=== PATIENT | male | born 1970 | race Caucasian/White ===

== ENCOUNTER 2019-10-10 17:16 | Inpatient (IN) | payer OTHER ==
--- NOTE | 2019-10-10 17:41 | XR ---
EXAMINATION TYPE: XR pelvis AP view DATE OF EXAM: 10/10/2019 CLINICAL HISTORY: Pain after fall injury. TECHNIQUE: A single AP view of the pelvis is obtained. COMPARISON: None. FINDINGS: There is no acute fracture/dislocation evident in the pelvis. Mild axial joint space loss left greater than right hips with mild acetabular spurring. Sacroiliac joints are preserved. Pubic sy mphysis is intact. The overlying soft tissue appears unremarkable. IMPRESSION: There is no acute fracture or dislocation in the pelvis.
[2019-10-10] MEDS ORDERED: DIPH,PERTUS(ACELL)TETVAC-LF 0.5 ML VIAL IM ONE (17:43)
--- NOTE | 2019-10-10 17:43 | XR ---
EXAMINATION TYPE: XR chest 1V portable DATE OF EXAM: 10/10/2019 COMPARISON: Chest x-ray June 03, 2015 HISTORY: Pain from fall injury. TECHNIQUE: Single frontal view of the chest is obtained. FINDINGS: There is new Lateral left basilar opacity. Poor inspiration. Right lung is clear. The card iac silhouette size remains enlarged. Acute displaced fracture distal one third of left clavicle. Pro bable multiple left lateral acute displaced rib fractures. IMPRESSION: Poor inspiration with left lateral basilar acute infiltrate and/or atelectasis. Displace d acute distal left clavicular fracture. Probable multiple displaced left lateral acute rib fractures . CT is ordered.
[2019-10-10] MEDS ORDERED: fentaNYL (PF) 50 MCG/ML 2 ML AMP IVP STA (17:45)
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
[2019-10-10 17:53] LABS: Basophils # (A) 0.1 k/uL (0-0.2); Basophils % (A) 0 %; Eosinophils # (A) 0.3 k/uL (0-0.7); Eosinophils % (A) 2 %; HCT 46.1 % (39.0-53.0); HGB 14.6 gm/dL (13.0-17.5); Lymphocytes # (A) 2.8 k/uL (1.0-4.8); Lymphocytes % (A) 20 %; MCH 29.4 pg (25.0-35.0); MCHC 31.6 g/dL (31.0-37.0); MCV 93.2 fL (80.0-100.0); Mean Platelet Volume 7.1; Monocytes # (A) 0.4 k/uL (0-1.0); Monocytes % (A) 3 %; Neutrophils # (A) 9.9 k/uL (1.3-7.7); Neutrophils % (A) 73 %; Platelet Count 282 k/uL (150-450); RBC 4.95 m/uL (4.30-5.90); RDW 13.5 % (11.5-15.5); WBC 13.7 k/uL (3.8-10.6)
[2019-10-10 18:03] LABS: Albumin 4.8 g/dL (3.5-5.0); Calcium 9.4 mg/dL (8.4-10.2); Total Bilirubin 0.9 mg/dL (0.2-1.3); Total Protein 7.9 g/dL (6.3-8.2)
--- NOTE | 2019-10-10 18:15 | CT ---
EXAMINATION TYPE: CT brain donatoine wo con DATE OF EXAM: 10/10/2019 COMPARISON: CT brain March 23, 2018 HISTORY: Fall injury with headache and neck pain. CT DLP: 1828.5 mGycm. Automated Exposure Control for Dose Reduction was Utilized. TECHNIQUE: CT scan of the head and cervical spine are performed without contrast. FINDINGS: There is no acute intracranial hemorrhage or midline shift identified. Mild ventricular a nd sulcal prominence. Some low attenuation in the periventricular white matter. Old lacunar infarcts right basal ganglia and near junction of internal capsule and right thalamus. The calvarium is intact . The globes are intact and the visualized sinuses are clear. Vascular calcification distal internal carotid arteries bilaterally. Cervical spine is visualized in its entirety from C1 through upper thoracic levels and demonstrates s traightened alignment without evidence of acute fracture or dislocation. Prevertebral soft tissue ap pears within normal limits. The C1-C2 articulation is within normal limits on the coronal images. V ertebral body heights are maintained. Mild disc space narrowing and mild to moderate anterior spurrin g C5-C6 and C6-C7 levels. Subtle spondylolisthesis or grade 1 retrolisthesis C5 on C6 and C6 on C7. A xial images show uncovertebral facet degenerative changes bilaterally at these levels along with juana inal spurring contributing to bilateral neural foraminal narrowing. Spinal canal is preserved. Greate r than 1 cm lower pole right thyroid nodule axial image 94 warrants nonemergent ultrasound follow-up. The lung apices show no pneumothorax IMPRESSION: 1. There is no acute fracture or dislocation evident in the cervical spine. 2. No acute intracranial hemorrhage or midline shift is seen. Mild age-related cerebral atrophy and m ild to moderate chronic small vessel ischemic change with old right-sided lacunar infarcts.
[2019-10-10 18:23] LABS: INR 0.9 (<1.2); Prothrombin Time 9.7 sec (9.0-12.0)
[2019-10-10 18:27] LABS: Partial Thromboplastin Time 20.4 sec (22.0-30.0)
[2019-10-10] MEDS ORDERED: SODIUM CHLORIDE 0.9% 1,000 ML IV STA (18:28)
[2019-10-10] MEDS ORDERED: NALOXONE 0.4 MG/ML 1 ML VIAL IV PRN (18:30)
[2019-10-10] MEDS ORDERED: HYDROcodone/APAP 5-325MG 1 EACH TAB PO PRN (18:30)
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
[2019-10-10] MEDS ORDERED: MORPHINE SULFATE 4 MG/ML SYRINGE IVP PRN (18:37)
--- NOTE | 2019-10-10 19:02 | XR ---
EXAMINATION TYPE: XR forearm LT DATE OF EXAM: 10/10/2019 CLINICAL HISTORY: Injury with pain TECHNIQUE: Two views of the left forearm are obtained. COMPARISON: None. FINDINGS: There is no acute fracture or dislocation seen in the left radius or ulna. The left elbow and wrist joints appear within normal limits. Slightly suboptimal evaluation of elbow without 90 deg ree positioning or incomplete flexion. Volar surface ulnar sided vascular calcification is present. IMPRESSION: There is no acute fracture or dislocation seen in the left radius or ulna.
[2019-10-10] MEDS: SODIUM CHLORIDE 0.9% 1,000 ML IV SCH (20:26)
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
[2019-10-10 23:40] LABS: Glucose,Whole Blood 163 mg/dL (75-99)
[2019-10-11] MEDS: HYDROmorphone 1 MG/ML 1 ML SYRINGE IVP PRN ×6 (01:46→17:35)
[2019-10-11] MEDS: SODIUM CHLORIDE 0.9% 1,000 ML IV SCH ×3 (05:02→20:13)
[2019-10-11 06:02] LABS: Basophils % (A) 0 %; Eosinophils # (A) 0.2 k/uL (0-0.7); Eosinophils % (A) 1 %; HGB 12.9 gm/dL (13.0-17.5); Lymphocytes # (A) 0.8 k/uL (1.0-4.8); Lymphocytes % (A) 6 %; MCH 30.3 pg (25.0-35.0); MCHC 32.2 g/dL (31.0-37.0); MCV 94.2 fL (80.0-100.0); Mean Platelet Volume 7.9; Monocytes # (A) 0.7 k/uL (0-1.0); Monocytes % (A) 5 %; Neutrophils # (A) 12.3 k/uL (1.3-7.7); Neutrophils % (A) 88 %; Platelet Count 217 k/uL (150-450); RBC 4.25 m/uL (4.30-5.90)
[2019-10-11 06:15] LABS: ALT 67 U/L (4-49); AST 105 U/L (17-59); African American GFR (CKD) >90 (>60 ml/min/1.73 sqM); Albumin 4.1 g/dL (3.5-5.0); Alkaline Phosphatase 65 U/L (38-126); Anion Gap 8 mmol/L; Blood Urea Nitrogen 16 mg/dL (9-20); Carbon Dioxide 25 mmol/L (22-30); Chloride 100 mmol/L (98-107); Glucose 152 mg/dL (74-99); Non-African American GFR(CKD) >90 (>60 ml/min/1.73 sqM); Potassium 4.8 mmol/L (3.5-5.1); Sodium 133 mmol/L (137-145); Total Protein 6.8 g/dL (6.3-8.2)
[2019-10-11] MEDS: PANTOPRAZOLE 40 MG TABLET PO SCH (06:38)
--- NOTE | 2019-10-11 07:21 | XR ---
EXAMINATION TYPE: XR chest 1V portable DATE OF EXAM: 10/11/2019 COMPARISON: 10/10/2019 HISTORY: Pain TECHNIQUE: Single frontal view of the chest is obtained. FINDINGS: Left-sided rib fractures are seen with the left clavicular fracture is not excluded deform ity of the scapula is bilateral consolidation and pleural effusion with cardiomegaly biapical pleural thickening. No sizable pneumothorax. Hypertrophic and degenerative change of the spine. IMPRESSION: 1. Bilateral lower lobe infiltrate and small left effusion with no sizable pneumothorax. 2. Left clavicular and multiple left-sided rib fractures.
[2019-10-11] MEDS: METOPROLOL TARTRATE 50 MG TAB PO SCH ×2 (08:13→20:12)
[2019-10-11] MEDS: amLODIPine 10 MG TAB PO SCH (08:13)
[2019-10-11] MEDS ORDERED: DULoxetine HCL 30 MG CAPSULE.DR PO SCH (09:00)
[2019-10-11] MEDS ORDERED: HYDROcodone/APAP 7.5-325MG 1 EACH TAB PO SCH (09:00)
[2019-10-11] MEDS: HEPARIN SODIUM,PORCINE 5,000 UNIT/ML 1 ML VIAL SQ SCH ×2 (09:37→20:12)
--- NOTE | 2019-10-11 10:35 | P.CNOR ---
History of Present Illness - [facility] Consult date: 10/11/19 Consult reason: other (Left shoulder pain) History of present illness: Patient is a 49-year-old [id number] male who presents after falling off his tractor yesterday injuring his left side. He denied loss of consciousness. He notes left chest and shoulder pain. Review of Systems As per [facility] Past Medical History Past Medical History: Hypertension Additional Past Medical History / Comment(s): back pain, left CVA. History of Any Multi-Drug Resistant Organisms: None Reported Past Surgical History: Orthopedic Surgery Additional Past Surgical History / Comment(s): leg surgery, right ankle right knee Past Psychological History: No Psychological Hx Reported Smoking Status: Former smoker Past Alcohol Use History: Occasional, Rare Past Drug Use History: None Reported Medications and Allergies Home Medications Medication Instructions Recorded Confirmed Type HYDROcodone/APAP 7.5-325MG [[place] 1 tab PO BID 10/10/19 10/10/19 History 7.5-325] Metoprolol Tartrate [Lopressor] 50 mg PO BID 10/10/19 10/10/19 History amLODIPine [Norvasc] 10 mg PO DAILY 10/10/19 10/10/19 History DULoxetine HCL [Cymbalta] 60 mg PO DAILY 10/11/19 10/11/19 History Allergies Allergy/AdvReac Type Severity Reaction Status Date / Time No Known Allergies Allergy Verified 10/10/19 19:09 Physical Examination - Shoulder left Appearance: other (Mild superior swelling left distal clavicle/acromioclavicular joint) Tenderness with palpation: clavicular (Distal clavicle/acromioclavicular joint) Results Nontender cervical, thoracic and lumbar spine/no step-off Tender left distal clavicle/acromioclavicular joint, no tenting Abrasions left dorsal radial proximal forearm Full range of motion left elbow Nontender right upper extremity Pelvis stable to external rotation stress Painless logroll both hips Nontender both knees, ankles and feet Neurovascular exam intact bilateral upper and lower extremities - Labs Labs: Abnormal Lab Results - Last 24 Hours (Table) 10/10/19 10/10/19 10/10/19 Range/Units 17:42 17:42 17:42 WBC 13.7 H (3.8-10.6) k/uL RBC (4.30-5.90) m/uL Hgb (13.0-17.5) gm/dL Neutrophils # 9.9 H (1.3-7.7) k/uL Lymphocytes # (1.0-4.8) k/uL APTT 20.4 L (22.0-30.0) sec Sodium (137-145) mmol/L Carbon Dioxide 18 L (22-30) mmol/L Glucose 188 H (74-99) mg/dL POC Glucose (mg/dL) (75-99) mg/dL AST 126 H (17-59) U/L ALT 77 H (4-49) U/L 10/10/19 10/11/19 10/11/19 Range/Units 23:29 05:31 05:31 WBC 14.0 H (3.8-10.6) k/uL RBC 4.25 L (4.30-5.90) m/uL Hgb 12.9 L (13.0-17.5) gm/dL Neutrophils # 12.3 H (1.3-7.7) k/uL Lymphocytes # 0.8 L (1.0-4.8) k/uL APTT (22.0-30.0) sec Sodium 133 L (137-145) mmol/L Carbon Dioxide (22-30) mmol/L Glucose 152 H (74-99) mg/dL POC Glucose (mg/dL) 163 H (75-99) mg/dL AST 105 H (17-59) U/L ALT 67 H (4-49) U/L H & H 10/10/19 10/11/19 Range/Units 17:42 05:31 Hgb 14.6 12.9 L (13.0-17.5) gm/dL Hct 46.1 40.0 (39.0-53.0) % Coagulation 10/10/19 Range/Units 17:42 INR 0.9 (<1.2) Result Diagrams: 10/11/19 05:31 10/11/19 05:31 - Diagnostic results Shoulder x-ray: image reviewed (Comminuted left distal clavicle fracture) Assessment and Plan Assessment: Left closed/comminuted distal clavicle fracture Multiple left rib fractures/flail chest Left dorsal radial forearm abrasion Plan: I talked to the patient regarding his left clavicle fracture and recommend conservative measures. We will have him wear sling time buyer. I recommend a dressing for his superficial abrasions of his forearm. We will likely have him follow up as an outpatient in 2 weeks regarding his clavicle fracture. Time with Patient: Greater than 30
--- NOTE | 2019-10-11 10:43 | XR ---
EXAMINATION TYPE: XR clavicle LT DATE OF EXAM: 10/11/2019 COMPARISON: NONE HISTORY: Pain TECHNIQUE: 2 view submitted FINDINGS: There is a comminuted displaced fracture of the distal clavicle extending to the AC joint. Suspicion for fracture involving the anterior margin of the left third rib which is only partially in cluded on exam. IMPRESSION: Displaced comminuted fracture distal clavicle extending to the AC joint. See above.
[2019-10-11] MEDS ORDERED: MIDAZOLAM 1 MG/ML 5 ML VIAL IV STA (11:09)
[2019-10-11] MEDS ORDERED: MIDAZOLAM 2 MG/2 ML VIAL ONE ×2 (11:10→11:14)
[2019-10-11] MEDS ORDERED: MIDAZOLAM 2 MG/2 ML VIAL IVP ONE (11:10)
[2019-10-11] MEDS ORDERED: HYDROmorphone (PF) 1 MG/ML ONE (11:10)
[2019-10-11] MEDS ORDERED: NALOXONE 0.4 MG/ML 1 ML VIAL IV PRN (11:36)
[2019-10-11] MEDS: ROPIVACAINE 250 MG, fentaNYL (PF) 1,250 MCG in SODIUM CHLORIDE 0.9% 175 ML EPIDURAL PRN (12:48)
[2019-10-11 13:19] LABS: Hepatitis A Antibody IgM Non-Reactive (Non-Reactive); Hepatitis B Core IgM Non-Reactive (Non-Reactive); Hepatitis B Surface Antigen Non-Reactive (Non-Reactive); Hepatitis C IgG Antibody Non-Reactive (Non-Reactive)
--- NOTE | 2019-10-11 13:59 | P.CNPUL ---
History of Present Illness Consult date: 10/11/19 Requesting physician: Edmar Valdivia Reason for consult: other (Multiple rib fractures secondary to trauma) Chief complaint: Multiple injury, post tractor accident and multiple rib fractures History of present illness: This is a 49-year-old white male, known history of hypertension, COPD, obesity, chronic low back pain, patient fell off his tractor yesterday, and it was over 10 feet high. Patient landed on his left side of the chest, developed significant pain and discomfort over his left chest and over his left clavicle. Patient was brought into the ER, CT of the chest showed small tiny hydropneumothorax, multiple rib fractures anterolaterally, 2 through 7. And posterior leaf 5 through 11. Patient was also noted to have small bowel and proximal sigmoid involvement with mild hematoma but no perforation and no free air. No pelvic fractures were noted. Patient was noted to have a left clavicular fracture and abrasion of left forearm. Patient was admitted, and this consult was initiated. Reviewed the CT of the chest, reviewed the chest x- ray, the pneumothorax was very small, and could barely be seen on CT of the chest, not seen on chest x-ray. Patient is in a left arm sling, seen by orthopedics on consultation, and the recommendation was conservative measures for his clavicular fracture. And recommended immobilization of the left upper extremity. Pain seems to be fairly well controlled, anesthesia was consulted for possible epidural however the pain seems to be controlled with Dilaudid and oral narcotics. Patient is on 6 L nasal cannula, not in distress, chest x-ray showed small left effusion, and no sizable pneumothorax, bibasilar atelectasis/infiltrates noted. Possible contusion. Review of Systems ONSTITUTIONAL: Negative EYES: No icterus sclerae, no conjunctivitis. EARS, NOSE, MOUTH, THROAT, and FACE: Negative RESPIRATORY: As noted in HPI. CARDIOVASCULAR: Negative GASTROINTESTINAL: Bloating without pain. GENITOURINARY: Negative. INTEGUMENT/BREAST: Negative HEMATOLOGIC/LYMPHATIC: Negative MUSCULOSKELTAL: Multiple bruises and discomfort left forearm in the chest area. NEURLOGICAL: Negative BEHAVIORAL/PSYCH: Negative. ENDOCRINE: Negative. Past Medical History Past Medical History: Hypertension Additional Past Medical History / Comment(s): back pain, left CVA. History of Any Multi-Drug Resistant Organisms: None Reported Past Surgical History: Orthopedic Surgery Additional Past Surgical History / Comment(s): leg surgery, right ankle right knee Past Psychological History: No Psychological Hx Reported Smoking Status: Former smoker Past Alcohol Use History: Occasional, Rare Past Drug Use History: None Reported Medications and Allergies Home Medications Medication Instructions Recorded Confirmed Type HYDROcodone/APAP 7.5-325MG [[place] 1 tab PO BID 10/10/19 10/10/19 History 7.5-325] Metoprolol Tartrate [Lopressor] 50 mg PO BID 10/10/19 10/10/19 History amLODIPine [Norvasc] 10 mg PO DAILY 10/10/19 10/10/19 History DULoxetine HCL [Cymbalta] 60 mg PO DAILY 10/11/19 10/11/19 History Allergies Allergy/AdvReac Type Severity Reaction Status Date / Time No Known Allergies Allergy Verified 10/10/19 19:09 Physical Exam Vitals: Vital Signs Temp Pulse Resp BP Pulse Ox 10/11/19 12:00 97.6 F 93 26 H 140/98 93 L 10/11/19 11:00 92 25 H 135/94 95 10/11/19 10:00 93 25 H 146/95 96 10/11/19 09:00 114 H 25 H 159/98 93 L 10/11/19 08:00 97.8 F 114 H 28 H 154/89 93 L 10/11/19 07:00 108 H 22 142/99 93 L 10/11/19 06:30 103 H 22 94 L 10/11/19 06:00 107 H 25 H 149/102 94 L 10/11/19 05:30 104 H 21 93 L 10/11/19 05:00 102 H 26 H 144/96 94 L 10/11/19 04:30 108 H 26 H 94 L 10/11/19 04:00 97.8 F 103 H 26 H 131/95 95 10/11/19 03:30 105 H 25 H 94 L 10/11/19 03:00 105 H 24 142/91 94 L 10/11/19 02:30 105 H 22 94 L 10/11/19 02:00 103 H 22 140/94 94 L 10/11/19 01:30 105 H 26 H 140/94 93 L 10/11/19 01:00 103 H 27 H 138/92 95 10/11/19 00:30 103 H 25 H 94 L 10/11/19 00:03 95 10/11/19 00:00 99.5 F 103 H 21 151/100 95 10/10/19 23:52 105 H 22 96 10/10/19 23:50 107 H 28 H 96 10/10/19 23:40 99.5 F 106 H 27 H 151/100 96 10/10/19 23:30 110 H 33 H 95 10/10/19 23:28 97 10/10/19 23:09 98.6 F 109 H 20 144/106 96 10/10/19 22:24 108 H 20 142/87 94 L 10/10/19 21:39 111 H 22 137/94 95 10/10/19 20:30 102 H 22 138/96 96 10/10/19 17:34 98.2 F 110 H 22 138/62 93 L Intake and Output 10/10/19 10/11/19 10/11/19 22:59 06:59 14:59 Intake Total 840 480 Output Total 485 200 Balance 355 280 Intake: IV 360 Sodium Chloride 0.9% 1, 360 000 ml @ 120 mls/hr IV . Q8H20M [facility] Rx#:[id number] Intake, IV Titration 840 120 Amount Sodium Chloride 0.9% 1, 840 120 000 ml @ 120 mls/hr IV . Q8H20M [facility] Rx#:[id number] Output: Urine 485 200 Other: Voiding Method Indwelling Catheter Indwelling Catheter Weight 108.862 kg 117.2 kg Physical Exam: Revealed 49-year-old white male, obese, in no distress, on 6 L nasal cannula, O2 saturations 96%. Head: Atraumatic, normocephalic. HEENT:[Neck is supple.] [No neck masses.] [No thyromegaly.] [No JVD.] Chest there is evidence of chest wall tenderness, and minimal bruising over the left side of the chest, diminished breath sounds at the bases, no crackles or rhonchi or wheezes. Cardiac Exam: [Normal S1 and S2, no S3 gallop, no murmur.] Abdomen: [Obese, slightly distended, abdomen nontender, no megaly, no rebound, no guarding, normal bowel sounds.] Extremities: [No clubbing, no edema, no cyanosis.] Left upper extremity is in a sling, and there is left forearm abrasion, left clavicular deformity is noted. Tender left distal clavicular area. Neurological Exam: [No focal neurologic deficit.] Skin: Abrasion of dorsal radial proximal forearm. Results - Laboratory Findings CBC and BMP: 10/11/19 05:31 10/11/19 05:31 PT/INR, D-dimer PT 9.7 sec (9.0-12.0) 10/10/19 17:42 INR 0.9 (<1.2) 10/10/19 17:42 Abnormal lab findings: Abnormal Labs 10/10/19 10/10/19 10/10/19 17:42 17:42 17:42 WBC 13.7 H RBC Hgb Neutrophils # 9.9 H Lymphocytes # APTT 20.4 L Sodium Carbon Dioxide 18 L Glucose 188 H POC Glucose (mg/dL) AST 126 H ALT 77 H 10/10/19 10/11/19 10/11/19 23:29 05:31 05:31 WBC 14.0 H RBC 4.25 L Hgb 12.9 L Neutrophils # 12.3 H Lymphocytes # 0.8 L APTT Sodium 133 L Carbon Dioxide Glucose 152 H POC Glucose (mg/dL) 163 H AST 105 H ALT 67 H - Diagnostic Findings Additional studies: All radiographic studies were reviewed including x-ray of the clavicle, chest x- ray, CT of the abdomen and chest and pelvis, CT of the head and cervical spine, and x-rays of pelvis. Assessment and Plan Assessment: Impression: Status post tractor accident/fall, Multiple left-sided rib fractures, but no significant pneumothorax. No significant hemopneumothorax. Pulmonary contusion is strongly suspected. Proximal sigmoid hematoma but no perforation. Benign essential hypertension. Type 2 diabetes. Chronic low back pain. History of depression. Recommendation: Continue present supportive care measures. Continue GI and DVT prophylaxis. Agree with the different consultants on the case regarding present supportive care measures. Resume home meds. No need for any surgical intervention at this point. But the patient is being followed by general surgery and by orthopedics. Continue incentive spirometer. Continue pain control. We will continue to monitor in the ICU for the next 24 hours. Time with Patient: Greater than 30
--- NOTE | 2019-10-11 14:00 | P.GSHP ---
History of Present Illness H&P Date: 10/11/19 CHIEF COMPLAINT: Multiple injury after trauma from a fall from tractor HISTORY OF PRESENT ILLNESS: This is a 49-year-old male with a known history of CVA that is affected his left side, hypertension, obesity and chronic lower back pain. Patient came into the ER after he fell from his tractor. He reports since his stroke that his balance has not been good. He reports that he was picking up something in his tractor lost balance and fell out of bed. It is about a 10 foot drop. He had significant pain on his left side with shortness of breath. And trauma to his left arm. [facility] workup. He is currently in the ICU. Patient had an alcohol level of 82. He had a computed tomography scan of the chest and pelvis revealing tiny left-sided pneumothorax and multiple acute nondisplaced and displaced rib fractures on the left side. Positive for a flail chest with consecutive ribs fractured at 2 levels. In bowel injury involving the small bowel loop of the anterior and mid abdomen and more prominent proximal sigmoid colon left pelvis. He denies any daily alcohol use. In states that he did not have any alcohol yesterday. Patient denies any nausea vomiting, bowel movement changes, any fevers chills or sweats. Patient is followed closely by critical care pain, medical team and orthopedics. Pain service also following and patient is receiving epidural to help with pain control. PAST MEDICAL HISTORY: See list. PAST SURGICAL HISTORY: See list. MEDICATIONS: See list. ALLERGIES: See list. SOCIAL HISTORY: No illicit drug use. REVIEW OF SYSTEMS: CONSTITUTIONAL: Denies fever or chills. HEENT: Denies blurred vision, vision changes, or eye pain. Denies hemoptysis CARDIOVASCULAR: Denies chest pain or pressure. RESPIRATORY: No shortness of breath. GASTROINTESTINAL: See HPI for pertinent findings HEMATOLOGIC: Denies bleeding disorders. GENITOURINARY: Denies any blood in urine or increased urinary frequency. SKIN: Denies pruitis. Denies rash. PHYSICAL EXAM: VITAL SIGNS: Reviewed GENERAL: Well-developed in no acute distress. HEENT: No sclera icterus. Extraocular movements grossly intact. Moist buccal mucosa. Head is atraumatic, normocephalic. No nasal drainage. ABDOMEN: Soft. Obese. Nondistended. Nontender NEUROLOGIC: Alert and oriented. Cranial nerves II through XII grossly intact. LABORATORY DATA: WBC 14 AST 105 ALT 67 EtOH level 82 IMAGING: Computed tomography scan of the chest abdomen pelvis suboptimal study with tiny left-sided hydropneumothorax, multiple acute nondisplaced and displaced left rib fractures involving the anterior lateral left second through seventh ribs and posterior fifth through 11th ribs. Positive flail chest with 3 consecutive ribs fractured at 2 levels. Bowel injury involving small bowel loop anterior mid abdomen and more prominent proximal sigmoid colon left pelvis. No free air. Small left-sided pelvic fluid collection or hematoma noted. Computed tomography scan of the cervical spine is negative for fractures in the brain no acute intracranial hemorrhage or midline shift Chest x-ray bilateral lobe infiltrate and small left effusion with no sizable pneumothorax. Left ventricular and multiple left-sided rib fractures ASSESSMENT: 1. Fall from tractor with multiple injuries 2. Bowel injury and contusion with possible small bowel hematoma. Computed tomography scan of the chest abdomen and pelvis reviewed by Dr. Valdivia 3. Multiple left-sided rib fractures with flail chest 4. Left closed distal clavicular fracture PLAN: -For diet continue nothing by mouth except for ice chips and medications -Anesthesia service consulted for pain management -Orthopedic consulted for left clavicular fracture -DVT prophylaxis subcu heparin GI prophylaxis Protonix Physician Sports Medicine Trainer note has been reviewed by physician. Signing provider agrees with the documented findings, assessment, and plan of care. Past Medical History Past Medical History: Hypertension Additional Past Medical History / Comment(s): back pain, left CVA. History of Any Multi-Drug Resistant Organisms: None Reported Past Surgical History: Orthopedic Surgery Additional Past Surgical History / Comment(s): leg surgery, right ankle right knee Past Psychological History: No Psychological Hx Reported Smoking Status: Former smoker Past Alcohol Use History: Occasional, Rare Past Drug Use History: None Reported Medications and Allergies Home Medications Medication Instructions Recorded Confirmed Type HYDROcodone/APAP 7.5-325MG [[place] 1 tab PO BID 10/10/19 10/10/19 History 7.5-325] Metoprolol Tartrate [Lopressor] 50 mg PO BID 10/10/19 10/10/19 History amLODIPine [Norvasc] 10 mg PO DAILY 10/10/19 10/10/19 History DULoxetine HCL [Cymbalta] 60 mg PO DAILY 10/11/19 10/11/19 History Allergies Allergy/AdvReac Type Severity Reaction Status Date / Time No Known Allergies Allergy Verified 10/10/19 19:09 Surgical - Exam Vital Signs Temp Pulse Resp BP Pulse Ox 98.2 F 110 H 22 138/62 93 L 10/10/19 17:34 10/10/19 17:34 10/10/19 17:34 10/10/19 17:34 10/10/19 17:34 Results - Labs 10/11/19 05:31 10/11/19 05:31 Abnormal Lab Results - Last 24 Hours (Table) 10/10/19 10/10/19 10/10/19 Range/Units 17:42 17:42 17:42 WBC 13.7 H (3.8-10.6) k/uL RBC (4.30-5.90) m/uL Hgb (13.0-17.5) gm/dL Neutrophils # 9.9 H (1.3-7.7) k/uL Lymphocytes # (1.0-4.8) k/uL APTT 20.4 L (22.0-30.0) sec Sodium (137-145) mmol/L Carbon Dioxide 18 L (22-30) mmol/L Glucose 188 H (74-99) mg/dL POC Glucose (mg/dL) (75-99) mg/dL AST 126 H (17-59) U/L ALT 77 H (4-49) U/L 10/10/19 10/11/19 10/11/19 Range/Units 23:29 05:31 05:31 WBC 14.0 H (3.8-10.6) k/uL RBC 4.25 L (4.30-5.90) m/uL Hgb 12.9 L (13.0-17.5) gm/dL Neutrophils # 12.3 H (1.3-7.7) k/uL Lymphocytes # 0.8 L (1.0-4.8) k/uL APTT (22.0-30.0) sec Sodium 133 L (137-145) mmol/L Carbon Dioxide (22-30) mmol/L Glucose 152 H (74-99) mg/dL POC Glucose (mg/dL) 163 H (75-99) mg/dL AST 105 H (17-59) U/L ALT 67 H (4-49) U/L Diabetes panel 10/10/19 10/11/19 Range/Units 17:42 05:31 Sodium 137 133 L (137-145) mmol/L Potassium 5.0 4.8 (3.5-5.1) mmol/L Chloride 101 100 (98-107) mmol/L Carbon Dioxide 18 L 25 (22-30) mmol/L BUN 15 16 (9-20) mg/dL Creatinine 1.12 0.77 (0.66-1.25) mg/dL Glucose 188 H 152 H (74-99) mg/dL Calcium 9.4 9.0 (8.4-10.2) mg/dL AST 126 H 105 H (17-59) U/L ALT 77 H 67 H (4-49) U/L Alkaline Phosphatase 66 65 (38-126) U/L Total Protein 7.9 6.8 (6.3-8.2) g/dL Albumin 4.8 4.1 (3.5-5.0) g/dL Calcium panel 10/10/19 10/11/19 Range/Units 17:42 05:31 Calcium 9.4 9.0 (8.4-10.2) mg/dL Albumin 4.8 4.1 (3.5-5.0) g/dL Pituitary panel 10/10/19 10/11/19 Range/Units 17:42 05:31 Sodium 137 133 L (137-145) mmol/L Potassium 5.0 4.8 (3.5-5.1) mmol/L Chloride 101 100 (98-107) mmol/L Carbon Dioxide 18 L 25 (22-30) mmol/L BUN 15 16 (9-20) mg/dL Creatinine 1.12 0.77 (0.66-1.25) mg/dL Glucose 188 H 152 H (74-99) mg/dL Calcium 9.4 9.0 (8.4-10.2) mg/dL Adrenal panel 10/10/19 10/11/19 Range/Units 17:42 05:31 Sodium 137 133 L (137-145) mmol/L Potassium 5.0 4.8 (3.5-5.1) mmol/L Chloride 101 100 (98-107) mmol/L Carbon Dioxide 18 L 25 (22-30) mmol/L BUN 15 16 (9-20) mg/dL Creatinine 1.12 0.77 (0.66-1.25) mg/dL Glucose 188 H 152 H (74-99) mg/dL Calcium 9.4 9.0 (8.4-10.2) mg/dL Total Bilirubin 0.9 1.0 (0.2-1.3) mg/dL AST 126 H 105 H (17-59) U/L ALT 77 H 67 H (4-49) U/L Alkaline Phosphatase 66 65 (38-126) U/L Total Protein 7.9 6.8 (6.3-8.2) g/dL Albumin 4.8 4.1 (3.5-5.0) g/dL
--- NOTE | 2019-10-11 14:48 | P.PN ---
Subjective Progress Note Date: 10/11/19 History of present illness 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 Patient ended up seen in trauma at [facility] multiple exiting CAT scan was per for CT of the chest showed left sided hydropneumothorax with multiple displace rib fracture anterolateral drip 2-7 and posterior 5-11 with a flail chest, abdominal pelvic CT showed ball injury with small bowel and proximal sigmoid involvement with mild hematoma with no perforation or free air. Pelvic showed no fracture head and neck showed no C-spine fracture and the major abnormality and CAT scan of the brain. Left upper extremity did not show any fracture patient had his arm in sling of the time. Was seen and evaluated before leaving the emergency department patient was in quite bed discomfort and was in mild respiratory distress having significant tachypnea and tachycardia with significant hypoxia the time require higher flow 2. No chest tube place ment at the time. General surgery and ICU service were notified patient will be transferred to the ICU from the emergency department 10/10: Patient remains in the intensive care unit. We have added in consult with orthopedics regarding left clavicular fracture. Patient also has a skin tear to the left forearm. There is a consult in place with anesthesiology for pain control. Discussed issue that patient had alcohol in his system which he adamantly denies any alcohol intake. Patient to be on ice chips only per Dr. Valdivia. PT and OT will be added. Patient is on SCDs and LOU hose for DVT prophylaxis. Incentive spirometry is at bedside and patient encouraged to use every hour. Patient has been afebrile, heart rate 114, blood pressure 154/89, pulse ox 93% on high flow nasal cannula 10 L. Repeat blood work reveals WBC 14.0, hemoglobin 12.9. Sodium 133, creatinine 0.77, blood sugar 152. AST 105, ALT 67. Hepatitis panel negative. Review of systems CONSTITUTIONAL: Denies fevers. Denies chills. EYES: No icterus sclerae, no conjunctivitis. EARS, NOSE, MOUTH, THROAT, and FACE: No sore throat, lymphadenopathy, carotid bruits or deformity. RESPIRATORY: Positive significant shortness of breath cough wheezes. CARDIOVASCULAR: Positive PND orthopnea and palpitation significant chest pain. GASTROINTESTINAL: Significant abdominal distention with nausea no vomiting no bowel movement so far no diarrhea. GENITOURINARY: Negative for Hematuria or UTI, no kidney stones. INTEGUMENT/BREAST: Negative for any muscular injury with mild osteoarthritis.. HEMATOLOGIC/LYMPHATIC: Negative for bleed or purpura. MUSCULOSKELTAL: Multiple bruises and discomfort left forearm in the chest area. NEURLOGICAL: No LOC, Sz or syncope, blurred vision dizziness or abnormality.. BEHAVIORAL/PSYCH: Negative. ENDOCRINE: Negative. Physical examination General Appearance: Alert, cooperative, obese looks older than his age in no ac simona respiratory distress. Neck HEENT: Supple, no lymphadenopathy, no thyroid enlargement, no carotid bruits. Mild bruise in the facial area. Lungs: Decreased breath some bilaterally with fine rhonchi positive mild expiratory wheezes decreased breath sound more in the left and the right side. Chest Wall: Significant chest wall tenderness and discomfort in the left side with mild bruise of chest wall area. Heart: Irregular rhythm and rate is sinus to positive S3 positive mild tachycardia Back: Significant lower back pain and discomfort. Abdomen: Distention with significant tenderness in the mid abdominal area and lower abdominal region area with significant discomfort in the left lower quadra nt area. Extremities: Slight edema in the lower extremity significant discomfort in left upper extremity with the arm in sling so far. Pulses: 2+ and symmetric. Skin: Skin color, texture, tugor normal, no rashes or lesions. Neurologic: Alert oriented x3 cranial nerves II through XII intact, no motor deficit, no abnormal balance or gait. Assessment and plan 1 post tractor accident with multiple injury and trauma: Patient be admitted to the ICU continued see trauma surgery along with ICU service. Keep watching patient hemodynamic, control pain and watch symptoms. 2 Flail chest with multiple rib fracture in the left side displace in the anterior and posterior area with significant pneumothorax no thoracentesis was done at this point repeat another chest x-ray for sinning patient will require chest tube. 3 significant dyspnea and shortness of breath with respiratory failure: Continue O2 high flow, continue updraft treatment and if needed steroid inhaler. 4 severe abdominal pain with bowel injury along with proximal sigmoid injury with mild hematoma with no rupture of perforation, continue conservative management with nothing by mouth with the bowel distention patient might require NG tube if agreed by trauma surgery continue to watch symptoms. 5 alcohol intoxication. Liver function tests also reflect chronic alcohol use. Patient adamantly denies any alcohol intake for the past 3 years. 6 question of syncope: Not a clear etiology why patient fell off the tractor according to him a note he described to the emergency department and him and his describe the event and explainable patient should be on quality assurance monitor body keep watching for any seizure activity or any abnormality might be alcohol- related. 7 hypertension: Remain on losartan 50 mg a day. 8 hyperglycemia: Type 2 diabetes not on any medication currently continue Accu-C hek with sliding scales coverage. 9 chronic lower back pain: Has been on Robaxin and ibuprofen as needed. 10 chronic depression: Has been on the Loxitane 50 mg daily. 11 GI prophylaxis: Patient be on pantoprazole IV. 12 DVT prophylaxis: If agreed by video conference specialist Lovenox 40 mg subcutaneous daily. 13. Clavicular fracture. Consult with orthopedic. CODE STATUS: Full code. Discharge plan: To be determined. PT and OT. Impression and plan of care have been directed as dictated by the signing physician. Kyra Norwood nurse practitioner acting as scribe for signing physician. Objective - Vital Signs Vital signs: Vital Signs Temp 97.8 F 10/11/19 04:00 Pulse 108 H 10/11/19 07:00 Resp 22 10/11/19 07:00 BP 142/99 10/11/19 07:00 Pulse Ox 93 L 10/11/19 07:00 Intake & Output 10/10/19 10/11/19 10/11/19 18:59 06:59 18:59 Intake Total 840 120 Output Total 485 50 Balance 355 70 Weight 108.862 kg 117.2 kg Intake: Intake, IV Titration 840 120 Amount Sodium Chloride 0.9% 1, 840 120 000 ml @ 120 mls/hr IV . Q8H20M [facility] Rx#:[id number] Output: Urine 485 50 Other: Voiding Method Indwelling Catheter - Labs CBC & Chem 7: 10/11/19 05:31 10/11/19 05:31 Labs: Abnormal Lab Results - Last 24 Hours (Table) 10/10/19 10/10/19 10/10/19 Range/Units 17:42 17:42 17:42 WBC 13.7 H (3.8-10.6) k/uL RBC (4.30-5.90) m/uL Hgb (13.0-17.5) gm/dL Neutrophils # 9.9 H (1.3-7.7) k/uL Lymphocytes # (1.0-4.8) k/uL APTT 20.4 L (22.0-30.0) sec Sodium (137-145) mmol/L Carbon Dioxide 18 L (22-30) mmol/L Glucose 188 H (74-99) mg/dL POC Glucose (mg/dL) (75-99) mg/dL AST 126 H (17-59) U/L ALT 77 H (4-49) U/L 10/10/19 10/11/19 10/11/19 Range/Units 23:29 05:31 05:31 WBC 14.0 H (3.8-10.6) k/uL RBC 4.25 L (4.30-5.90) m/uL Hgb 12.9 L (13.0-17.5) gm/dL Neutrophils # 12.3 H (1.3-7.7) k/uL Lymphocytes # 0.8 L (1.0-4.8) k/uL APTT (22.0-30.0) sec Sodium 133 L (137-145) mmol/L Carbon Dioxide (22-30) mmol/L Glucose 152 H (74-99) mg/dL POC Glucose (mg/dL) 163 H (75-99) mg/dL AST 105 H (17-59) U/L ALT 67 H (4-49) U/L
[2019-10-11] MEDS ORDERED: diphenhydrAMINE 50 MG/ML 1 ML VIAL IVP PRN (16:38)
[2019-10-12] MEDS: SODIUM CHLORIDE 0.9% 1,000 ML IV SCH ×3 (04:03→20:31)
[2019-10-12 04:29] LABS: ALT 54 U/L (4-49); AST 77 U/L (17-59); African American GFR (CKD) >90 (>60 ml/min/1.73 sqM); Albumin 3.7 g/dL (3.5-5.0); Alkaline Phosphatase 54 U/L (38-126); Anion Gap 7 mmol/L; Blood Urea Nitrogen 17 mg/dL (9-20); Calcium 8.5 mg/dL (8.4-10.2); Carbon Dioxide 23 mmol/L (22-30); Chloride 102 mmol/L (98-107); Glucose 120 mg/dL (74-99); Non-African American GFR(CKD) >90 (>60 ml/min/1.73 sqM); Potassium 4.7 mmol/L (3.5-5.1); Sodium 132 mmol/L (137-145); Total Bilirubin 1.6 mg/dL (0.2-1.3); Total Protein 6.2 g/dL (6.3-8.2)
[2019-10-12 04:42] LABS: Basophils % (A) 0 %; Eosinophils # (A) 0.1 k/uL (0-0.7); Eosinophils % (A) 1 %; HCT 35.1 % (39.0-53.0); HGB 11.2 gm/dL (13.0-17.5); Lymphocytes # (A) 1.1 k/uL (1.0-4.8); Lymphocytes % (A) 8 %; MCV 93.8 fL (80.0-100.0); Mean Platelet Volume 6.9; Monocytes % (A) 7 %; Neutrophils # (A) 11.9 k/uL (1.3-7.7); Neutrophils % (A) 84 %; Platelet Count 182 k/uL (150-450); RBC 3.74 m/uL (4.30-5.90); RDW 13.5 % (11.5-15.5); WBC 14.2 k/uL (3.8-10.6)
[2019-10-12] MEDS: PANTOPRAZOLE 40 MG TABLET PO SCH (06:22)
--- NOTE | 2019-10-12 07:19 | XR ---
EXAMINATION TYPE: XR chest 1V portable DATE OF EXAM: 10/12/2019 Comparison: 10/11/2019 Clinical History: 49 year-old male shortness of breath, assess lungs Findings: The patient is rotated towards the left altering the normal cardiac and mediastinal contours. Heart r emains mildly enlarged. Small left pleural effusion and patchy opacity within the left mid and lower lung remains. No multiple left-sided rib fractures. No appreciable pneumothorax. Known distal left cl avicle fracture. Impression: 1. Similar mild cardiomegaly. 2. Continued small left effusion with adjacent atelectasis and/or consolidation. 3. Known multiple left-sided rib fractures. Known distal left clavicle fracture.
[2019-10-12] MEDS: DULoxetine HCL 60 MG CAPSULE.DR PO SCH (08:40)
[2019-10-12] MEDS: METOPROLOL TARTRATE 50 MG TAB PO SCH ×2 (08:40→20:31)
[2019-10-12] MEDS: HEPARIN SODIUM,PORCINE 5,000 UNIT/ML 1 ML VIAL SQ SCH ×2 (08:40→20:31)
[2019-10-12] MEDS: amLODIPine 10 MG TAB PO SCH (08:41)
--- NOTE | 2019-10-12 09:04 | US ---
EXAMINATION TYPE: US chest DATE OF EXAM: 10/12/2019 COMPARISON: Radiograph 10/12/2019 CLINICAL HISTORY: 49-year-old male Markings for thoracentesis by pulmonary staff. TECHNIQUE: Targeted ultrasound of the posterior lower left hemithorax FINDINGS: EXAM MEASUREMENTS: Left Pleural Effusion pocket size: 5.8 cm Left skin surface to fluid distance: 3.2 cm The pocket of fluid is crescent shaped, and is 5 cm deep but not very wide. Left side marked for possible thoracentesis outside the dept. Pulmonologists are able to review the images in the patient?s EMR. IMPRESSIONS: Small left pleural effusion with marking performed.
--- NOTE | 2019-10-12 11:44 | P.PN ---
Progress Note - Text 10/12/19 710am 49-year-old male status post multiple rib fractures patient received an epidural for pain control. Epidural solution running at 8 mL an hour with a VAS of 10. I have discussed with Dr. dai and the plan to replace the epidural in the afternoon
--- NOTE | 2019-10-12 13:32 | P.PN ---
Subjective Progress Note Date: 10/12/19 Principal diagnosis: Multiple left-sided rib fractures secondary to fall/trauma. This is a 49-year-old white male, known history of hypertension, COPD, obesity, chronic low back pain, patient fell off his tractor yesterday, and it was over 10 feet high. Patient landed on his left side of the chest, developed significant pain and discomfort over his left chest and over his left clavicle. Patient was brought into the ER, CT of the chest showed small tiny hydropneumothorax, multiple rib fractures anterolaterally, 2 through 7. And posterior leaf 5 through 11. Patient was also noted to have small bowel and proximal sigmoid involvement with mild hematoma but no perforation and no free air. No pelvic fractures were noted. Patient was noted to have a left clavicular fracture and abrasion of left forearm. Patient was admitted, and this consult was initiated. Reviewed the CT of the chest, reviewed the chest x- ray, the pneumothorax was very small, and could barely be seen on CT of the chest, not seen on chest x-ray. Patient is in a left arm sling, seen by orthopedics on consultation, and the recommendation was conservative measures for his clavicular fracture. And recommended immobilization of the left upper extremity. Pain seems to be fairly well controlled, anesthesia was consulted for possible epidural however the pain seems to be controlled with Dilaudid and oral narcotics. Patient is on 6 L nasal cannula, not in distress, chest x-ray showed small left effusion, and no sizable pneumothorax, bibasilar atelectasis/infiltrates noted. Possible contusion. Patient was reevaluated today on 10/12/19, remains in the ICU, patient is on 10 L high flow nasal cannula, and O2 saturation is 96%. He is on epidural for pain control, he denies shortness of breath, pain seems to be fairly well controlled. Patient is doing poorly with incentive spirometry, achieving no more than 1000 and mild. Left arm remains in a sling. Patient is on IV fluid at 1 20 mL per hour. And I have cut down his FiO2 up to 8 L/m. His chest x-ray showed left lower lobe atelectasis and small left pleural effusion. Ultrasound of the chest showed small left pleural effusion pocket of 5.8 cm, the pocket is crescent- shaped, and 5 cm deep. But not very wide. Hence I have no plans to recommend thoracentesis at this point unless the pleural effusion gets larger. I believe this is most likely hemothorax associated with left lower lobe atelectasis and possibly pulmonary contusion. Objective - Vital Signs Vital signs: Vital Signs Temp 98.5 F 10/12/19 08:00 Pulse 91 10/12/19 10:00 Resp 28 H 10/12/19 10:00 BP 137/88 10/12/19 11:00 Pulse Ox 96 10/12/19 10:00 Intake & Output 10/11/19 10/12/19 10/12/19 18:59 06:59 18:59 Intake Total 1470.70 7083.040 5218 Output Total 522 575 355 Balance 948.70 964.333 745 Weight 123.7 kg Intake: IV 1320 1440 600 Sodium Chloride 0.9% 1, 1320 1440 600 000 ml @ 120 mls/hr IV . Q8H20M [facility] Rx#:[id number] Intake, IV Titration 150.70 99.333 Amount Ropivacaine 250 mg 30.70 99.333 fentaNYL (PF) 1,250 mcg In Sodium Chloride 0.9% 175 ml @ Per Protocol EPIDURAL .Q0M PRN Rx#: [id number] Sodium Chloride 0.9% 1, 120 000 ml @ 120 mls/hr IV . Q8H20M [facility] Rx#:[id number] Oral 500 Output: Urine 522 575 355 Other: Voiding Method Indwelling Catheter Indwelling Catheter Indwelling Catheter - Exam Physical Exam: Revealed 49-year-old white male, obese, in no distress, on 10 L nasal cannula, O2 saturations 96%. Head: Atraumatic, normocephalic. HEENT:[Neck is supple.] [No neck masses.] [No thyromegaly.] [No JVD.] Chest there is evidence of chest wall tenderness, and minimal bruising over the left side of the chest, diminished breath sounds at the bases, no crackles or rhonchi or wheezes. Cardiac Exam: [Normal S1 and S2, no S3 gallop, no murmur.] Abdomen: [Obese, slightly distended, abdomen nontender, no megaly, no rebound, no guarding, normal bowel sounds.] Extremities: [No clubbing, no edema, no cyanosis.] Left upper extremity is in a sling, and there is left forearm abrasion, left clavicular deformity is noted. Tender left distal clavicular area. Neurological Exam: [No focal neurologic deficit.] Skin: Abrasion of dorsal radial proximal forearm. - Labs CBC & Chem 7: 10/12/19 03:52 10/12/19 03:52 Labs: Abnormal Lab Results - Last 24 Hours (Table) 10/12/19 10/12/19 Range/Units 03:52 03:52 WBC 14.2 H (3.8-10.6) k/uL RBC 3.74 L (4.30-5.90) m/uL Hgb 11.2 L (13.0-17.5) gm/dL Hct 35.1 L (39.0-53.0) % Neutrophils # 11.9 H (1.3-7.7) k/uL Sodium 132 L (137-145) mmol/L Glucose 120 H (74-99) mg/dL Total Bilirubin 1.6 H (0.2-1.3) mg/dL AST 77 H (17-59) U/L ALT 54 H (4-49) U/L Total Protein 6.2 L (6.3-8.2) g/dL Assessment and Plan Assessment: Impression: Status post tractor accident/fall, Multiple left-sided rib fractures, but no significant pneumothorax. No significant hemopneumothorax. Pulmonary contusion is strongly suspected. Proximal sigmoid hematoma but no perforation. Benign essential hypertension. Type 2 diabetes. Chronic low back pain. History of depression. Small left sided hemothorax is suspected, not large enough to drain at this point. Recommendation: Titrate FiO2, keep O2 saturation above 93%. Continue present supportive care measures. Continue GI and DVT prophylaxis. No need for any surgical intervention at this point. But the patient is being followed by general surgery and by orthopedics. Continue incentive spirometer. Transfer patient out of the ICU to a regular medical floor. Continue pain control. Patient is presently on epidural. Time with Patient: Less than 30
--- NOTE | 2019-10-12 14:17 | P.PN ---
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 Patient ended up seen in trauma at [facility] multiple exiting CAT scan was per for CT of the chest showed left sided hydropneumothorax with multiple displace rib fracture anterolateral drip 2-7 and posterior 5-11 with a flail chest, abdominal pelvic CT showed ball injury with small bowel and proximal sigmoid involvement with mild hematoma with no perforation or free air. Pelvic showed no fracture head and neck showed no C-spine fracture and the major abnormality and CAT scan of the brain. Left upper extremity did not show any fracture patient had his arm in sling of the time. Was seen and evaluated before leaving the emergency department patient was in quite bed discomfort and was in mild respiratory distress having significant tachypnea and tachycardia with significant hypoxia the time require higher flow 2. No chest tube place ment at the time. General surgery and ICU service were notified patient will be transferred to the ICU from the emergency department 10/10: Patient remains in the intensive care unit. We have added in consult with orthopedics regarding left clavicular fracture. Patient also has a skin tear to the left forearm. There is a consult in place with anesthesiology for pain control. Discussed issue that patient had alcohol in his system which he adamantly denies any alcohol intake. Patient to be on ice chips only per Dr. Valdivia. PT and OT will be added. Patient is on SCDs and LOU hose for DVT prophylaxis. Incentive spirometry is at bedside and patient encouraged to use every hour. Patient has been afebrile, heart rate 114, blood pressure 154/89, pulse ox 93% on high flow nasal cannula 10 L. Repeat blood work reveals WBC 14.0, hemoglobin 12.9. Sodium 133, creatinine 0.77, blood sugar 152. AST 105, ALT 67. Hepatitis panel negative. 10/11: Patient was seen yesterday by pain management and epidural was placed for pain control. Patient states his pain is much improved from yesterday. Repeat chest x-ray reveals mild cardiomegaly. Small left effusion with adjacent atelectasis and/or consolidation. No multiple left-sided rib fractures. Known distal left clavicle fracture. Ultrasound of the chest reveals small left pleural effusion 5.8 cm and marked. Patient has been afebrile, heart rate 111, respiratory rate 25, blood pressure 140/93 and he just received his blood pressu re medications. Pulse ox is 93% on 10 L high flow nasal cannula. Repeat blood work reveals WBC 14.2, hemoglobin 11.2. Sodium 132, creatinine 0.73 blood sugar 120. Total bilirubin 1.6, AST 77, ALT 54, alkaline phosphatase 54. Viral hepatitis panel negative. Review of systems CONSTITUTIONAL: Denies fevers. Denies chills. EYES: No icterus sclerae, no conjunctivitis. EARS, NOSE, MOUTH, THROAT, and FACE: No sore throat, lymphadenopathy, carotid bruits or deformity. RESPIRATORY: Positive significant shortness of breath cough wheezes. CARDIOVASCULAR: Positive PND orthopnea and palpitation reports chest wall pain. GASTROINTESTINAL: Significant abdominal distention with nausea no vomiting no bowel movement so far no diarrhea. GENITOURINARY: Negative for Hematuria or UTI, no kidney stones. INTEGUMENT/BREAST: Negative for any muscular injury with mild osteoarthritis.. HEMATOLOGIC/LYMPHATIC: Negative for bleed or purpura. MUSCULOSKELTAL: Multiple bruises and discomfort left forearm in the chest area. NEURLOGICAL: No LOC, Sz or syncope, blurred vision dizziness or abnormality.. BEHAVIORAL/PSYCH: Negative. ENDOCRINE: Negative. Physical examination General Appearance: Alert, cooperative, obese looks older than his age in no acute respiratory distress. Neck HEENT: Supple, no lymphadenopathy, no thyroid enlargement, no carotid bruits. Mild bruise in the facial area. Lungs: Decreased breath some bilaterally with fine rhonchi positive mild expiratory wheezes decreased breath sound more in the left and the right side. Chest Wall: Significant chest wall tenderness and discomfort in the left side with mild bruise of chest wall area. Heart: Irregular rhythm and rate is sinus to positive S3 positive mild tachycar ankit Back: Significant lower back pain and discomfort. Abdomen: Distention with significant tenderness in the mid abdominal area and lower abdominal region area with significant discomfort in the left lower quadrant area. Extremities: Slight edema in the lower extremity significant discomfort in left upper extremity with the arm in sling so far. Wound to the left forearm approximately 12 inches long Pulses: 2+ and symmetric. Skin: Skin color, texture, tugor normal, no rashes or lesions. Neurologic: Alert oriented x3 cranial nerves II through XII intact, no motor deficit, no abnormal balance or gait. Assessment and plan 1 post tractor accident with multiple injury and trauma: Patient be admitted to the ICU continued see trauma surgery along with ICU service. Keep watching patient hemodynamic, control pain and watch symptoms. 2 Flail chest with multiple rib fracture in the left side displace in the anterior and posterior area with significant pneumothorax no thoracentesis was done at this point repeat another chest x-ray. Pleural effusion being evaluated.. 3 significant dyspnea and shortness of breath with hypoxia respiratory failure: Continue O2 high flow, continue updraft treatment and if needed steroid inhaler. 4 severe abdominal pain with bowel injury along with proximal sigmoid injury with mild hematoma with no rupture of perforation, continue conservative management with nothing by mouth with the bowel distention patient might require NG tube if agreed by trauma surgery continue to watch symptoms. 5 alcohol intoxication. Liver function tests also reflect chronic alcohol use. Patient adamantly denies any alcohol intake for the past 3 years. 6 question of syncope: Not a clear etiology why patient fell off the tractor according to him a note he described to the emergency department and him and his describe the event and explainable patient should be on potline monitor keep watching for any seizure activity or any abnormality might be alcohol- related. 7 hypertension: Remain on losartan 50 mg a day and amlodipine 10 mg daily, Lopressor 50 mg twice daily. 8 hyperglycemia: Type 2 diabetes not on any medication currently continue Accu- Chek with sliding scales coverage. 9 chronic lower back pain: Has been on Robaxin and ibuprofen as needed. 10 chronic depression: Has been on the Loxitane 50 mg daily. 11 GI prophylaxis: Patient be on pantoprazole IV. 12 DVT prophylaxis. Heparin subcu 13. Clavicular fracture. Consult with orthopedic appreciated. CODE STATUS: Full code. Discharge plan: To be determined. PT and OT. Impression and plan of care have been directed as dictated by the signing physician. Kyra Norwood nurse practitioner acting as scribe for signing physician. Objective - Vital Signs Vital signs: Vital Signs Temp 98.2 F 08/12/20 04:00 Pulse 111 H 10/12/19 07:00 Resp 25 H 10/12/19 07:00 BP 140/93 10/12/19 07:00 Pulse Ox 93 L 10/12/19 07:00 Intake & Output 10/11/19 10/12/19 10/12/19 18:59 06:59 18:59 Intake Total 1470.70 1539.333 120 Output Total 522 575 55 Balance 948.70 964.333 65 Weight 123.7 kg Intake: IV 1320 1440 120 Sodium Chloride 0.9% 1, 1320 1440 120 000 ml @ 120 mls/hr IV . Q8H20M [facility] Rx#:[id number] Intake, IV Titration 150.70 99.333 Amount Ropivacaine 250 mg 30.70 99.333 fentaNYL (PF) 1,250 mcg In Sodium Chloride 0.9% 175 ml @ Per Protocol EPIDURAL .Q0M [facility] Rx#: [id number] Sodium Chloride 0.9% 1, 120 000 ml @ 120 mls/hr IV . Q8H20M [facility] Rx#:[id number] Output: Urine 522 575 55 Other: Voiding Method Indwelling Catheter Indwelling Catheter - Labs CBC & Chem 7: 10/12/19 03:52 10/12/19 03:52 Labs: Abnormal Lab Results - Last 24 Hours (Table) 10/12/19 10/12/19 Range/Units 03:52 03:52 WBC 14.2 H (3.8-10.6) k/uL RBC 3.74 L (4.30-5.90) m/uL Hgb 11.2 L (13.0-17.5) gm/dL Hct 35.1 L (39.0-53.0) % Neutrophils # 11.9 H (1.3-7.7) k/uL Sodium 132 L (137-145) mmol/L Glucose 120 H (74-99) mg/dL Total Bilirubin 1.6 H (0.2-1.3) mg/dL AST 77 H (17-59) U/L ALT 54 H (4-49) U/L Total Protein 6.2 L (6.3-8.2) g/dL
--- NOTE | 2019-10-12 14:19 | P.PN ---
Subjective Progress Note Date: 10/12/19 CHIEF COMPLAINT: Multiple injury after trauma from a fall from tractor HISTORY OF PRESENT ILLNESS: Patient remain in the ICU. Patient's pain is better controlled with the epidural. He is tolerating ice chips. Diet will be advanced to clears. He denies any abdominal pain. Denies any nausea or vomiti ng. Passing gas. No bowel movement yet. PHYSICAL EXAM: VITAL SIGNS: Reviewed. GENERAL: Well-developed in no acute distress. HEENT: No sclera icterus. Extraocular movements grossly intact. Moist buccal mucosa. Head is atraumatic, normocephalic. ABDOMEN: Soft. Nondistended. Nontender. NEUROLOGIC: Alert and oriented. Cranial nerves II through XII grossly intact. ASSESSMENT: 1. Status post Fall from tractor with multiple injuries 2. Proximal sigmoid hematoma and contusion. Computed tomography scan of the chest abdomen and pelvis reviewed by Dr. Valdivia 3. Multiple left-sided rib fractures with flail chest 4. Left closed distal clavicular fracture followed by orthopedics PLAN: -Advance diet to clear liquids. -Pain management per anesthesia -DVT prophylaxis subcu heparin GI prophylaxis Protonix Physician Manager Philosophy note has been reviewed by physician. Signing provider agrees with the documented findings, assessment, and plan of care. Objective - Vital Signs Vital signs: Vital Signs Temp 98.5 F 10/12/19 08:00 Pulse 100 10/12/19 13:00 Resp 10 L 10/12/19 13:00 BP 137/88 10/12/19 11:00 Pulse Ox 96 10/12/19 13:00 Intake & Output 10/11/19 10/12/19 10/12/19 18:59 06:59 18:59 Intake Total 1470.70 2220.628 8672 Output Total 522 575 555 Balance 948.70 117.025 8726 Weight 123.7 kg Intake: IV 1320 1440 840 Sodium Chloride 0.9% 1, 1320 1440 840 000 ml @ 120 mls/hr IV . Q8H20M [facility] Rx#:[id number] Intake, IV Titration 150.70 99.333 Amount Ropivacaine 250 mg 30.70 99.333 fentaNYL (PF) 1,250 mcg In Sodium Chloride 0.9% 175 ml @ Per Protocol EPIDURAL .Q0M PRN Rx#: [id number] Sodium Chloride 0.9% 1, 120 000 ml @ 120 mls/hr IV . Q8H20M [facility] Rx#:[id number] Oral 740 Output: Urine 522 575 555 Other: Voiding Method Indwelling Catheter Indwelling Catheter Indwelling Catheter - Labs CBC & Chem 7: 10/12/19 03:52 10/12/19 03:52 Labs: Abnormal Lab Results - Last 24 Hours (Table) 10/12/19 10/12/19 Range/Units 03:52 03:52 WBC 14.2 H (3.8-10.6) k/uL RBC 3.74 L (4.30-5.90) m/uL Hgb 11.2 L (13.0-17.5) gm/dL Hct 35.1 L (39.0-53.0) % Neutrophils # 11.9 H (1.3-7.7) k/uL Sodium 132 L (137-145) mmol/L Glucose 120 H (74-99) mg/dL Total Bilirubin 1.6 H (0.2-1.3) mg/dL AST 77 H (17-59) U/L ALT 54 H (4-49) U/L Total Protein 6.2 L (6.3-8.2) g/dL
[2019-10-12] MEDS: ROPIVACAINE 250 MG, fentaNYL (PF) 1,250 MCG in SODIUM CHLORIDE 0.9% 175 ML EPIDURAL PRN (14:21)
--- NOTE | 2019-10-12 16:15 | P.PCN ---
Date of Procedure: 10/12/19 Procedure(s) Performed: Procedure= thoracic epidural catheter placement. Preop diagnosis= severe acute chest wall pain secondary to multiple rib fracture. Postoperative diagnoses= same as preop. Description of the procedure= this is 49 years old. Multiple rib fractures, patient had thoracic epidural catheter placed yesterday but he continued to have severe chest wall pain, the pain is at the left side, which is not relieved with the epidural infusion, the epidural catheter removed and then I replaced the catheter with the new one, the thoracic spine prepped with Betadine 3 then under sterile technique, local infiltration of the skin and subcu interstitial with Lamictal percent at T5-T6 level, local lidocaine 1% 3 mL, then 18-gauge Touhy needle advanced slowly under was positive loss of resistance to saline note he no paresthesia no cerebrospinal fluid, the catheter advanced, test does negative, patient will continue the epidural infusion with combination of fentanyl and ropivacaine at 8 mL per hour
[2019-10-12] MEDS: HYDROmorphone 1 MG/ML 1 ML SYRINGE IVP PRN ×2 (20:29→23:24)
[2019-10-13] MEDS: SODIUM CHLORIDE 0.9% 1,000 ML IV SCH ×3 (03:21→22:36)
[2019-10-13] MEDS: HYDROmorphone 1 MG/ML 1 ML SYRINGE IVP PRN ×2 (03:33→08:44)
--- NOTE | 2019-10-13 08:31 | XR ---
EXAMINATION TYPE: XR chest 1V portable DATE OF EXAM: 10/13/2019 COMPARISON: 10/12/2019 HISTORY: Pneumothorax TECHNIQUE: Single frontal view of the chest is obtained. FINDINGS: Bilateral consolidation and pleural effusion. Heart enlarged. No pneumothorax. Coarsened i nterstitium. Left clavicular fracture noted. Rib deformities are suggested. Correlate for history of trauma. IMPRESSION: Bilateral consolidation and pleural effusion. Findings are stable. Correlate clinically.
[2019-10-13] MEDS: DULoxetine HCL 60 MG CAPSULE.DR PO SCH (08:44)
[2019-10-13] MEDS: PANTOPRAZOLE 40 MG TABLET PO SCH (08:44)
[2019-10-13] MEDS: METOPROLOL TARTRATE 50 MG TAB PO SCH ×2 (08:44→22:35)
[2019-10-13] MEDS: amLODIPine 10 MG TAB PO SCH (08:44)
[2019-10-13] MEDS: HEPARIN SODIUM,PORCINE 5,000 UNIT/ML 1 ML VIAL SQ SCH ×2 (08:44→22:36)
[2019-10-13] MEDS ORDERED: bisacodyL 10 MG SUPP RECTAL STA (08:48)
[2019-10-13 09:34] LABS: Basophils % (A) 0 %; Eosinophils # (A) 0.1 k/uL (0-0.7); Eosinophils % (A) 1 %; HCT 32.4 % (39.0-53.0); HGB 10.6 gm/dL (13.0-17.5); Lymphocytes # (A) 0.8 k/uL (1.0-4.8); Lymphocytes % (A) 7 %; MCH 30.5 pg (25.0-35.0); MCHC 32.7 g/dL (31.0-37.0); MCV 93.3 fL (80.0-100.0); Mean Platelet Volume 7.2; Monocytes # (A) 0.6 k/uL (0-1.0); Monocytes % (A) 5 %; Neutrophils # (A) 9.8 k/uL (1.3-7.7); Neutrophils % (A) 86 %; Platelet Count 153 k/uL (150-450); RBC 3.47 m/uL (4.30-5.90); RDW 13.3 % (11.5-15.5); WBC 11.3 k/uL (3.8-10.6)
[2019-10-13 09:39] LABS: ALT 44 U/L (4-49); AST 63 U/L (17-59); African American GFR (CKD) >90 (>60 ml/min/1.73 sqM); Albumin 3.4 g/dL (3.5-5.0); Alkaline Phosphatase 56 U/L (38-126); Anion Gap 7 mmol/L; Blood Urea Nitrogen 13 mg/dL (9-20); Calcium 8.2 mg/dL (8.4-10.2); Carbon Dioxide 24 mmol/L (22-30); Chloride 101 mmol/L (98-107); Glucose 139 mg/dL (74-99); Non-African American GFR(CKD) >90 (>60 ml/min/1.73 sqM); Potassium 4.1 mmol/L (3.5-5.1); Sodium 132 mmol/L (137-145); Total Bilirubin 1.5 mg/dL (0.2-1.3); Total Protein 5.9 g/dL (6.3-8.2)
--- NOTE | 2019-10-13 11:33 | CDI ---
Documentation Clarification Form Date: 10/13/2019 11:02:14 AM From: Adali Brizuela CCS, CCDS Admit Date: 10/10/2019 06:33:00 PM Patient Name: Aidan Davies Visit Number: [id number] Discharge Date: ATTENTION: The Clinical Documentation Specialists (CDI) and [facility] Coding Staff appreciate your assistance in clarifying documentation. Please respond to the clarification below the line at the bottom and electronically sign. The CDI & [facility] Coding staff will review the response and follow-up if needed. Please note: Queries are made part of the Legal Health Record. If you have any questions, please contact the author of this message via ITS. Dr. Mc De Leon: Per the 10/09 Medical Consult: "...was in a tractor accident according to him he fell off the tractor from over 10 feet high.fell off landed on his left side developed ( ) pain and discomfort and significant shortness of breath with slight trauma to his left arm and elbow with significant abdominal pain and discomfort." "...before leaving the emergency department patient was in quite bed discomfort and was in mild respiratory distress having significant tachypnea and tachycardia with significant hypoxia the time require higher flow 2." History/Risk Factors: COPD, Obesity, Hypertension, Chronic Low Back Pain, Former smoker. Clinical Indicators: Presented to the ED on 10/09 as above. Diagnosed with multiple left side rib fractures with flail chest, Left closed distal clavicular fracture, Possible small bowel contusion, Left side hydropneumothorax. VS 10/09: T 98.2, P 110^, R 22-33, BP 138/62, PO 93 RA - 94 nrb VS 10/10: T 99.5, P 103^, R 21-27^ (shallow, tachypnea), BP 151/100^, PO 95 high flow 10Lnc. 10/09 CXR: Poor inspiration with left lateral basilar acute infiltrate and/or atelectasis. Displaced acute distal left clavicular fracture. Probable left displaced left lateral acute rib fractures. 10/09 CT chest: Tiny left side hydropneumothorax, Multiple left rib fractures. Positive flail chest. Treatment: Admit to ICU, O2: NRB - High flow 10L nc. IV fluid 1,000 mls @ 999/hr, IV Morphine, IV Fentanyl, IV Dilaudid, Incentive Spirometry. In your professional opinion, can you please clarify if these findings signify one of the following conditions? Acute Respiratory Failure Acute on Chronic Respiratory Failure Chronic Respiratory Failure Acute Respiratory Distress Other Diagnosis, please specify Unable to determine Please Specify: o With hypercapnia? o With hypoxia? (Last Query Form Revision: October 2018) MTDD
--- NOTE | 2019-10-13 11:58 | P.PN ---
Subjective Progress Note Date: 10/13/19 Principal diagnosis: Acute hypoxic respiratory failure related to chest trauma, broken ribs 86-year-old here patient with a remote history of rectal cancer in addition to history of cardiomyopathy with reported ejection fraction of 30% in addition to chronic atrial fibrillation on Coumadin anticoagulation with Eliquis on outpatient basis. The patient presented to the ED complaining of generalized weakness and falls. Hemoglobin was found to be 3. She had positive occult b lood in the stool. She was atrial fibrillation. Her lactic acid was also elevated. No abdominal pain or tenderness. No hematemesis. No bright blood blood per rectum. She denied also having melanotic stools. She was given a total of 4 units of packed RBC a total of 4 L of IV fluids and she is in the intensive care unit for now. Overnight, the patient's urine output gradually improved. The most recent hemoglobin from this morning is at 10.4. Serum bicarb still 9 and the patient has a 9 gap acidosis of 14. Nevertheless, the lactic acid level dropped from as high as 8 down to 1.7. There CAT scan of the abdomen and pelvis was done and it showed no acute abnormalities and there is no indication or any cause for the blood loss. No evidence of any retroperitoneal bleeding. No Abdominal distention.. No other significant events overnight. She is awake and alert. No previous history of GI bleeds. Her coagulation profile was abnormal with a INR of 2.3 with a PT of 23.3. PTT was 29.9. Patient was reevaluated today on 10/10/19, remains in the ICU, patient presented with hypotension and profound anemia with hemoglobin of 3. Received so far a total of 4 units of packed RBCs. Patient is feeling better, her chest x-ray showed evidence of mild fluid overload, her Eliquis is still on hold. Patient is on room air with O2 saturations were 96%, and she was on sodium bicarb which I will discontinue. Her bicarb today is 18 and her anion gap has resolved. Renal profile is improving BUN is 55 creatinine is 1.64. WBC count is 8.7 hemoglobin today is 8.9. Again the patient received a total of 4 units of packed RBCs since admission. TSH remains high patient is on thyroid replacement therapy. T4 is 1.23 my plan today is to have patient evaluated by gastroenterology. Continue to hold Eliquis, and likely transfer the patient to a monitor bed on selective today. Patient was reevaluated today on 10/11/19, remains in the ICU as an overflow, patient is doing well, her hemoglobin is stable, no further episodes of bleeding, anticoagulation therapy remains on hold, patient is on room air, she is off the sodium bicarb since yesterday, and I plan today to give her a gentle diuresis, plan to transfer the patient today to a monitor bed on selective once a bed is available. Or consider a remote telemetry bed. Electrolytes are normal. Renal profile continues to improve, creatinine is 1.37 from 2.11 on admission. Hemoglobin is at 9.4. Patient received a total of 4 units of packed RBCs since admission. No chest x-ray was done today, but on physical examination had minimal crackles at the base. Patient was reevaluated today on 10/12/19, remains as an overflow in the ICU, patient is on room air, she is hemodynamically stable, she has no specific complaints except for some vague chest wall discomfort. Hemoglobin is stable. And she received a total of 4 units of packed RBCs since admission. No further episodes of bleeding, and no further drop in her hemoglobin. Patient is in atrial fibrillation, rate seems to be controlled at 78 bpm. Hence I plan to transfer the patient was admitted becomes available on the regular medical floor with remote monitoring Patient was seen in follow-up on the regular medical surgical floor on 10/13/2019. He was transferred out of the intensive care unit yesterday, no acute events overnight, he still in significant amount of chest wall discomfort, he has an epidural catheter in place, anesthesia services are following, his epidural is infusing at a rate of 9 ML per hour. His epidural catheter was removed yesterday and the thoracic spine epidural catheter was placed per anesthesia. His senna spirometer effort is 700 mL on today's exam, his respirations are shallow, he still requiring 10 L of oxygen per high flow nasal cannula with a pulse ox of 95%, hemodynamically he is stable, he is afebrile. Today's chest x-ray has been reviewed showing bilateral consolidation and pleural effusions, pneumothorax Objective - Vital Signs Vital signs: Vital Signs Temp 98.8 F 10/13/19 07:44 Pulse 109 H 10/13/19 07:44 Resp 32 H 10/13/19 07:44 BP 158/93 10/13/19 07:44 Pulse Ox 95 10/13/19 07:44 Intake & Output 10/12/19 10/13/19 10/13/19 18:59 06:59 18:59 Intake Total 2133.333 59.067 Output Total 955 1500 Balance 1178.333 -1440.933 Intake: IV 1320 Sodium Chloride 0.9% 1, 1320 000 ml @ 120 mls/hr IV . Q8H20M [facility] Rx#:[id number] Intake, IV Titration 73.333 59.067 Amount Ropivacaine 250 mg 73.333 59.067 fentaNYL (PF) 1,250 mcg In Sodium Chloride 0.9% 175 ml @ Per Protocol EPIDURAL .Q0M PRN Rx#: [id number] Oral 740 Output: Urine 955 1500 Uretheral ([place]) 1500 Other: Voiding Method Indwelling Catheter Indwelling Catheter - Exam GENERAL EXAM: Alert, very pleasant 49-year-old white male, sitting up in the recliner, in mild to moderate amount of distress from left chest wall discomfort from recent history of tractor accident sustaining multiple rib fractures and small pneumothorax, currently on 10 L per high flow nasal cannula with a pulse ox of 95%, comfortable in no apparent distress. HEAD: Normocephalic/atraumatic. EYES: Normal reaction of pupils, equal size. Conjunctiva pink, sclera white. NOSE: Clear with pink turbinates. THROAT: No erythema or exudates. NECK: No masses, no JVD, no thyroid enlargement, no adenopathy. CHEST: No chest wall deformity. Symmetrical expansion. LUNGS: diminished air entry with no crackles, wheeze, rhonchi or dullness. CVS: Regular rate and rhythm, normal S1 and S2, no gallops, no murmurs, no rubs ABDOMEN: Soft, nontender. No hepatosplenomegaly, normal bowel sounds, no guarding or rigidity. EXTREMITIES: No clubbing, no edema, no cyanosis, 2+ pulses and upper and lower extremities. MUSCULOSKELETAL: Muscle strength and tone normal. SPINE: No scoliosis or deformity. Thoracic epidural catheter is in place with ropivacaine and fentanyl infusing currently at 9 ML per hour SKIN: No rashes CENTRAL NERVOUS SYSTEM: Alert and oriented -3. No focal deficits, tone is normal in all 4 extremities. PSYCHIATRIC: Alert and oriented -3. Appropriate affect. Intact judgment and insight. - Labs CBC & Chem 7: 10/13/19 08:54 08 08:54 Labs: Abnormal Lab Results - Last 24 Hours (Table) 10/13/19 10/13/19 Range/Units 08:54 08:54 WBC 11.3 H (3.8-10.6) k/uL RBC 3.47 L (4.30-5.90) m/uL Hgb 10.6 L (13.0-17.5) gm/dL Hct 32.4 L (39.0-53.0) % Neutrophils # 9.8 H (1.3-7.7) k/uL Lymphocytes # 0.8 L (1.0-4.8) k/uL Sodium 132 L (137-145) mmol/L Creatinine 0.59 L (0.66-1.25) mg/dL Glucose 139 H (74-99) mg/dL Calcium 8.2 L (8.4-10.2) mg/dL Total Bilirubin 1.5 H (0.2-1.3) mg/dL AST 63 H (17-59) U/L Total Protein 5.9 L (6.3-8.2) g/dL Albumin 3.4 L (3.5-5.0) g/dL Assessment and Plan Plan: Assessment: #1. Acute hypoxic respiratory failure related to multiple left-sided rib fractures, status post tractor accident/fall #2. Acute trauma related to tractor accident, with multiple left-sided rib fra ctures, but no significant pneumothorax #3. Pulmonary contusion is strongly suspected #4. Proximal sigmoid hematoma but no perforation #5. Benign essential hypertension #6. Type 2 diabetes mellitus #7. Chronic low back pain #8. History of depression #9. Small left-sided hemothorax, not large enough to drain at this point Plan: Continue encouraging deep breathing and coughing, today chest x-ray has been reviewed, showing no evidence of pneumothorax, bilateral consolidation and ple ural effusion, there are not large enough to drain. Continue encouraging incentive spirometry use, increase activity as tolerated, maintain pain control. We'll continue to follow I performed a history & physical examination of the patient and discussed their management with my nurse practitioner, Megha Kenny. I reviewed the nurse practitioner's note and agree with the documented findings and plan of care. Lung sounds are positive for diminished breath sounds. The findings and the impression was discussed with the patient. I attest to the documentation by the nurse practitioner. Time with Patient: Less than 30
--- NOTE | 2019-10-13 13:51 | P.PN ---
Subjective Progress Note Date: 10/13/19 History of present illness 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 Patient ended up seen in trauma at [facility] multiple exiting CAT scan was per for CT of the chest showed left sided hydropneumothorax with multiple displace rib fracture anterolateral drip 2-7 and posterior 5-11 with a flail chest, abdominal pelvic CT showed ball injury with small bowel and proximal sigmoid involvement with mild hematoma with no perforation or free air. Pelvic showed no fracture head and neck showed no C-spine fracture and the major abnormality and CAT scan of the brain. Left upper extremity did not show any fracture patient had his arm in sling of the time. Was seen and evaluated before leaving the emergency department patient was in quite bed discomfort and was in mild respiratory distress having significant tachypnea and tachycardia with significant hypoxia the time require higher flow 2. No chest tube place ment at the time. General surgery and ICU service were notified patient will be transferred to the ICU from the emergency department 10/10: Patient remains in the intensive care unit. We have added in consult with orthopedics regarding left clavicular fracture. Patient also has a skin tear to the left forearm. There is a consult in place with anesthesiology for pain control. Discussed issue that patient had alcohol in his system which he adamantly denies any alcohol intake. Patient to be on ice chips only per Dr. Valdivia. PT and OT will be added. Patient is on SCDs and LOU hose for DVT prophylaxis. Incentive spirometry is at bedside and patient encouraged to use every hour. Patient has been afebrile, heart rate 114, blood pressure 154/89, pulse ox 93% on high flow nasal cannula 10 L. Repeat blood work reveals WBC 14.0, hemoglobin 12.9. Sodium 133, creatinine 0.77, blood sugar 152. AST 105, ALT 67. Hepatitis panel negative. 10/11: Patient was seen yesterday by pain management and epidural was placed for pain control. Patient states his pain is much improved from yesterday. Repeat chest x-ray reveals mild cardiomegaly. Small left effusion with adjacent atelectasis and/or consolidation. No multiple left-sided rib fractures. Known distal left clavicle fracture. Ultrasound of the chest reveals small left pleural effusion 5.8 cm and marked. Patient has been afebrile, heart rate 111, respiratory rate 25, blood pressure 140/93 and he just received his blood pressu re medications. Pulse ox is 93% on 10 L high flow nasal cannula. Repeat blood work reveals WBC 14.2, hemoglobin 11.2. Sodium 132, creatinine 0.73 blood sugar 120. Total bilirubin 1.6, AST 77, ALT 54, alkaline phosphatase 54. Viral hepatitis panel negative. 10/12: Patient is seen today on the [facility] floor. Patient is currently on clear liquid diet. He has not had a bowel movement. Dulcolax suppository ordered. He remains with epidural in place but is receiving Dilaudid for breakthrough pain. Patient will be started on the CIWA protocol. He has been afebrile, heart rate 109, blood pressure 150/93, pulse ox 95% on 9 L high flow nasal cannula. Hydralazine added. PT OT to be working with patient today and get him into a chair. Patient denies any nausea vomiting. He is reaching 750 ML's on incentive spirometry. manager web has discussed discharge planning again with the patient and plan is to return home. Review of systems CONSTITUTIONAL: Denies fevers. Denies chills. EYES: No icterus sclerae, no conjunctivitis. EARS, NOSE, MOUTH, THROAT, and FACE: No sore throat, lymphadenopathy, carotid bruits or deformity. RESPIRATORY: Positive significant shortness of breath cough wheezes. CARDIOVASCULAR: Positive PND orthopnea and palpitation reports chest wall pain. GASTROINTESTINAL: Significant abdominal distention with nausea no vomiting no bowel movement so far no diarrhea. Reports constipation. GENITOURINARY: Negative for Hematuria or UTI, no kidney stones. INTEGUMENT/BREAST: Negative for any muscular injury with mild osteoarthritis.. HEMATOLOGIC/LYMPHATIC: Negative for bleed or purpura. MUSCULOSKELTAL: Multiple bruises and discomfort left forearm in the chest area. NEURLOGICAL: No LOC, Sz or syncope, blurred vision dizziness or abnormality.. BEHAVIORAL/PSYCH: Negative. ENDOCRINE: Negative. Physical examination General Appearance: Alert, cooperative, obese looks older than his age. Patient resting in bed. in no acute respiratory distress. Neck HEENT: Supple, no lymphadenopathy, no thyroid enlargement, no carotid bruits. Mild bruise in the facial area. Lungs: Decreased breath some bilaterally with fine rhonchi positive mild expiratory wheezes decreased breath sound more in the left and the right side. Chest Wall: Significant chest wall tenderness and discomfort in the left side with mild bruise of chest wall area. Heart: Irregular rhythm and rate is sinus to positive S3 positive mild tachycardia Back: Significant lower back pain and discomfort. Abdomen: Distention with significant tenderness in the mid abdominal area and lower abdominal region area with significant discomfort in the left lower quadrant area. Extremities: Slight edema in the lower extremity significant discomfort in left upper extremity with the arm in sling so far. Wound to the left forearm approxi mately 12 inches long Pulses: 2+ and symmetric. Skin: Skin color, texture, tugor normal, no rashes or lesions. Neurologic: Alert oriented x3 cranial nerves II through XII intact, no motor deficit, no abnormal balance or gait. Assessment and plan 1 post tractor accident with multiple injury and trauma: Patient be admitted to the ICU continued see trauma surgery along with ICU service. Keep watching patient hemodynamic, control pain and watch symptoms. 2 Flail chest with multiple rib fracture in the left side displace in the anterior and posterior area with significant pneumothorax no thoracentesis was done at this point repeat another chest x-ray. Pleural effusion being evaluated.. 3 significant dyspnea and shortness of breath with hypoxia respiratory failure: Continue O2 high flow, continue updraft treatment and if needed steroid inhaler. 4 severe abdominal pain with bowel injury along with proximal sigmoid injury with mild hematoma with no rupture of perforation, continue conservative management with nothing by mouth with the bowel distention patient might require NG tube if agreed by trauma surgery continue to watch symptoms. 5 alcohol intoxication. Liver function tests also reflect chronic alcohol use. Patient adamantly denies any alcohol intake for the past 3 years. 6 question of syncope: Not a clear etiology why patient fell off the tractor according to him a note he described to the emergency department and him and his describe the event and explainable patient should be on lunchroom monitor keep watching for any seizure activity or any abnormality might be alcohol- related. 7 hypertension: Remain on losartan 50 mg a day and amlodipine 10 mg daily, Lopressor 50 mg twice daily. Hydralazine added. 8 hyperglycemia: Type 2 diabetes not on any medication currently continue Accu- Chek with sliding scales coverage. 9 chronic lower back pain: Has been on Robaxin and ibuprofen as needed. 10 chronic depression: Has been on the Loxitane 50 mg daily. 11 GI prophylaxis: Patient be on pantoprazole IV. 12 DVT prophylaxis. Heparin subcu 13. Clavicular fracture. Consult with orthopedic appreciated. Sling is in ty ce. CODE STATUS: Full code. Discharge plan: Return home. PT and OT. Impression and plan of care have been directed as dictated by the signing physician. Kyra Norwood nurse practitioner acting as scribe for signing physician. Objective - Vital Signs Vital signs: Vital Signs Temp 98.8 F 10/13/19 07:44 Pulse 109 H 10/13/19 07:44 Resp 32 H 10/13/19 07:44 BP 158/93 10/13/19 07:44 Pulse Ox 95 10/13/19 07:44 Intake & Output 10/12/19 10/13/19 10/13/19 18:59 06:59 18:59 Intake Total 2133.333 59.067 Output Total 955 1500 Balance 1178.333 -1440.933 Intake: IV 1320 Sodium Chloride 0.9% 1, 1320 000 ml @ 120 mls/hr IV . Q8H20M [facility] Rx#:[id number] Intake, IV Titration 73.333 59.067 Amount Ropivacaine 250 mg 73.333 59.067 fentaNYL (PF) 1,250 mcg In Sodium Chloride 0.9% 175 ml @ Per Protocol EPIDURAL .Q0M PRN Rx#: [id number] Oral 740 Output: Urine 955 1500 Uretheral ([place]) 1500 Other: Voiding Method Indwelling Catheter Indwelling Catheter - Labs CBC & Chem 7: 10/13/19 08:54 10/13/19 08:54
--- NOTE | 2019-10-13 15:18 | P.PN ---
Subjective Progress Note Date: 10/13/19 CHIEF COMPLAINT: Multiple injury after trauma from a fall from tractor HISTORY OF PRESENT ILLNESS: Patient transferred out of the ICU to regular medical floor. He is tolerating his clear liquid diet. His epidural was replaced yesterday. Patient still complaining of his rib pain. He denies any abdominal pain. Denies any nausea or vomiting. Passing gas. No bowel movement yet. The patient is possibly starting to go through DTs. Medicine has added the CIWA protocol. WBC 11.3 PHYSICAL EXAM: VITAL SIGNS: Reviewed. GENERAL: Well-developed in no acute distress. HEENT: No sclera icterus. Extraocular movements grossly intact. Moist buccal mucosa. Head is atraumatic, normocephalic. ABDOMEN: Soft. Nondistended. Nontender. NEUROLOGIC: Alert and oriented. Cranial nerves II through XII grossly intact. ASSESSMENT: 1. Status post Fall from tractor with multiple injuries 2. Proximal sigmoid hematoma and contusion. Computed tomography scan of the chest abdomen and pelvis reviewed by Dr. Valdivia 3. Multiple left-sided rib fractures with flail chest 4. Left closed distal clavicular fracture followed by orthopedics PLAN: -Advance diet to regular. -Pain management per anesthesia -DVT prophylaxis subcu heparin GI prophylaxis Protonix Physician Gas Adjuster note has been reviewed by physician. Signing provider agrees with the documented findings, assessment, and plan of care. Objective - Vital Signs Vital signs: Vital Signs Temp 98.8 F 10/13/19 07:44 Pulse 102 H 10/13/19 13:12 Resp 30 H 10/13/19 13:12 BP 137/99 10/13/19 13:12 Pulse Ox 95 10/13/19 13:12 Intake & Output 10/12/19 10/13/19 10/13/19 18:59 06:59 18:59 Intake Total 2133.333 59.067 1000 Output Total 955 1500 Balance 1178.333 -2981.067 9705 Intake: IV 1320 Sodium Chloride 0.9% 1, 1320 000 ml @ 120 mls/hr IV . Q8H20M [facility] Rx#:[id number] Intake, IV Titration 73.333 59.067 Amount Ropivacaine 250 mg 73.333 59.067 fentaNYL (PF) 1,250 mcg In Sodium Chloride 0.9% 175 ml @ Per Protocol EPIDURAL .Q0M PRN Rx#: [id number] Oral 740 1000 Output: Urine 955 1500 Uretheral ([place]) 1500 Other: Voiding Method Indwelling Catheter Indwelling Catheter - Labs CBC & Chem 7: 10/13/19 08:54 10/13/19 08:54 Labs: Abnormal Lab Results - Last 24 Hours (Table) 10/13/19 10/13/19 Range/Units 08:54 08:54 WBC 11.3 H (3.8-10.6) k/uL RBC 3.47 L (4.30-5.90) m/uL Hgb 10.6 L (13.0-17.5) gm/dL Hct 32.4 L (39.0-53.0) % Neutrophils # 9.8 H (1.3-7.7) k/uL Lymphocytes # 0.8 L (1.0-4.8) k/uL Sodium 132 L (137-145) mmol/L Creatinine 0.59 L (0.66-1.25) mg/dL Glucose 139 H (74-99) mg/dL Calcium 8.2 L (8.4-10.2) mg/dL Total Bilirubin 1.5 H (0.2-1.3) mg/dL AST 63 H (17-59) U/L Total Protein 5.9 L (6.3-8.2) g/dL Albumin 3.4 L (3.5-5.0) g/dL
[2019-10-13] MEDS: hydrALAZINE HCL 25 MG TAB PO SCH ×2 (16:13→22:36)
[2019-10-13] MEDS: THIAMINE 100 MG TAB PO SCH (16:13)
[2019-10-13] MEDS: LORazepam 2 MG/ML INJ IV PRN (16:14)
[2019-10-13] MEDS: ROPIVACAINE 250 MG, fentaNYL (PF) 1,250 MCG in SODIUM CHLORIDE 0.9% 175 ML EPIDURAL PRN (17:50)
[2019-10-14] MEDS: LORazepam 2 MG/ML INJ IV PRN ×7 (00:04→20:05)
[2019-10-14] MEDS: HYDROmorphone 1 MG/ML 1 ML SYRINGE IVP PRN (01:46)
[2019-10-14 04:04] LABS: ABG HCO3 25 mmol/L (21-25); ABG Oxygen Saturation 95.9 % (94-97); ABG PCO2 44 mmHg (35-45); ABG PH 7.37 (7.35-7.45); ABG PO2 85 mmHg (83-108); ABG TCO2 27 mmol/L (19-24); Allen Test Performed? Yes
--- NOTE | 2019-10-14 04:05 | XR ---
EXAMINATION TYPE: XR chest 1V portable DATE OF EXAM: 10/14/2019 COMPARISON: Yesterday HISTORY: Short of breath TECHNIQUE: FINDINGS: There is pleural thickening at the left lateral chest wall and blunting left costophrenic a ngle. Heart is enlarged. Trachea is midline. Right lung is clear. There is poor inspiration. There is no obvious heart failure. IMPRESSION: There is increased pleural fluid and infiltrate left lower lobe compared to yesterday. No gross heart failure seen.
[2019-10-14] MEDS: CLEVIDIPINE BUTYRATE 25 MG in EMPTY BAG 1 BAG IV SCH ×2 (05:07→08:30)
--- NOTE | 2019-10-14 06:25 | P.PN ---
Progress Note - Text Progress Note Date: 10/14/19 This is 49 years old male, had left side multiple rib fractures, thoracic epidural catheter placed for pain control, and currently on epidural infusion containing fentanyl/bupivacaine at 9 ml per hours, patient, very anxious, it was very , incomprehensible, is currently on high flow oxygen ,10 ml /m, Saturations maintained at 93, % , epidural site okay , we'll continue current management,
[2019-10-14 06:40] LABS: Glucose,Whole Blood 151 mg/dL (75-99)
[2019-10-14 08:18] LABS: Glucose,Whole Blood 170 mg/dL (75-99)
[2019-10-14 08:20] LABS: Basophils % (A) 0 %; Eosinophils # (A) 0.1 k/uL (0-0.7); Eosinophils % (A) 1 %; HCT 33.2 % (39.0-53.0); HGB 10.4 gm/dL (13.0-17.5); Lymphocytes # (A) 0.6 k/uL (1.0-4.8); Lymphocytes % (A) 4 %; MCH 29.4 pg (25.0-35.0); MCHC 31.2 g/dL (31.0-37.0); MCV 94.3 fL (80.0-100.0); Mean Platelet Volume 7.4; Monocytes # (A) 0.8 k/uL (0-1.0); Monocytes % (A) 6 %; Neutrophils % (A) 87 %; Platelet Count 206 k/uL (150-450); RBC 3.52 m/uL (4.30-5.90); RDW 13.4 % (11.5-15.5); WBC 13.8 k/uL (3.8-10.6)
[2019-10-14] MEDS: THIAMINE 100 MG TAB PO SCH ×2 (08:24→18:51)
[2019-10-14] MEDS: SODIUM CHLORIDE 0.9% 1,000 ML IV SCH ×2 (08:24→14:47)
[2019-10-14] MEDS: PANTOPRAZOLE 40 MG TABLET PO SCH (08:24)
[2019-10-14] MEDS: hydrALAZINE HCL 25 MG TAB PO SCH ×3 (08:25→21:36)
[2019-10-14] MEDS: amLODIPine 10 MG TAB PO SCH (08:25)
[2019-10-14] MEDS: DULoxetine HCL 60 MG CAPSULE.DR PO SCH (08:25)
[2019-10-14] MEDS ORDERED: CLEVIDIPINE BUTYRATE 25 MG/50 ML VIAL IV ONE (08:29)
[2019-10-14 08:30] LABS: African American GFR (CKD) >90 (>60 ml/min/1.73 sqM); Anion Gap 11 mmol/L; Blood Urea Nitrogen 15 mg/dL (9-20); Calcium 8.3 mg/dL (8.4-10.2); Carbon Dioxide 21 mmol/L (22-30); Chloride 104 mmol/L (98-107); Glucose 155 mg/dL (74-99); Magnesium 2.1 mg/dL (1.6-2.3); Non-African American GFR(CKD) >90 (>60 ml/min/1.73 sqM); Potassium 4.3 mmol/L (3.5-5.1); Sodium 136 mmol/L (137-145)
[2019-10-14] MEDS ORDERED: propofoL 100 ML IV ONE (09:01)
[2019-10-14] MEDS ORDERED: SUCCINYLCHOLINE CHLORIDE VIAL 200 MG/10 ML VIAL IV ONE (09:26)
[2019-10-14] MEDS ORDERED: MIDAZOLAM 1 MG/ML 5 ML VIAL ONE (09:26)
[2019-10-14] MEDS ORDERED: PROPOFOL 10 MG/ML 20 ML VIAL IV ONE (09:26)
--- NOTE | 2019-10-14 09:58 | XR ---
EXAMINATION TYPE: XR chest 1V portable DATE OF EXAM: 10/14/2019 Comparison: 10/14/2019, earlier today Clinical History: 49-year-old male ET tube placement Findings: ET tube is satisfactory. NG tube courses below the diaphragm. Heart mildly enlarged. Diffuse intersti tial density is similar. No appreciable pneumothorax. Continued small left pleural effusion with patc hy left lower lung opacity. Known multiple left-sided rib fractures. Known distal left clavicle fract ure. Impression: 1. Satisfactory ET tube and NG tube. 2. Mild cardiomegaly. Possible mild pulmonary vascular congestion. 3. Known multiple left-sided fractures and distal left clavicle fracture. 4. Continued small left effusion with left basilar atelectasis and/or consolidation.
[2019-10-14] MEDS: INSULIN ASPART (NovoLOG) 100 UNIT/ML VIAL SQ SCH ×4 (11:19→21:36)
[2019-10-14] MEDS: METOPROLOL TARTRATE 50 MG TAB PO SCH ×2 (11:19→21:36)
[2019-10-14] MEDS: HEPARIN SODIUM,PORCINE 5,000 UNIT/ML 1 ML VIAL SQ SCH ×2 (11:20→21:35)
[2019-10-14 11:23] LABS: ABG Base Excess -0.7 mmol/L; ABG HCO3 24 mmol/L (21-25); ABG Oxygen Saturation 99.7 % (94-97); ABG PCO2 41 mmHg (35-45); ABG PH 7.38 (7.35-7.45); ABG PO2 233 mmHg (83-108); ABG TCO2 26 mmol/L (19-24); Allen Test Performed? Yes
--- NOTE | 2019-10-14 11:25 | P.PN ---
Subjective Progress Note Date: 10/14/19 CHIEF COMPLAINT: Multiple injury after trauma from a fall from tractor HISTORY OF PRESENT ILLNESS: Patient required transfer back to the ICU this morning. He had elevated respiratory rate is tachycardic. His requirement 15 L of oxygen. He had evidence of alcohol withdrawals. Critical care service is following. Patient's is going to be intubated today. WBC 13.8 PHYSICAL EXAM: VITAL SIGNS: Reviewed. GENERAL: Well-developed in no acute distress. HEENT: No sclera icterus. Extraocular movements grossly intact. Moist buccal mucosa. Head is atraumatic, normocephalic. ABDOMEN: Soft. Obese. Distended. Nontender. ASSESSMENT: 1. Status post Fall from tractor with multiple injuries 2. Proximal sigmoid hematoma and contusion. Computed tomography scan of the chest abdomen and pelvis reviewed by Dr. Valdivia 3. Multiple left-sided rib fractures with flail chest 4. Left closed distal clavicular fracture followed by orthopedics 5. Chronic alcohol use and evidence of alcohol withdrawal PLAN: - Management of multiple medical issues per consulting physicians -DVT prophylaxis subcu heparin GI prophylaxis Protonix Physician Visitor Services Specialist note has been reviewed by physician. Signing provider agrees with the documented findings, assessment, and plan of care. Objective - Vital Signs Vital signs: Vital Signs Temp 96.7 F L 10/14/19 08:00 Pulse 105 H 10/14/19 10:30 Resp 14 10/14/19 10:30 BP 116/65 10/14/19 10:30 Pulse Ox 98 10/14/19 10:30 Intake & Output 10/13/19 10/14/19 10/14/19 18:59 06:59 18:59 Intake Total 1180.9 1623.4 366.367 Output Total 2230 140 Balance 1180.9 -606.6 226.367 Weight 125.6 kg 125.6 kg Intake: IV 120 360 Sodium Chloride 0.9% 1, 120 360 000 ml @ 120 mls/hr IV . Q8H20M [facility] Rx#:[id number] Intake, IV Titration 180.9 963.4 6.367 Amount Clevidipine Butyrate 25 3.4 6.367 mg In Empty Bag 1 bag @ 1 MG/HR 2 mls/hr IV .Q24H [facility] Rx#:[id number] Ropivacaine 250 mg 180.9 fentaNYL (PF) 1,250 mcg In Sodium Chloride 0.9% 175 ml @ Per Protocol EPIDURAL .Q0M PRN Rx#: [id number] Sodium Chloride 0.9% 1, 960 000 ml @ 120 mls/hr IV . Q8H20M [facility] Rx#:[id number] Oral 1000 540 Output: Urine 2230 140 Other: Voiding Method Indwelling Catheter Indwelling Catheter - Labs CBC & Chem 7: 10/14/19 07:58 10/14/19 07:58 Labs: Abnormal Lab Results - Last 24 Hours (Table) 10/14/19 10/14/19 10/14/19 Range/Units 03:58 06:38 07:58 WBC 13.8 H (3.8-10.6) k/uL RBC 3.52 L (4.30-5.90) m/uL Hgb 10.4 L (13.0-17.5) gm/dL Hct 33.2 L (39.0-53.0) % Neutrophils # 12.0 H (1.3-7.7) k/uL Lymphocytes # 0.6 L (1.0-4.8) k/uL ABG Total CO2 27 H (19-24) mmol/L Sodium (137-145) mmol/L Carbon Dioxide (22-30) mmol/L Glucose (74-99) mg/dL POC Glucose (mg/dL) 151 H (75-99) mg/dL Calcium (8.4-10.2) mg/dL 10/14/19 10/14/19 Range/Units 07:58 08:17 WBC (3.8-10.6) k/uL RBC (4.30-5.90) m/uL Hgb (13.0-17.5) gm/dL Hct (39.0-53.0) % Neutrophils # (1.3-7.7) k/uL Lymphocytes # (1.0-4.8) k/uL ABG Total CO2 (19-24) mmol/L Sodium 136 L (137-145) mmol/L Carbon Dioxide 21 L (22-30) mmol/L Glucose 155 H (74-99) mg/dL POC Glucose (mg/dL) 170 H (75-99) mg/dL Calcium 8.3 L (8.4-10.2) mg/dL
--- NOTE | 2019-10-14 11:39 | XR ---
EXAMINATION TYPE: XR chest 1V portable DATE OF EXAM: 10/14/2019 Comparison: Earlier today Clinical History: 49-year-old male Tube placement Findings: ET tube tip 2.6 cm from the marcie. NG tube courses below the diaphragm. Heart mildly enlarged. Gisel nued interstitial density and small left effusion with left basilar and retrocardiac opacity. Known m ultiple left-sided rib fractures as well as distal left clavicle fracture. Pneumothorax not clearly s een. Impression: 1. Satisfactory ET and NG tubes. 2. Continued mild cardiomegaly and possible mild pulmonary vascular congestion. 2. Continued small left effusion with adjacent atelectasis and/or consolidation and multiple known le ft-sided rib fractures. Known distal left clavicle fracture.
--- NOTE | 2019-10-14 12:51 | P.PN ---
Subjective Progress Note Date: 10/14/19 History of present illness 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 Patient ended up seen in trauma at [facility] multiple exiting CAT scan was per for CT of the chest showed left sided hydropneumothorax with multiple displace rib fracture anterolateral drip 2-7 and posterior 5-11 with a flail chest, abdominal pelvic CT showed ball injury with small bowel and proximal sigmoid involvement with mild hematoma with no perforation or free air. Pelvic showed no fracture head and neck showed no C-spine fracture and the major abnormality and CAT scan of the brain. Left upper extremity did not show any fracture patient had his arm in sling of the time. Was seen and evaluated before leaving the emergency department patient was in quite bed discomfort and was in mild respiratory distress having significant tachypnea and tachycardia with significant hypoxia the time require higher flow 2. No chest tube place ment at the time. General surgery and ICU service were notified patient will be transferred to the ICU from the emergency department 10/10: Patient remains in the intensive care unit. We have added in consult with orthopedics regarding left clavicular fracture. Patient also has a skin tear to the left forearm. There is a consult in place with anesthesiology for pain control. Discussed issue that patient had alcohol in his system which he adamantly denies any alcohol intake. Patient to be on ice chips only per Dr. Valdivia. PT and OT will be added. Patient is on SCDs and LOU hose for DVT prophylaxis. Incentive spirometry is at bedside and patient encouraged to use every hour. Patient has been afebrile, heart rate 114, blood pressure 154/89, pulse ox 93% on high flow nasal cannula 10 L. Repeat blood work reveals WBC 14.0, hemoglobin 12.9. Sodium 133, creatinine 0.77, blood sugar 152. AST 105, ALT 67. Hepatitis panel negative. 10/11: Patient was seen yesterday by pain management and epidural was placed for pain control. Patient states his pain is much improved from yesterday. Repeat chest x-ray reveals mild cardiomegaly. Small left effusion with adjacent atelectasis and/or consolidation. No multiple left-sided rib fractures. Known distal left clavicle fracture. Ultrasound of the chest reveals small left pleural effusion 5.8 cm and marked. Patient has been afebrile, heart rate 111, respiratory rate 25, blood pressure 140/93 and he just received his blood pressu re medications. Pulse ox is 93% on 10 L high flow nasal cannula. Repeat blood work reveals WBC 14.2, hemoglobin 11.2. Sodium 132, creatinine 0.73 blood sugar 120. Total bilirubin 1.6, AST 77, ALT 54, alkaline phosphatase 54. Viral hepatitis panel negative. 10/12: Patient is seen today on the [facility] floor. Patient is currently on clear liquid diet. He has not had a bowel movement. Dulcolax suppository ordered. He remains with epidural in place but is receiving Dilaudid for breakthrough pain. Patient will be started on the CIWA protocol. He has been afebrile, heart rate 109, blood pressure 150/93, pulse ox 95% on 9 L high flow nasal cannula. Hydralazine added. PT OT to be working with patient today and get him into a chair. Patient denies any nausea vomiting. He is reaching 750 ML's on incentive spirometry. fitness centre manager has discussed discharge planning again with the patient and plan is to return home. 10/13: Patient developed significant mental status changes and drop in pulse ox requiring transfer into the intensive care unit. At the time of evaluation, patient was tachycardic, 2, hypertensive and on, for extra. Dr. De Leon will be intubating momentarily. Attempted multiple times to reach patient's but there was no answer. Patient does have epidural that is in place for pain control. Repeat blood work reveals WBC 13.8, hemoglobin 10.4. Sodium 136, po tassium 4.3, chloride 104, CO2 21, BUN 15 creatinine 0.7. Chest x-ray this morning reveals satisfactory ET and NG tube. Mild cardiomegaly. Possible mild pulmonary vascular congestion. Known left-sided fractures and distal left clavicle fracture. Small left effusion with left basilar atelectasis and/or consolidation. A CTA of the head and also of the chest to been ordered by Dr. De Leon. Review of systems Unable to obtain due to mental status changes. Physical examination General Appearance: An active respiratory distress with tachypnea, accessory muscle usage.. Neck HEENT: Supple, no lymphadenopathy, no thyroid enlargement, no carotid bruits. Mild bruise in the facial area. Lungs: Decreased breath some bilaterally with fine rhonchi positive mild expiratory wheezes decreased breath sound more in the left and the right side. Chest Wall: Significant chest wall tenderness and discomfort in the left side with mild bruise of chest wall area. Heart: Irregular rhythm and rate is sinus to positive S3 positive mild tachycardia Back: Significant lower back pain and discomfort. Abdomen: Distention with significant tenderness in the mid abdominal area and lower abdominal region area with significant discomfort in the left lower quadrant area. Extremities: Slight edema in the lower extremity significant discomfort in left upper extremity with the arm in sling so far. Wound to the left forearm approximately 12 inches long Pulses: 2+ and symmetric. Skin: Skin color, texture, tugor normal, no rashes or lesions. Neurologic: Confused, unable to follow any commands. Assessment and plan 1 post tractor accident with multiple injury and trauma: Patient be admitted to the ICU continued see trauma surgery along with ICU service. Keep watching patient hemodynamic, control pain and watch symptoms. 2 Flail chest with multiple rib fracture in the left side displace in the ant erior and posterior area with significant pneumothorax no thoracentesis was done at this point repeat another chest x-ray. Pleural effusion being evaluated.. 3 significant dyspnea and shortness of breath with acute hypoxia respiratory failure: Continue O2 high flow, continue updraft treatment and if needed steroid inhaler. 4 severe abdominal pain with bowel injury along with proximal sigmoid injury with mild hematoma with no rupture of perforation, continue conservative management with nothing by mouth with the bowel distention patient might require NG tube if agreed by trauma surgery continue to watch symptoms. 5 alcohol intoxication. Liver function tests also reflect chronic alcohol use. Patient adamantly denies any alcohol intake for the past 3 years. 6 question of syncope: Not a clear etiology why patient fell off the tractor according to him a note he described to the emergency department and him and his describe the event and explainable patient should be on cylinder steamer keep watching for any seizure activity or any abnormality might be alcohol- related. 7 active delirium tremens. Patient has required intubation mechanical ventilation. Continue CIWA protocol. 8 acute hypoxic respiratory failure required intubation and mechanical ventilation. Dr. De Leon is managing. 9 hypertensive emergency. Patient is on Clevidex drip. Continue amlodipine 10 mg daily, hydralazine 25 mg 3 times daily, Lopressor 50 mg twice daily. 10 hypertension. Continue as above. 11 hyperglycemia: Type 2 diabetes. NovoLog scale every 4 hours. 12 chronic lower back pain. 13 recurrent depression. Continue Cymbalta. 14 GI prophylaxis: Patient be on pantoprazole IV. 15 DVT prophylaxis. Heparin subcu 16 Clavicular fracture. Consult with orthopedic appreciated. Sling is in place. CODE STATUS: Full code. Discharge plan: To be determined. Prognosis guarded. Impression and plan of care have been directed as dictated by the signing physician. Kyra Norwood nurse practitioner acting as scribe for signing physician. Objective - Vital Signs Vital signs: Vital Signs Temp 96.7 F L 10/14/19 08:00 Pulse 125 H 10/14/19 08:00 Resp 32 H 10/14/19 08:00 BP 163/75 10/14/19 08:00 Pulse Ox 90 L 10/14/19 08:00 Intake & Output 10/13/19 10/14/19 10/14/19 18:59 06:59 18:59 Intake Total 1180.9 1623.4 123.367 Output Total 2230 40 Balance 1180.9 -606.6 83.367 Weight 125.6 kg Intake: IV 120 120 Sodium Chloride 0.9% 1, 120 120 000 ml @ 120 mls/hr IV . Q8H20M [facility] Rx#:[id number] Intake, IV Titration 180.9 963.4 3.367 Amount Clevidipine Butyrate 25 3.4 3.367 mg In Empty Bag 1 bag @ 1 MG/HR 2 mls/hr IV .Q24H [facility] Rx#:[id number] Ropivacaine 250 mg 180.9 fentaNYL (PF) 1,250 mcg In Sodium Chloride 0.9% 175 ml @ Per Protocol EPIDURAL .Q0M PRN Rx#: [id number] Sodium Chloride 0.9% 1, 960 000 ml @ 120 mls/hr IV . Q8H20M [facility] Rx#:[id number] Oral 1000 540 Output: Urine 2230 40 Other: Voiding Method Indwelling Catheter Indwelling Catheter - Labs CBC & Chem 7: 10/14/19 07:58 10/14/19 07:58 Labs: Abnormal Lab Results - Last 24 Hours (Table) 10/13/19 10/13/19 10/14/19 Range/Units 08:54 08:54 03:58 WBC 11.3 H (3.8-10.6) k/uL RBC 3.47 L (4.30-5.90) m/uL Hgb 10.6 L (13.0-17.5) gm/dL Hct 32.4 L (39.0-53.0) % Neutrophils # 9.8 H (1.3-7.7) k/uL Lymphocytes # 0.8 L (1.0-4.8) k/uL ABG Total CO2 27 H (19-24) mmol/L Sodium 132 L (137-145) mmol/L Carbon Dioxide (22-30) mmol/L Creatinine 0.59 L (0.66-1.25) mg/dL Glucose 139 H (74-99) mg/dL POC Glucose (mg/dL) (75-99) mg/dL Calcium 8.2 L (8.4-10.2) mg/dL Total Bilirubin 1.5 H (0.2-1.3) mg/dL AST 63 H (17-59) U/L Total Protein 5.9 L (6.3-8.2) g/dL Albumin 3.4 L (3.5-5.0) g/dL 10/14/19 10/14/19 10/14/19 Range/Units 06:38 07:58 07:58 WBC 13.8 H (3.8-10.6) k/uL RBC 3.52 L (4.30-5.90) m/uL Hgb 10.4 L (13.0-17.5) gm/dL Hct 33.2 L (39.0-53.0) % Neutrophils # 12.0 H (1.3-7.7) k/uL Lymphocytes # 0.6 L (1.0-4.8) k/uL ABG Total CO2 (19-24) mmol/L Sodium 136 L (137-145) mmol/L Carbon Dioxide 21 L (22-30) mmol/L Creatinine (0.66-1.25) mg/dL Glucose 155 H (74-99) mg/dL POC Glucose (mg/dL) 151 H (75-99) mg/dL Calcium 8.3 L (8.4-10.2) mg/dL Total Bilirubin (0.2-1.3) mg/dL AST (17-59) U/L Total Protein (6.3-8.2) g/dL Albumin (3.5-5.0) g/dL 10/14/19 Range/Units 08:17 WBC (3.8-10.6) k/uL RBC (4.30-5.90) m/uL Hgb (13.0-17.5) gm/dL Hct (39.0-53.0) % Neutrophils # (1.3-7.7) k/uL Lymphocytes # (1.0-4.8) k/uL ABG Total CO2 (19-24) mmol/L Sodium (137-145) mmol/L Carbon Dioxide (22-30) mmol/L Creatinine (0.66-1.25) mg/dL Glucose (74-99) mg/dL POC Glucose (mg/dL) 170 H (75-99) mg/dL Calcium (8.4-10.2) mg/dL Total Bilirubin (0.2-1.3) mg/dL AST (17-59) U/L Total Protein (6.3-8.2) g/dL Albumin (3.5-5.0) g/dL
[2019-10-14 13:03] LABS: Glucose,Whole Blood 126 mg/dL (75-99)
--- NOTE | 2019-10-14 15:29 | P.PN ---
Subjective Progress Note Date: 10/14/19 Principal diagnosis: Multiple left-sided rib fractures secondary to fall/trauma. This is a 49-year-old white male, known history of hypertension, COPD, obesity, chronic low back pain, patient fell off his tractor yesterday, and it was over 10 feet high. Patient landed on his left side of the chest, developed significant pain and discomfort over his left chest and over his left clavicle. Patient was brought into the ER, CT of the chest showed small tiny hydropneumothorax, multiple rib fractures anterolaterally, 2 through 7. And posterior leaf 5 through 11. Patient was also noted to have small bowel and proximal sigmoid involvement with mild hematoma but no perforation and no free air. No pelvic fractures were noted. Patient was noted to have a left clavicular fracture and abrasion of left forearm. Patient was admitted, and this consult was initiated. Reviewed the CT of the chest, reviewed the chest x- ray, the pneumothorax was very small, and could barely be seen on CT of the chest, not seen on chest x-ray. Patient is in a left arm sling, seen by orthopedics on consultation, and the recommendation was conservative measures for his clavicular fracture. And recommended immobilization of the left upper extremity. Pain seems to be fairly well controlled, anesthesia was consulted for possible epidural however the pain seems to be controlled with Dilaudid and oral narcotics. Patient is on 6 L nasal cannula, not in distress, chest x-ray showed small left effusion, and no sizable pneumothorax, bibasilar atelectasis/infiltrates noted. Possible contusion. Patient was reevaluated today on 10/12/19, remains in the ICU, patient is on 10 L high flow nasal cannula, and O2 saturation is 96%. He is on epidural for pain control, he denies shortness of breath, pain seems to be fairly well controlled. Patient is doing poorly with incentive spirometry, achieving no more than 1000 and mild. Left arm remains in a sling. Patient is on IV fluid at 1 20 mL per hour. And I have cut down his FiO2 up to 8 L/m. His chest x-ray showed left lower lobe atelectasis and small left pleural effusion. Ultrasound of the chest showed small left pleural effusion pocket of 5.8 cm, the pocket is crescent- shaped, and 5 cm deep. But not very wide. Hence I have no plans to recommend thoracentesis at this point unless the pleural effusion gets larger. I believe this is most likely hemothorax associated with left lower lobe atelectasis and possibly pulmonary contusion. Patient was seen in follow-up on the regular medical surgical floor on 10/13/2019. He was transferred out of the intensive care unit yesterday, no acute events overnight, he still in significant amount of chest wall discomfort, he has an epidural catheter in place, anesthesia services are following, his epidural is infusing at a rate of 9 ML per hour. His epidural catheter was removed yesterday and the thoracic spine epidural catheter was placed per anesthesia. His senna spirometer effort is 700 mL on today's exam, his respirations are shallow, he still requiring 10 L of oxygen per high flow nasal cannula with a pulse ox of 95%, hemodynamically he is stable, he is afebrile. Today's chest x-ray has been reviewed showing bilateral consolidation and pleural effusions, pneumothorax Reevaluated today on 10/14/19, patient was transferred back to the intensive care unit last night, I was notified about this patient having extreme agitation, tachycardia, restlessness, diaphoresis, and confusion. Hence I have made plans to transfer the patient to the ICU, and this morning patient seems to be getting worse, and when I evaluated the patient his breathing was noted to be almost agonal. Recommended immediate intubation. And lines were placed for adequate IV access, and for adequate blood pressure monitoring. It is felt that the patient most likely had symptoms of alcohol withdrawal and delirium tremens. Although the patient denied drinking any alcohol in the last 5 months, but he did have a positive alcohol level on presentation to the ER initially. I did order a repeat CT angiogram of the chest, however the patient was relatively unstable earlier today for a CT angiogram, hence we held back. I will recommend CT angiogram of the chest and recommended CT of the head. ABG post intubation showed a pO2 of 233 pH of 7.38 pCO2 of 41. Patient is on assist control rate of 20, volume of 500 FiO2 on the percent and PEEP of 5 hence his FiO2 was decreased down to 50%. Patient is now on propofol at 75 mcg/kg/m, IV fluid at 1 20 mL/h, and he is also on epidural for his pain control. CBC and basic metabolic profile are noted to be normal. Objective - Vital Signs Vital signs: Vital Signs Temp 97.5 F L 10/14/19 12:00 Pulse 102 H 10/14/19 13:30 Resp 20 10/14/19 13:30 BP 116/65 10/14/19 10:30 Pulse Ox 95 10/14/19 13:30 Intake & Output 10/13/19 10/14/19 10/14/19 18:59 06:59 18:59 Intake Total 1180.9 1623.4 922.303 Output Total 2230 325 Balance 1180.9 -606.6 597.303 Weight 125.6 kg 125.6 kg Intake: IV 120 720 Sodium Chloride 0.9% 1, 120 720 000 ml @ 120 mls/hr IV . Q8H20M [facility] Rx#:[id number] Intake, IV Titration 180.9 963.4 202.303 Amount Clevidipine Butyrate 25 3.4 6.367 mg In Empty Bag 1 bag @ 1 MG/HR 2 mls/hr IV .Q24H [facility] Rx#:[id number] Ropivacaine 250 mg 180.9 fentaNYL (PF) 1,250 mcg In Sodium Chloride 0.9% 175 ml @ Per Protocol EPIDURAL .Q0M PRN Rx#: [id number] Sodium Chloride 0.9% 1, 960 000 ml @ 120 mls/hr IV . Q8H20M [facility] Rx#:[id number] propofoL 1,000 mg In 195.936 Empty Bag 1 bag @ Titrate IV .Q0M [facility] Rx#: [id number] Oral 1000 540 Output: Urine 2230 325 Other: Voiding Method Indwelling Catheter Indwelling Catheter ABP, PAP, CO, CI - Last Documented Arterial Blood Pressure 137/63 - Exam Physical Exam: Revealed 49-year-old white male, obese, on mechanical ventilation. Head: Atraumatic, normocephalic. Endotracheal tube and orogastric tube are intact. HEENT:[Neck is supple.] [No neck masses.] [No thyromegaly.] [No JVD.] Chest there is evidence of chest wall tenderness, and minimal bruising over the left side of the chest, diminished breath sounds at the bases, no crackles or rhonchi or wheezes. Cardiac Exam: [Normal S1 and S2, no S3 gallop, no murmur.] Abdomen: [Obese, slightly distended, abdomen nontender, no megaly, no rebound, no guarding, normal bowel sounds.] Extremities: [No clubbing, no edema, no cyanosis.] Left upper extremity is in a sling, and there is left forearm abrasion, left clavicular deformity is noted. Tender left distal clavicular area. Neurological Exam: Not be assessed, patient is intubated and mechanically ventilated. Skin: Abrasion of dorsal radial proximal forearm. Lymphatics: No lymphadenopathy. - Labs CBC & Chem 7: 10/14/19 07:58 10/14/19 07:58 Labs: Abnormal Lab Results - Last 24 Hours (Table) 10/14/19 10/14/19 10/14/19 Range/Units 03:58 06:38 07:58 WBC 13.8 H (3.8-10.6) k/uL RBC 3.52 L (4.30-5.90) m/uL Hgb 10.4 L (13.0-17.5) gm/dL Hct 33.2 L (39.0-53.0) % Neutrophils # 12.0 H (1.3-7.7) k/uL Lymphocytes # 0.6 L (1.0-4.8) k/uL ABG pO2 (83-108) mmHg ABG Total CO2 27 H (19-24) mmol/L ABG O2 Saturation (94-97) % Sodium (137-145) mmol/L Carbon Dioxide (22-30) mmol/L Glucose (74-99) mg/dL POC Glucose (mg/dL) 151 H (75-99) mg/dL Calcium (8.4-10.2) mg/dL 10/14/19 10/14/19 10/14/19 Range/Units 07:58 08:17 11:20 WBC (3.8-10.6) k/uL RBC (4.30-5.90) m/uL Hgb (13.0-17.5) gm/dL Hct (39.0-53.0) % Neutrophils # (1.3-7.7) k/uL Lymphocytes # (1.0-4.8) k/uL ABG pO2 233 H (83-108) mmHg ABG Total CO2 26 H (19-24) mmol/L ABG O2 Saturation 99.7 H (94-97) % Sodium 136 L (137-145) mmol/L Carbon Dioxide 21 L (22-30) mmol/L Glucose 155 H (74-99) mg/dL POC Glucose (mg/dL) 170 H (75-99) mg/dL Calcium 8.3 L (8.4-10.2) mg/dL 10/14/19 Range/Units 13:01 WBC (3.8-10.6) k/uL RBC (4.30-5.90) m/uL Hgb (13.0-17.5) gm/dL Hct (39.0-53.0) % Neutrophils # (1.3-7.7) k/uL Lymphocytes # (1.0-4.8) k/uL ABG pO2 (83-108) mmHg ABG Total CO2 (19-24) mmol/L ABG O2 Saturation (94-97) % Sodium (137-145) mmol/L Carbon Dioxide (22-30) mmol/L Glucose (74-99) mg/dL POC Glucose (mg/dL) 126 H (75-99) mg/dL Calcium (8.4-10.2) mg/dL Assessment and Plan Assessment: Impression: Acute hypoxic respiratory failure, based on the clinical presentation, this is alcohol withdrawal/delirium tremens unless proven otherwise.. And related to pulmonary contusion. Status post tractor accident/fall, with multiple left-sided rib fractures Multiple left-sided rib fractures, but no significant pneumothorax. No significant hemopneumothorax. Pulmonary contusion is strongly suspected. Proximal sigmoid hematoma but no perforation. Benign essential hypertension. Type 2 diabetes. Chronic low back pain. History of depression. Small left sided hemothorax is suspected, not large enough to drain at this poin t. Recommendation: Continue ventilatory support. Start the nutritional support. Continue propofol and keep the patient sedated to avoid further alcohol withdrawal symptoms. CT head without contrast. However I would hold back on the CT of the chest for now. Continue present supportive care measures. Continue GI and DVT prophylaxis. Continue to monitor closely in the ICU. Continue pain control. Patient is presently on epidural. We'll continue to follow. Critical care time is 40 minutes, not including the time spent on procedures on this patient. Time with Patient: Greater than 30
--- NOTE | 2019-10-14 17:48 | OP ---
OPERATIVE REPORT OPERATION: Placement of the right femoral triple-lumen catheter. PREOPERATIVE DIAGNOSIS: Acute hypoxic respiratory failure secondary to delirium tremens. POSTOP DIAGNOSIS: Acute hypoxic respiratory failure secondary to delirium tremens. ANESTHESIA USED: 2 mL of 1% lidocaine. PROCEDURE: The patient was placed in a supine position, the area of the groin right groin was prepared in a sterile fashion, drapes were applied and the area was locally anesthetized. The right femoral vein was easily cannulated, a guidewire was placed. The area around the guidewire was dilated then a triple-lumen catheter was inserted over the guidewire and the guidewire was removed. Good blood flow in the three different ports noted. The line was secured using 3.0 silk sutures. No evidence of any immediate complications. MMODL / IJN: [id number] /
[2019-10-14 17:55] LABS: Glucose,Whole Blood 101 mg/dL (75-99)
--- NOTE | 2019-10-14 19:12 | CT ---
EXAMINATION TYPE: CT angio chest DATE OF EXAM: 10/14/2019 COMPARISON: None HISTORY: Shortness of breath. CT DLP: 1088.5 mGycm Automated exposure control for dose reduction was used. CONTRAST: Performed with IV Contrast, patient injected with 50ml mL of Isovue 370. There are 3-D post processed images. There are bilateral pleural effusions and larger on the left side. Heart is enlarged. There is consol idation and atelectasis in both lower lobes that is worse on the left side. There is endotracheal tub e. Thoracic aorta is atheromatous. There is no aneurysm or dissection. There is coronary artery calci fication. There is suboptimal contrast density in the pulmonary arteries. I see no evidence of a filling defect . Exam limited slightly by patient's size. There is spurring in the thoracic spine. I see no bony chandra tructive process. There is no thoracic compression fracture. Sternum is intact. There is nasogastric tube in the stomach. Upper abdominal soft tissues are intact. IMPRESSION: Cardiomegaly with bilateral lower lobe pulmonary consolidation and atelectasis. Bilateral pleural eff usions. This could relate to chronic congestive heart failure. No evidence of pulmonary embolism. Limited exam. Pulmonary abnormalities are significantly increased compared to recent exam of 10/10/2019.
--- NOTE | 2019-10-14 19:16 | CT ---
EXAMINATION TYPE: CT angio head DATE OF EXAM: 10/14/2019 COMPARISON: None HISTORY: Altered mental status. CT DLP: 1619.8 mGycm Automated exposure control for dose reduction was used. CONTRAST: Performed with IV Contrast, patient injected with 50ml mL of Isovue 370. Images obtained from the skull base to the vertex of the brain with IV contrast. There are 3-D post p rocessed images. There is extensive vascular calcification involving the distal vertebral arteries. There is arterial flow in both distal internal carotid arteries. There is arterial flow in the anterior middle and post erior cerebral arteries bilaterally. There is arterial flow in the vertebrobasilar artery system. The re is no mass effect. I see no evidence of intracranial arterial stenosis. There is no evidence of an eurysm or neovascularity. There is normal contrast opacification of the venous sinuses. There is 7 mm hypodensity anterior right internal capsule consistent with old lacunar infarct. Posterior cerebral artery on the right side appears to fill to a large extent through the posterior communicating artery . IMPRESSION: Negative CT angiogram of the brain. Atherosclerotic vascular calcification.
--- NOTE | 2019-10-14 19:18 | CT ---
EXAMINATION TYPE: CT brain wo con DATE OF EXAM: 10/14/2019 COMPARISON: 10/10/2019 HISTORY: Altered mental status. CT DLP: 1211.6 mGycm Automated exposure control for dose reduction was used. There is cerebral cortical atrophy. There is no mass effect nor midline shift. There is no sign of in tracranial hemorrhage. There is 1 cm area of hypodensity in the right internal capsule near the thala mus unchanged. There is a second 8 mm hypodensity in the anterior right internal capsule. The calvari um is intact. The skull base is intact. IMPRESSION: Cerebral atrophy. 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 No change.
[2019-10-14 21:24] LABS: Appearance,Urine Clear (Clear); Bilirubin,Urine Negative (Negative); Blood,Urine Negative (Negative); Color,Urine Yellow; Glucose,Urine (UA) Negative (Negative); Ketones,Urine 1+ (Negative); Leukocyte Esterase,Urine Negative (Negative); Nitrite,Urine Negative (Negative); PH, Urine 6.5 (5.0-8.0); Protein,Urine Trace (Negative); Urobilinogen,Urine <2.0 mg/dL (<2.0)
[2019-10-14 21:25] LABS: Glucose,Whole Blood 115 mg/dL (75-99)
[2019-10-14 21:31] LABS: Specific Gravity,Urine >1.050 (1.001-1.035)
[2019-10-14] MEDS: CHLORHEXIDINE GLUCONATE 15 ML CUP MUCOUS MEM SCH (21:35)
[2019-10-14] MEDS: ROPIVACAINE 250 MG, fentaNYL (PF) 1,250 MCG in SODIUM CHLORIDE 0.9% 175 ML EPIDURAL PRN (21:45)
--- NOTE | 2019-10-14 23:15 | OP ---
OPERATIVE REPORT OPERATION: Placement of right radial arterial line. PREOPERATIVE DIAGNOSES: Acute hypoxic respiratory failure and delirium tremens. POSTOP DIAGNOSES: Acute hypoxic respiratory failure and delirium tremens. ANESTHESIA USED: None deployed. PROCEDURE: The right wrist was prepared in a sterile fashion and drapes were applied. The right radial artery was easily cannulated, a guidewire was placed. A Cook catheter/radial catheter was placed over the guidewire and the guidewire was removed. Good blood flow and good waveform noted. No evidence of any immediate complication. The line was secured using 3.0 silk sutures. MMODL / IJN: [id number] /
[2019-10-15] MEDS: SODIUM CHLORIDE 0.9% 1,000 ML IV SCH ×3 (00:16→15:00)
[2019-10-15 01:34] LABS: Glucose,Whole Blood 107 mg/dL (75-99)
[2019-10-15] MEDS: INSULIN ASPART (NovoLOG) 100 UNIT/ML VIAL SQ SCH ×6 (01:38→20:47)
[2019-10-15 04:38] LABS: HCT 25.4 % (39.0-53.0); MCH 29.8 pg (25.0-35.0); MCHC 31.8 g/dL (31.0-37.0); MCV 93.7 fL (80.0-100.0); Mean Platelet Volume 8.4; Platelet Count 173 k/uL (150-450); RBC 2.71 m/uL (4.30-5.90); RDW 13.6 % (11.5-15.5); WBC 5.6 k/uL (3.8-10.6)
[2019-10-15 04:42] LABS: HGB 8.1 gm/dL (13.0-17.5)
[2019-10-15 04:48] LABS: African American GFR (CKD) >90 (>60 ml/min/1.73 sqM); Anion Gap 3 mmol/L; Blood Urea Nitrogen 14 mg/dL (9-20); Calcium 7.8 mg/dL (8.4-10.2); Carbon Dioxide 25 mmol/L (22-30); Chloride 106 mmol/L (98-107); Glucose 101 mg/dL (74-99); Magnesium 2.4 mg/dL (1.6-2.3); Non-African American GFR(CKD) >90 (>60 ml/min/1.73 sqM); Phosphorus 3.8 mg/dL (2.5-4.5); Potassium 3.6 mmol/L (3.5-5.1); Sodium 134 mmol/L (137-145)
[2019-10-15 04:58] LABS: Glucose,Whole Blood 95 mg/dL (75-99)
[2019-10-15] MEDS ORDERED: Potassium Replacement Protocol 1 EACH MISC MISCELLANE PRN (05:33)
[2019-10-15] MEDS ORDERED: POTASSIUM BICARBONATE/CIT AC 20 MEQ TABLET.EFF NG-TUBE SCH (06:00)
[2019-10-15] MEDS: THIAMINE 100 MG TAB PO SCH ×2 (06:51→19:01)
[2019-10-15] MEDS: PANTOPRAZOLE 40 MG TABLET PO SCH (06:51)
[2019-10-15 07:24] LABS: ABG Base Excess 1.9 mmol/L; ABG HCO3 26 mmol/L (21-25); ABG Oxygen Saturation 95.1 % (94-97); ABG PCO2 37 mmHg (35-45); ABG PH 7.45 (7.35-7.45); ABG PO2 72 mmHg (83-108); ABG TCO2 27 mmol/L (19-24); Allen Test Performed? Yes
--- NOTE | 2019-10-15 07:32 | XR ---
EXAMINATION TYPE: XR chest 1V portable DATE OF EXAM: 10/15/2019 CLINICAL HISTORY: Difficulty breathing progress study. TECHNIQUE: Single AP portable semiupright view of the chest is obtained. COMPARISON: Chest x-ray and CTA chest from one day earlier FINDINGS: Stable endotracheal and orogastric tubes. Persistent cardiomegaly. Persistent small left g reater than right pleural effusions with left mid to lower lung infiltrate and/or atelectasis. Multil evel spurring in the spine redemonstrated. Multiple left sided rib fractures seen better on CT versus plain films. IMPRESSION: Overall stable findings, cardiomegaly with small left greater than right bilateral pleu ral effusions and left mid to lower lung acute infiltrate and/or atelectasis are all redemonstrated.
[2019-10-15] MEDS: LORazepam 2 MG/ML INJ IV PRN ×3 (07:51→20:09)
[2019-10-15] MEDS: CHLORHEXIDINE GLUCONATE 15 ML CUP MUCOUS MEM SCH ×2 (08:07→20:42)
[2019-10-15] MEDS: METOPROLOL TARTRATE 50 MG TAB PO SCH ×2 (08:07→20:43)
[2019-10-15] MEDS: amLODIPine 10 MG TAB PO SCH (08:07)
[2019-10-15] MEDS: hydrALAZINE HCL 25 MG TAB PO SCH ×3 (08:07→20:43)
[2019-10-15] MEDS: HEPARIN SODIUM,PORCINE 5,000 UNIT/ML 1 ML VIAL SQ SCH ×2 (08:07→20:42)
[2019-10-15] MEDS: DULoxetine HCL 60 MG CAPSULE.DR PO SCH (08:07)
[2019-10-15 08:15] LABS: Glucose,Whole Blood 73 mg/dL (75-99)
[2019-10-15] MEDS ORDERED: DEXTROSE 50% SYRINGE 50 ML IVP ONE (09:15)
[2019-10-15 09:18] LABS: Glucose,Whole Blood 70 mg/dL (75-99)
[2019-10-15] MEDS: CLEVIDIPINE BUTYRATE 25 MG in EMPTY BAG 1 BAG IV SCH ×9 (09:27→22:54)
--- NOTE | 2019-10-15 09:28 | PCN ---
PROCEDURE NOTE OPERATIVE REPORT: Placement of the right radial arterial line. PREOPERATIVE DIAGNOSIS: Acute respiratory failure. POSTOP DIAGNOSIS: Acute respiratory failure. ANESTHESIA: None deployed. PROCEDURE DETAILS: The right wrist was prepared in a sterile fashion and drapes were applied. The right radial artery was palpated, cannulated, and a guidewire was placed. A Cook's catheter was inserted over the guidewire, and the guidewire was removed. Good blood flow and good waveform noted, no evidence of any immediate complications. The line was secured using 3.0 silk sutures. MMODL / IJN: [id number] /
[2019-10-15] MEDS ORDERED: DEXTROSE 5% IN WATER 1,000 ML IV SCH (09:30)
[2019-10-15 09:44] LABS: Glucose,Whole Blood 151 mg/dL (75-99)
[2019-10-15] MEDS: HYDROmorphone 1 MG/ML 1 ML SYRINGE IVP PRN ×4 (10:03→23:19)
[2019-10-15] MEDS ORDERED: CISATRACURIUM 2 MG/ML 5 ML VIAL IV ONE (10:17)
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
[2019-10-15] MEDS: CISATRACURIUM 200 MG in SODIUM CHLORIDE 0.9% 180 ML IV SCH ×2 (10:59→21:49)
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
[2019-10-15] MEDS: PIPERACILLIN-TAZOBACTAM 3.375 GM in SODIUM CHLORIDE 0.9% 100 ML IVPB SCH ×3 (11:46→23:19)
[2019-10-15 11:54] LABS: Glucose,Whole Blood 74 mg/dL (75-99)
[2019-10-15] MEDS ORDERED: IOPAMIDOL CONTRAST (ORAL USE) VIAL PO PRN (12:36)
[2019-10-15 13:24] LABS: Basophils % (A) 1 %; Eosinophils # (A) 0.1 k/uL (0-0.7); Eosinophils % (A) 2 %; HCT 29.3 % (39.0-53.0); HGB 9.5 gm/dL (13.0-17.5); Lymphocytes # (A) 0.6 k/uL (1.0-4.8); Lymphocytes % (A) 8 %; MCH 30.6 pg (25.0-35.0); MCHC 32.5 g/dL (31.0-37.0); MCV 94.3 fL (80.0-100.0); Mean Platelet Volume 7.3; Monocytes # (A) 0.4 k/uL (0-1.0); Monocytes % (A) 5 %; Neutrophils # (A) 5.9 k/uL (1.3-7.7); Neutrophils % (A) 83 %; Platelet Count 212 k/uL (150-450); RDW 13.7 % (11.5-15.5); WBC 7.1 k/uL (3.8-10.6)
[2019-10-15 13:28] LABS: Hemoglobin A1C 5.6 % (4.0-6.0)
--- NOTE | 2019-10-15 13:28 | XR ---
EXAMINATION TYPE: XR chest 1V portable DATE OF EXAM: 10/15/2019 CLINICAL HISTORY: Hypoxia rule out pneumothorax. History history of multiple left-sided rib fractures after recent fall injury. TECHNIQUE: Single AP portable upright view of the chest is obtained. COMPARISON: Chest x-ray from earlier today an older studies FINDINGS: Stable endotracheal and orogastric tubes. Persistent low lung volumes along with cardiomeg subha and left lung opacity with small to borderline moderate left pleural effusion. No pneumothorax no becca bilaterally. Right lung remains clear. Multilevel spurring in the lower thoracic spine is present . IMPRESSION: Overall stable findings, low lung volumes and cardiomegaly with small to moderate size left pleural fluid collection and diffuse left lung infiltrates and/or atelectasis are all redemonstr ated.
[2019-10-15 13:39] LABS: INR 0.9 (<1.2); Prothrombin Time 9.2 sec (9.0-12.0)
--- NOTE | 2019-10-15 13:46 | P.PN ---
Subjective Progress Note Date: 10/15/19 Principal diagnosis: Multiple left-sided rib fractures secondary to fall/trauma. This is a 49-year-old white male, known history of hypertension, COPD, obesity, chronic low back pain, patient fell off his tractor yesterday, and it was over 10 feet high. Patient landed on his left side of the chest, developed significant pain and discomfort over his left chest and over his left clavicle. Patient was brought into the ER, CT of the chest showed small tiny hydropneumothorax, multiple rib fractures anterolaterally, 2 through 7. And posterior leaf 5 through 11. Patient was also noted to have small bowel and proximal sigmoid involvement with mild hematoma but no perforation and no free air. No pelvic fractures were noted. Patient was noted to have a left clavicular fracture and abrasion of left forearm. Patient was admitted, and this consult was initiated. Reviewed the CT of the chest, reviewed the chest x- ray, the pneumothorax was very small, and could barely be seen on CT of the chest, not seen on chest x-ray. Patient is in a left arm sling, seen by orthopedics on consultation, and the recommendation was conservative measures for his clavicular fracture. And recommended immobilization of the left upper extremity. Pain seems to be fairly well controlled, anesthesia was consulted for possible epidural however the pain seems to be controlled with Dilaudid and oral narcotics. Patient is on 6 L nasal cannula, not in distress, chest x-ray showed small left effusion, and no sizable pneumothorax, bibasilar atelectasis/infiltrates noted. Possible contusion. Patient was reevaluated today on 10/12/19, remains in the ICU, patient is on 10 L high flow nasal cannula, and O2 saturation is 96%. He is on epidural for pain control, he denies shortness of breath, pain seems to be fairly well controlled. Patient is doing poorly with incentive spirometry, achieving no more than 1000 and mild. Left arm remains in a sling. Patient is on IV fluid at 1 20 mL per hour. And I have cut down his FiO2 up to 8 L/m. His chest x-ray showed left lower lobe atelectasis and small left pleural effusion. Ultrasound of the chest showed small left pleural effusion pocket of 5.8 cm, the pocket is crescent- shaped, and 5 cm deep. But not very wide. Hence I have no plans to recommend thoracentesis at this point unless the pleural effusion gets larger. I believe this is most likely hemothorax associated with left lower lobe atelectasis and possibly pulmonary contusion. Patient was seen in follow-up on the regular medical surgical floor on 10/13/2019. He was transferred out of the intensive care unit yesterday, no acute events overnight, he still in significant amount of chest wall discomfort, he has an epidural catheter in place, anesthesia services are following, his epidural is infusing at a rate of 9 ML per hour. His epidural catheter was removed yesterday and the thoracic spine epidural catheter was placed per anesthesia. His senna spirometer effort is 700 mL on today's exam, his respirations are shallow, he still requiring 10 L of oxygen per high flow nasal cannula with a pulse ox of 95%, hemodynamically he is stable, he is afebrile. Today's chest x-ray has been reviewed showing bilateral consolidation and pleural effusions, pneumothorax Reevaluated today on 10/14/19, patient was transferred back to the intensive care unit last night, I was notified about this patient having extreme agitation, tachycardia, restlessness, diaphoresis, and confusion. Hence I have made plans to transfer the patient to the ICU, and this morning patient seems to be getting worse, and when I evaluated the patient his breathing was noted to be almost agonal. Recommended immediate intubation. And lines were placed for adequate IV access, and for adequate blood pressure monitoring. It is felt that the patient most likely had symptoms of alcohol withdrawal and delirium tremens. Although the patient denied drinking any alcohol in the last 5 months, but he did have a positive alcohol level on presentation to the ER initially. I did order a repeat CT angiogram of the chest, however the patient was relatively unstable earlier today for a CT angiogram, hence we held back. I will recommend CT angiogram of the chest and recommended CT of the head. ABG post intubation showed a pO2 of 233 pH of 7.38 pCO2 of 41. Patient is on assist control rate of 20, volume of 500 FiO2 on the percent and PEEP of 5 hence his FiO2 was decreased down to 50%. Patient is now on propofol at 75 mcg/kg/m, IV fluid at 1 20 mL/h, and he is also on epidural for his pain control. CBC and basic metabolic profile are noted to be normal. Reevaluated today on 10/15/19, patient remains intubated and mechanically ventilated. Patient was extremely restless and not synchronous with the ventilator this morning, hence I had to place the patient on Nimbex to be able to adequately ventilate the patient. Chest x-ray is consistent with left sided contusion and multiple rib fractures, no evidence of pneumothorax, but there is evidence of a small hemothorax on the left side. There is atelectasis, and I suspect some contusion affecting the left lung. Patient seems to be developing a left upper quadrant and left abdominal hematoma, with significant swelling and ecchymosis noted in the left upper quadrant area. Surgery was notified, recommending a CT of the abdomen and pelvis and this would be done. In the meantime his hemoglobin dropped down from 12.9 on admission to 10.4 yesterday and it is 8.1 today. I did recommend a unit of packed RBCs, a stat hemoglobin, and to notify surgery already notified and recommended CT of the abdomen and pelvis. Patient is a bit tachycardic, heart rate is 112, respiration 20, and blood pressure is 144/62. We had to increase his FiO2 up to 80%. And again I plan to evaluate his CT of the abdomen and pelvis. He is now on assist control rate of 20 FiO2 is 80% PEEP of 5 and tidal volume is 500. Patient is on epidur al, he is also on propofol at 75 and Nimbex was added today. Earlier ABG on a 80% FiO2 showed a pO2 of 72 pCO2 of 37 pH of 7.45. Chest x-ray as noted above. Objective - Vital Signs Vital signs: Vital Signs Temp 99.1 F 10/15/19 12:00 Pulse 112 H 10/15/19 13:00 Resp 20 10/15/19 13:00 BP 131/76 10/14/19 20:30 Pulse Ox 90 L 10/15/19 13:00 Intake & Output 10/14/19 10/15/19 10/15/19 18:59 06:59 18:59 Intake Total 2199.571 2875.91 1235.810 Output Total 625 795 425 Balance 438.231 0489.91 810.810 Weight 125.6 kg 125.4 kg Intake: IV 1320 1624 803 Dextrose 5% in Water 1, 50 000 ml @ 50 mls/hr IV . Q20H [facility] Rx#:[id number] Sodium Chloride 0.9% 1, 1320 1560 735 000 ml @ 125 mls/hr IV . Q8H [facility] Rx#:[id number] pressure bag 64 18 Intake, IV Titration 302.303 848.91 372.810 Amount Clevidipine Butyrate 25 6.367 7.166 mg In Empty Bag 1 bag @ 1 MG/HR 2 mls/hr IV .Q24H [facility] Rx#:[id number] Ropivacaine 250 mg 250 fentaNYL (PF) 1,250 mcg In Sodium Chloride 0.9% 175 ml @ Per Protocol EPIDURAL .Q0M [facility] Rx#: [id number] propofoL 1,000 mg In 295.936 598.91 365.644 Empty Bag 1 bag @ Titrate IV .Q0M [facility] Rx#: [id number] Tube Feeding 60 60 Other 120 Output: Urine 625 795 425 Other: Voiding Method Indwelling Catheter Indwelling Catheter Indwelling Catheter ABP, PAP, CO, CI - Last Documented Arterial Blood Pressure 144/62 - Exam Physical Exam: Revealed 49-year-old white male, obese, on mechanical ventilation. Head: Atraumatic, normocephalic. Endotracheal tube and orogastric tube are intact. HEENT:[Neck is supple.] [No neck masses.] [No thyromegaly.] [No JVD.] Chest there is evidence of chest wall tenderness, and minimal bruising over the left side of the chest, diminished breath sounds at the bases, no crackles or rhonchi or wheezes. Cardiac Exam: [Normal S1 and S2, no S3 gallop, no murmur.] Abdomen: [Obese, slightly distended, abdomen nontender, no megaly, no rebound, no guarding, normal bowel sounds.] Left upper quadrant noted to be moderate, and swollen, suspect abdominal hematoma. Extremities: [No clubbing, no edema, no cyanosis.] Left upper extremity is in a sling, and there is left forearm abrasion, left clavicular deformity is noted. Tender left distal clavicular area. Neurological Exam: Not be assessed, patient is intubated and mechanically ventilated. Skin: Abrasion of dorsal radial proximal forearm. Lymphatics: No lymphadenopathy. - Labs CBC & Chem 7: 10/15/19 04:20 10/15/19 04:20 Labs: Abnormal Lab Results - Last 24 Hours (Table) 10/14/19 10/14/19 10/14/19 Range/Units 17:54 20:27 21:23 RBC (4.30-5.90) m/uL Hgb (13.0-17.5) gm/dL Hct (39.0-53.0) % ABG pO2 (83-108) mmHg ABG HCO3 (21-25) mmol/L ABG Total CO2 (19-24) mmol/L Sodium (137-145) mmol/L Creatinine (0.66-1.25) mg/dL Glucose (74-99) mg/dL POC Glucose (mg/dL) 101 H 115 H (75-99) mg/dL Calcium (8.4-10.2) mg/dL Magnesium (1.6-2.3) mg/dL Creatine Kinase (55-170) U/L Ur Specific [place] >1.050 H (1.001-1.035) Urine Protein Trace H (Negative) Urine Ketones 1+ H (Negative) 10/15/19 10/15/19 10/15/19 Range/Units 01:33 04:20 04:20 RBC 2.71 L (4.30-5.90) m/uL Hgb 8.1 L D (13.0-17.5) gm/dL Hct 25.4 L (39.0-53.0) % ABG pO2 (83-108) mmHg ABG HCO3 (21-25) mmol/L ABG Total CO2 (19-24) mmol/L Sodium 134 L (137-145) mmol/L Creatinine 0.60 L (0.66-1.25) mg/dL Glucose 101 H (74-99) mg/dL POC Glucose (mg/dL) 107 H (75-99) mg/dL Calcium 7.8 L (8.4-10.2) mg/dL Magnesium 2.4 H (1.6-2.3) mg/dL Creatine Kinase (55-170) U/L Ur Specific [place] (1.001-1.035) Urine Protein (Negative) Urine Ketones (Negative) 10/15/19 10/15/19 10/15/19 Range/Units 04:20 07:22 08:13 RBC (4.30-5.90) m/uL Hgb (13.0-17.5) gm/dL Hct (39.0-53.0) % ABG pO2 72 L (83-108) mmHg ABG HCO3 26 H (21-25) mmol/L ABG Total CO2 27 H (19-24) mmol/L Sodium (137-145) mmol/L Creatinine (0.66-1.25) mg/dL Glucose (74-99) mg/dL POC Glucose (mg/dL) 73 L (75-99) mg/dL Calcium (8.4-10.2) mg/dL Magnesium (1.6-2.3) mg/dL Creatine Kinase 977 H (55-170) U/L Ur Specific [place] (1.001-1.035) Urine Protein (Negative) Urine Ketones (Negative) 10/15/19 10/15/19 10/15/19 Range/Units 08:58 09:42 11:42 RBC (4.30-5.90) m/uL Hgb (13.0-17.5) gm/dL Hct (39.0-53.0) % ABG pO2 (83-108) mmHg ABG HCO3 (21-25) mmol/L ABG Total CO2 (19-24) mmol/L Sodium (137-145) mmol/L Creatinine (0.66-1.25) mg/dL Glucose (74-99) mg/dL POC Glucose (mg/dL) 70 L 151 H 74 L (75-99) mg/dL Calcium (8.4-10.2) mg/dL Magnesium (1.6-2.3) mg/dL Creatine Kinase (55-170) U/L Ur Specific [place] (1.001-1.035) Urine Protein (Negative) Urine Ketones (Negative) Microbiology - Last 24 Hours (Table) 10/15/19 02:32 Sputum Culture - Preliminary Sputum Assessment and Plan Assessment: Impression: Acute hypoxic respiratory failure, based on the clinical presentation, this is alcohol withdrawal/delirium tremens unless proven otherwise.. And related to pulmonary contusion. Possible ARDS. Secondary to pulmonary contusion Status post tractor accident/fall, with multiple left-sided rib fractures Multiple left-sided rib fractures, but no significant pneumothorax. No significant hemopneumothorax. Pulmonary contusion. Mostly affecting the left lung base on the chest x-ray findings and based on the fact that the patient is developing worsening oxygenation. Proximal sigmoid hematoma but no perforation. Benign essential hypertension. Type 2 diabetes. Chronic low back pain. History of depression. Small left sided hemothorax is suspected, not large enough to drain at this point. Blood loss anemia, acute, suspect left abdominal wall or abdominal hematoma, CT of the abdomen and pelvis is pending. In the meantime considering the patient's marginal status, I will go ahead and transfuse the patient with 1 unit of packed RBCs, stat repeat hemoglobin is ordered. CT of the abdomen and pelvis is pending. Patient is a good set up to develop ARDS from pulmonary contusion. And we may be seeing some of this happening today. Recommendation: Transfuse with 1 unit of packed RBCs now. Started patient on Nimbex because he was not adequately ventilated, and was asynchronous with mechanical ventilation in spite of a relatively high dose of propofol. Continue ventilatory support. Continue nutritional support. Continue propofol and keep the patient sedated to avoid further alcohol withdrawal symptoms. I had to add Nimbex because the patient was asynchronous with the ventilator this morning. Bibasilar lower lobe consolidation and atelectasis with bilateral pleural effusions as noted on CT of the chest yesterday. Hence we will try diuretics once the patient is given a unit of packed RBCs today. Continue present supportive care measures. Continue GI and DVT prophylaxis. Continue to monitor closely in the ICU. Continue pain control. Patient is presently on epidural. Has been receiving Dilaudid intermittently for pain control. We'll continue to follow. Critical care time is 35 minutes Time with Patient: Greater than 30
[2019-10-15 13:51] LABS: Glucose,Whole Blood 130 mg/dL (75-99)
[2019-10-15] MEDS: FUROSEMIDE 10 MG/ML 4 ML VIAL IV SCH ×2 (14:53→21:07)
--- NOTE | 2019-10-15 14:53 | P.PN ---
Progress Note - Text 10/15/19 1422 49-year-old male status post multiple rib fractures has an epidural catheter for pain control. Patient was seen this afternoon he was intubated yesterday hemodynamically stable. Patient may be developing ARDS secondary to lung contusion, has also dropped his hemoglobin with a big hematoma on his left flank. He is being sent to the radiology suite for a CAT scan. I plan to DC the epidural and the nurse was informed
[2019-10-15 16:17] LABS: ABG Base Excess 0.6 mmol/L; ABG HCO3 26 mmol/L (21-25); ABG Oxygen Saturation 92.6 % (94-97); ABG PCO2 43 mmHg (35-45); ABG PH 7.39 (7.35-7.45); ABG PO2 67 mmHg (83-108); ABG TCO2 27 mmol/L (19-24); Allen Test Performed? Yes
[2019-10-15 19:02] LABS: Glucose,Whole Blood 119 mg/dL (75-99)
[2019-10-15] MEDS: ARTIFICIAL TEARS-HYPROMELLOSE DROPS 15 ML BTL BOTH EYES SCH ×2 (20:43→23:18)
[2019-10-15 20:47] LABS: Glucose,Whole Blood 112 mg/dL (75-99)
[2019-10-15 21:56] LABS: Basophils % (A) 0 %; Eosinophils # (A) 0.1 k/uL (0-0.7); Eosinophils % (A) 1 %; HCT 32.4 % (39.0-53.0); HGB 10.9 gm/dL (13.0-17.5); Lymphocytes # (A) 0.5 k/uL (1.0-4.8); Lymphocytes % (A) 5 %; MCH 31.4 pg (25.0-35.0); MCHC 33.6 g/dL (31.0-37.0); MCV 93.4 fL (80.0-100.0); Mean Platelet Volume 7.2; Monocytes # (A) 0.5 k/uL (0-1.0); Monocytes % (A) 5 %; Neutrophils # (A) 8.6 k/uL (1.3-7.7); Neutrophils % (A) 88 %; Platelet Count 211 k/uL (150-450); RBC 3.47 m/uL (4.30-5.90); RDW 13.6 % (11.5-15.5); WBC 9.7 k/uL (3.8-10.6)
[2019-10-15] MEDS: POTASSIUM BICARBONATE/CIT AC 20 MEQ TABLET.EFF NG-TUBE SCH (22:47)
[2019-10-16] MEDS: POTASSIUM BICARBONATE/CIT AC 20 MEQ TABLET.EFF NG-TUBE SCH (00:45)
[2019-10-16] MEDS: CLEVIDIPINE BUTYRATE 25 MG in EMPTY BAG 1 BAG IV SCH ×6 (00:45→23:57)
[2019-10-16 01:06] LABS: Glucose,Whole Blood 127 mg/dL (75-99)
[2019-10-16] MEDS: ACETAMINOPHEN TAB 325 MG TAB PO PRN (01:12)
[2019-10-16] MEDS: INSULIN ASPART (NovoLOG) 100 UNIT/ML VIAL SQ SCH ×6 (02:36→20:50)
[2019-10-16] MEDS: HYDROmorphone 1 MG/ML 1 ML SYRINGE IVP PRN ×3 (03:39→09:00)
[2019-10-16] MEDS: ARTIFICIAL TEARS-HYPROMELLOSE DROPS 15 ML BTL BOTH EYES SCH ×5 (03:45→20:42)
[2019-10-16 04:28] LABS: HCT 31.8 % (39.0-53.0); HGB 10.7 gm/dL (13.0-17.5); MCH 31.9 pg (25.0-35.0); MCHC 33.8 g/dL (31.0-37.0); MCV 94.1 fL (80.0-100.0); Mean Platelet Volume 6.8; Platelet Count 238 k/uL (150-450); RBC 3.37 m/uL (4.30-5.90); RDW 13.5 % (11.5-15.5); WBC 8.5 k/uL (3.8-10.6)
[2019-10-16 04:48] LABS: African American GFR (CKD) >90 (>60 ml/min/1.73 sqM); Anion Gap 7 mmol/L; Blood Urea Nitrogen 11 mg/dL (9-20); Calcium 7.5 mg/dL (8.4-10.2); Carbon Dioxide 27 mmol/L (22-30); Chloride 101 mmol/L (98-107); Glucose 117 mg/dL (74-99); Non-African American GFR(CKD) >90 (>60 ml/min/1.73 sqM); Potassium 3.6 mmol/L (3.5-5.1); Sodium 135 mmol/L (137-145)
[2019-10-16 05:50] LABS: Glucose,Whole Blood 134 mg/dL (75-99)
[2019-10-16] MEDS ORDERED: POTASSIUM BICARBONATE/CIT AC 20 MEQ TABLET.EFF NG-TUBE SCH (06:00)
[2019-10-16] MEDS: THIAMINE 100 MG TAB PO SCH ×2 (06:35→19:03)
[2019-10-16] MEDS: PANTOPRAZOLE 40 MG TABLET PO SCH (06:36)
[2019-10-16 07:38] LABS: Glucose,Whole Blood 120 mg/dL (75-99)
--- NOTE | 2019-10-16 07:38 | XR ---
EXAMINATION TYPE: XR chest 1V portable DATE OF EXAM: 10/16/2019 Comparison: 10/15/2019 Clinical History: 49 year-old male tube placement Findings: ET and NG tubes satisfactory. Heart remains mildly enlarged. Perihilar and interstitial density simil ar to slightly improved. Small left pleural effusion may be slightly decreased in the interval. Retro cardiac and left basilar opacity persists. Impression: 1. Cardiomegaly and interstitial densities. Interstitial opacities may be slightly improved, correlat e for slight improvement in pulmonary vascular congestion. 2. Continued but slightly improved small left pleural effusion but with persistent prominent left bas ilar/retrocardiac atelectasis and/or consolidation.
[2019-10-16 07:40] LABS: ABG Base Excess 4.7 mmol/L; ABG HCO3 29 mmol/L (21-25); ABG Oxygen Saturation 98.9 % (94-97); ABG PCO2 41 mmHg (35-45); ABG PH 7.45 (7.35-7.45); ABG PO2 148 mmHg (83-108); ABG TCO2 30 mmol/L (19-24)
[2019-10-16 07:41] LABS: Allen Test Performed? no
[2019-10-16] MEDS: DULoxetine HCL 60 MG CAPSULE.DR PO SCH (08:29)
[2019-10-16] MEDS: CHLORHEXIDINE GLUCONATE 15 ML CUP MUCOUS MEM SCH ×2 (08:35→20:44)
[2019-10-16] MEDS: amLODIPine 10 MG TAB PO SCH (08:35)
[2019-10-16] MEDS: PIPERACILLIN-TAZOBACTAM 3.375 GM in SODIUM CHLORIDE 0.9% 100 ML IVPB SCH ×2 (08:35→16:13)
[2019-10-16] MEDS: HEPARIN SODIUM,PORCINE 5,000 UNIT/ML 1 ML VIAL SQ SCH ×2 (08:36→20:43)
[2019-10-16] MEDS: METOPROLOL TARTRATE 50 MG TAB PO SCH ×2 (08:36→20:44)
[2019-10-16] MEDS: FUROSEMIDE 10 MG/ML 4 ML VIAL IV SCH ×2 (08:36→21:19)
[2019-10-16] MEDS: hydrALAZINE HCL 25 MG TAB PO SCH ×3 (08:36→21:25)
--- NOTE | 2019-10-16 08:37 | CT ---
EXAMINATION TYPE: CT abdomen pelvis wo/w con DATE OF EXAM: 10/16/2019 COMPARISON: 10/10/2019 HISTORY: 49-year-old male with pain, rule out Retroperitoneal bleeding TECHNIQUE: Contiguous axial scanning of the abdomen and pelvis before and after administration of 100 ml Isovue 300 IV contrast. Delayed images through the kidneys and coronal/sagittal reconstructions performed. CT DLP: 4209.7 mGycm Automated exposure control for dose reduction was used. FINDINGS: Heart mildly enlarged. Extensive three-vessel coronary artery calcifications. [id number] left effusion small right effusions. Prominent adjacent right lower lobe atelectasis. Extensive consolidat ion and volume loss/atelectasis of the left lower lobe. Partially visualized known left-sided rib fra cture deformities. Artifacts from the patient's arms down by his sides. Liver enlarged at 20.1 cm without focal lesion seen. Gallbladder borderline distended but without any surrounding inflammation or maninder hydropic change. Heather hepatic and portacaval lymph nodes are similar measuring up to 1.2 cm, borderline enlarged. Adrenal glands, kidneys, spleen with hilar splenule, and pancreas appear within normal limits. Generalized anasarca change marked along the bilateral flanks. Trace abdominal ascites fluid. Mild-to -moderate pelvic free fluid. Mesenteric haziness and edema. NG tube is in place. No dilated small bowel or free air. Redemonstrated left lower quadrant mesenteric hematoma near the level of the proximal sigmoid colon. The focal components measuring 2.7 cm and 5.0 x 2.3 cm are relatively unchanged. The larger surroundi ng strandy component shows decrease in the interval. No new or increasing retroperitoneal or other hematoma is identified. Colindres catheter is in place. Moderate circumferential bladder wall thickening. Nondependent intralumin al bladder air likely related to instrumentation. Varices along the anterior left upper thigh. Small foci of air at the right inguinal region likely sm all foci within the venous structures. A right femoral CVC is present. Tip at the level of the upper external iliac vein. Bones: Previously described left-sided rib fracture deformities redemonstrated. Bridging degenerative spurring at the SI joints. Moderate to advanced degenerative disc disease L5-S1. Bilateral L5 pars d efects with trace grade 1 anterolisthesis of L5-S1. [facility] within the lower thoracic spine. IMPRESSION: 1. FOCAL LEFT LOWER QUADRANT MESENTERIC HEMATOMAS ADJACENT TO THE PROXIMAL SIGMOID ARE RELATIVELY SIM ILAR IN SIZE MEASURING 5.0 X 2.3 CM AND 2.7 CM. THE SURROUNDING STRANDY HEMORRHAGE HAS DECREASED IN T HE INTERVAL. NO NEW OR PROGRESSIVE HEMATOMA. 2. DEVELOPMENT OF GENERALIZED ANASARCA. CORRELATE FOR FLUID OVERLOAD STATE GIVEN NEW MILD ABDOMINOPEL YOLANDA ASCITES. THERE IS A MODERATE LEFT EFFUSION WITH COLLAPSE OF MOST OF THE LEFT LOWER LOBE AND A SMA LL RIGHT EFFUSION WITH ADJACENT ATELECTASIS. 3. KNOWN MULTIPLE LEFT-SIDED RIB FRACTURES AND FLAIL CHEST DESCRIBED IN DETAIL ON 10/10/2019. 4. INCIDENTAL BILATERAL L5 PARS DEFECTS WITH GRADE 1 ANTEROLISTHESIS AT L5-S1 AND MODERATE TO ADVANCE D DEGENERATIVE DISC DISEASE AT THIS LEVEL.
[2019-10-16] MEDS ORDERED: fentaNYL (PF) 50 MCG/ML 2 ML AMP ONE (09:33)
[2019-10-16] MEDS ORDERED: fentaNYL (PF) 50 MCG/ML 2 ML AMP IVP STA (09:36)
[2019-10-16] MEDS: fentaNYL (PF) 1,000 MCG in SODIUM CHLORIDE 0.9% 80 ML IV SCH ×2 (09:56→16:18)
[2019-10-16 10:23] LABS: ABG Base Excess 5.6 mmol/L; ABG HCO3 30 mmol/L (21-25); ABG Oxygen Saturation 94.7 % (94-97); ABG PCO2 47 mmHg (35-45); ABG PH 7.42 (7.35-7.45); ABG PO2 75 mmHg (83-108); ABG TCO2 32 mmol/L (19-24)
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
--- NOTE | 2019-10-16 11:12 | P.PN ---
Progress Note - Text Progress Note Date: 10/15/19 The patient remains on the ventilator. He's had more difficulty maintaining his oxygenation. The patient's abdomen slightly distended today. Abdomen is more distended it is difficult to elicit any pain response. Under. Patient is scheduled for computed tomography scan of the abdomen and pelvis today.
--- NOTE | 2019-10-16 11:13 | P.PN ---
Progress Note - Text Progress Note Date: 10/16/19 The patient underwent computed tomography scan of the abdomen pelvis yesterday. His mesenteric hematoma is stable. He is acting like a ARDS picture on the ventilator. On exam vital signs appear stable. Abdomen soft. There is less distention than yesterday. Patient resume tube feeds today. His condition is guarded.
--- NOTE | 2019-10-16 12:35 | P.PN ---
Subjective Progress Note Date: 10/16/19 Principal diagnosis: Multiple left-sided rib fractures secondary to fall/trauma. This is a 49-year-old white male, known history of hypertension, COPD, obesity, chronic low back pain, patient fell off his tractor yesterday, and it was over 10 feet high. Patient landed on his left side of the chest, developed significant pain and discomfort over his left chest and over his left clavicle. Patient was brought into the ER, CT of the chest showed small tiny hydropneumothorax, multiple rib fractures anterolaterally, 2 through 7. And posterior leaf 5 through 11. Patient was also noted to have small bowel and proximal sigmoid involvement with mild hematoma but no perforation and no free air. No pelvic fractures were noted. Patient was noted to have a left clavicular fracture and abrasion of left forearm. Patient was admitted, and this consult was initiated. Reviewed the CT of the chest, reviewed the chest x- ray, the pneumothorax was very small, and could barely be seen on CT of the chest, not seen on chest x-ray. Patient is in a left arm sling, seen by orthopedics on consultation, and the recommendation was conservative measures for his clavicular fracture. And recommended immobilization of the left upper extremity. Pain seems to be fairly well controlled, anesthesia was consulted for possible epidural however the pain seems to be controlled with Dilaudid and oral narcotics. Patient is on 6 L nasal cannula, not in distress, chest x-ray showed small left effusion, and no sizable pneumothorax, bibasilar atelectasis/infiltrates noted. Possible contusion. Patient was reevaluated today on 10/12/19, remains in the ICU, patient is on 10 L high flow nasal cannula, and O2 saturation is 96%. He is on epidural for pain control, he denies shortness of breath, pain seems to be fairly well controlled. Patient is doing poorly with incentive spirometry, achieving no more than 1000 and mild. Left arm remains in a sling. Patient is on IV fluid at 1 20 mL per hour. And I have cut down his FiO2 up to 8 L/m. His chest x-ray showed left lower lobe atelectasis and small left pleural effusion. Ultrasound of the chest showed small left pleural effusion pocket of 5.8 cm, the pocket is crescent- shaped, and 5 cm deep. But not very wide. Hence I have no plans to recommend thoracentesis at this point unless the pleural effusion gets larger. I believe this is most likely hemothorax associated with left lower lobe atelectasis and possibly pulmonary contusion. Patient was seen in follow-up on the regular medical surgical floor on 10/13/2019. He was transferred out of the intensive care unit yesterday, no acute events overnight, he still in significant amount of chest wall discomfort, he has an epidural catheter in place, anesthesia services are following, his epidural is infusing at a rate of 9 ML per hour. His epidural catheter was removed yesterday and the thoracic spine epidural catheter was placed per anesthesia. His senna spirometer effort is 700 mL on today's exam, his respirations are shallow, he still requiring 10 L of oxygen per high flow nasal cannula with a pulse ox of 95%, hemodynamically he is stable, he is afebrile. Today's chest x-ray has been reviewed showing bilateral consolidation and pleural effusions, pneumothorax Reevaluated today on 10/14/19, patient was transferred back to the intensive care unit last night, I was notified about this patient having extreme agitation, tachycardia, restlessness, diaphoresis, and confusion. Hence I have made plans to transfer the patient to the ICU, and this morning patient seems to be getting worse, and when I evaluated the patient his breathing was noted to be almost agonal. Recommended immediate intubation. And lines were placed for adequate IV access, and for adequate blood pressure monitoring. It is felt that the patient most likely had symptoms of alcohol withdrawal and delirium tremens. Although the patient denied drinking any alcohol in the last 5 months, but he did have a positive alcohol level on presentation to the ER initially. I did order a repeat CT angiogram of the chest, however the patient was relatively unstable earlier today for a CT angiogram, hence we held back. I will recommend CT angiogram of the chest and recommended CT of the head. ABG post intubation showed a pO2 of 233 pH of 7.38 pCO2 of 41. Patient is on assist control rate of 20, volume of 500 FiO2 on the percent and PEEP of 5 hence his FiO2 was decreased down to 50%. Patient is now on propofol at 75 mcg/kg/m, IV fluid at 1 20 mL/h, and he is also on epidural for his pain control. CBC and basic metabolic profile are noted to be normal. Reevaluated today on 10/15/19, patient remains intubated and mechanically ventilated. Patient was extremely restless and not synchronous with the ventilator this morning, hence I had to place the patient on Nimbex to be able to adequately ventilate the patient. Chest x-ray is consistent with left sided contusion and multiple rib fractures, no evidence of pneumothorax, but there is evidence of a small hemothorax on the left side. There is atelectasis, and I suspect some contusion affecting the left lung. Patient seems to be developing a left upper quadrant and left abdominal hematoma, with significant swelling and ecchymosis noted in the left upper quadrant area. Surgery was notified, recommending a CT of the abdomen and pelvis and this would be done. In the meantime his hemoglobin dropped down from 12.9 on admission to 10.4 yesterday and it is 8.1 today. I did recommend a unit of packed RBCs, a stat hemoglobin, and to notify surgery already notified and recommended CT of the abdomen and pelvis. Patient is a bit tachycardic, heart rate is 112, respiration 20, and blood pressure is 144/62. We had to increase his FiO2 up to 80%. And again I plan to evaluate his CT of the abdomen and pelvis. He is now on assist control rate of 20 FiO2 is 80% PEEP of 5 and tidal volume is 500. Patient is on epidur al, he is also on propofol at 75 and Nimbex was added today. Earlier ABG on a 80% FiO2 showed a pO2 of 72 pCO2 of 37 pH of 7.45. Chest x-ray as noted above. Patient was reevaluated today on 10/16/19, remains intubated and mechanically ventilated. However his oxygenation seems to be an issue, patient is now on relatively high FiO2, high PEEP, and chest x-ray is showing bilateral pleural effusions, given Lasix and responded well to Lasix, but continues to have low O2 saturations. Patient is on Nimbex, clevidipine, propofol, fentanyl, and his ABG earlier this morning on 80% showed a pO2 of 148 pCO2 of 40 pH of 7.45. However shortly after this ABG the patient desaturated again and repeat ABG showed a pO2 of 75 pCO2 47 pH of 7.42 and this is on 100% FiO2 and PEEP of 12. Electrolytes are normal renal profile is normal. WBC count is 8.5 hemoglobin is 10.7. Echocardiogram was ordered, and it is pending at the time of this dictation. Objective - Vital Signs Vital signs: Vital Signs Temp 99.0 F 10/16/19 08:30 Pulse 97 10/16/19 11:45 Resp 21 10/16/19 11:45 BP 131/76 10/16/19 11:30 Pulse Ox 94 L 10/16/19 11:45 Intake & Output 10/15/19 10/16/19 10/16/19 18:59 06:59 18:59 Intake Total 2522.858 1548.454 524.033 Output Total 1790 2625 1750 Balance 732.858 -1076.546 -1225.967 Weight 126.6 kg Intake: IV 1308 280 295 0.9 NS 10 120 80 Dextrose 5% in Water 1, 50 000 ml @ 50 mls/hr IV . Q20H [facility] Rx#:[id number] Piperacillin-Tazobactam 3 200 100 200 .375 gm In Sodium Chloride 0.9% 100 ml @ 25 mls/hr IVPB Q8HR [facility] Rx# :[id number] Sodium Chloride 0.9% 1, 1015 000 ml @ 125 mls/hr IV . Q8H [facility] Rx#:[id number] pressure bag 33 60 15 Intake, IV Titration 584.087 8420.454 229.033 Amount Cisatracurium 200 mg In 216.44 Sodium Chloride 0.9% 180 ml @ 2 MCG/KG/MIN 15.048 mls/hr IV .[id number] [facility] Rx #:[id number] Clevidipine Butyrate 25 190.666 263.034 29.033 mg In Empty Bag 1 bag @ 1 MG/HR 2 mls/hr IV .Q24H [facility] Rx#:[id number] propofoL 1,000 mg In 654.192 678.98 200 Empty Bag 1 bag @ Titrate IV .Q0M [facility] Rx#: [id number] Tube Feeding 60 Blood Product 310 Rc As-1 Unit 310 [id number] Other 110 Output: Urine 1790 2625 1750 Other: Voiding Method Indwelling Catheter Indwelling Catheter Indwelling Catheter ABP, PAP, CO, CI - Last Documented Arterial Blood Pressure 98/62 - Exam Physical Exam: Revealed 49-year-old white male, obese, on mechanical ventilation. Sedated and paralyzed. Head: Atraumatic, normocephalic. Endotracheal tube and orogastric tube are intact. HEENT:[Neck is supple.] [No neck masses.] [No thyromegaly.] [No JVD.] Chest there is evidence of chest wall tenderness, and minimal bruising over the left side of the chest, diminished breath sounds at the bases, no crackles or rhonchi or wheezes. Cardiac Exam: [Normal S1 and S2, no S3 gallop, no murmur.] Abdomen: [Obese, slightly distended, abdomen nontender, no megaly, no rebound, no guarding, normal bowel sounds.] Left upper quadrant noted to be moderate, and swollen, and bruised Extremities: [No clubbing, no edema, no cyanosis.] Left upper extremity is in a sling, and there is left forearm abrasion, left clavicular deformity is noted. Tender left distal clavicular area. Neurological Exam: Not be assessed, patient is intubated and mechanically ventilated. Skin: Abrasion of dorsal radial proximal forearm. Lymphatics: No lymphadenopathy. - Labs CBC & Chem 7: 10/16/19 04:00 10/16/19 04:00 Labs: Abnormal Lab Results - Last 24 Hours (Table) 10/15/19 10/15/19 10/15/19 Range/Units 13:05 13:05 13:05 RBC 3.10 L (4.30-5.90) m/uL Hgb 9.5 L (13.0-17.5) gm/dL Hct 29.3 L (39.0-53.0) % Neutrophils # (1.3-7.7) k/uL Lymphocytes # 0.6 L (1.0-4.8) k/uL APTT 21.0 L (22.0-30.0) sec ABG pCO2 (35-45) mmHg ABG pO2 (83-108) mmHg ABG HCO3 (21-25) mmol/L ABG Total CO2 (19-24) mmol/L ABG O2 Saturation (94-97) % Sodium (137-145) mmol/L Creatinine (0.66-1.25) mg/dL Glucose (74-99) mg/dL POC Glucose (mg/dL) (75-99) mg/dL Calcium (8.4-10.2) mg/dL Crossmatch See Detail 10/15/19 10/15/19 10/15/19 Range/Units 13:38 16:14 19:00 RBC (4.30-5.90) m/uL Hgb (13.0-17.5) gm/dL Hct (39.0-53.0) % Neutrophils # (1.3-7.7) k/uL Lymphocytes # (1.0-4.8) k/uL APTT (22.0-30.0) sec ABG pCO2 (35-45) mmHg ABG pO2 67 L (83-108) mmHg ABG HCO3 26 H (21-25) mmol/L ABG Total CO2 27 H (19-24) mmol/L ABG O2 Saturation 92.6 L (94-97) % Sodium (137-145) mmol/L Creatinine (0.66-1.25) mg/dL Glucose (74-99) mg/dL POC Glucose (mg/dL) 130 H 119 H (75-99) mg/dL Calcium (8.4-10.2) mg/dL Crossmatch 10/15/19 10/15/19 10/16/19 Range/Units 20:46 21:15 01:05 RBC 3.47 L (4.30-5.90) m/uL Hgb 10.9 L (13.0-17.5) gm/dL Hct 32.4 L (39.0-53.0) % Neutrophils # 8.6 H (1.3-7.7) k/uL Lymphocytes # 0.5 L (1.0-4.8) k/uL APTT (22.0-30.0) sec ABG pCO2 (35-45) mmHg ABG pO2 (83-108) mmHg ABG HCO3 (21-25) mmol/L ABG Total CO2 (19-24) mmol/L ABG O2 Saturation (94-97) % Sodium (137-145) mmol/L Creatinine (0.66-1.25) mg/dL Glucose (74-99) mg/dL POC Glucose (mg/dL) 112 H 127 H (75-99) mg/dL Calcium (8.4-10.2) mg/dL Crossmatch 10/16/19 10/16/19 10/16/19 Range/Units 04:00 04:00 05:48 RBC 3.37 L (4.30-5.90) m/uL Hgb 10.7 L (13.0-17.5) gm/dL Hct 31.8 L (39.0-53.0) % Neutrophils # (1.3-7.7) k/uL Lymphocytes # (1.0-4.8) k/uL APTT (22.0-30.0) sec ABG pCO2 (35-45) mmHg ABG pO2 (83-108) mmHg ABG HCO3 (21-25) mmol/L ABG Total CO2 (19-24) mmol/L ABG O2 Saturation (94-97) % Sodium 135 L (137-145) mmol/L Creatinine 0.61 L (0.66-1.25) mg/dL Glucose 117 H (74-99) mg/dL POC Glucose (mg/dL) 134 H (75-99) mg/dL Calcium 7.5 L (8.4-10.2) mg/dL Crossmatch 10/16/19 10/16/19 10/16/19 Range/Units 07:37 07:38 09:28 RBC (4.30-5.90) m/uL Hgb (13.0-17.5) gm/dL Hct (39.0-53.0) % Neutrophils # (1.3-7.7) k/uL Lymphocytes # (1.0-4.8) k/uL APTT (22.0-30.0) sec ABG pCO2 47 H (35-45) mmHg ABG pO2 148 H 75 L (83-108) mmHg ABG HCO3 29 H 30 H (21-25) mmol/L ABG Total CO2 30 H 32 H (19-24) mmol/L ABG O2 Saturation 98.9 H (94-97) % Sodium (137-145) mmol/L Creatinine (0.66-1.25) mg/dL Glucose (74-99) mg/dL POC Glucose (mg/dL) 120 H (75-99) mg/dL Calcium (8.4-10.2) mg/dL Crossmatch Microbiology - Last 24 Hours (Table) 10/15/19 02:32 Gram Stain - Preliminary Sputum Sputum Culture - Preliminary Assessment and Plan Assessment: Impression: Acute hypoxic respiratory failure, based on the clinical presentation, this is alcohol withdrawal/delirium tremens unless proven otherwise.. And related to pulmonary contusion. Possible ARDS. Secondary to pulmonary contusion Status post tractor accident/fall, with multiple left-sided rib fractures Multiple left-sided rib fractures, but no significant pneumothorax. No significant hemopneumothorax. Pulmonary contusion. Mostly affecting the left lung base on the chest x-ray findings and based on the fact that the patient is developing worsening oxygenation. Proximal sigmoid hematoma but no perforation. Benign essential hypertension. Type 2 diabetes. Chronic low back pain. History of depression. Small left sided hemothorax is suspected, not large enough to drain at this point. Blood loss anemia, acute, suspect left abdominal wall or abdominal hematoma, CT abdomen and pelvis is reassuring. No change. Recommendation: Continue ventilatory support Increase FiO2 and increase PEEP accordingly. Continue to use low tidal volumes and increased rate.. Continue Nimbex and propofol as well as fentanyl. Patient is not in any shape for weaning. Continue ventilatory support. Continue nutritional support. Bibasilar lower lobe consolidation and atelectasis with bilateral pleural effusions continue diuretics and will order echocardiogram to assess LV function per. Continue present supportive care measures. Continue GI and DVT prophylaxis. Continue to monitor closely in the ICU. Continue pain control. Off epidural, presently on fentanyl drip. We'll continue to follow. Critical care time is 37 minutes Time with Patient: Greater than 30
--- NOTE | 2019-10-16 13:00 | XR ---
EXAMINATION TYPE: XR chest 1V portable DATE OF EXAM: 10/16/2019 Comparison: 10/16/2019, earlier today Clinical History: 49-year-old male ARDS, pulm contusion, hypoxia Findings: ET tube is satisfactory. NG tube may have been pulled back slightly. The distal aspect is not well se en. Heart mildly enlarged. Continued small left effusion with prominent retrocardiac and left basilar opa city. There may be a new small right effusion. Impression: 1. Continued cardiomegaly and small left effusion with left basilar/retrocardiac atelectasis and/or c onsolidation. 2. There may be a new small right pleural effusion. 3. Attention on follow-up for positioning of the patient's NG tube. Distal aspect is not well seen.
[2019-10-16] MEDS: CISATRACURIUM 200 MG in SODIUM CHLORIDE 0.9% 180 ML IV SCH (15:12)
[2019-10-16 16:19] LABS: Glucose,Whole Blood 107 mg/dL (75-99)
[2019-10-16] MEDS: LORazepam 2 MG/ML INJ IV PRN (19:58)
[2019-10-16 20:37] LABS: Glucose,Whole Blood 121 mg/dL (75-99)
[2019-10-16] MEDS ORDERED: IPRATROPIUM-ALBUTEROL 3 ML NEB INHALATION PRN (21:44)
[2019-10-17] MEDS: fentaNYL (PF) 1,000 MCG in SODIUM CHLORIDE 0.9% 80 ML IV SCH ×3 (00:15→17:05)
[2019-10-17] MEDS: ARTIFICIAL TEARS-HYPROMELLOSE DROPS 15 ML BTL BOTH EYES SCH ×4 (00:45→12:36)
[2019-10-17 00:53] LABS: Glucose,Whole Blood 143 mg/dL (75-99)
[2019-10-17 00:53] LABS: Glucose,Whole Blood 147 mg/dL (75-99)
[2019-10-17] MEDS: PIPERACILLIN-TAZOBACTAM 3.375 GM in SODIUM CHLORIDE 0.9% 100 ML IVPB SCH ×3 (01:03→16:20)
[2019-10-17] MEDS: IPRATROPIUM-ALBUTEROL 3 ML NEB INHALATION SCH ×7 (01:06→23:17)
[2019-10-17] MEDS: INSULIN ASPART (NovoLOG) 100 UNIT/ML VIAL SQ SCH ×6 (01:11→20:39)
[2019-10-17] MEDS: CLEVIDIPINE BUTYRATE 25 MG in EMPTY BAG 1 BAG IV SCH ×3 (01:14→03:40)
[2019-10-17] MEDS: CISATRACURIUM 200 MG in SODIUM CHLORIDE 0.9% 180 ML IV SCH (02:11)
[2019-10-17] MEDS: LORazepam 2 MG/ML INJ IV PRN ×3 (04:07→11:09)
[2019-10-17 05:00] LABS: Glucose,Whole Blood 124 mg/dL (75-99)
[2019-10-17 05:40] LABS: HCT 27.3 % (39.0-53.0); HGB 9.8 gm/dL (13.0-17.5); MCH 32.9 pg (25.0-35.0); MCHC 35.8 g/dL (31.0-37.0); MCV 91.9 fL (80.0-100.0); Mean Platelet Volume 6.9; Platelet Count 238 k/uL (150-450); RBC 2.98 m/uL (4.30-5.90); RDW 13.5 % (11.5-15.5); WBC 7.9 k/uL (3.8-10.6)
[2019-10-17 05:46] LABS: ABG Base Excess 7.7 mmol/L; ABG HCO3 32 mmol/L (21-25); ABG Oxygen Saturation 95.2 % (94-97); ABG PCO2 45 mmHg (35-45); ABG PH 7.46 (7.35-7.45); ABG PO2 78 mmHg (83-108); ABG TCO2 33 mmol/L (19-24); Allen Test Performed? Yes
[2019-10-17 05:49] LABS: African American GFR (CKD) >90 (>60 ml/min/1.73 sqM); Anion Gap 6 mmol/L; Blood Urea Nitrogen 13 mg/dL (9-20); Calcium 7.4 mg/dL (8.4-10.2); Carbon Dioxide 29 mmol/L (22-30); Chloride 101 mmol/L (98-107); Glucose 110 mg/dL (74-99); Non-African American GFR(CKD) >90 (>60 ml/min/1.73 sqM); Potassium 3.1 mmol/L (3.5-5.1); Sodium 136 mmol/L (137-145)
[2019-10-17] MEDS: POTASSIUM BICARBONATE/CIT AC 20 MEQ TABLET.EFF NG-TUBE SCH ×6 (06:13→20:48)
[2019-10-17] MEDS: THIAMINE 100 MG TAB PO SCH ×2 (06:48→16:52)
--- NOTE | 2019-10-17 08:03 | XR ---
EXAMINATION TYPE: XR chest 1V portable DATE OF EXAM: 10/17/2019 Comparison: 10/16/2019 Clinical History: 49-year-old male Tube placement Findings: ET and NG tubes satisfactory. Heart borderline enlarged. Continued small left pleural effusion extend ing along the lateral thoracic wall with left-sided rib fractures and distal left clavicle fracture. No appreciable pneumothorax. Impression: 1. Known left-sided rib fractures and distal left clavicle fracture. 2. Continued small left pleural effusion with left basilar and retrocardiac atelectasis and/or consol idation. 3. No visualized pneumothorax.
[2019-10-17] MEDS ORDERED: bisacodyL 10 MG SUPP RECTAL STA (08:19)
--- NOTE | 2019-10-17 10:00 | ECHOF ---
Referral Reason:trauma MEASUREMENTS -------- HEIGHT: 175.3 cm WEIGHT: 125.2 kg BP: 136/62 RVIDd: 2.6 cm (< 3.3) IVSd: 1.5 cm (0.6 - 1.1) LVIDd: 3.4 cm (3.9 - 5.3) LVPWd: 1.9 cm (0.6 - 1.1) IVSs: 2.0 cm LVIDs: 2.0 cm LVPWs: 2.3 cm Ao Diam: 3.1 cm (2.0 - 3.7) AV Cusp: 2.1 cm (1.5 - 2.6) LA Diam: 2.6 cm (2.7 - 3.8) MV EXCURSION: 16.399 mm (> 18.000) MV EF SLOPE: 88 mm/s (70 - 150) EPSS: 0.4 cm MV E Luis Alfredo: 0.83 m/s MV DecT: 183 ms MV A Luis Alfredo: 0.71 m/s MV E/A Ratio: 1.17 RAP: 5.00 mmHg RVSP: 18.61 mmHg FINDINGS -------- This was a technically difficult study with suboptimal views. The left ventricular size is normal. There is moderate concentric left ventricular hypertrophy. O verall left ventricular systolic function is normal with, an EF between 55 - 60 %. The right ventricle is normal in size. The left atrial size is normal. The right atrial size is normal. Lumason used Unable to visualize the septum. Aortic valve is trileaflet and is mildly thickened. The mitral valve is normal. There is trace mitral regurgitation. The tricuspid valve appears structurally normal. Trace tricuspid regurgitation present. Right ofelia tricular systolic pressure is normal at < 35 mmHg. There is no pulmonic regurgitation present. The aortic root size is normal. Normal inferior vena cava with normal inspiratory collapse consistent with estimated right atrial pre ssure of 5 mmHg. There is a small, generalized pericardial effusion present. CONCLUSIONS -------- 1. The left ventricular size is normal. 2. There is moderate concentric left ventricular hypertrophy. 3. Overall left ventricular systolic function is normal with, an EF between 55 - 60 %. 4. Aortic valve is trileaflet and is mildly thickened. 5. There is trace mitral regurgitation. 6. Trace tricuspid regurgitation present. 7. There is a small, generalized pericardial effusion present. COOK SOUP: Priscila Keith RDCS
[2019-10-17 10:03] LABS: Glucose,Whole Blood 119 mg/dL (75-99)
[2019-10-17] MEDS: HEPARIN SODIUM,PORCINE 5,000 UNIT/ML 1 ML VIAL SQ SCH ×2 (10:23→20:48)
[2019-10-17] MEDS: PANTOPRAZOLE 40 MG/10 ML VIAL IVP SCH (10:23)
[2019-10-17] MEDS: CHLORHEXIDINE GLUCONATE 15 ML CUP MUCOUS MEM SCH ×2 (10:23→20:48)
[2019-10-17] MEDS: FUROSEMIDE 10 MG/ML 4 ML VIAL IV SCH ×2 (10:23→20:48)
[2019-10-17] MEDS: METOPROLOL TARTRATE 50 MG TAB PO SCH ×2 (10:24→20:49)
[2019-10-17] MEDS: DULoxetine HCL 60 MG CAPSULE.DR PO SCH ×2 (10:24→10:35)
[2019-10-17] MEDS: amLODIPine 10 MG TAB PO SCH (10:24)
[2019-10-17] MEDS: hydrALAZINE HCL 25 MG TAB PO SCH ×3 (10:24→20:48)
[2019-10-17 11:50] LABS: Glucose,Whole Blood 121 mg/dL (75-99)
--- NOTE | 2019-10-17 12:25 | PN ---
PROGRESS NOTE PULMONARY/CRITICAL CARE PROGRESS NOTE: DATE OF SERVICE: October 17, 2019 Critical care time 33 minutes. HISTORY: This is a 49-year-old gentleman with a history of acute hypoxemic respiratory failure thought to be related to alcohol withdrawal and delirium tremens. Also, the patient apparently had a tractor accident and sustained multiple injuries including fractures to the left ribs, 2 through 7 anteriorly and 5-11 posteriorly. In addition, he has a left clavicular fracture. He apparently fell off a tractor. He was admitted to the hospital on the . He was intubated on the for impending respiratory failure. Additional scanning did reveal a left lower quadrant mesenteric hematoma. Although he apparently stated he was not drinking alcohol. His alcohol level on admission was 100 and he apparently has a prior history of alcohol abuse as well. Currently, he is on the volume assist-control modality at a rate of 26, tidal volume 450, FiO2 100% PEEP of 12. Blood gases show pO2 of 78, pCO2 of 45, and a pH of 7.46. It is consistent with relative hypoxemia and metabolic alkalosis. The FiO2 is dropped to 80% and PEEP is increased from 12-15. The patient is on a fentanyl drip at 1 mcg/kg per hour, Nimbex at 2 mcg/kg per minute, 0.9 at KVO or 20 mL an hour, Diprivan at 75 mics per minute, Cleviprex, which is currently off which is being used to lower the blood pressure. Vital high-protein at 20 with a goal of 20. We will attempt to get the patient off the Nimbex today. He has been on Nimbex since as October 13 when he was intubated. Currently, the patient seems reasonably stable. PHYSICAL EXAMINATION: VITAL SIGNS: Current vital signs are reviewed. His temperature is 99.1. Heart rate 89. Respiratory rate 26. Blood pressure 164/91, mean 115. Saturations are mid 90s. GENERAL: Appears in no acute distress. Resting comfortably. He is synchronous with the ventilator because he is paralyzed and heavily sedated. HEENT: Examination is grossly unremarkable. There is an orally placed endotracheal tube and NG tube. NECK: Supple. Full range of motion. No adenopathy. Neck veins are flat. CARDIOVASCULAR: Examination reveals regular rhythm and rate. Heart rate mid 80s. Heart sounds are distant. LUNGS: A few scattered rhonchi. Breath sounds equal bilaterally. No wheezes or crackles. ABDOMEN: Obese, bowel sounds are heard. EXTREMITIES are intact. No cyanosis, clubbing, or edema. SKIN: Without rash. NEUROLOGIC: Examination is difficult to assess given his current level of sedation and paralysis. LAB DATA: Reviewed. White count 7.9, hemoglobin 9.8, hematocrit 27.3, platelet count normal. Blood gases have been noted. Sodium 136, repeat potassium 3.4 chloride 101, CO2 29, anion gap is 6, BUN and creatinine were 13 and 0.60. Calcium 7.4. Microbiology thus far is negative. A chest x-ray from today shows left-sided rib fractures with a distal left clavicular fracture. There is a small left pleural effusion and some left basilar atelectasis or infiltrate. No pneumothorax. Echocardiogram showed left ventricular size is normal. Moderate concentric left ventricular hypertrophy. Ejection fraction 55-60 percent and some mild mitral regurgitation and tricuspid regurgitation. MEDICATIONS: Reviewed. Currently, the patient is on Tylenol, amlodipine, Artificial Tears, chlorhexidine, Nimbex, which we are going to try to wean off, Cleviprex p.r.n., Benadryl, Cymbalta, fentanyl, Lasix, subcu heparin, hydralazine, Dilaudid, insulin, updrafts, Ativan, metoprolol, Narcan, Protonix, Zosyn, potassium replacement, propofol, silver sulfadiazine cream, and thiamine. ASSESSMENT: 1. Acute hypoxemic respiratory failure, likely secondary to alcohol withdrawal syndrome and delirium tremens. 2. Possible underlying pulmonary contusion. 3. Status post tractor accident with multiple left-sided rib fractures, 2 through 7 anteriorly on the left and 5-11 posteriorly on the left, and distal left clavicular fracture. 4. Status post intubation on October 13. 5. Distal left clavicular fracture. 6. Left lower quadrant mesenteric hematoma. 7. Benign essential hypertension. 8. Type 2 diabetes. 9. Chronic low back pain. 10.History of depression. 11.Chronic alcohol abuse. 12.Acute blood loss anemia. PLAN: Currently, the patient seemed to be relatively stable. We will see if we can get him off the Nimbex, we will continue with the fentanyl and propofol for now. Ventilator is adjusted based on the blood gases. FiO2 is dropped to 80% and PEEP is increased at 15. Cleviprex has been weaned off. He remains on propofol and Nimbex, fentanyl, and Vital high-protein. No additional recommendations are made. Overall prognosis is guarded. Critical care time 33 minutes. REBECCAL / IJN: [id number] / MTDD
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
[2019-10-17 16:56] LABS: Glucose,Whole Blood 120 mg/dL (75-99)
[2019-10-17 19:54] LABS: Glucose,Whole Blood 122 mg/dL (75-99)
[2019-10-17 23:44] LABS: Glucose,Whole Blood 125 mg/dL (75-99)
[2019-10-18] MEDS: fentaNYL (PF) 1,000 MCG in SODIUM CHLORIDE 0.9% 80 ML IV SCH (00:11)
[2019-10-18] MEDS: PIPERACILLIN-TAZOBACTAM 3.375 GM in SODIUM CHLORIDE 0.9% 100 ML IVPB SCH (01:01)
[2019-10-18] MEDS: INSULIN ASPART (NovoLOG) 100 UNIT/ML VIAL SQ SCH ×6 (01:26→19:37)
[2019-10-18] MEDS: IPRATROPIUM-ALBUTEROL 3 ML NEB INHALATION SCH ×6 (03:19→23:20)
[2019-10-18 04:25] LABS: Glucose,Whole Blood 122 mg/dL (75-99)
[2019-10-18 05:00] LABS: ABG Base Excess 10.8 mmol/L; ABG HCO3 35 mmol/L (21-25); ABG Oxygen Saturation 98.4 % (94-97); ABG PCO2 48 mmHg (35-45); ABG PH 7.47 (7.35-7.45); ABG PO2 128 mmHg (83-108); ABG TCO2 36 mmol/L (19-24)
[2019-10-18 05:06] LABS: Allen Test Performed? no
[2019-10-18 05:09] LABS: Basophils % (A) 0 %; Eosinophils # (A) 0.3 k/uL (0-0.7); Eosinophils % (A) 4 %; HCT 29.4 % (39.0-53.0); HGB 9.7 gm/dL (13.0-17.5); Lymphocytes # (A) 0.7 k/uL (1.0-4.8); Lymphocytes % (A) 9 %; MCH 30.6 pg (25.0-35.0); MCHC 33.2 g/dL (31.0-37.0); MCV 92.2 fL (80.0-100.0); Mean Platelet Volume 7.3; Monocytes # (A) 0.5 k/uL (0-1.0); Monocytes % (A) 6 %; Neutrophils # (A) 6.1 k/uL (1.3-7.7); Neutrophils % (A) 79 %; Platelet Count 234 k/uL (150-450); RBC 3.19 m/uL (4.30-5.90); RDW 13.4 % (11.5-15.5); WBC 7.6 k/uL (3.8-10.6)
[2019-10-18 05:17] LABS: ALT 43 U/L (4-49); AST 79 U/L (17-59); African American GFR (CKD) >90 (>60 ml/min/1.73 sqM); Albumin 2.4 g/dL (3.5-5.0); Alkaline Phosphatase 69 U/L (38-126); Anion Gap 4 mmol/L; Blood Urea Nitrogen 14 mg/dL (9-20); Calcium 7.3 mg/dL (8.4-10.2); Carbon Dioxide 31 mmol/L (22-30); Chloride 101 mmol/L (98-107); Glucose 107 mg/dL (74-99); Non-African American GFR(CKD) >90 (>60 ml/min/1.73 sqM); Sodium 136 mmol/L (137-145); Total Protein 4.8 g/dL (6.3-8.2)
[2019-10-18] MEDS: LORazepam 2 MG/ML INJ IV PRN ×2 (06:10→13:40)
[2019-10-18] MEDS: POTASSIUM BICARBONATE/CIT AC 20 MEQ TABLET.EFF NG-TUBE SCH ×4 (06:14→18:03)
[2019-10-18] MEDS: THIAMINE 100 MG TAB PO SCH ×2 (06:15→17:03)
--- NOTE | 2019-10-18 07:09 | XR ---
EXAMINATION TYPE: XR chest 1V portable DATE OF EXAM: 10/18/2019 CLINICAL HISTORY: Difficulty breathing progress study. TECHNIQUE: Single AP portable semiupright view of the chest is obtained. COMPARISON: Chest x-ray from one day earlier and older studies. FINDINGS: Stable endotracheal and orogastric tubes. Persistent low lung volumes along with cardiomeg subha and left basilar opacity . No pneumothorax noted bilaterally. Developing right lung central opaci ty. Multiple left lateral rib fractures along with displaced distal left clavicular fracture are all redemonstrated. IMPRESSION: Low lung volumes and cardiomegaly with known left-sided rib fractures. Continued small le ft pleural fluid collection with associated left basilar atelectasis and/or infiltrate. Developing ri ght central lung acute infiltrate and/or atelectasis noted. Progress study advised.
[2019-10-18] MEDS: hydrALAZINE HCL 25 MG TAB PO SCH ×3 (08:06→19:44)
[2019-10-18] MEDS: HEPARIN SODIUM,PORCINE 5,000 UNIT/ML 1 ML VIAL SQ SCH ×2 (08:06→19:44)
[2019-10-18] MEDS: amLODIPine 10 MG TAB PO SCH (08:06)
[2019-10-18] MEDS: METOPROLOL TARTRATE 50 MG TAB PO SCH ×2 (08:06→19:44)
[2019-10-18] MEDS: DULoxetine HCL 60 MG CAPSULE.DR PO SCH (08:07)
[2019-10-18] MEDS: PANTOPRAZOLE 40 MG/10 ML VIAL IVP SCH (08:08)
--- NOTE | 2019-10-18 08:12 | PN ---
PROGRESS NOTE PULMONARY/CRITICAL CARE PROGRESS NOTE: DATE OF SERVICE: 10/18/2019 This is a 49-year-old gentleman with a history of acute hypoxemic respiratory failure, related to alcohol withdrawal syndrome and delirium tremens. Also, the patient apparently had a tractor accident and fell off the tractor. He sustained multiple injuries including fractures to the left ribs 2 through 7 anteriorly and 5 through 11 posteriorly. In addition, he had a left clavicular fracture. He was admitted to the hospital on the . He was intubated on the for impending respiratory failure. He remains on the mechanical ventilator. In addition to the above injuries, he also sustained a left lower quadrant mesenteric hematoma. The patient did have an elevated alcohol level on admission, although he denied drinking. Currently, his vent settings include the volume assist-control modality with a rate of 26, tidal volume 450, FiO2 80% to be dropped to 60%, PEEP of 15. Blood gases show pO2 of 128, pCO2 48, and pH 7.47. Blood gases are consistent with hyperoxia and metabolic alkalosis. He is on saline at 20 mL an hour, propofol at 75 mics/kg/minute, fentanyl at 1 wai/kg/hour and Vital high-protein at 20 cc with a goal of 20 mL an hour. Nimbex and Cleviprex have been turned off. The goal today will be to wean the fentanyl off and get him on p.r.n. Dilaudid. Other than that, he has had an uneventful night according to the nurse. PHYSICAL EXAMINATION: VITAL SIGNS: Current vital signs are reviewed. Temperature is 98.6, heart rate 89, respiratory rate 26, blood pressure 132/57, saturations are 95% on the 60% and 15 of PEEP. Appears in no acute distress. HEENT: Examination is grossly unremarkable. There is an orally placed endotracheal tube and NG tube. NECK: Supple, full range of motion. No adenopathy. Neck veins are flat. CARDIOVASCULAR: Examination reveals regular rhythm and rate. S1, S2 normal. No S3, S4, or murmur. LUNGS: A few scattered coarse bilateral rhonchi. No wheezes or crackles. Breath sounds equal. ABDOMEN: Soft. Bowel sounds are heard. EXTREMITIES: Intact. No edema. SKIN: Without rash. NEUROLOGIC: Examination cannot be adequately assessed as the patient is currently heavily sedated. LAB DATA: Reviewed. White count 7.6, hemoglobin 9.7, hematocrit 29.4, platelet count 334,000. Sodium 136, potassium 3, chloride 101, CO2 31, anion gap 4. BUN and creatinine were 14 and 0.5. Calcium 7.3, total bilirubin was 1.0, AST 79. Albumin 2.4. Microbiology is negative. IMAGING: Chest x-ray shows cardiomegaly with known left-sided rib fractures. There is a small left pleural effusion and some atelectasis at the left base. MEDICATIONS: Reviewed. Currently, the patient is on Tylenol, amlodipine, chlorhexidine, Benadryl, Cymbalta, fentanyl, Lasix, subcu heparin, hydralazine, Dilaudid, insulin, DuoNeb, Ativan, metoprolol, Narcan, Zosyn, Protonix, potassium replacement, propofol, silver sulfadiazine cream, and thiamine. ASSESSMENT: 1. Acute hypoxemic respiratory failure, likely secondary to alcohol withdrawal syndrome and delirium tremens. 2. Possible underlying pulmonary contusion. 3. Status post tractor accident with multiple left-sided rib fractures, 2 through 7 anteriorly on the left and 5 through 11 posteriorly on the left, and distal left clavicular fracture. 4. Status post intubation on October 13 for respiratory failure. 5. Distal left clavicular fracture. 6. Left lower quadrant mesenteric hematoma. 7. Benign essential hypertension. 8. Type 2 diabetes mellitus. 9. Chronic low back pain. 10.History of depression. 11.Chronic alcohol abuse. 12.Acute blood loss anemia. PLAN: The patient's Nimbex and Cleviprex were weaned off yesterday. The goal today is to wean the fentanyl off and get the patient on p.r.n. Dilaudid. He will continue on Ativan per the [facility] protocol. He is being nourished with Vital high-protein. The FiO2 is dropped from 80 to 60%. Once we get down to 50%, we will start making some PEEP changes. Prognosis is guarded. We will continue to follow. Critical care time 33 minutes. MMGAYL / FABION: [id number] /
[2019-10-18] MEDS: CHLORHEXIDINE GLUCONATE 15 ML CUP MUCOUS MEM SCH ×2 (08:27→19:44)
[2019-10-18] MEDS: HYDROmorphone 1 MG/ML 1 ML SYRINGE IVP PRN ×5 (08:47→19:44)
[2019-10-18] MEDS ORDERED: bisacodyL 10 MG SUPP RECTAL STA (09:14)
[2019-10-18 10:21] LABS: Glucose,Whole Blood 119 mg/dL (75-99)
[2019-10-18] MEDS ORDERED: POTASSIUM BICARBONATE/CIT AC 20 MEQ TABLET.EFF NG-TUBE SCH (12:00)
--- NOTE | 2019-10-18 13:03 | P.PN ---
Subjective Progress Note Date: 10/18/19 CHIEF COMPLAINT: Multiple injury after trauma from a fall from tractor HISTORY OF PRESENT ILLNESS: Patient seen and examined in the ICU with Dr. Valdivia. Remains on mechanical ventilation due to ARDS. Afebrile WBC 7.6 hemoglobin 9.7 patient showing some improvement. Patient is scheduled for suppositories today. It has been a few days since last bowel movement. PHYSICAL EXAM: VITAL SIGNS: Reviewed. GENERAL: Well-developed in no acute distress. HEENT: No sclera icterus. Extraocular movements grossly intact. Moist buccal mucosa. Head is atraumatic, normocephalic. ABDOMEN: Soft. Obese. Distended. Nontender. Neuro: Patient is intubated and sedated ASSESSMENT: 1. Status post Fall from tractor with multiple injuries 2. Proximal sigmoid hematoma and contusion. Repeat CT of the abdomen over the weekend which was a stable mesenteric hematoma 3. Multiple left-sided rib fractures with flail chest 4. Left closed distal clavicular fracture followed by orthopedics 5. Chronic alcohol use and evidence of alcohol withdrawal 6. Acute hypoxic respiratory failure likely secondary to alcohol withdrawal syndrome and delirium tremens. Patient currently on mechanical ventilation 7. Possible pulmonary contusion PLAN: - Management of multiple medical issues per consulting physicians -DVT prophylaxis subcu heparin GI prophylaxis Protonix Physician Paper Counter note has been reviewed by physician. Signing provider agrees with the documented findings, assessment, and plan of care. Objective - Vital Signs Vital signs: Vital Signs Temp 98.5 F 10/18/19 12:00 Pulse 94 10/18/19 12:00 Resp 26 H 10/18/19 12:00 BP 125/77 10/18/19 12:00 Pulse Ox 96 10/18/19 12:00 Intake & Output 10/17/19 10/18/19 10/18/19 18:59 06:59 18:59 Intake Total 3335.522 9326.210 491.470 Output Total 1448 890 303 Balance 66.321 393.210 188.470 Weight 125.6 kg 125 kg Intake: IV 473 376 138 0.9 Normal Saline at KVO 240 240 120 20mL/hr Piperacillin-Tazobactam 3 200 100 .375 gm In Sodium Chloride 0.9% 100 ml @ 25 mls/hr IVPB Q8HR [facility] Rx# :[id number] Pressure bag 0.9 Nomal 33 36 18 Saline @ 3mL/hr Intake, IV Titration 731.321 577.210 213.470 Amount Cisatracurium 200 mg In 114.365 Sodium Chloride 0.9% 180 ml @ 2 MCG/KG/MIN 15.048 mls/hr IV .[id number] [facility] Rx #:[id number] fentaNYL (PF) 1,000 mcg 200 173.442 16.444 In Sodium Chloride 0.9% 80 ml @ Per Protocol IV . Q0M [facility] Rx#:[id number] propofoL 1,000 mg In 416.956 403.768 197.026 Empty Bag 1 bag @ Titrate IV .Q0M [facility] Rx#: [id number] Tube Feeding 220 240 140 Other 90 90 Output: Urine 1448 890 303 Other: Voiding Method Indwelling Catheter Indwelling Catheter Indwelling Catheter ABP, PAP, CO, CI - Last Documented Arterial Blood Pressure 132/57 - Labs CBC & Chem 7: 10/18/19 05:00 10/18/19 10:00 Labs: Abnormal Lab Results - Last 24 Hours (Table) 10/17/19 10/17/19 10/17/19 Range/Units 16:55 16:57 19:52 RBC (4.30-5.90) m/uL Hgb (13.0-17.5) gm/dL Hct (39.0-53.0) % Lymphocytes # (1.0-4.8) k/uL ABG pH (7.35-7.45) ABG pCO2 (35-45) mmHg ABG pO2 (83-108) mmHg ABG HCO3 (21-25) mmol/L ABG Total CO2 (19-24) mmol/L ABG O2 Saturation (94-97) % Sodium (137-145) mmol/L Potassium 3.3 L (3.5-5.1) mmol/L Carbon Dioxide (22-30) mmol/L Creatinine (0.66-1.25) mg/dL Glucose (74-99) mg/dL POC Glucose (mg/dL) 120 H 122 H (75-99) mg/dL Calcium (8.4-10.2) mg/dL AST (17-59) U/L Total Protein (6.3-8.2) g/dL Albumin (3.5-5.0) g/dL 10/17/19 10/18/19 10/18/19 Range/Units 23:43 04:23 04:58 RBC (4.30-5.90) m/uL Hgb (13.0-17.5) gm/dL Hct (39.0-53.0) % Lymphocytes # (1.0-4.8) k/uL ABG pH 7.47 H (7.35-7.45) ABG pCO2 48 H (35-45) mmHg ABG pO2 128 H (83-108) mmHg ABG HCO3 35 H (21-25) mmol/L ABG Total CO2 36 H (19-24) mmol/L ABG O2 Saturation 98.4 H (94-97) % Sodium (137-145) mmol/L Potassium (3.5-5.1) mmol/L Carbon Dioxide (22-30) mmol/L Creatinine (0.66-1.25) mg/dL Glucose (74-99) mg/dL POC Glucose (mg/dL) 125 H 122 H (75-99) mg/dL Calcium (8.4-10.2) mg/dL AST (17-59) U/L Total Protein (6.3-8.2) g/dL Albumin (3.5-5.0) g/dL 10/18/19 10/18/19 10/18/19 Range/Units 05:00 05:00 10:03 RBC 3.19 L (4.30-5.90) m/uL Hgb 9.7 L (13.0-17.5) gm/dL Hct 29.4 L (39.0-53.0) % Lymphocytes # 0.7 L (1.0-4.8) k/uL ABG pH (7.35-7.45) ABG pCO2 (35-45) mmHg ABG pO2 (83-108) mmHg ABG HCO3 (21-25) mmol/L ABG Total CO2 (19-24) mmol/L ABG O2 Saturation (94-97) % Sodium 136 L (137-145) mmol/L Potassium 3.0 L (3.5-5.1) mmol/L Carbon Dioxide 31 H (22-30) mmol/L Creatinine 0.50 L (0.66-1.25) mg/dL Glucose 107 H (74-99) mg/dL POC Glucose (mg/dL) 119 H (75-99) mg/dL Calcium 7.3 L (8.4-10.2) mg/dL AST 79 H (17-59) U/L Total Protein 4.8 L (6.3-8.2) g/dL Albumin 2.4 L (3.5-5.0) g/dL
[2019-10-18 13:50] LABS: Glucose,Whole Blood 104 mg/dL (75-99)
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
[2019-10-18 18:31] LABS: Glucose,Whole Blood 105 mg/dL (75-99)
[2019-10-18 23:44] LABS: Glucose,Whole Blood 136 mg/dL (75-99)
[2019-10-19] MEDS: INSULIN ASPART (NovoLOG) 100 UNIT/ML VIAL SQ SCH ×6 (01:02→20:19)
[2019-10-19] MEDS: HYDROmorphone 1 MG/ML 1 ML SYRINGE IVP PRN ×5 (01:03→22:33)
[2019-10-19] MEDS: LORazepam 2 MG/ML INJ IV PRN (02:49)
[2019-10-19] MEDS: IPRATROPIUM-ALBUTEROL 3 ML NEB INHALATION SCH ×6 (03:23→23:26)
[2019-10-19 05:27] LABS: Basophils % (A) 1 %; Eosinophils # (A) 0.3 k/uL (0-0.7); Eosinophils % (A) 4 %; HCT 28.2 % (39.0-53.0); HGB 9.3 gm/dL (13.0-17.5); Lymphocytes # (A) 0.7 k/uL (1.0-4.8); Lymphocytes % (A) 10 %; MCH 30.4 pg (25.0-35.0); MCHC 32.9 g/dL (31.0-37.0); MCV 92.1 fL (80.0-100.0); Mean Platelet Volume 7.2; Monocytes # (A) 0.4 k/uL (0-1.0); Monocytes % (A) 6 %; Neutrophils # (A) 5.8 k/uL (1.3-7.7); Neutrophils % (A) 78 %; Platelet Count 260 k/uL (150-450); RBC 3.07 m/uL (4.30-5.90); RDW 13.5 % (11.5-15.5); WBC 7.4 k/uL (3.8-10.6)
[2019-10-19 05:37] LABS: African American GFR (CKD) >90 (>60 ml/min/1.73 sqM); Anion Gap 4 mmol/L; Blood Urea Nitrogen 14 mg/dL (9-20); Calcium 8.1 mg/dL (8.4-10.2); Carbon Dioxide 33 mmol/L (22-30); Chloride 98 mmol/L (98-107); Glucose 103 mg/dL (74-99); Non-African American GFR(CKD) >90 (>60 ml/min/1.73 sqM); Potassium 3.6 mmol/L (3.5-5.1); Sodium 135 mmol/L (137-145)
[2019-10-19 05:39] LABS: ABG PCO2 46 mmHg (35-45); ABG PH 7.49 (7.35-7.45); Allen Test Performed? Yes
[2019-10-19 05:40] LABS: ABG Base Excess 11.3 mmol/L; ABG HCO3 35 mmol/L (21-25); ABG PO2 102 mmHg (83-108); ABG TCO2 36 mmol/L (19-24)
[2019-10-19] MEDS ORDERED: POTASSIUM BICARBONATE/CIT AC 20 MEQ TABLET.EFF NG-TUBE SCH (06:00)
[2019-10-19] MEDS: THIAMINE 100 MG TAB PO SCH ×2 (07:01→16:58)
[2019-10-19] MEDS ORDERED: POTASSIUM BICARBONATE/CIT AC 20 MEQ TABLET.EFF PO ONE (08:00)
--- NOTE | 2019-10-19 08:42 | XR ---
EXAMINATION TYPE: XR chest 1V portable DATE OF EXAM: 10/19/2019 COMPARISON: 10/18/2019 HISTORY: SOB, Follow Up FINDINGS: Indwelling tubes and catheters are unchanged. Stable pulmonary venous congestion and left basilar infiltrate and/or atelectasis. Stable appearance of the cardio-mediastinal structures at this time. Pleural effusion unchanged. IMPRESSION: 1. Stable portable chest. Clinical correlation and follow up until resolution is recommended.
[2019-10-19] MEDS: METOPROLOL TARTRATE 50 MG TAB PO SCH ×2 (09:36→20:23)
[2019-10-19] MEDS: CHLORHEXIDINE GLUCONATE 15 ML CUP MUCOUS MEM SCH ×2 (09:36→20:23)
[2019-10-19] MEDS: HEPARIN SODIUM,PORCINE 5,000 UNIT/ML 1 ML VIAL SQ SCH ×2 (09:36→20:23)
[2019-10-19] MEDS: amLODIPine 10 MG TAB PO SCH (09:36)
[2019-10-19] MEDS: hydrALAZINE HCL 25 MG TAB PO SCH ×3 (09:36→21:45)
[2019-10-19] MEDS: DULoxetine HCL 60 MG CAPSULE.DR PO SCH (09:37)
[2019-10-19] MEDS: PANTOPRAZOLE 40 MG/10 ML VIAL IVP SCH (09:37)
[2019-10-19 09:55] LABS: Glucose,Whole Blood 127 mg/dL (75-99)
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
[2019-10-19 11:45] LABS: Glucose,Whole Blood 125 mg/dL (75-99)
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
[2019-10-19 17:20] LABS: Glucose,Whole Blood 118 mg/dL (75-99)
[2019-10-19 20:20] LABS: Glucose,Whole Blood 126 mg/dL (75-99)
[2019-10-20] MEDS: INSULIN ASPART (NovoLOG) 100 UNIT/ML VIAL SQ SCH ×6 (01:07→20:04)
[2019-10-20 01:08] LABS: Glucose,Whole Blood 109 mg/dL (75-99)
[2019-10-20] MEDS: HYDROmorphone 1 MG/ML 1 ML SYRINGE IVP PRN ×7 (01:10→19:04)
[2019-10-20] MEDS: IPRATROPIUM-ALBUTEROL 3 ML NEB INHALATION SCH ×5 (03:20→19:49)
[2019-10-20 04:55] LABS: Basophils % (A) 0 %; Eosinophils # (A) 0.3 k/uL (0-0.7); Eosinophils % (A) 4 %; HCT 29.4 % (39.0-53.0); HGB 9.5 gm/dL (13.0-17.5); Hypochromasia Slight; Lymphocytes # (A) 1.1 k/uL (1.0-4.8); Lymphocytes % (A) 13 %; MCHC 32.2 g/dL (31.0-37.0); Mean Platelet Volume 7.1; Monocytes # (A) 0.4 k/uL (0-1.0); Monocytes % (A) 5 %; Neutrophils # (A) 6.3 k/uL (1.3-7.7); Neutrophils % (A) 76 %; Platelet Count 343 k/uL (150-450); RBC 3.16 m/uL (4.30-5.90); RDW 13.7 % (11.5-15.5); WBC 8.2 k/uL (3.8-10.6)
[2019-10-20 05:04] LABS: ALT 52 U/L (4-49); AST 66 U/L (17-59); African American GFR (CKD) >90 (>60 ml/min/1.73 sqM); Albumin 2.7 g/dL (3.5-5.0); Alkaline Phosphatase 91 U/L (38-126); Anion Gap 4 mmol/L; Blood Urea Nitrogen 15 mg/dL (9-20); Calcium 8.2 mg/dL (8.4-10.2); Carbon Dioxide 32 mmol/L (22-30); Chloride 99 mmol/L (98-107); Glucose 107 mg/dL (74-99); Non-African American GFR(CKD) >90 (>60 ml/min/1.73 sqM); Potassium 3.8 mmol/L (3.5-5.1); Sodium 135 mmol/L (137-145); Total Bilirubin 0.8 mg/dL (0.2-1.3); Total Protein 5.4 g/dL (6.3-8.2)
[2019-10-20 05:07] LABS: Creatine Kinase 1063 U/L (55-170)
[2019-10-20 05:21] LABS: ABG Base Excess 10.3 mmol/L; ABG HCO3 34 mmol/L (21-25); ABG Oxygen Saturation 96.9 % (94-97); ABG PCO2 44 mmHg (35-45); ABG PH 7.49 (7.35-7.45); ABG PO2 89 mmHg (83-108); ABG TCO2 35 mmol/L (19-24); Allen Test Performed? Yes
[2019-10-20] MEDS ORDERED: POTASSIUM BICARBONATE/CIT AC 20 MEQ TABLET.EFF NG-TUBE SCH (06:00)
[2019-10-20] MEDS: THIAMINE 100 MG TAB PO SCH ×2 (06:31→16:43)
--- NOTE | 2019-10-20 07:07 | XR ---
EXAMINATION TYPE: XR chest 1V portable DATE OF EXAM: 10/20/2019 COMPARISON: 10/19/2019 HISTORY: Tube placement TECHNIQUE: Single frontal view of the chest is obtained. FINDINGS: ET and NG tube stable. Coarsened interstitium with left lower lobe infiltrate and small ef fusion stable. No pneumothorax. Heart size mildly enlarged. Hypertrophic change of the spine. IMPRESSION: 1. Stable lower lobe infiltrate and small effusion. Correlate for interstitial pneumonitis or venous congestion. 2. There appears to be evidence of left-sided rib fractures correlate for recent trauma.
[2019-10-20] MEDS: hydrALAZINE HCL 25 MG TAB PO SCH ×3 (08:59→21:16)
[2019-10-20] MEDS: CHLORHEXIDINE GLUCONATE 15 ML CUP MUCOUS MEM SCH ×2 (08:59→20:11)
[2019-10-20] MEDS: HEPARIN SODIUM,PORCINE 5,000 UNIT/ML 1 ML VIAL SQ SCH ×2 (09:00→20:11)
[2019-10-20] MEDS: PANTOPRAZOLE 40 MG/10 ML VIAL IVP SCH (09:00)
[2019-10-20] MEDS: METOPROLOL TARTRATE 50 MG TAB PO SCH ×2 (09:00→20:11)
[2019-10-20] MEDS: amLODIPine 10 MG TAB PO SCH (09:00)
[2019-10-20] MEDS: DULoxetine HCL 60 MG CAPSULE.DR PO SCH (09:01)
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
[2019-10-20 09:22] LABS: Glucose,Whole Blood 124 mg/dL (75-99)
--- NOTE | 2019-10-20 09:58 | P.PN ---
Subjective Progress Note Date: 10/20/19 History of present illness 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 Patient ended up seen in trauma at [facility] multiple exiting CAT scan was per for CT of the chest showed left sided hydropneumothorax with multiple displace rib fracture anterolateral drip 2-7 and posterior 5-11 with a flail chest, abdominal pelvic CT showed ball injury with small bowel and proximal sigmoid involvement with mild hematoma with no perforation or free air. Pelvic showed no fracture head and neck showed no C-spine fracture and the major abnormality and CAT scan of the brain. Left upper extremity did not show any fracture patient had his arm in sling of the time. Was seen and evaluated before leaving the emergency department patient was in quite bed discomfort and was in mild respiratory distress having significant tachypnea and tachycardia with significant hypoxia the time require higher flow 2. No chest tube place ment at the time. General surgery and ICU service were notified patient will be transferred to the ICU from the emergency department 10/10: Patient remains in the intensive care unit. We have added in consult with orthopedics regarding left clavicular fracture. Patient also has a skin tear to the left forearm. There is a consult in place with anesthesiology for pain control. Discussed issue that patient had alcohol in his system which he adamantly denies any alcohol intake. Patient to be on ice chips only per Dr. Valdivia. PT and OT will be added. Patient is on SCDs and LOU hose for DVT prophylaxis. Incentive spirometry is at bedside and patient encouraged to use every hour. Patient has been afebrile, heart rate 114, blood pressure 154/89, pulse ox 93% on high flow nasal cannula 10 L. Repeat blood work reveals WBC 14.0, hemoglobin 12.9. Sodium 133, creatinine 0.77, blood sugar 152. AST 105, ALT 67. Hepatitis panel negative. 10/11: Patient was seen yesterday by pain management and epidural was placed for pain control. Patient states his pain is much improved from yesterday. Repeat chest x-ray reveals mild cardiomegaly. Small left effusion with adjacent atelectasis and/or consolidation. No multiple left-sided rib fractures. Known distal left clavicle fracture. Ultrasound of the chest reveals small left pleural effusion 5.8 cm and marked. Patient has been afebrile, heart rate 111, respiratory rate 25, blood pressure 140/93 and he just received his blood pressu re medications. Pulse ox is 93% on 10 L high flow nasal cannula. Repeat blood work reveals WBC 14.2, hemoglobin 11.2. Sodium 132, creatinine 0.73 blood sugar 120. Total bilirubin 1.6, AST 77, ALT 54, alkaline phosphatase 54. Viral hepatitis panel negative. 10/12: Patient is seen today on the [facility] floor. Patient is currently on clear liquid diet. He has not had a bowel movement. Dulcolax suppository ordered. He remains with epidural in place but is receiving Dilaudid for breakthrough pain. Patient will be started on the CIWA protocol. He has been afebrile, heart rate 109, blood pressure 150/93, pulse ox 95% on 9 L high flow nasal cannula. Hydralazine added. PT OT to be working with patient today and get him into a chair. Patient denies any nausea vomiting. He is reaching 750 ML's on incentive spirometry. assistant department manager has discussed discharge planning again with the patient and plan is to return home. 10/13: Patient developed significant mental status changes and drop in pulse ox requiring transfer into the intensive care unit. At the time of evaluation, patient was tachycardic, 2, hypertensive and on, for extra. Dr. De Leon will be intubating momentarily. Attempted multiple times to reach patient's but there was no answer. Patient does have epidural that is in place for pain control. Repeat blood work reveals WBC 13.8, hemoglobin 10.4. Sodium 136, po tassium 4.3, chloride 104, CO2 21, BUN 15 creatinine 0.7. Chest x-ray this morning reveals satisfactory ET and NG tube. Mild cardiomegaly. Possible mild pulmonary vascular congestion. Known left-sided fractures and distal left clavicle fracture. Small left effusion with left basilar atelectasis and/or consolidation. A CTA of the head and also of the chest to been ordered by Dr. De Leon. 10/14: Patient remains intubated and on mechanical ventilation with tidal volume 500, FiO2 50 and PEEP of 5. He is currently on Diprivan. CAT scan of the brain revealed cerebral atrophy. 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 No change. CT angiogram of the head was negative. Atherosclerotic vascular calcification. CT angios of the chest reveals cardiomegaly with bilateral lower lobe pulmonary consolidation and atelectasis. Bilateral pleural effusions could represent chronic heart failure. No evidence of pulmonary embolism. Pulmonary abnormalities are significantly increased compared to recent exam of October 09. The patient has significant ecchymosis and hematoma to the left lateral chest wall and abdominal region around to the retroperitoneal area. A repeat blood work reveals a drop in hemoglobin to 8.1. WBC 5.6, platelet count 173. Sodium 134, potassium 3.6, chloride 106, CO2 25, BUN 14 and creatinine 0.6. CK 977. Urinalysis clear, positive protein and ketones, no leukoesterase. Hepatitis panel negative. He has been afebrile, heart rate 93, blood pressure 137/65. Per patient's nurse, patient's was in attendance yesterday. Wound care to the left forearm ordered with Silvadene twice daily. 10/15: Patient remains intubated and on mechanical ventilation with tidal volume 450, FiO2 70. 10. Patient had difficulty maintaining pulse ox yesterday dropped down to 85 continued to have difficulties was up to 100% oxygen during the night. He is currently on Nimbex, Cleviprex, propofol. He is receiving Dilaudid every 1/2-2 hours and Ativan as well. Epidural was removed yesterday. Recommend starting fentanyl drip today. He received IV Lasix yesterday with 2 L output. Chest x-ray this morning reveals cardiomegaly and interstitial densities. Interstitial opacities may be slightly improved, correlate for slight improvement in pulmonary vascular congestion. Continued but slightly improved small left pleural effusion but with persistent prominent left basilar/retrocardiac atelectasis and/or consolidation. CAT scan of the abdomen and pelvis revealed focal left lower quadrant mesenteric hematomas adjacent to the proximal sigmoid are relatively similar in size. Surrounding strandy hemorrhage has decrease in the interval. No new or progressive hematoma. Development of generalized anasarca correlate for fluid overload. Moderate left effusion, small right effusion. Multiple left-sided rib fractures. Anterolisthesis at L5-S1 and moderate advanced degenerative disc disease. 10/16: Patient remains intubated and on mechanical ventilation, tidal volume 450, FiO2 of 100 and PEEP of 12. Patient remains on Nimbex, propofol and fentanyl. He is off Cleviprex. Cymbalta cannot be given down OG tube. Patient is more comfortable today from yesterday. Echocardiogram reveals EF 55-60% with moderate concentric left ventricular hypertrophy, trace mitral regurgitation, trace tricuspid regurgitation, small generalized pericardial effusion. Chest x- ray reveals no left-sided rib fractures and distal left clavicle fracture. Continued left small pleural effusion with left basilar and retrocardiac atelectasis and/or consolidation. Temperature max 100.1, heart rate 93, blood pressure 134/78. Repeat blood work reveals study BC 7.9, hemoglobin 9.8, platelet count 238. Sodium 136, potassium 3.1 replaced, chloride 101, CO2 29, BUN 13 and creatinine 0.6. Blood sugars running between 110 and 121. Sputum culture finalized with normal osmany. 10/17: Patient remains intubated and on mechanical ventilation with tidal volume 450, FiO2 60, PEEP 15. He has on the fall and fentanyl. Plan is to wean off fentanyl today. Patient Dulcolax suppository yesterday did not have a bowel movement. A second Dulcolax suppository ordered for today. Repeat chest x-ray reveals low lung volumes and cardiomegaly with left-sided rib fractures. Continue small left pleural effusion with associated left basilar atelectasis and/or infiltrate. Developing right central lung acute infiltrate and/or atelectasis. Patient has been afebrile, heart rate 93, blood pressure 125/77, pulse ox 95%. Repeat blood work reveals W BC 7.6, hemoglobin 9.7, platelet cou nt 234. Sodium 136, potassium 3.0 status post replacement of 3.6, chloride 101, CO2 31, BUN 14 and creatinine 0.50. Blood sugars are running between 104 and 122. 10/18: Patient remains intubated and on mechanical ventilation with tidal volume 450, FiO2 50, PEEP of 15. He is off Nimbex and fentanyl. Currently on propofol. He still has not had a bowel movement and is scheduled for another suppository. Patient has been afebrile, heart rate 88, blood pressure 142/57. Repeat blood work reveals WBC 7.4, hemoglobin 9.3, platelet count 260. Sodium 135, potassium 3.5, chloride 90, CO2 33, BUN 14 and creatinine 0.51. Repeat CK is 2391. Chest x-ray is stable. 10/19: Patient remains in the intensive care unit intubated and on mechanical ventilation with tidal volume 450, FiO2 50 and PEEP is down to 10. He is currently on propofol but is opening eyes unable to follow commands. Repeat blood work reveals WBC 8.2, hemoglobin 9.5, platelet count 343. Sodium 135, po tassium 3.8, chloride 99, CO2 32, BUN 15 and creatinine 0.48. Blood sugars are running between 107 124. CK 1063. Total bilirubin 0.8, AST 66 and ALT 52. Patient has been afebrile, heart rate 92, blood pressure 128/74. Review of systems Unable to obtain due to intubation. Physical examination General Appearance: This is a 49-year-old male resting in bed in ICU and appears to be comfortable and in no acute distress. Neck HEENT: Supple, no lymphadenopathy, no thyroid enlargement, no carotid bruits. Mild bruise in the facial area. Oral ET and orogastric tube in place. Lungs: Decreased breath some bilaterally with fine rhonchi positive mild expiratory wheezes decreased breath sound more in the left and the right side. Chest Wall: Significant chest wall tenderness and discomfort in the left side with mild bruise of chest wall area. Heart: Irregular rhythm and rate is sinus to positive S3 Back: Significant lower back pain and discomfort. Abdomen: Distention with significant tenderness in the mid abdominal area and l ower abdominal region area with significant ecchymosis and hematoma to the lower chest lateral abdominal and flank area.. Extremities: Slight edema in the lower extremity significant discomfort in left upper extremity with the arm in sling so far. Wound to the left forearm approximately 12 inches long, dressing in place. Pulses: 2+ and symmetric. Skin: Skin color, texture, tugor normal, no rashes or lesions. Neurologic: Intubated and on mechanical ventilation. Eyes are open. Patient not following commands. Assessment and plan 1 post tractor accident with multiple injury and trauma: Patient be admitted to the ICU continued see trauma surgery along with ICU service. Continue to monitor in the intensive care unit. 2 Flail chest with multiple rib fracture in the left side displace in the anterior and posterior area with significant pneumothorax, stable. Pleural effusion. 3 significant dyspnea and shortness of breath with acute hypoxia respiratory failure requiring intubation and mechanical ventilation. 4 severe abdominal pain with bowel injury along with proximal sigmoid injury with left lower quadrant mesenteric hematomas. Continue conservative treatment, monitor hemoglobin. 5 alcohol intoxication. Liver function tests also reflect chronic alcohol use. Patient adamantly denies any alcohol intake for the past 3 years. 6 question of syncope, alcohol-related. 7 active delirium tremens. Patient has required intubation mechanical ventilation. Continue CIWA protocol. 8 acute hypoxic respiratory failure required intubation and mechanical ventilation. Change Management Facilitator is managing. 9 hypertensive emergency. Off Clevidex drip. Continue amlodipine 10 mg daily, hydralazine 25 mg 3 times daily, Lopressor 50 mg twice daily. 10 hypertension. Continue as above. 11 hyperglycemia: Type 2 diabetes. NovoLog scale. 12 chronic lower back pain. 13 recurrent depression. Continue Cymbalta. 14 GI prophylaxis: Patient be on pantoprazole IV. 15 DVT prophylaxis. Heparin subcu 16 Clavicular fracture. Consult with orthopedic appreciated. Sling is in place. 17 anemia, possible acute blood loss anemia with hematoma and ecchymosis to the left lateral and posterior abdominal wall CODE STATUS: Full code. Discharge plan: To be determined. Prognosis guarded. Impression and plan of care have been directed as dictated by the signing physician. Kyra Norwood nurse practitioner acting as scribe for signing physician. Objective - Vital Signs Vital signs: Vital Signs Temp 98.6 F 10/20/19 08:00 Pulse 92 10/20/19 08:00 Resp 26 H 10/20/19 08:00 BP 128/74 10/20/19 08:00 Pulse Ox 98 10/20/19 08:00 Intake & Output 10/19/19 10/20/19 10/20/19 18:59 06:59 18:59 Intake Total 1026 908.004 196 Output Total 805 530 80 Balance 221 378.004 116 Weight 127.3 kg 127.4 kg Intake: IV 276 276 46 0.9 Normal Saline at KVO 240 240 40 20mL/hr Pressure bag 0.9 Nomal 36 36 6 Saline @ 3mL/hr Intake, IV Titration 400 532.004 100 Amount propofoL 1,000 mg In 400 532.004 100 Empty Bag 1 bag @ Titrate IV .Q0M [facility] Rx#: [id number] Tube Feeding 260 100 20 Other 90 30 Output: Urine 805 530 80 Other: Voiding Method Indwelling Catheter Indwelling Catheter ABP, PAP, CO, CI - Last Documented Arterial Blood Pressure 148/59 - Labs CBC & Chem 7: 10/20/19 04:20 10/20/19 04:20 Labs: Abnormal Lab Results - Last 24 Hours (Table) 10/19/19 10/19/19 10/19/19 Range/Units 08: 09:51 11:35 RBC (4.30-5.90) m/uL Hgb (13.0-17.5) gm/dL Hct (39.0-53.0) % ABG pH (7.35-7.45) ABG HCO3 (21-25) mmol/L ABG Total CO2 (19-24) mmol/L Sodium (137-145) mmol/L Carbon Dioxide (22-30) mmol/L Creatinine (0.66-1.25) mg/dL Glucose (74-99) mg/dL POC Glucose (mg/dL) 127 H 125 H (75-99) mg/dL Calcium (8.4-10.2) mg/dL AST (17-59) U/L ALT (4-49) U/L Creatine Kinase 2391 H* (55-170) U/L Total Protein (6.3-8.2) g/dL Albumin (3.5-5.0) g/dL 10/19/19 10/19/19 10/20/19 Range/Units 17:00 20:18 01:07 RBC (4.30-5.90) m/uL Hgb (13.0-17.5) gm/dL Hct (39.0-53.0) % ABG pH (7.35-7.45) ABG HCO3 (21-25) mmol/L ABG Total CO2 (19-24) mmol/L Sodium (137-145) mmol/L Carbon Dioxide (22-30) mmol/L Creatinine (0.66-1.25) mg/dL Glucose (74-99) mg/dL POC Glucose (mg/dL) 118 H 126 H 109 H (75-99) mg/dL Calcium (8.4-10.2) mg/dL AST (17-59) U/L ALT (4-49) U/L Creatine Kinase (55-170) U/L Total Protein (6.3-8.2) g/dL Albumin (3.5-5.0) g/dL 10/20/19 10/20/19 10/20/19 Range/Units 04:20 04:20 05:17 RBC 3.16 L (4.30-5.90) m/uL Hgb 9.5 L (13.0-17.5) gm/dL Hct 29.4 L (39.0-53.0) % ABG pH 7.49 H (7.35-7.45) ABG HCO3 34 H (21-25) mmol/L ABG Total CO2 35 H (19-24) mmol/L Sodium 135 L (137-145) mmol/L Carbon Dioxide 32 H (22-30) mmol/L Creatinine 0.48 L (0.66-1.25) mg/dL Glucose 107 H (74-99) mg/dL POC Glucose (mg/dL) (75-99) mg/dL Calcium 8.2 L (8.4-10.2) mg/dL AST 66 H (17-59) U/L ALT 52 H (4-49) U/L Creatine Kinase 1063 H* (55-170) U/L Total Protein 5.4 L (6.3-8.2) g/dL Albumin 2.7 L (3.5-5.0) g/dL
[2019-10-20] MEDS: HALOPERIDOL LACTATE 5 MG/ML 1 ML VIAL IVP PRN ×2 (11:21→17:57)
[2019-10-20] MEDS ORDERED: QUEtiapine 25 MG TAB PO SCH (11:30)
[2019-10-20 11:59] LABS: Glucose,Whole Blood 131 mg/dL (75-99)
--- NOTE | 2019-10-20 12:06 | P.PN ---
Subjective Progress Note Date: 10/20/19 CHIEF COMPLAINT: Multiple injury after trauma from a fall from tractor HISTORY OF PRESENT ILLNESS: Patient remains in the ICU. He is still on mechanical ventilation for ARDS. The patient is on propofol and is being weaned down. He able to open his eyes. Afebrile. WBC 8.2 hemoglobin 9.5 PHYSICAL EXAM: VITAL SIGNS: Reviewed. GENERAL: Well-developed in no acute distress. HEENT: No sclera icterus. Extraocular movements grossly intact. Moist buccal mucosa. Head is atraumatic, normocephalic. ABDOMEN: Soft. Obese. Distended. Nontender. Neuro: Patient is intubated and sedated ASSESSMENT: 1. Status post Fall from tractor with multiple injuries 2. Proximal sigmoid hematoma and contusion. Repeat CT of the abdomen over the weekend which was a stable mesenteric hematoma 3. Multiple left-sided rib fractures with flail chest 4. Left closed distal clavicular fracture followed by orthopedics 5. Chronic alcohol use and evidence of alcohol withdrawal 6. Acute hypoxic respiratory failure likely secondary to alcohol withdrawal syndrome and delirium tremens. Patient currently on mechanical ventilation 7. Possible pulmonary contusion PLAN: - Management of multiple medical issues per consulting physicians -DVT prophylaxis subcu heparin GI prophylaxis Protonix Physician Flexo Operator note has been reviewed by physician. Signing provider agrees with the documented findings, assessment, and plan of care. Objective - Vital Signs Vital signs: Vital Signs Temp 98.6 F 10/20/19 08:00 Pulse 88 10/20/19 11:56 Resp 27 H 10/20/19 11:00 BP 128/72 10/20/19 11:00 Pulse Ox 92 L 10/20/19 11:00 Intake & Output 10/19/19 10/20/19 10/20/19 18:59 06:59 18:59 Intake Total 1026 908.004 513.792 Output Total 805 530 230 Balance 221 378.004 283.792 Weight 127.3 kg 127.4 kg Intake: IV 276 276 115 0.9 Normal Saline at KVO 240 240 100 20mL/hr Pressure bag 0.9 Nomal 36 36 15 Saline @ 3mL/hr Intake, IV Titration 400 532.004 288.792 Amount propofoL 1,000 mg In 400 532.004 288.792 Empty Bag 1 bag @ Titrate IV .Q0M [facility] Rx#: [id number] Tube Feeding 260 100 80 Other 90 30 Output: Urine 805 530 230 Other: Voiding Method Indwelling Catheter Indwelling Catheter Indwelling Catheter ABP, PAP, CO, CI - Last Documented Arterial Blood Pressure 134/56 - Labs CBC & Chem 7: 10/20/19 04:20 10/20/19 04:20 Labs: Abnormal Lab Results - Last 24 Hours (Table) 10/19/19 10/19/19 10/20/19 Range/Units 17:00 20:18 01:07 RBC (4.30-5.90) m/uL Hgb (13.0-17.5) gm/dL Hct (39.0-53.0) % ABG pH (7.35-7.45) ABG HCO3 (21-25) mmol/L ABG Total CO2 (19-24) mmol/L Sodium (137-145) mmol/L Carbon Dioxide (22-30) mmol/L Creatinine (0.66-1.25) mg/dL Glucose (74-99) mg/dL POC Glucose (mg/dL) 118 H 126 H 109 H (75-99) mg/dL Calcium (8.4-10.2) mg/dL AST (17-59) U/L ALT (4-49) U/L Creatine Kinase (55-170) U/L Total Protein (6.3-8.2) g/dL Albumin (3.5-5.0) g/dL 10/20/19 10/20/19 10/20/19 Range/Units 04:20 04:20 05:17 RBC 3.16 L (4.30-5.90) m/uL Hgb 9.5 L (13.0-17.5) gm/dL Hct 29.4 L (39.0-53.0) % ABG pH 7.49 H (7.35-7.45) ABG HCO3 34 H (21-25) mmol/L ABG Total CO2 35 H (19-24) mmol/L Sodium 135 L (137-145) mmol/L Carbon Dioxide 32 H (22-30) mmol/L Creatinine 0.48 L (0.66-1.25) mg/dL Glucose 107 H (74-99) mg/dL POC Glucose (mg/dL) (75-99) mg/dL Calcium 8.2 L (8.4-10.2) mg/dL AST 66 H (17-59) U/L ALT 52 H (4-49) U/L Creatine Kinase 1063 H* (55-170) U/L Total Protein 5.4 L (6.3-8.2) g/dL Albumin 2.7 L (3.5-5.0) g/dL 10/20/19 10/20/19 Range/Units 09:18 11:58 RBC (4.30-5.90) m/uL Hgb (13.0-17.5) gm/dL Hct (39.0-53.0) % ABG pH (7.35-7.45) ABG HCO3 (21-25) mmol/L ABG Total CO2 (19-24) mmol/L Sodium (137-145) mmol/L Carbon Dioxide (22-30) mmol/L Creatinine (0.66-1.25) mg/dL Glucose (74-99) mg/dL POC Glucose (mg/dL) 124 H 131 H (75-99) mg/dL Calcium (8.4-10.2) mg/dL AST (17-59) U/L ALT (4-49) U/L Creatine Kinase (55-170) U/L Total Protein (6.3-8.2) g/dL Albumin (3.5-5.0) g/dL
[2019-10-20] MEDS: QUEtiapine 50 MG TAB PO SCH ×2 (12:13→21:14)
[2019-10-20] MEDS ORDERED: bisacodyL 10 MG SUPP RECTAL STA (16:33)
[2019-10-20 16:48] LABS: Glucose,Whole Blood 104 mg/dL (75-99)
[2019-10-20 23:58] LABS: Glucose,Whole Blood 117 mg/dL (75-99)
[2019-10-21] MEDS: IPRATROPIUM-ALBUTEROL 3 ML NEB INHALATION SCH ×7 (00:17→23:22)
[2019-10-21] MEDS: HYDROmorphone 1 MG/ML 1 ML SYRINGE IVP PRN ×12 (00:39→22:14)
[2019-10-21] MEDS: INSULIN ASPART (NovoLOG) 100 UNIT/ML VIAL SQ SCH ×6 (01:25→20:00)
[2019-10-21] MEDS: HALOPERIDOL LACTATE 5 MG/ML 1 ML VIAL IVP PRN ×2 (01:30→20:21)
[2019-10-21 04:37] LABS: Basophils # (A) 0.1 k/uL (0-0.2); Basophils % (A) 1 %; Eosinophils # (A) 0.4 k/uL (0-0.7); Eosinophils % (A) 5 %; HCT 28.9 % (39.0-53.0); HGB 9.5 gm/dL (13.0-17.5); Lymphocytes # (A) 1.3 k/uL (1.0-4.8); Lymphocytes % (A) 14 %; MCHC 32.8 g/dL (31.0-37.0); MCV 91.5 fL (80.0-100.0); Mean Platelet Volume 7.3; Monocytes # (A) 0.4 k/uL (0-1.0); Monocytes % (A) 5 %; Neutrophils # (A) 6.7 k/uL (1.3-7.7); Neutrophils % (A) 75 %; Platelet Count 363 k/uL (150-450); RBC 3.16 m/uL (4.30-5.90); RDW 14.2 % (11.5-15.5)
[2019-10-21 04:51] LABS: ALT 49 U/L (4-49); AST 45 U/L (17-59); African American GFR (CKD) >90 (>60 ml/min/1.73 sqM); Albumin 2.8 g/dL (3.5-5.0); Alkaline Phosphatase 92 U/L (38-126); Anion Gap 6 mmol/L; Blood Urea Nitrogen 16 mg/dL (9-20); Calcium 8.1 mg/dL (8.4-10.2); Carbon Dioxide 30 mmol/L (22-30); Chloride 101 mmol/L (98-107); Glucose 107 mg/dL (74-99); Non-African American GFR(CKD) >90 (>60 ml/min/1.73 sqM); Potassium 3.9 mmol/L (3.5-5.1); Sodium 137 mmol/L (137-145); Total Bilirubin 0.7 mg/dL (0.2-1.3); Total Protein 5.6 g/dL (6.3-8.2)
[2019-10-21 05:36] LABS: ABG Base Excess 8.5 mmol/L; ABG HCO3 32 mmol/L (21-25); ABG Oxygen Saturation 96.5 % (94-97); ABG PCO2 42 mmHg (35-45); ABG PH 7.49 (7.35-7.45); ABG PO2 89 mmHg (83-108); ABG TCO2 33 mmol/L (19-24); Allen Test Performed? Yes
[2019-10-21] MEDS: THIAMINE 100 MG TAB PO SCH ×2 (06:35→18:29)
--- NOTE | 2019-10-21 07:29 | XR ---
EXAMINATION TYPE: XR chest 1V portable DATE OF EXAM: 10/21/2019 COMPARISON: 10/20/2019 HISTORY: Respiratory failure TECHNIQUE: Single frontal view of the chest is obtained. FINDINGS: ET and NG tube stable. There is a bilateral consolidation and left pleural effusion. Findi ngs greater on the left. Multiple left-sided acute rib fractures. No sizable pneumothorax. Heart size enlarged. Hypertrophic change of the spine. IMPRESSION: May be mild progression of consolidation and pleural effusion on the left relative to th e prior exam. Acute appearing multiple left-sided rib fractures.
[2019-10-21] MEDS: PANTOPRAZOLE 40 MG/10 ML VIAL IVP SCH (08:01)
[2019-10-21] MEDS: METOPROLOL TARTRATE 50 MG TAB PO SCH ×2 (08:01→20:26)
[2019-10-21] MEDS: HEPARIN SODIUM,PORCINE 5,000 UNIT/ML 1 ML VIAL SQ SCH ×2 (08:01→20:26)
[2019-10-21] MEDS: CHLORHEXIDINE GLUCONATE 15 ML CUP MUCOUS MEM SCH ×2 (08:01→20:26)
[2019-10-21] MEDS: amLODIPine 10 MG TAB PO SCH (08:01)
[2019-10-21] MEDS: hydrALAZINE HCL 25 MG TAB PO SCH ×3 (08:01→21:57)
[2019-10-21] MEDS: DULoxetine HCL 60 MG CAPSULE.DR PO SCH (08:02)
[2019-10-21] MEDS: QUEtiapine 50 MG TAB PO SCH ×2 (08:13→20:26)
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
[2019-10-21 11:48] LABS: Glucose,Whole Blood 116 mg/dL (75-99)
[2019-10-21] MEDS: bisacodyL 10 MG SUPP RECTAL SCH (11:55)
[2019-10-21 18:04] LABS: Glucose,Whole Blood 112 mg/dL (75-99)
[2019-10-21] MEDS ORDERED: CISATRACURIUM 2 MG/ML 5 ML VIAL IV ONE (21:25)
[2019-10-21] MEDS: CISATRACURIUM 200 MG in SODIUM CHLORIDE 0.9% 180 ML IV SCH (21:48)
[2019-10-21 22:38] LABS: ABG Base Excess 6.7 mmol/L; ABG HCO3 31 mmol/L (21-25); ABG Oxygen Saturation 91.4 % (94-97); ABG PCO2 45 mmHg (35-45); ABG PH 7.44 (7.35-7.45); ABG PO2 66 mmHg (83-108); ABG TCO2 32 mmol/L (19-24); Allen Test Performed? Yes
--- NOTE | 2019-10-21 23:03 | XR ---
EXAMINATION TYPE: XR chest 1V portable DATE OF EXAM: 10/21/2019 COMPARISON: Today HISTORY: Hypoxemia TECHNIQUE: Single view FINDINGS: Endotracheal tube is 5.5 cm from the marcie. There is nasogastric tube in the stomach. Ther e is blunting left costophrenic angle. There is mild pulmonary congestion. There are left-sided rib f ractures. There is no pneumothorax. Right lung is fairly clear. IMPRESSION: Left pleural effusion and left lower lobe infiltrate appears slightly worse than exam thi s morning. No gross heart failure. No pneumothorax.
[2019-10-22 00:03] LABS: Glucose,Whole Blood 98 mg/dL (75-99)
[2019-10-22] MEDS: HYDROmorphone 1 MG/ML 1 ML SYRINGE IVP PRN ×8 (00:57→20:52)
[2019-10-22] MEDS: HALOPERIDOL LACTATE 5 MG/ML 1 ML VIAL IVP PRN ×2 (01:06→05:18)
[2019-10-22] MEDS: INSULIN ASPART (NovoLOG) 100 UNIT/ML VIAL SQ SCH ×6 (02:13→21:20)
[2019-10-22] MEDS: CISATRACURIUM 200 MG in SODIUM CHLORIDE 0.9% 180 ML IV SCH ×5 (03:39→19:37)
[2019-10-22] MEDS: IPRATROPIUM-ALBUTEROL 3 ML NEB INHALATION SCH ×5 (04:03→18:32)
[2019-10-22 05:05] LABS: Basophils # (A) 0.1 k/uL (0-0.2); Basophils % (A) 1 %; Eosinophils # (A) 0.7 k/uL (0-0.7); Eosinophils % (A) 6 %; HCT 30.9 % (39.0-53.0); HGB 10.1 gm/dL (13.0-17.5); Hypochromasia Slight; Lymphocytes # (A) 1.2 k/uL (1.0-4.8); Lymphocytes % (A) 9 %; MCH 30.5 pg (25.0-35.0); MCHC 32.8 g/dL (31.0-37.0); MCV 92.7 fL (80.0-100.0); Monocytes # (A) 0.6 k/uL (0-1.0); Monocytes % (A) 4 %; Neutrophils # (A) 9.9 k/uL (1.3-7.7); Neutrophils % (A) 79 %; Platelet Count 431 k/uL (150-450); RBC 3.33 m/uL (4.30-5.90); WBC 12.5 k/uL (3.8-10.6)
[2019-10-22 05:16] LABS: ABG Base Excess 5.5 mmol/L; ABG HCO3 30 mmol/L (21-25); ABG Oxygen Saturation 94.2 % (94-97); ABG PCO2 50 mmHg (35-45); ABG PH 7.39 (7.35-7.45); ABG PO2 79 mmHg (83-108); ABG TCO2 32 mmol/L (19-24); Allen Test Performed? Yes
[2019-10-22 05:17] LABS: ALT 44 U/L (4-49); AST 35 U/L (17-59); African American GFR (CKD) >90 (>60 ml/min/1.73 sqM); Albumin 2.9 g/dL (3.5-5.0); Alkaline Phosphatase 95 U/L (38-126); Anion Gap 8 mmol/L; Blood Urea Nitrogen 15 mg/dL (9-20); Calcium 8.3 mg/dL (8.4-10.2); Carbon Dioxide 27 mmol/L (22-30); Chloride 100 mmol/L (98-107); Glucose 131 mg/dL (74-99); Non-African American GFR(CKD) >90 (>60 ml/min/1.73 sqM); Potassium 4.1 mmol/L (3.5-5.1); Sodium 135 mmol/L (137-145); Total Bilirubin 0.8 mg/dL (0.2-1.3); Total Protein 5.8 g/dL (6.3-8.2)
[2019-10-22 06:09] LABS: Glucose,Whole Blood 116 mg/dL (75-99)
[2019-10-22] MEDS: THIAMINE 100 MG TAB PO SCH ×2 (06:34→16:37)
--- NOTE | 2019-10-22 07:21 | XR ---
EXAMINATION TYPE: XR chest 1V portable DATE OF EXAM: 10/22/2019 COMPARISON: 10/21/2019 HISTORY: SOB, Follow Up FINDINGS: Indwelling tubes and catheters are unchanged. No change in left lower lobe infiltrate, atelectasis and/or effusion. Stable appearance of the cardio-mediastinal structures at this time. Pleural effusion unchanged. IMPRESSION: 1. Stable portable chest. Clinical correlation and follow up until resolution is recommended.
[2019-10-22] MEDS: bisacodyL 10 MG SUPP RECTAL SCH (08:10)
[2019-10-22] MEDS: QUEtiapine 50 MG TAB PO SCH ×2 (08:10→21:15)
[2019-10-22] MEDS: amLODIPine 10 MG TAB PO SCH (08:10)
[2019-10-22] MEDS: HEPARIN SODIUM,PORCINE 5,000 UNIT/ML 1 ML VIAL SQ SCH ×2 (08:11→20:48)
[2019-10-22] MEDS: hydrALAZINE HCL 25 MG TAB PO SCH ×3 (08:11→21:15)
[2019-10-22] MEDS: CHLORHEXIDINE GLUCONATE 15 ML CUP MUCOUS MEM SCH ×2 (08:11→20:48)
[2019-10-22] MEDS: METOPROLOL TARTRATE 50 MG TAB PO SCH ×2 (08:12→20:48)
[2019-10-22] MEDS: PANTOPRAZOLE 40 MG/10 ML VIAL IVP SCH (08:12)
[2019-10-22] MEDS: DULoxetine HCL 60 MG CAPSULE.DR PO SCH (08:13)
[2019-10-22] MEDS ORDERED: ARTIFICIAL TEARS-HYPROMELLOSE DROPS 15 ML BTL BOTH EYES SCH (09:00)
[2019-10-22] MEDS: cloNIDine 0.3 MG/24HR PATCH TRANSDERM SCH (10:23)
[2019-10-22 10:31] LABS: Glucose,Whole Blood 139 mg/dL (75-99)
--- NOTE | 2019-10-22 11:12 | P.PN ---
Subjective Progress Note Date: 10/22/19 Principal diagnosis: Polytrauma Patient remains sedated on the ventilator. He is afebrile with mild tachycardia. White blood cell count 12.5. Chest x-ray with no acute changes. Objective - Vital Signs Vital signs: Vital Signs Temp 98.3 F 10/22/19 08:00 Pulse 95 10/22/19 10:00 Resp 26 H 10/22/19 10:00 BP 136/88 10/22/19 10:00 Pulse Ox 93 L 10/22/19 10:00 Intake & Output 10/21/19 10/22/19 10/22/19 18:59 06:59 18:59 Intake Total 9918.665 1950.166 615.577 Output Total 530 775 315 Balance 566.318 713.166 300.577 Weight 129.6 kg 128.4 kg Intake: IV 276 276 92 0.9 Normal Saline at KVO 240 240 80 20mL/hr Pressure bag 0.9 Nomal 36 36 12 Saline @ 3mL/hr Intake, IV Titration 365.318 812.166 393.577 Amount Cisatracurium 200 mg In 162.648 200.102 Sodium Chloride 0.9% 180 ml @ 2 MCG/KG/MIN 15.552 mls/hr IV .[id number] [facility] Rx #:[id number] propofoL 1,000 mg In 365.318 649.518 193.475 Empty Bag 1 bag @ Titrate IV .Q0M [facility] Rx#: [id number] Tube Feeding 365 400 100 Other 90 30 Output: Urine 530 775 315 Other: Voiding Method Indwelling Catheter Indwelling Catheter Indwelling Catheter ABP, PAP, CO, CI - Last Documented Arterial Blood Pressure 149/64 - Exam Abdomen: Soft, distended, no appreciable tenderness - Labs CBC & Chem 7: 10/22/19 04:15 10/22/19 04:15 Labs: Abnormal Lab Results - Last 24 Hours (Table) 10/21/19 10/21/19 10/21/19 Range/Units 11:46 18:04 22:36 WBC (3.8-10.6) k/uL RBC (4.30-5.90) m/uL Hgb (13.0-17.5) gm/dL Hct (39.0-53.0) % Neutrophils # (1.3-7.7) k/uL ABG pCO2 (35-45) mmHg ABG pO2 66 L (83-108) mmHg ABG HCO3 31 H (21-25) mmol/L ABG Total CO2 32 H (19-24) mmol/L ABG O2 Saturation 91.4 L (94-97) % Sodium (137-145) mmol/L Creatinine (0.66-1.25) mg/dL Glucose (74-99) mg/dL POC Glucose (mg/dL) 116 H 112 H (75-99) mg/dL Calcium (8.4-10.2) mg/dL Total Protein (6.3-8.2) g/dL Albumin (3.5-5.0) g/dL 10/22/19 10/22/19 10/22/19 Range/Units 04:15 04:15 05:13 WBC 12.5 H (3.8-10.6) k/uL RBC 3.33 L (4.30-5.90) m/uL Hgb 10.1 L (13.0-17.5) gm/dL Hct 30.9 L (39.0-53.0) % Neutrophils # 9.9 H (1.3-7.7) k/uL ABG pCO2 50 H (35-45) mmHg ABG pO2 79 L (83-108) mmHg ABG HCO3 30 H (21-25) mmol/L ABG Total CO2 32 H (19-24) mmol/L ABG O2 Saturation (94-97) % Sodium 135 L (137-145) mmol/L Creatinine 0.49 L (0.66-1.25) mg/dL Glucose 131 H (74-99) mg/dL POC Glucose (mg/dL) (75-99) mg/dL Calcium 8.3 L (8.4-10.2) mg/dL Total Protein 5.8 L (6.3-8.2) g/dL Albumin 2.9 L (3.5-5.0) g/dL 10/22/19 10/22/19 Range/Units 05:49 10:20 WBC (3.8-10.6) k/uL RBC (4.30-5.90) m/uL Hgb (13.0-17.5) gm/dL Hct (39.0-53.0) % Neutrophils # (1.3-7.7) k/uL ABG pCO2 (35-45) mmHg ABG pO2 (83-108) mmHg ABG HCO3 (21-25) mmol/L ABG Total CO2 (19-24) mmol/L ABG O2 Saturation (94-97) % Sodium (137-145) mmol/L Creatinine (0.66-1.25) mg/dL Glucose (74-99) mg/dL POC Glucose (mg/dL) 116 H 139 H (75-99) mg/dL Calcium (8.4-10.2) mg/dL Total Protein (6.3-8.2) g/dL Albumin (3.5-5.0) g/dL Assessment and Plan (1) Multiple injuries due to trauma Narrative/Plan: 49-year-old male with recent fall and subsequent injuries to the left clavicle, left ribs, bowel mesentery. Patient stable on the ventilator currently. Continue weaning per pulmonary at this time. Patient tolerating tube feeds at goal. Had 2 small bowel months. We'll follow. Current Visit: Yes Status: Acute Code(s): T07.XXXA - UNSPECIFIED MULTIPLE INJURIES, INITIAL ENCOUNTER SNOMED Code(s): 329973245
[2019-10-22 11:55] LABS: Glucose,Whole Blood 144 mg/dL (75-99)
--- NOTE | 2019-10-22 11:59 | XR ---
EXAMINATION TYPE: XR chest 1V portable DATE OF EXAM: 10/22/2019 COMPARISON: NONE HISTORY: SOB, Follow Up FINDINGS: Indwelling tubes and catheters are unchanged. Left IJ central venous line with its distal tip overlyi ng the SVC. No evidence for pneumothorax. Dense opacification left lower lobe underlying pleural effusion. Mild right infrahilar patchy density noted as well. Stable appearance of the cardio-mediastinal structures at this time. Pleural effusion unchanged. IMPRESSION: 1. Dense opacification left lower lobe underlying pleural effusion. Mild right infrahilar patchy den sity noted as well.
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
[2019-10-22] MEDS: ARTIFICIAL TEARS-HYPROMELLOSE DROPS 15 ML BTL BOTH EYES SCH ×3 (14:59→22:18)
--- NOTE | 2019-10-22 15:49 | PCN ---
PROCEDURE NOTE PROCEDURE PERFORMED: Left internal jugular triple-lumen catheter. OPERATORS: Dr. Cruz and Dr. Juarez. TRIPLE LUMEN CATHETER PLACEMENT: Indication: Hemodynamic monitoring/Intravenous access. A time-out was completed verifying correct patient, procedure, site, positioning, and implant(s) or special equipment if applicable. The patient was placed in a dependent position appropriate for triple lumen catheter placement based on the vein to be cannulated. The patient's left neck was prepped and draped in sterile fashion. 1% Lidocaine was used to anesthetize the surrounding skin area. A triple lumen 9F Cordis catheter was introduced into the left internal jugular vein using Seldinger technique. The catheter was threaded smoothly over the guide wire and appropriate blood return was obtained. Each lumen of the catheter was evacuated of air and flushed with sterile saline. The catheter was then sutured in place to the skin and a sterile dressing applied. Perfusion to the extremity distal to the point of catheter insertion was checked and found to be adequate. We used the posterior approach. There was no immediate complication. There was good blood return from all ports. The patient tolerated the procedure well. The catheter was sutured in place. A sterile dressing was applied by the nurse. A chest x-ray was ordered. The old art central line will be removed and the tip will be cultured. MMODL / IJN: [id number] /
[2019-10-22 16:38] LABS: Glucose,Whole Blood 143 mg/dL (75-99)
--- NOTE | 2019-10-22 16:40 | PCN ---
PROCEDURE NOTE DATE OF SERVICE: 10/22/2019. PROCEDURE PERFORMED: Left radial arterial line insertion. PREOP DIAGNOSES: Hypotension, hemodynamic monitoring. POSTOP DIAGNOSIS: Hypotension, hemodynamic monitoring. ARTERIAL LINE PLACEMENT: Indications: Hemodynamic monitoring. A time-out was completed verifying correct patient, procedure, site, positioning, and implant(s) or special equipment if applicable. Harlan's test was performed to ensure adequate perfusion. The patient's left wrist was prepped and draped in sterile fashion. 1% Lidocaine was used to anesthetize the area. An 18G Arrow arterial line was introduced into the radial artery. The catheter was threaded over the guide wire and the needle was removed with appropriate pulsatile blood return. Blood loss was minimal. The catheter was then sutured in place to the skin and a sterile dressing applied. Perfusion to the extremity distal to the point of catheter insertion was checked and found to be adequate. The patient tolerated the procedure well and there were no complications. MMODL / IJN: [id number] /
[2019-10-22 18:14] LABS: Glucose,Whole Blood 133 mg/dL (75-99)
[2019-10-22 21:21] LABS: Glucose,Whole Blood 130 mg/dL (75-99)
[2019-10-23 00:01] LABS: Glucose,Whole Blood 106 mg/dL (75-99)
[2019-10-23] MEDS: HYDROmorphone 1 MG/ML 1 ML SYRINGE IVP PRN (00:03)
[2019-10-23] MEDS: IPRATROPIUM-ALBUTEROL 3 ML NEB INHALATION SCH ×6 (00:07→19:37)
[2019-10-23] MEDS: INSULIN ASPART (NovoLOG) 100 UNIT/ML VIAL SQ SCH ×6 (00:38→19:47)
[2019-10-23] MEDS: ARTIFICIAL TEARS-HYPROMELLOSE DROPS 15 ML BTL BOTH EYES SCH ×4 (02:00→15:34)
[2019-10-23] MEDS: CISATRACURIUM 200 MG in SODIUM CHLORIDE 0.9% 180 ML IV SCH (03:17)
[2019-10-23 04:20] LABS: Glucose,Whole Blood 138 mg/dL (75-99)
[2019-10-23 05:10] LABS: ABG Base Excess 4.3 mmol/L; ABG HCO3 30 mmol/L (21-25); ABG Oxygen Saturation 92.2 % (94-97); ABG PCO2 52 mmHg (35-45); ABG PH 7.37 (7.35-7.45); ABG PO2 71 mmHg (83-108); ABG TCO2 31 mmol/L (19-24); Allen Test Performed? Yes
[2019-10-23 05:43] LABS: Basophils # (A) 0.1 k/uL (0-0.2); Basophils % (A) 0 %; Eosinophils # (A) 0.4 k/uL (0-0.7); Eosinophils % (A) 2 %; HCT 32.8 % (39.0-53.0); HGB 10.2 gm/dL (13.0-17.5); Hypochromasia Slight; Lymphocytes # (A) 0.9 k/uL (1.0-4.8); Lymphocytes % (A) 4 %; MCH 29.3 pg (25.0-35.0); MCHC 31.2 g/dL (31.0-37.0); MCV 93.9 fL (80.0-100.0); Mean Platelet Volume 7.3; Monocytes % (A) 5 %; Neutrophils # (A) 19.1 k/uL (1.3-7.7); Neutrophils % (A) 89 %; Platelet Count 477 k/uL (150-450); RBC 3.49 m/uL (4.30-5.90); RDW 14.2 % (11.5-15.5); WBC 21.5 k/uL (3.8-10.6)
[2019-10-23 05:53] LABS: ALT 37 U/L (4-49); AST 27 U/L (17-59); African American GFR (CKD) >90 (>60 ml/min/1.73 sqM); Albumin 3.1 g/dL (3.5-5.0); Alkaline Phosphatase 105 U/L (38-126); Anion Gap 6 mmol/L; Blood Urea Nitrogen 15 mg/dL (9-20); Calcium 8.7 mg/dL (8.4-10.2); Carbon Dioxide 28 mmol/L (22-30); Chloride 102 mmol/L (98-107); Glucose 126 mg/dL (74-99); Non-African American GFR(CKD) >90 (>60 ml/min/1.73 sqM); Potassium 5.1 mmol/L (3.5-5.1); Sodium 136 mmol/L (137-145); Total Bilirubin 0.8 mg/dL (0.2-1.3); Total Protein 6.2 g/dL (6.3-8.2)
--- NOTE | 2019-10-23 06:58 | XR ---
EXAMINATION TYPE: XR chest 1V portable DATE OF EXAM: 10/23/2019 CLINICAL HISTORY: Difficulty breathing progress study. TECHNIQUE: Single AP portable semiupright view of the chest is obtained. COMPARISON: Chest x-ray from one day earlier and older studies. FINDINGS: Stable endotracheal tube, orogastric tube, and left internal jugular central venous cathet er. Persistent cardiomegaly with bibasilar opacities on current study. Upper lungs are clear without pneu mothorax. Multilevel spurring mid to lower thoracic spine redemonstrated. IMPRESSION: Cardiomegaly with small bilateral pleural effusions and associated bibasilar atelectasis and/or infiltrate currently. Right basilar findings new or more prominent from one day earlier.
[2019-10-23 08:26] LABS: Glucose,Whole Blood 119 mg/dL (75-99)
[2019-10-23] MEDS: hydrALAZINE HCL 25 MG TAB PO SCH ×3 (09:03→19:54)
[2019-10-23] MEDS: DULoxetine HCL 60 MG CAPSULE.DR PO SCH (09:04)
[2019-10-23] MEDS: bisacodyL 10 MG SUPP RECTAL SCH (09:04)
[2019-10-23] MEDS: METOPROLOL TARTRATE 50 MG TAB PO SCH ×2 (09:04→19:54)
[2019-10-23] MEDS: PANTOPRAZOLE 40 MG/10 ML VIAL IVP SCH (09:04)
[2019-10-23] MEDS: HEPARIN SODIUM,PORCINE 5,000 UNIT/ML 1 ML VIAL SQ SCH ×2 (09:04→19:55)
[2019-10-23] MEDS: amLODIPine 10 MG TAB PO SCH (09:04)
[2019-10-23] MEDS: THIAMINE 100 MG TAB PO SCH ×2 (09:04→17:48)
[2019-10-23] MEDS: CHLORHEXIDINE GLUCONATE 15 ML CUP MUCOUS MEM SCH ×2 (09:04→19:55)
[2019-10-23] MEDS: QUEtiapine 50 MG TAB PO SCH ×2 (09:05→19:54)
[2019-10-23] MEDS: fentaNYL (PF) 1,000 MCG in SODIUM CHLORIDE 0.9% 80 ML IV SCH ×3 (09:25→20:29)
--- NOTE | 2019-10-23 10:47 | P.PN ---
Subjective Progress Note Date: 10/23/19 Principal diagnosis: Polytrauma Patient stable on the ventilator. He is afebrile. No pressors. White blood cell count increased to 21.5. Chest x-ray with possible right lower lobe changes. He did have 2 small bowel movements. Nonbloody. Objective - Vital Signs Vital signs: Vital Signs Temp 97.9 F 10/23/19 08:00 Pulse 106 H 10/23/19 10:00 Resp 39 H 10/23/19 10:00 BP 184/90 10/23/19 05:00 Pulse Ox 93 L 10/23/19 10:00 Intake & Output 10/22/19 10/23/19 10/23/19 18:59 06:59 18:59 Intake Total 8909.990 4843.805 305.995 Output Total 920 895 150 Balance 550.910 523.805 155.995 Weight 128.5 kg Intake: IV 276 276 23 0.9 Normal Saline at KVO 240 240 20 20mL/hr Pressure bag 0.9 Nomal 36 36 3 Saline @ 3mL/hr Intake, IV Titration 804.910 767.805 282.995 Amount Cisatracurium 200 mg In 254.145 367.805 182.995 Sodium Chloride 0.9% 180 ml @ 2 MCG/KG/MIN 15.552 mls/hr IV .[id number] [facility] Rx #:[id number] propofoL 1,000 mg In 550.765 400 100 Empty Bag 1 bag @ Titrate IV .Q0M [facility] Rx#: [id number] Tube Feeding 300 225 Other 90 150 Output: Urine 920 895 150 Other: Voiding Method Indwelling Catheter Indwelling Catheter Indwelling Catheter ABP, PAP, CO, CI - Last Documented Arterial Blood Pressure 134/64 - Exam Abdomen: Soft, mild distention, no appreciable tenderness - Labs CBC & Chem 7: 10/23/19 05:00 10/23/19 05:00 Labs: Abnormal Lab Results - Last 24 Hours (Table) 10/22/19 10/22/19 10/22/19 Range/Units 11:54 16:32 18:07 WBC (3.8-10.6) k/uL RBC (4.30-5.90) m/uL Hgb (13.0-17.5) gm/dL Hct (39.0-53.0) % Plt Count (150-450) k/uL Neutrophils # (1.3-7.7) k/uL Lymphocytes # (1.0-4.8) k/uL ABG pCO2 (35-45) mmHg ABG pO2 (83-108) mmHg ABG HCO3 (21-25) mmol/L ABG Total CO2 (19-24) mmol/L ABG O2 Saturation (94-97) % Sodium (137-145) mmol/L Creatinine (0.66-1.25) mg/dL Glucose (74-99) mg/dL POC Glucose (mg/dL) 144 H 143 H 133 H (75-99) mg/dL Total Protein (6.3-8.2) g/dL Albumin (3.5-5.0) g/dL 10/22/19 10/23/19 10/23/19 Range/Units 21:20 00:00 03:54 WBC (3.8-10.6) k/uL RBC (4.30-5.90) m/uL Hgb (13.0-17.5) gm/dL Hct (39.0-53.0) % Plt Count (150-450) k/uL Neutrophils # (1.3-7.7) k/uL Lymphocytes # (1.0-4.8) k/uL ABG pCO2 (35-45) mmHg ABG pO2 (83-108) mmHg ABG HCO3 (21-25) mmol/L ABG Total CO2 (19-24) mmol/L ABG O2 Saturation (94-97) % Sodium (137-145) mmol/L Creatinine (0.66-1.25) mg/dL Glucose (74-99) mg/dL POC Glucose (mg/dL) 130 H 106 H 138 H (75-99) mg/dL Total Protein (6.3-8.2) g/dL Albumin (3.5-5.0) g/dL 10/23/19 10/23/19 10/23/19 Range/Units 05:00 05:00 05:08 WBC 21.5 H (3.8-10.6) k/uL RBC 3.49 L (4.30-5.90) m/uL Hgb 10.2 L (13.0-17.5) gm/dL Hct 32.8 L (39.0-53.0) % Plt Count 477 H (150-450) k/uL Neutrophils # 19.1 H (1.3-7.7) k/uL Lymphocytes # 0.9 L (1.0-4.8) k/uL ABG pCO2 52 H (35-45) mmHg ABG pO2 71 L (83-108) mmHg ABG HCO3 30 H (21-25) mmol/L ABG Total CO2 31 H (19-24) mmol/L ABG O2 Saturation 92.2 L (94-97) % Sodium 136 L (137-145) mmol/L Creatinine 0.50 L (0.66-1.25) mg/dL Glucose 126 H (74-99) mg/dL POC Glucose (mg/dL) (75-99) mg/dL Total Protein 6.2 L (6.3-8.2) g/dL Albumin 3.1 L (3.5-5.0) g/dL 10/23/19 Range/Units 08:25 WBC (3.8-10.6) k/uL RBC (4.30-5.90) m/uL Hgb (13.0-17.5) gm/dL Hct (39.0-53.0) % Plt Count (150-450) k/uL Neutrophils # (1.3-7.7) k/uL Lymphocytes # (1.0-4.8) k/uL ABG pCO2 (35-45) mmHg ABG pO2 (83-108) mmHg ABG HCO3 (21-25) mmol/L ABG Total CO2 (19-24) mmol/L ABG O2 Saturation (94-97) % Sodium (137-145) mmol/L Creatinine (0.66-1.25) mg/dL Glucose (74-99) mg/dL POC Glucose (mg/dL) 119 H (75-99) mg/dL Total Protein (6.3-8.2) g/dL Albumin (3.5-5.0) g/dL Microbiology - Last 24 Hours (Table) 10/22/19 12:51 Catheter Tip Culture - Preliminary Catheter Tip 10/22/19 12:51 Catheter Tip Culture - Preliminary Catheter Tip Assessment and Plan (1) Multiple injuries due to trauma Narrative/Plan: Patient remains stable on the ventilator. White blood cell count has increased slightly. Abdominal examination fairly benign and the patient is tolerating his tube feeds with bowel activity. If white blood cell count remains elevated tomorrow we will consider CT chest abdomen and pelvis to follow up prior injuries. Current Visit: Yes Status: Acute Code(s): T07.XXXA - UNSPECIFIED MULTIPLE INJURIES, INITIAL ENCOUNTER SNOMED Code(s): 991291385
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
[2019-10-23 12:17] LABS: Glucose,Whole Blood 124 mg/dL (75-99)
[2019-10-23 16:45] LABS: Glucose,Whole Blood 110 mg/dL (75-99)
[2019-10-23] MEDS: PIPERACILLIN-TAZOBACTAM 3.375 GM in SODIUM CHLORIDE 0.9% 100 ML IVPB SCH ×2 (18:22→23:55)
[2019-10-23 19:47] LABS: Glucose,Whole Blood 98 mg/dL (75-99)
[2019-10-23 23:49] LABS: Glucose,Whole Blood 105 mg/dL (75-99)
[2019-10-24] MEDS: IPRATROPIUM-ALBUTEROL 3 ML NEB INHALATION SCH ×7 (00:02→23:46)
[2019-10-24] MEDS: fentaNYL (PF) 1,000 MCG in SODIUM CHLORIDE 0.9% 80 ML IV SCH ×2 (00:05→05:04)
[2019-10-24 03:40] LABS: Basophils # (A) 0.1 k/uL (0-0.2); Basophils % (A) 0 %; Eosinophils # (A) 0.5 k/uL (0-0.7); Eosinophils % (A) 4 %; HCT 27.3 % (39.0-53.0); Hypochromasia Slight; Lymphocytes # (A) 1.5 k/uL (1.0-4.8); Lymphocytes % (A) 11 %; MCH 29.5 pg (25.0-35.0); MCHC 31.4 g/dL (31.0-37.0); MCV 94.2 fL (80.0-100.0); Mean Platelet Volume 7.1; Monocytes # (A) 0.6 k/uL (0-1.0); Monocytes % (A) 5 %; Neutrophils # (A) 10.9 k/uL (1.3-7.7); Neutrophils % (A) 79 %; Platelet Count 460 k/uL (150-450); RBC 2.89 m/uL (4.30-5.90); RDW 14.4 % (11.5-15.5); WBC 13.8 k/uL (3.8-10.6)
[2019-10-24 03:50] LABS: HGB 8.5 gm/dL (13.0-17.5)
[2019-10-24 03:53] LABS: ALT 26 U/L (4-49); AST 21 U/L (17-59); African American GFR (CKD) >90 (>60 ml/min/1.73 sqM); Albumin 2.6 g/dL (3.5-5.0); Alkaline Phosphatase 79 U/L (38-126); Anion Gap 3 mmol/L; Blood Urea Nitrogen 21 mg/dL (9-20); Calcium 8.4 mg/dL (8.4-10.2); Carbon Dioxide 29 mmol/L (22-30); Chloride 104 mmol/L (98-107); Glucose 99 mg/dL (74-99); Non-African American GFR(CKD) >90 (>60 ml/min/1.73 sqM); Potassium 3.9 mmol/L (3.5-5.1); Sodium 136 mmol/L (137-145); Total Bilirubin 0.6 mg/dL (0.2-1.3); Total Protein 5.3 g/dL (6.3-8.2)
[2019-10-24] MEDS: INSULIN ASPART (NovoLOG) 100 UNIT/ML VIAL SQ SCH ×5 (04:34→18:16)
[2019-10-24 04:57] LABS: ABG Base Excess 5.7 mmol/L; ABG HCO3 30 mmol/L (21-25); ABG PCO2 44 mmHg (35-45); ABG PH 7.44 (7.35-7.45); ABG PO2 78 mmHg (83-108); ABG TCO2 31 mmol/L (19-24)
[2019-10-24] MEDS ORDERED: POTASSIUM BICARBONATE/CIT AC 20 MEQ TABLET.EFF NG-TUBE SCH (05:00)
[2019-10-24] MEDS: THIAMINE 100 MG TAB PO SCH ×2 (06:38→18:52)
--- NOTE | 2019-10-24 07:27 | XR ---
EXAMINATION TYPE: XR chest 1V portable DATE OF EXAM: 10/24/2019 Comparison: 10/23/2019 Clinical History: 49 year-old male respiratory failure Findings: ET tube tip at the level of the medial clavicular heads. NG tube courses below the diaphragm. Left CV C tip at the cavoatrial junction. Heart remains enlarged. Diffuse interstitial/vascular prominence pe rsists. Continued small effusions with prominent bibasilar retrocardiac opacities. No left-sided rib fracture deformities. Known distal left clavicle fracture. Impression: 1. Continued CHF with pulmonary vascular congestion. 2. Small effusions with adjacent atelectasis and/or consolidation persist. 3. Known left-sided rib fractures and distal left clavicle fracture.
[2019-10-24 08:08] LABS: Glucose,Whole Blood 101 mg/dL (75-99)
[2019-10-24] MEDS: amLODIPine 10 MG TAB PO SCH (09:07)
[2019-10-24] MEDS: CHLORHEXIDINE GLUCONATE 15 ML CUP MUCOUS MEM SCH ×2 (09:07→20:44)
[2019-10-24] MEDS: METOPROLOL TARTRATE 50 MG TAB PO SCH ×2 (09:07→20:44)
[2019-10-24] MEDS: PANTOPRAZOLE 40 MG/10 ML VIAL IVP SCH (09:07)
[2019-10-24] MEDS: FUROSEMIDE 10 MG/ML 4 ML VIAL IV SCH (09:07)
[2019-10-24] MEDS: bisacodyL 10 MG SUPP RECTAL SCH (09:07)
[2019-10-24] MEDS: hydrALAZINE HCL 25 MG TAB PO SCH ×3 (09:07→20:44)
[2019-10-24] MEDS: DULoxetine HCL 60 MG CAPSULE.DR PO SCH (09:07)
[2019-10-24] MEDS: QUEtiapine 50 MG TAB PO SCH ×2 (09:07→20:44)
[2019-10-24] MEDS: HEPARIN SODIUM,PORCINE 5,000 UNIT/ML 1 ML VIAL SQ SCH ×2 (09:07→20:44)
[2019-10-24] MEDS: PIPERACILLIN-TAZOBACTAM 3.375 GM in SODIUM CHLORIDE 0.9% 100 ML IVPB SCH ×2 (09:08→16:00)
[2019-10-24] MEDS: fentaNYL (PF) 2,500 MCG in SODIUM CHLORIDE 0.9% 200 ML IV SCH ×2 (09:48→20:44)
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
[2019-10-24 11:50] LABS: Glucose,Whole Blood 108 mg/dL (75-99)
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
[2019-10-24 17:44] LABS: Glucose,Whole Blood 92 mg/dL (75-99)
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
[2019-10-24 23:49] LABS: Glucose,Whole Blood 105 mg/dL (75-99)
[2019-10-25] MEDS: INSULIN ASPART (NovoLOG) 100 UNIT/ML VIAL SQ SCH ×4 (00:16→18:24)
[2019-10-25] MEDS: PIPERACILLIN-TAZOBACTAM 3.375 GM in SODIUM CHLORIDE 0.9% 100 ML IVPB SCH ×4 (00:19→23:58)
[2019-10-25] MEDS: IPRATROPIUM-ALBUTEROL 3 ML NEB INHALATION SCH ×5 (03:46→18:29)
[2019-10-25 04:44] LABS: ABG Base Excess 5.5 mmol/L; ABG HCO3 30 mmol/L (21-25); ABG Oxygen Saturation 95.3 % (94-97); ABG PCO2 44 mmHg (35-45); ABG PH 7.44 (7.35-7.45); ABG PO2 81 mmHg (83-108); ABG TCO2 31 mmol/L (19-24)
[2019-10-25 05:27] LABS: Basophils # (A) 0.1 k/uL (0-0.2); Basophils % (A) 1 %; Eosinophils # (A) 0.5 k/uL (0-0.7); Eosinophils % (A) 6 %; HCT 26.6 % (39.0-53.0); HGB 8.5 gm/dL (13.0-17.5); Hypochromasia Slight; Lymphocytes # (A) 1.5 k/uL (1.0-4.8); Lymphocytes % (A) 17 %; MCH 29.6 pg (25.0-35.0); MCV 92.5 fL (80.0-100.0); Mean Platelet Volume 7.6; Monocytes # (A) 0.4 k/uL (0-1.0); Monocytes % (A) 5 %; Neutrophils # (A) 6.2 k/uL (1.3-7.7); Neutrophils % (A) 70 %; Platelet Count 427 k/uL (150-450); RBC 2.88 m/uL (4.30-5.90); RDW 14.7 % (11.5-15.5); WBC 8.8 k/uL (3.8-10.6)
[2019-10-25 05:50] LABS: ALT 28 U/L (4-49); AST 23 U/L (17-59); African American GFR (CKD) >90 (>60 ml/min/1.73 sqM); Albumin 2.7 g/dL (3.5-5.0); Alkaline Phosphatase 84 U/L (38-126); Anion Gap 6 mmol/L; Blood Urea Nitrogen 22 mg/dL (9-20); Calcium 8.2 mg/dL (8.4-10.2); Carbon Dioxide 28 mmol/L (22-30); Chloride 103 mmol/L (98-107); Glucose 91 mg/dL (74-99); Non-African American GFR(CKD) >90 (>60 ml/min/1.73 sqM); Potassium 3.8 mmol/L (3.5-5.1); Sodium 137 mmol/L (137-145); Total Bilirubin 0.7 mg/dL (0.2-1.3); Total Protein 5.5 g/dL (6.3-8.2)
[2019-10-25] MEDS ORDERED: POTASSIUM BICARBONATE/CIT AC 20 MEQ TABLET.EFF NG-TUBE SCH ×3 (06:00→21:00)
[2019-10-25] MEDS: THIAMINE 100 MG TAB PO SCH ×2 (07:00→16:13)
[2019-10-25] MEDS: fentaNYL (PF) 2,500 MCG in SODIUM CHLORIDE 0.9% 200 ML IV SCH ×2 (07:03→20:43)
--- NOTE | 2019-10-25 07:16 | XR ---
EXAMINATION TYPE: XR chest 1V portable DATE OF EXAM: 10/25/2019 COMPARISON: 10/24/19 HISTORY: SOB, Follow Up FINDINGS: Indwelling tubes and catheters are unchanged. No change in bibasilar opacities. Stable appearance of the cardio-mediastinal structures at this time. Pleural effusion unchanged. IMPRESSION: 1. Stable portable chest. Clinical correlation and follow up until resolution is recommended.
[2019-10-25] MEDS: QUEtiapine 50 MG TAB PO SCH ×2 (08:08→20:44)
[2019-10-25] MEDS: DULoxetine HCL 60 MG CAPSULE.DR PO SCH (08:08)
[2019-10-25] MEDS: HEPARIN SODIUM,PORCINE 5,000 UNIT/ML 1 ML VIAL SQ SCH ×2 (08:08→20:43)
[2019-10-25] MEDS: PANTOPRAZOLE 40 MG/10 ML VIAL IVP SCH (08:08)
[2019-10-25] MEDS: amLODIPine 10 MG TAB PO SCH (08:08)
[2019-10-25] MEDS: FUROSEMIDE 10 MG/ML 4 ML VIAL IV SCH ×3 (08:08→23:58)
[2019-10-25] MEDS: hydrALAZINE HCL 25 MG TAB PO SCH ×3 (08:08→22:15)
[2019-10-25] MEDS: METOPROLOL TARTRATE 50 MG TAB PO SCH ×2 (08:08→20:44)
[2019-10-25] MEDS: CHLORHEXIDINE GLUCONATE 15 ML CUP MUCOUS MEM SCH ×2 (10:14→20:44)
[2019-10-25] MEDS ORDERED: LACTULOSE 20 GM/30 ML CUP PO ONE (10:34)
--- NOTE | 2019-10-25 10:56 | P.PN ---
Subjective Progress Note Date: 10/25/19 Post tractor accident, flail chest, severe dyspnea and shortness of breath, acute respiratory failure mechanical ventilation, alcohol intoxication, syncope, delirium tremor, hyperglycemia and lower back pain. 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 Patient ended up seen in trauma at [facility] multiple exiting CAT scan was per for CT of the chest showed left sided hydropneumothorax with multiple displace rib fracture anterolateral drip 2-7 and posterior 5-11 with a flail chest, abdominal pelvic CT showed ball injury with small bowel and proximal sigmoid involvement with mild hematoma with no perforation or free air. Pelvic showed no fracture head and neck showed no C-spine fracture and the major abnormality and CAT scan of the brain. Left upper extremity did not show any fracture patient had his arm in sling of the time. Was seen and evaluated before leaving the emergency department patient was in quite bed discomfort and was in mild respiratory distress having significant tachypnea and tachycardia with significant hypoxia the time require higher flow 2. No chest tube placement at the time. No bowel movement at this point and urine output has been good. Elevated white blood cell 13.8 with mild anemia hemoglobin down to 8.5. Kidney function still holding well patient blood sugar is much better, chest x-ray showed continue CHF with pulmonary vascular congestion and small pleural effusion with his multiple left-sided rib fracture and flail chest. 10/24: Patient seen this morning remains intubated on the vent, FiO2 50%. Patient is on propofol drip and Dilaudid when necessary able to open eyes to voice. Patient has failed at weaning attempts, Dr. Lee has a meeting with family this morning at 9 AM to discuss possible trach and peg. Labs were reviewed, hemoglobin 8.5. Adequate urine output is noted, per nursing patient has not had a bowel movement in about 3-4 days. Vital signs are stable, patient is afebrile, pulse rate 80, blood pressure 119/69, pulse ox 93%. Sputum culture finalized positive for Staphylococcus aureus, susceptible to Zosyn. Chest x-ray was stable compared to previous exam. Review of systems Unable to obtain due to intubation. Physical examination General Appearance: This is a 49-year-old male resting in bed in ICU and appears to be comfortable and in no acute distress. Neck HEENT: Supple, no lymphadenopathy, no thyroid enlargement, no carotid bruit s. Oral ET and orogastric tube in place. Lungs: Decreased breath some bilaterally with fine rhonchi positive mild expiratory wheezes decreased breath sound more in the left and the right side. Chest Wall: mild bruise of chest wall area. Heart: Irregular rhythm and rate is sinus to positive S3 Abdomen: Distention with significant ecchymosis and hematoma to the lower chest lateral abdominal and flank area. Extremities: Slight edema in the lower extremity significant discomfort in left upper extremity with the arm in sling so far. Wound to the left forearm approximately 12 inches long, dressing in place. Pulses: 2+ and symmetric. Skin: Skin color, texture, tugor normal, no rashes or lesions. Neurologic: Intubated and on mechanical ventilation. Open eyes on command Objective - Vital Signs Vital signs: Vital Signs Temp 98.8 F 10/25/19 08:00 Pulse 80 10/25/19 10:00 Resp 26 H 10/25/19 10:00 BP 119/69 10/25/19 10:00 Pulse Ox 93 L 10/25/19 10:00 Intake & Output 10/24/19 10/25/19 10/25/19 18:59 06:59 18:59 Intake Total 751.770 8972 80 Output Total 3685 772 3713 Balance -186.000 401 -1140 Weight 127.9 kg Intake: IV 339 251 80 0.9 Normal Saline at KVO 100 120 80 20mL/hr Piperacillin-Tazobactam 3 200 125 .375 gm In Sodium Chloride 0.9% 100 ml @ 25 mls/hr IVPB Q8HR [facility] Rx# :[id number] Pressure bag 0.9 Nomal 39 6 Saline @ 3mL/hr Intake, IV Titration 400.000 600 Amount fentaNYL (PF) 2,500 mcg 500 In Sodium Chloride 0.9% 200 ml @ Per Protocol IV .Q0M [facility] Rx#:[id number] propofoL 1,000 mg In 400.000 100 Empty Bag 1 bag @ Titrate IV .Q0M [facility] Rx#: [id number] Tube Feeding 125 200 0 Other 30 30 Output: Urine 2144 767 4620 Other: Voiding Method Indwelling Catheter Indwelling Catheter ABP, PAP, CO, CI - Last Documented Arterial Blood Pressure 178/114 - Labs CBC & Chem 7: 10/25/19 05:00 10/25/19 05:00 Labs: Abnormal Lab Results - Last 24 Hours (Table) 10/24/19 10/24/19 10/25/19 Range/Units 11:49 23:47 04:36 RBC (4.30-5.90) m/uL Hgb (13.0-17.5) gm/dL Hct (39.0-53.0) % ABG pO2 81 L (83-108) mmHg ABG HCO3 30 H (21-25) mmol/L ABG Total CO2 31 H (19-24) mmol/L BUN (9-20) mg/dL Creatinine (0.66-1.25) mg/dL POC Glucose (mg/dL) 108 H 105 H (75-99) mg/dL Calcium (8.4-10.2) mg/dL Total Protein (6.3-8.2) g/dL Albumin (3.5-5.0) g/dL 10/25/19 10/25/19 Range/Units 05:00 05:00 RBC 2.88 L (4.30-5.90) m/uL Hgb 8.5 L (13.0-17.5) gm/dL Hct 26.6 L (39.0-53.0) % ABG pO2 (83-108) mmHg ABG HCO3 (21-25) mmol/L ABG Total CO2 (19-24) mmol/L BUN 22 H (9-20) mg/dL Creatinine 0.60 L (0.66-1.25) mg/dL POC Glucose (mg/dL) (75-99) mg/dL Calcium 8.2 L (8.4-10.2) mg/dL Total Protein 5.5 L (6.3-8.2) g/dL Albumin 2.7 L (3.5-5.0) g/dL Microbiology - Last 24 Hours (Table) 10/23/19 11:41 Gram Stain - Final Sputum Sputum Culture - Final Staphylococcus aureus 10/22/19 12:51 Catheter Tip Culture - Final Catheter Tip 10/22/19 12:51 Catheter Tip Culture - Final Catheter Tip Assessment and Plan Plan: Plan: 1 post tractor accident with multiple injury and trauma: Patient be admitted to the ICU continued see trauma surgery along with ICU service. Continue to monitor in the intensive care unit. Dilaudid as needed for pain control. 2 Flail chest with multiple rib fracture: Continue current management for now patient is on mechanical ventilation. Possible trach and PEG if unable to wean off ventilator. 3 acute respiratory failure: Patient has been on mechanical ventilation and has been difficult to wean him off so far. 4 severe abdominal pain with bowel injury along with proximal sigmoid injury with left lower quadrant mesenteric hematomas. Continue conservative treatment, monitor hemoglobin. 5 alcohol intoxication. Liver function tests also reflect chronic alcohol use. Patient adamantly denies any alcohol intake for the past 3 years. 6 question of syncope, alcohol-related. No bradycardia or any other cardiovascular abnormality. 7 active delirium tremens. Patient has required intubation mechanical ventilation. Continue CIWA protocol. He seems to be doing well. 8 acute anemia: Most likely from his abdominal trauma and hematoma hemoglobin is stable does not require any blood transfusion. 9 hypertensive emergency. Off Clevidex drip. Continue amlodipine 10 mg daily, hydralazine 25 mg 3 times daily, Lopressor 50 mg twice daily. 10 hypertension. Continue as above. 11 hyperglycemia: Type 2 diabetes. NovoLog scale. 12 chronic lower back pain. Has Dilaudid when necessary 13 recurrent depression. Continue Cymbalta. Seroquel was added. 14 GI prophylaxis: Patient be on pantoprazole IV. 15 DVT prophylaxis. Heparin subcu 16 Clavicular fracture. Consult with orthopedic appreciated. Sling is in place. CODE STATUS: Full code. Patient will be admitted to the hospital for minimum of 2 night stay. Impression and plan of care have been directed as dictated by the signing physician. Ana Isaacs nurse practitioner acting as scribe for signing physician.
--- NOTE | 2019-10-25 11:10 | P.PN ---
Subjective Progress Note Date: 10/25/19 CHIEF COMPLAINT: Multiple injury after trauma from a fall from tractor HISTORY OF PRESENT ILLNESS: Patient in the ICU. Patient failed sedation holiday and critical state care service is recommending patient has trach and PEG placed. He is afebrile. WBC 8.8 PHYSICAL EXAM: VITAL SIGNS: Reviewed. GENERAL: Well-developed in no acute distress. HEENT: No sclera icterus. Extraocular movements grossly intact. Moist buccal mucosa. Head is atraumatic, normocephalic. ABDOMEN: Soft. Obese. Distended. Nontender. Neuro: Patient is intubated and sedated ASSESSMENT: 1. Status post Fall from tractor with multiple injuries 2. Proximal sigmoid hematoma and contusion. Repeat CT of the abdomen over the weekend which was a stable mesenteric hematoma 3. Multiple left-sided rib fractures with flail chest 4. Left closed distal clavicular fracture followed by orthopedics 5. Chronic alcohol use and evidence of alcohol withdrawal 6. Acute hypoxic respiratory failure likely secondary to alcohol withdrawal syndrome and delirium tremens. Patient currently on mechanical ventilation 7. Possible pulmonary contusion PLAN: -Tracheostomy and PEG tube placement currently on hold because we are awaiting family's decision about proceeding with the procedures -Continue supportive care -Management of multiple medical issues per consulting physicians -DVT prophylaxis subcu heparin GI prophylaxis Protonix Physician Respiratory Therapy Aide note has been reviewed by physician. Signing provider agrees with the documented findings, assessment, and plan of care. Objective - Vital Signs Vital signs: Vital Signs Temp 98.8 F 10/25/19 08:00 Pulse 80 10/25/19 10:00 Resp 26 H 10/25/19 10:00 BP 119/69 10/25/19 10:00 Pulse Ox 93 L 10/25/19 10:00 Intake & Output 10/24/19 10/25/19 10/25/19 18:59 06:59 18:59 Intake Total 472.715 6334 80 Output Total 2344 889 3651 Balance -186.000 401 -1140 Weight 127.9 kg Intake: IV 339 251 80 0.9 Normal Saline at KVO 100 120 80 20mL/hr Piperacillin-Tazobactam 3 200 125 .375 gm In Sodium Chloride 0.9% 100 ml @ 25 mls/hr IVPB Q8HR [facility] Rx# :[id number] Pressure bag 0.9 Nomal 39 6 Saline @ 3mL/hr Intake, IV Titration 400.000 600 Amount fentaNYL (PF) 2,500 mcg 500 In Sodium Chloride 0.9% 200 ml @ Per Protocol IV .Q0M [facility] Rx#:[id number] propofoL 1,000 mg In 400.000 100 Empty Bag 1 bag @ Titrate IV .Q0M [facility] Rx#: [id number] Tube Feeding 125 200 0 Other 30 30 Output: Urine 9404 358 6177 Other: Voiding Method Indwelling Catheter Indwelling Catheter ABP, PAP, CO, CI - Last Documented Arterial Blood Pressure 178/114 - Labs CBC & Chem 7: 10/25/19 05:00 10/25/19 05:00 Labs: Abnormal Lab Results - Last 24 Hours (Table) 10/24/19 10/24/19 10/25/19 Range/Units 11:49 23:47 04:36 RBC (4.30-5.90) m/uL Hgb (13.0-17.5) gm/dL Hct (39.0-53.0) % ABG pO2 81 L (83-108) mmHg ABG HCO3 30 H (21-25) mmol/L ABG Total CO2 31 H (19-24) mmol/L BUN (9-20) mg/dL Creatinine (0.66-1.25) mg/dL POC Glucose (mg/dL) 108 H 105 H (75-99) mg/dL Calcium (8.4-10.2) mg/dL Total Protein (6.3-8.2) g/dL Albumin (3.5-5.0) g/dL 10/25/19 10/25/19 Range/Units 05:00 05:00 RBC 2.88 L (4.30-5.90) m/uL Hgb 8.5 L (13.0-17.5) gm/dL Hct 26.6 L (39.0-53.0) % ABG pO2 (83-108) mmHg ABG HCO3 (21-25) mmol/L ABG Total CO2 (19-24) mmol/L BUN 22 H (9-20) mg/dL Creatinine 0.60 L (0.66-1.25) mg/dL POC Glucose (mg/dL) (75-99) mg/dL Calcium 8.2 L (8.4-10.2) mg/dL Total Protein 5.5 L (6.3-8.2) g/dL Albumin 2.7 L (3.5-5.0) g/dL Microbiology - Last 24 Hours (Table) 10/23/19 11:41 Gram Stain - Final Sputum Sputum Culture - Final Staphylococcus aureus 10/22/19 12:51 Catheter Tip Culture - Final Catheter Tip 10/22/19 12:51 Catheter Tip Culture - Final Catheter Tip
[2019-10-25] MEDS: OFLOXACIN 0.3% OPHTH DROPS 5 ML BOTTLE BOTH EYES SCH ×2 (11:34→18:57)
[2019-10-25] MEDS: bisacodyL 10 MG SUPP RECTAL SCH (11:34)
--- NOTE | 2019-10-25 11:34 | P.PN ---
Subjective Progress Note Date: 10/25/19 10/25/2019 patient is being seen in follow-up in intensive care unit. The patient remains intubated on mechanical ventilator. A sedation holiday was done yesterday and failed and the patient became quite agitated and thrashing. He is back on propofol at 69, respiratory per minute and fentanyl atelectatic grams per KG per minute. He is calm and comfortable. He is arousable. He would open up his eyes upon repeated stimulation. He remains on a mechanical ventilator. Remains in a PEEP of 10 with an FiO2 of 50% and tidal volume of 450 with a rate of 26. The chest x-ray from today shows increased pulmonary vascular congestion and possible some bilateral pleural effusion development. ET tube is in a good location. The sputum was showing presumptive staph and the patient is currently on IV Zosyn. No fever. No chills. No significant orotracheal secretions. The blood gases from today showed a pH of 7.44 with a pCO2 of 44 and pO2 of 81. The same time, the patient was in significant amount of positive fluid balance. He was started on IV Lasix yesterday. His urine output is improving. Over the past 12 hours the patient is producing approximately 1220 mL of urine output and he is headed towards a negative fluid balance over the next 24 hours. His abdomen is slightly distended. He hasn't had a bowel movement yet and the patient is being given Dulcolax suppositories. The patient is tolerating his tube feeds which is in the form of vital running at the rate of 20 mL an hour. No significant residuals. No significant drop in hemoglobin which remains stable at 8.5. Note that following his trauma, the patient had left-sided rib cage fracture the patient also had developed a mesenteric hematoma in the left lower quadrant proximal to the sigmoid colon measuring 5 x 2 x 2.7 cm in size. I was contemplating a tracheostomy and PEG tube insertion on this patient. I had a lengthy discussion with the and I also met his daughter came all the way from [place]. The family made it clear to me that the patient would have never wanted to be intubated or placed even on a mechanical ventilator. According to the family, the fact that he is on a respirator right now is against his wishes. He has made it clear to them on multiple occasions that this is not what he would've consented. Based on that, there are feeling quite guilty to even put him through this experience of intubation mechanical ventilation. In any rate, it seems that insertion and long-term tracheostomy tube with a PEG tube would not be up to the patient's wishes or standards. The patient would have wanted to let go in the event if his breathing would've quite according to the was the next of kin and the children. I canceled the surgical consultation for PEG and trach. I'm going to proceed with the diuresis. I'm going to continue my daily sedation holidays and we'll try to wean this patient through the conventional modes with the understanding that once the patient gets extubated, he would not be reintubated again. He remains hemodynamically stable at this point in time. He is off paralytics. Echocardiogram showed a preserved LV function with an ejection fraction of 55- 60%. The conversation with the family occurred in the presence of Becky mandujano nurse and Megha Kenny NP Objective - Vital Signs Vital signs: Vital Signs Temp 98.8 F 10/25/19 08:00 Pulse 80 10/25/19 10:00 Resp 26 H 10/25/19 10:00 BP 119/69 10/25/19 10:00 Pulse Ox 93 L 10/25/19 10:00 Intake & Output 10/24/19 10/25/19 10/25/19 18:59 06:59 18:59 Intake Total 372.375 9012 80 Output Total 3968 047 9512 Balance -186.000 401 -1140 Weight 127.9 kg Intake: IV 339 251 80 0.9 Normal Saline at KVO 100 120 80 20mL/hr Piperacillin-Tazobactam 3 200 125 .375 gm In Sodium Chloride 0.9% 100 ml @ 25 mls/hr IVPB Q8HR [facility] Rx# :[id number] Pressure bag 0.9 Nomal 39 6 Saline @ 3mL/hr Intake, IV Titration 400.000 600 Amount fentaNYL (PF) 2,500 mcg 500 In Sodium Chloride 0.9% 200 ml @ Per Protocol IV .Q0M [facility] Rx#:[id number] propofoL 1,000 mg In 400.000 100 Empty Bag 1 bag @ Titrate IV .Q0M [facility] Rx#: [id number] Tube Feeding 125 200 0 Other 30 30 Output: Urine 9811 839 7004 Other: Voiding Method Indwelling Catheter Indwelling Catheter ABP, PAP, CO, CI - Last Documented Arterial Blood Pressure 178/114 - Exam Gen. appearance, comfortable sedated on examination a propofol and fentanyl. Intubated on a mechanical ventilator. Nonacute distress and is quite success with the mechanical ventilation this morning. Head exam was generally normal. There was no scleral icterus or corneal arcus. Mucous membranes were moist. Neck was supple and without jugular venous distension, thyromegaly, or carotid bruits. Carotids were easily palpable bilaterally. There was no adenopathy. The patient has an orogastric and orotracheal tube and both of them are in place. The patient is a left subclavian triple-lumen catheter in place. Lungs sounds are diminished bilaterally. No significant wheezes overall curren tly crackles. No chest wall deformity at this point in time. Cardiac exam revealed the PMI to be normally situated and sized. The rhythm was regular and no extrasystoles were noted during several minutes of auscultation. The first and second heart sounds were normal and physiologic splitting of the second heart sound was noted. There were no murmurs, rubs, clicks, or gallops. Abdominal exam revealed normal bowel sounds. The abdomen was soft, non-tender, and without masses, organomegaly, or appreciable enlargement of the abdominal aorta. Extremities revealed +1 edema and there is no cyanosis or clubbing. There is also scrotal edema. Neurologically, the patient thrashes and gets quite agitated once off sedation. Pupils equal reactive to light. No focal neurological deficit at this point in time. Examination of the skin revealed no evidence of significant rashes, suspicious appearing nevi or other concerning lesions. - Labs CBC & Chem 7: 10/25/19 05:00 10/25/19 05:00 Labs: Abnormal Lab Results - Last 24 Hours (Table) 10/24/19 10/24/19 10/25/19 Range/Units 11:49 23:47 04:36 RBC (4.30-5.90) m/uL Hgb (13.0-17.5) gm/dL Hct (39.0-53.0) % ABG pO2 81 L (83-108) mmHg ABG HCO3 30 H (21-25) mmol/L ABG Total CO2 31 H (19-24) mmol/L BUN (9-20) mg/dL Creatinine (0.66-1.25) mg/dL POC Glucose (mg/dL) 108 H 105 H (75-99) mg/dL Calcium (8.4-10.2) mg/dL Total Protein (6.3-8.2) g/dL Albumin (3.5-5.0) g/dL 10/25/19 10/25/19 Range/Units 05:00 05:00 RBC 2.88 L (4.30-5.90) m/uL Hgb 8.5 L (13.0-17.5) gm/dL Hct 26.6 L (39.0-53.0) % ABG pO2 (83-108) mmHg ABG HCO3 (21-25) mmol/L ABG Total CO2 (19-24) mmol/L BUN 22 H (9-20) mg/dL Creatinine 0.60 L (0.66-1.25) mg/dL POC Glucose (mg/dL) (75-99) mg/dL Calcium 8.2 L (8.4-10.2) mg/dL Total Protein 5.5 L (6.3-8.2) g/dL Albumin 2.7 L (3.5-5.0) g/dL Microbiology - Last 24 Hours (Table) 10/23/19 11:41 Gram Stain - Final Sputum Sputum Culture - Final Staphylococcus aureus 10/22/19 12:51 Catheter Tip Culture - Final Catheter Tip 10/22/19 12:51 Catheter Tip Culture - Final Catheter Tip Assessment and Plan Plan: 1 Acute hypoxic respiratory failure, secondary to a combination of multi-rib fractures involving the left chest and possible pulmonary contusion addition to alcohol withdrawal/delirium tremens. The patient remains intubated on mechanical ventilator. He has multiple rib fractures involving the second through seventh rib anteriorly on the left and 5 through 11th rib posteriorly on the left and addition to a clavicular fracture.. Superimposed pneumonia is doubtful. The sputum culture that was obtained on 10/20/2019 showed presumptive staph. The patient remains on IV Zosyn for now. The final culture showed a patient has MSSA in his sputum and IV Zosyn is adequate for now. The chest x-ray from today showing more of the fluid overload about the pleural effusions and the patient was started on IV Lasix 40 mg IV push every 12 hours. The patient is in a negative fluid balance for now. 2 altered mentation, possibly related delirium tremens although the patient remains quite encephalopathic after being hospitalized for at least 2 weeks and the patient possibly has a metabolic encephalopathy ongoing which is preventing us from weaning off sedation. The most recent CAT scan of the head was done on 10/14/2019 showed cerebral atrophy and old right internal capsule lacunar infarct. The patient is still requiring high dose of propofol and is also on fentanyl for pain control. Another sedation holiday will be given to him today. 3 Status post tractor accident/fall, with multiple left-sided rib fractures 4 Multiple left-sided rib fractures, but no significant pneumothorax. No significant hemopneumothorax. 5 Pulmonary contusion. Mostly affecting the left lung base 6 Proximal sigmoid hematoma but no perforation. 7 Benign essential hypertension. 8 Type 2 diabetes. 9 Chronic low back pain. 10 History of depression. 11 Blood loss anemia, acute, suspect left abdominal wall or abdominal hematoma, CT abdomen and pelvis is reassuring. Hemoglobin stable at 8.5 compared to yesterday. Plan Continue ventilator support Drop the PEEP down to 8 and gradually wean it down to 5 the saturation remains above 90% Increase the Lasix to 40 g every 12 hours in an attempt to maintain negative fluid balance Repeat another sedation holiday I had a lengthy discussion with the which happens to be second and the daughter. I came to understand that the patient have never want to be intubated or placed on a mechanical ventilator. This has been his wishes for a long period of time. I confirmed this independently by having conversation to the and the daughter I also spoke to them separately. I am convinced that this is the patient's wishes as stated by the family. Based on that, I'm still going to try to extubate this patient by conventional modes with understanding that this may be a difficult wean/extubation and may not be totally successful. No p lans for intubation should the patient feels any attempt to extubated later stage. Proceed with Dulcolax suppositories Continue enteral feeding for additional support Condition remains critical continue to follow. This induration was in a more than 30 minutes. Time with Patient: Greater than 30
[2019-10-25 11:52] LABS: Glucose,Whole Blood 92 mg/dL (75-99)
--- NOTE | 2019-10-25 13:11 | CDI ---
Documentation Clarification Form Date: 10/25/2019 CDS: Adali Brizuela, CCS, CCDS Admit Date: 10/10/2019 Patient Name: Aidan Davies Discharge Date: ATTENTION: The Clinical Documentation Specialists (CDI) and [facility] Coding Staff appreciate your assistance in clarifying documentation. Please respond to the clarification below the line at the bottom and electronically sign. The CDI & [facility] Coding staff will review the response and follow-up if needed. Please note: Queries are made part of the Legal Health Record. If you have any questions, please contact the author of this message via ITS. Dear Dr. Shaquille Sky: CHF is documented in the 10/23 & 10/24 Medical Management Progress Note and the 10/23 Pulmonary/Critical Care Progress Note per the 10/23 CXR. History/Risk Factors: Hypertension, Back Pain, Former smoker. Clinical Indicators: Patient presented to the ED on 10/09 after falling from his tractor. Admitted with Flail chest, Multiple fractures of ribs on left side, Traumatic pneumothorax & Acidosis. VS 10/09: T 98.2, P 110^, R 22^, BP 138/62, PO 93 RA, put on NRB, PO 94. VS 10/13: T 96.7*, P 128^, R 28 (SOB, Labored, Accessory muscle use, Difficulty breathing, Retracting, Shallow, Tachypnea), BP 163/75, PO 91 on 15% high flow O2, intubated, put on vent. VS 10/24: T 98.8, P 90, R 14, BP 120/67, PO 86 on vent. BNP: Not done this admission Echocardiogram Results 10/16: technically difficult study. Mod LVH, Left ventricular systolic function is wnl, EF 55-60%. Trace MR, Trace TR, Small generalized pericardial effusion. Chest X Ray 10/09: Poor inspiration with left lateral basilar acute infiltrate and/or atelectasis. Displaced acute distal left clavicular fracture. Probable multiple displaced left lateral acute rib fractures. Chest X Ray 10/10: Bilateral lower lobe infiltrate & small left effusion. Chest X Ray 10/12: Bilateral consolidation & pleural effusions. Chest X Ray 10/13: Mild cardiomegaly. Possible mild pulmonary vascular congestion. Chest X Ray 8/24: Continued CHF with pulmonary congestion, Small pleural effusions with adjacent atelectasis and/or consolidation persist. Treatment 10/09: Admit to ICU, NRB-High flow 10L O2, IV fluid bolus, IV Morphine, IV Dilaudid. 10/14 IV Lasix, continued through 10/24. On vent 10/13 with failed weaning trials. In your professional opinion, can you please clarify the acuity and type of CHF if known? Heart Failure is ruled out Diastolic Heart Failure: o Acute o Chronic o Acute on Chronic Unable to Determine xx Other, please specify_Fliud overload (Last Revision: May 2017) MTDD
[2019-10-25] MEDS: CISATRACURIUM 200 MG in SODIUM CHLORIDE 0.9% 180 ML IV SCH (15:53)
[2019-10-25 17:53] LABS: ABG Base Excess 7.3 mmol/L; ABG HCO3 31 mmol/L (21-25); ABG Oxygen Saturation 92.3 % (94-97); ABG PCO2 46 mmHg (35-45); ABG PH 7.44 (7.35-7.45); ABG PO2 68 mmHg (83-108); ABG TCO2 33 mmol/L (19-24); Allen Test Performed? Yes
[2019-10-25 18:33] LABS: Glucose,Whole Blood 101 mg/dL (75-99)
--- NOTE | 2019-10-25 18:51 | XR ---
EXAMINATION TYPE: XR chest 1V portable DATE OF EXAM: 10/25/2019 COMPARISON: 10/25/2019 HISTORY: SOB, Follow Up FINDINGS: Indwelling tubes and catheters are unchanged. Pulmonary venous congestion and left lower lobe infiltrate and/or atelectasis persists. Improved aera tion right lower lobe. Stable appearance of the cardio-mediastinal structures at this time. Pleural effusion unchanged. IMPRESSION: 1. Pulmonary venous congestion and left lower lobe infiltrate and/or atelectasis persists. Improved aeration right lower lobe.
[2019-10-25 19:33] LABS: Basophils # (A) 0.1 k/uL (0-0.2); Basophils % (A) 1 %; Eosinophils # (A) 0.7 k/uL (0-0.7); Eosinophils % (A) 6 %; HCT 30.1 % (39.0-53.0); HGB 9.6 gm/dL (13.0-17.5); Hypochromasia Slight; Lymphocytes # (A) 1.8 k/uL (1.0-4.8); Lymphocytes % (A) 13 %; MCH 29.8 pg (25.0-35.0); MCV 93.1 fL (80.0-100.0); Mean Platelet Volume 7.1; Monocytes # (A) 0.7 k/uL (0-1.0); Monocytes % (A) 5 %; Neutrophils % (A) 75 %; Platelet Count 573 k/uL (150-450); RBC 3.23 m/uL (4.30-5.90); RDW 14.4 % (11.5-15.5); WBC 13.4 k/uL (3.8-10.6)
[2019-10-25 19:38] LABS: ALT 35 U/L (4-49); AST 32 U/L (17-59); African American GFR (CKD) >90 (>60 ml/min/1.73 sqM); Albumin 3.1 g/dL (3.5-5.0); Alkaline Phosphatase 104 U/L (38-126); Anion Gap 8 mmol/L; Blood Urea Nitrogen 22 mg/dL (9-20); Calcium 8.4 mg/dL (8.4-10.2); Carbon Dioxide 30 mmol/L (22-30); Chloride 100 mmol/L (98-107); Glucose 107 mg/dL (74-99); Non-African American GFR(CKD) >90 (>60 ml/min/1.73 sqM); Potassium 3.8 mmol/L (3.5-5.1); Sodium 138 mmol/L (137-145); Total Bilirubin 0.8 mg/dL (0.2-1.3); Total Protein 6.3 g/dL (6.3-8.2)
[2019-10-26] MEDS: INSULIN ASPART (NovoLOG) 100 UNIT/ML VIAL SQ SCH ×5 (00:21→23:36)
[2019-10-26 00:22] LABS: Glucose,Whole Blood 103 mg/dL (75-99)
[2019-10-26] MEDS: IPRATROPIUM-ALBUTEROL 3 ML NEB INHALATION SCH ×7 (00:39→23:27)
[2019-10-26] MEDS: CISATRACURIUM 200 MG in SODIUM CHLORIDE 0.9% 180 ML IV SCH ×2 (04:40→17:33)
[2019-10-26 04:54] LABS: Basophils # (A) 0.1 k/uL (0-0.2); Basophils % (A) 1 %; Eosinophils # (A) 0.5 k/uL (0-0.7); Eosinophils % (A) 5 %; HCT 28.7 % (39.0-53.0); HGB 9.2 gm/dL (13.0-17.5); Hypochromasia Slight; Lymphocytes # (A) 1.3 k/uL (1.0-4.8); Lymphocytes % (A) 13 %; MCH 29.5 pg (25.0-35.0); MCHC 31.9 g/dL (31.0-37.0); MCV 92.6 fL (80.0-100.0); Monocytes # (A) 0.5 k/uL (0-1.0); Monocytes % (A) 5 %; Neutrophils # (A) 7.3 k/uL (1.3-7.7); Neutrophils % (A) 74 %; Platelet Count 489 k/uL (150-450); RDW 14.7 % (11.5-15.5); WBC 9.9 k/uL (3.8-10.6)
[2019-10-26 04:59] LABS: African American GFR (CKD) >90 (>60 ml/min/1.73 sqM); Anion Gap 6 mmol/L; Blood Urea Nitrogen 23 mg/dL (9-20); Calcium 8.3 mg/dL (8.4-10.2); Carbon Dioxide 30 mmol/L (22-30); Chloride 102 mmol/L (98-107); Glucose 108 mg/dL (74-99); Non-African American GFR(CKD) >90 (>60 ml/min/1.73 sqM); Potassium 3.6 mmol/L (3.5-5.1); Sodium 138 mmol/L (137-145)
[2019-10-26 05:16] LABS: ABG Base Excess 7.3 mmol/L; ABG HCO3 32 mmol/L (21-25); ABG Oxygen Saturation 94.1 % (94-97); ABG PCO2 49 mmHg (35-45); ABG PH 7.42 (7.35-7.45); ABG PO2 76 mmHg (83-108); ABG TCO2 33 mmol/L (19-24); Allen Test Performed? Yes
[2019-10-26] MEDS: OFLOXACIN 0.3% OPHTH DROPS 5 ML BOTTLE BOTH EYES SCH ×5 (05:41→23:20)
[2019-10-26] MEDS: THIAMINE 100 MG TAB PO SCH ×2 (05:41→17:44)
[2019-10-26 05:55] LABS: Glucose,Whole Blood 110 mg/dL (75-99)
[2019-10-26] MEDS ORDERED: POTASSIUM BICARBONATE/CIT AC 20 MEQ TABLET.EFF NG-TUBE SCH ×3 (06:00→23:00)
[2019-10-26] MEDS: FUROSEMIDE 10 MG/ML 4 ML VIAL IV SCH ×3 (08:19→23:20)
[2019-10-26] MEDS: PIPERACILLIN-TAZOBACTAM 3.375 GM in SODIUM CHLORIDE 0.9% 100 ML IVPB SCH ×3 (08:21→23:19)
[2019-10-26] MEDS: fentaNYL (PF) 2,500 MCG in SODIUM CHLORIDE 0.9% 200 ML IV SCH ×2 (08:27→17:12)
[2019-10-26] MEDS: amLODIPine 10 MG TAB PO SCH (08:32)
[2019-10-26] MEDS: CHLORHEXIDINE GLUCONATE 15 ML CUP MUCOUS MEM SCH ×2 (08:32→20:46)
[2019-10-26] MEDS: HEPARIN SODIUM,PORCINE 5,000 UNIT/ML 1 ML VIAL SQ SCH ×2 (08:32→20:46)
[2019-10-26] MEDS: METOPROLOL TARTRATE 50 MG TAB PO SCH ×2 (08:32→20:46)
[2019-10-26] MEDS: PANTOPRAZOLE 40 MG/10 ML VIAL IVP SCH (08:33)
[2019-10-26] MEDS: bisacodyL 10 MG SUPP RECTAL SCH (08:33)
[2019-10-26] MEDS: hydrALAZINE HCL 25 MG TAB PO SCH ×3 (08:33→23:01)
[2019-10-26] MEDS: DULoxetine HCL 60 MG CAPSULE.DR PO SCH (08:33)
[2019-10-26] MEDS: QUEtiapine 50 MG TAB PO SCH ×2 (08:40→20:46)
[2019-10-26] MEDS ORDERED: IOPAMIDOL CONTRAST (ORAL USE) VIAL PO PRN ×2 (08:54→10:15)
[2019-10-26] MEDS ORDERED: FUROSEMIDE 10 MG/ML 4 ML VIAL IV SCH (09:00)
--- NOTE | 2019-10-26 09:10 | XR ---
EXAMINATION TYPE: XR chest 1V portable DATE OF EXAM: 10/26/2019 COMPARISON: 10/25/2019 INDICATION: Intubated difficulty breathing TECHNIQUE: Single frontal view of the chest is obtained. FINDINGS: The heart size is borderline in size. The pulmonary vasculature is normal. Left lower lobe infiltrate is present. There is silhouetting the left diaphragm. Small left pleural e ffusion may be present. Left rib fractures not as well-visualized on the current. No pneumothorax is evident. Endotracheal tube tip is above the marcie. Nasogastric tube transverses the thorax. Left central veno us catheter is tip in the superior vena cava region. IMPRESSION: 1. Left lower lobe infiltrate. Correlate for atelectasis and pneumonia. A small left pleural effusion is also likely present. Hemothorax could be considered. 2. Multiple lines and catheters discussed above.
--- NOTE | 2019-10-26 10:24 | P.PN ---
Subjective Progress Note Date: 10/26/19 Post tractor accident, flail chest, severe dyspnea and shortness of breath, acute respiratory failure mechanical ventilation, alcohol intoxication, syncope, delirium tremor, hyperglycemia and lower back pain. 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 Patient ended up seen in trauma at [facility] multiple exiting CAT scan was per for CT of the chest showed left sided hydropneumothorax with multiple displace rib fracture anterolateral drip 2-7 and posterior 5-11 with a flail chest, abdominal pelvic CT showed ball injury with small bowel and proximal sigmoid involvement with mild hematoma with no perforation or free air. Pelvic showed no fracture head and neck showed no C-spine fracture and the major abnormality and CAT scan of the brain. Left upper extremity did not show any fracture patient had his arm in sling of the time. Was seen and evaluated before leaving the emergency department patient was in quite bed discomfort and was in mild respiratory distress having significant tachypnea and tachycardia with significant hypoxia the time require higher flow 2. No chest tube placement at the time. No bowel movement at this point and urine output has been good. Elevated white blood cell 13.8 with mild anemia hemoglobin down to 8.5. Kidney function still holding well patient blood sugar is much better, chest x-ray showed continue CHF with pulmonary vascular congestion and small pleural effusion with his multiple left-sided rib fracture and flail chest. 10/24: Patient seen this morning remains intubated on the vent, FiO2 50%. Patient is on propofol drip and Dilaudid when necessary able to open eyes to voice. Patient has failed at weaning attempts, Dr. Lee has a meeting with family this morning at 9 AM to discuss possible trach and peg. Labs were reviewed, hemoglobin 8.5. Adequate urine output is noted, per nursing patient has not had a bowel movement in about 3-4 days. Vital signs are stable, patient is afebrile, pulse rate 80, blood pressure 119/69, pulse ox 93%. Sputum culture finalized positive for Staphylococcus aureus, susceptible to Zosyn. Chest x-ray was stable compared to previous exam. 10/25: Per nursing yesterday family had meeting and patient never wish to be resuscitated and do not want to plan for trach and PEG at this point. Dr. Lee in and seen patient will attempt to wean and see how it's tolerated. Patient does open eyes and shake head yes and no for commands. Chest x-ray today shows left lower lobe infiltrate correlate for atelectasis and pneumonia, small left pleural effusion may be present hemothorax could be considered. Patient had low-grade temp 99.8 this morning pulse 102, respirations 25, blood pressure 125/76, satting 90% on 70% FiO2. Review of systems Unable to obtain due to intubation. Physical examination General Appearance: This is a 49-year-old male resting in bed in ICU sedated on vent and appears to be comfortable and in no acute distress. Neck HEENT: Supple, no lymphadenopathy, no thyroid enlargement, no carotid bru its. Oral ET and orogastric tube in place. Lungs: Decreased breath sounds bilaterally with scattered rhonchi positive. Chest Wall: mild bruise of chest wall area. Heart: Regular rate and rhythm is sinus to positive S3 Abdomen: Distention with significant ecchymosis and hematoma to the lower chest lateral abdominal and flank area. Extremities: Slight edema in the lower extremity significant discomfort in left upper extremity with the arm in sling so far. Wound to the left forearm approximately 12 inches long, dressing in place. Pulses: 2+ and symmetric. Skin: Skin color, texture, tugor normal, no rashes or lesions. Neurologic: Intubated and on mechanical ventilation. Open eyes on command Objective - Vital Signs Vital signs: Vital Signs Temp 98.6 F 10/26/19 04:00 Pulse 92 10/26/19 06:00 Resp 26 H 10/26/19 06:00 BP 109/67 10/26/19 06:00 Pulse Ox 93 L 10/26/19 06:00 Intake & Output 10/25/19 10/26/19 10/26/19 18:59 06:59 18:59 Intake Total 859.653 7411.470 Output Total 3050 1615 Balance -2080.000 -572.530 Weight 124 kg Intake: IV 240 340 0.9 Normal Saline at KVO 240 240 20mL/hr Piperacillin-Tazobactam 3 100 .375 gm In Sodium Chloride 0.9% 100 ml @ 25 mls/hr IVPB Q8HR [facility] Rx# :[id number] Intake, IV Titration 550.000 312.470 Amount fentaNYL (PF) 2,500 mcg 250 In Sodium Chloride 0.9% 200 ml @ Per Protocol IV .Q0M [facility] Rx#:[id number] propofoL 1,000 mg In 300.000 312.470 Empty Bag 1 bag @ Titrate IV .Q0M [facility] Rx#: [id number] Tube Feeding 150 300 Other 30 90 Output: Urine 3050 1615 Other: Voiding Method Indwelling Catheter Indwelling Catheter # Bowel Movements 1 ABP, PAP, CO, CI - Last Documented Arterial Blood Pressure 178/114 - Labs CBC & Chem 7: 10/26/19 04:25 10/26/19 04:25 Labs: Abnormal Lab Results - Last 24 Hours (Table) 10/25/19 10/25/19 10/25/19 Range/Units 17:51 18:22 19:29 WBC (3.8-10.6) k/uL RBC (4.30-5.90) m/uL Hgb (13.0-17.5) gm/dL Hct (39.0-53.0) % Plt Count (150-450) k/uL Neutrophils # (1.3-7.7) k/uL ABG pCO2 46 H (35-45) mmHg ABG pO2 68 L (83-108) mmHg ABG HCO3 31 H (21-25) mmol/L ABG Total CO2 33 H (19-24) mmol/L ABG O2 Saturation 92.3 L (94-97) % BUN 22 H (9-20) mg/dL Creatinine 0.63 L (0.66-1.25) mg/dL Glucose 107 H (74-99) mg/dL POC Glucose (mg/dL) 101 H (75-99) mg/dL Calcium (8.4-10.2) mg/dL Albumin 3.1 L (3.5-5.0) g/dL 10/25/19 10/26/19 10/26/19 Range/Units 19:29 00:15 04:25 WBC 13.4 H (3.8-10.6) k/uL RBC 3.23 L 3.10 L (4.30-5.90) m/uL Hgb 9.6 L 9.2 L (13.0-17.5) gm/dL Hct 30.1 L 28.7 L (39.0-53.0) % Plt Count 573 H 489 H (150-450) k/uL Neutrophils # 10.0 H (1.3-7.7) k/uL ABG pCO2 (35-45) mmHg ABG pO2 (83-108) mmHg ABG HCO3 (21-25) mmol/L ABG Total CO2 (19-24) mmol/L ABG O2 Saturation (94-97) % BUN (9-20) mg/dL Creatinine (0.66-1.25) mg/dL Glucose (74-99) mg/dL POC Glucose (mg/dL) 103 H (75-99) mg/dL Calcium (8.4-10.2) mg/dL Albumin (3.5-5.0) g/dL 10/26/19 10/26/19 10/26/19 Range/Units 04:25 05:11 05:46 WBC (3.8-10.6) k/uL RBC (4.30-5.90) m/uL Hgb (13.0-17.5) gm/dL Hct (39.0-53.0) % Plt Count (150-450) k/uL Neutrophils # (1.3-7.7) k/uL ABG pCO2 49 H (35-45) mmHg ABG pO2 76 L (83-108) mmHg ABG HCO3 32 H (21-25) mmol/L ABG Total CO2 33 H (19-24) mmol/L ABG O2 Saturation (94-97) % BUN 23 H (9-20) mg/dL Creatinine 0.60 L (0.66-1.25) mg/dL Glucose 108 H (74-99) mg/dL POC Glucose (mg/dL) 110 H (75-99) mg/dL Calcium 8.3 L (8.4-10.2) mg/dL Albumin (3.5-5.0) g/dL Microbiology - Last 24 Hours (Table) 10/23/19 11:41 Gram Stain - Final Sputum Sputum Culture - Final Staphylococcus aureus Assessment and Plan Plan: Plan: 1 post tractor accident with multiple injury and trauma: Patient in ICU co ntinued see trauma surgery along with ICU service. Continue to monitor in the intensive care unit. Dilaudid as needed for pain control. 2 Flail chest with multiple rib fracture: Continue current management for now patient is on mechanical ventilation. We'll continue weaning trials no plan for trach and PEG at this time per family. 3 acute respiratory failure: Patient has been on mechanical ventilation and has been difficult to wean him off so far. 4 severe abdominal pain with bowel injury along with proximal sigmoid injury with left lower quadrant mesenteric hematomas. Continue conservative treatment, monitor hemoglobin. 5 alcohol intoxication. Liver function tests also reflect chronic alcohol use. Patient adamantly denies any alcohol intake for the past 3 years. 6 question of syncope, alcohol-related. No bradycardia or any other cardiovascular abnormality. 7 active delirium tremens. Patient has required intubation mechanical ventilation. Continue CIWA protocol. He seems to be doing well. 8 acute anemia: Most likely from his abdominal trauma and hematoma hemoglobin is stable does not require any blood transfusion. 9 hypertensive emergency. Off Clevidex drip. Continue amlodipine 10 mg daily, hydralazine 25 mg 3 times daily, Lopressor 50 mg twice daily. 10 hypertension. Continue as above. 11 hyperglycemia: Type 2 diabetes. NovoLog scale. 12 chronic lower back pain. Has Dilaudid when necessary 13 recurrent depression. Continue Cymbalta. Seroquel was added. 14 GI prophylaxis: Patient be on pantoprazole IV. 15 DVT prophylaxis. Heparin subcu 16 Clavicular fracture. Consult with orthopedic appreciated. CODE STATUS: Full code. Patient will be admitted to the hospital for minimum of 2 night stay. Impression and plan of care have been directed as dictated by the signing physician. Ana Isaacs nurse practitioner acting as scribe for signing physician.
[2019-10-26 10:55] LABS: Cholesterol 292 mg/dL (<200)
--- NOTE | 2019-10-26 10:58 | P.PN ---
Subjective Progress Note Date: 10/26/19 CHIEF COMPLAINT: Multiple injury after trauma from a fall from tractor HISTORY OF PRESENT ILLNESS: Patient in the ICU. Patient had failed sedation holiday. Dr. Lee had a family meeting yesterday and patient never wished to be resuscitated and does not want to have trach and PEG placed. Patient will be undergoing a weaning trial today. Patient scheduled for a computed tomography scan of the chest, abdomen, pelvis and brain today. He is afebrile. WBC 9.9 hemoglobin 9.2 PHYSICAL EXAM: VITAL SIGNS: Reviewed. GENERAL: Well-developed in no acute distress. HEENT: No sclera icterus. Extraocular movements grossly intact. Moist buccal mucosa. Head is atraumatic, normocephalic. ABDOMEN: Soft. Obese. Distended. Nontender. Neuro: Patient is intubated and sedated ASSESSMENT: 1. Status post Fall from tractor with multiple injuries 2. Proximal sigmoid hematoma and contusion. Repeat CT of the abdomen over the weekend which was a stable mesenteric hematoma 3. Multiple left-sided rib fractures with flail chest 4. Left closed distal clavicular fracture followed by orthopedics 5. Chronic alcohol use and evidence of alcohol withdrawal 6. Acute hypoxic respiratory failure likely secondary to alcohol withdrawal syndrome and delirium tremens, multiple rib fractures on the left chest and possible pulmonary contusion. Patient currently on mechanical ventilation 7. Possible pulmonary contusion PLAN: -Continue supportive care -Continue plan per critical care team -DVT prophylaxis subcu heparin GI prophylaxis Protonix Physician Graduate Nurse note has been reviewed by physician. Signing provider agrees with the documented findings, assessment, and plan of care. Objective - Vital Signs Vital signs: Vital Signs Temp 99.8 F H 10/26/19 08:00 Pulse 102 H 10/26/19 09:00 Resp 25 H 10/26/19 09:00 BP 147/99 10/26/19 09:00 Pulse Ox 92 L 10/26/19 09:00 Intake & Output 10/25/19 10/26/19 10/26/19 18:59 06:59 18:59 Intake Total 303.570 3279.470 272.77 Output Total 3050 1615 500 Balance -2080.000 -322.530 -227.23 Weight 124 kg 124 kg Intake: IV 240 340 60 0.9 Normal Saline at KVO 240 240 60 20mL/hr Piperacillin-Tazobactam 3 100 .375 gm In Sodium Chloride 0.9% 100 ml @ 25 mls/hr IVPB Q8HR [facility] Rx# :[id number] Intake, IV Titration 550.000 562.470 107.77 Amount fentaNYL (PF) 2,500 mcg 250 250 7.77 In Sodium Chloride 0.9% 200 ml @ Per Protocol IV .Q0M [facility] Rx#:[id number] propofoL 1,000 mg In 300.000 312.470 100 Empty Bag 1 bag @ Titrate IV .Q0M [facility] Rx#: [id number] Tube Feeding 150 300 75 Other 30 90 30 Output: Urine 3050 1615 500 Other: Voiding Method Indwelling Catheter Indwelling Catheter # Bowel Movements 1 ABP, PAP, CO, CI - Last Documented Arterial Blood Pressure 178/114 - Labs CBC & Chem 7: 10/26/19 04:25 10/26/19 04:25 Labs: Abnormal Lab Results - Last 24 Hours (Table) 10/25/19 10/25/19 10/25/19 Range/Units 17:51 18:22 19:29 WBC (3.8-10.6) k/uL RBC (4.30-5.90) m/uL Hgb (13.0-17.5) gm/dL Hct (39.0-53.0) % Plt Count (150-450) k/uL Neutrophils # (1.3-7.7) k/uL ABG pCO2 46 H (35-45) mmHg ABG pO2 68 L (83-108) mmHg ABG HCO3 31 H (21-25) mmol/L ABG Total CO2 33 H (19-24) mmol/L ABG O2 Saturation 92.3 L (94-97) % BUN 22 H (9-20) mg/dL Creatinine 0.63 L (0.66-1.25) mg/dL Glucose 107 H (74-99) mg/dL POC Glucose (mg/dL) 101 H (75-99) mg/dL Calcium (8.4-10.2) mg/dL Albumin 3.1 L (3.5-5.0) g/dL 10/25/19 10/26/19 10/26/19 Range/Units 19:29 00:15 04:25 WBC 13.4 H (3.8-10.6) k/uL RBC 3.23 L 3.10 L (4.30-5.90) m/uL Hgb 9.6 L 9.2 L (13.0-17.5) gm/dL Hct 30.1 L 28.7 L (39.0-53.0) % Plt Count 573 H 489 H (150-450) k/uL Neutrophils # 10.0 H (1.3-7.7) k/uL ABG pCO2 (35-45) mmHg ABG pO2 (83-108) mmHg ABG HCO3 (21-25) mmol/L ABG Total CO2 (19-24) mmol/L ABG O2 Saturation (94-97) % BUN (9-20) mg/dL Creatinine (0.66-1.25) mg/dL Glucose (74-99) mg/dL POC Glucose (mg/dL) 103 H (75-99) mg/dL Calcium (8.4-10.2) mg/dL Albumin (3.5-5.0) g/dL 10/26/19 10/26/19 10/26/19 Range/Units 04:25 05:11 05:46 WBC (3.8-10.6) k/uL RBC (4.30-5.90) m/uL Hgb (13.0-17.5) gm/dL Hct (39.0-53.0) % Plt Count (150-450) k/uL Neutrophils # (1.3-7.7) k/uL ABG pCO2 49 H (35-45) mmHg ABG pO2 76 L (83-108) mmHg ABG HCO3 32 H (21-25) mmol/L ABG Total CO2 33 H (19-24) mmol/L ABG O2 Saturation (94-97) % BUN 23 H (9-20) mg/dL Creatinine 0.60 L (0.66-1.25) mg/dL Glucose 108 H (74-99) mg/dL POC Glucose (mg/dL) 110 H (75-99) mg/dL Calcium 8.3 L (8.4-10.2) mg/dL Albumin (3.5-5.0) g/dL Microbiology - Last 24 Hours (Table) 10/23/19 11:41 Gram Stain - Final Sputum Sputum Culture - Final Staphylococcus aureus
[2019-10-26 11:05] LABS: Triglycerides 740 mg/dL (<150)
--- NOTE | 2019-10-26 11:14 | CT ---
EXAMINATION TYPE: CT brain wo con DATE OF EXAM: 10/26/2019 COMPARISON: 10/14/2019 HISTORY: Altered mentation. CT DLP: [address] of the brain was performed. The ventricles, basal cisterns and sulci overlying the cerebral convexities demonstrate mild enlargem ent. There is no evidence for intracranial hemorrhage or sulcal effacement. There is decreased attenuation about the periventricular white matter and deep white matter of both c erebral hemispheres, compatible with chronic small vessel ischemia. Differential diagnosis does inclu de demyelination. No mass effects are seen.No midline shift. Osseous calvarium is intact. If symptoms persist consider MRI. IMPRESSION: 1. Age related atrophic and chronic small vessel ischemic change without acute intracranial process s een at this time.
--- NOTE | 2019-10-26 11:26 | CT ---
EXAMINATION TYPE: CT ChestAbdPelvis w con DATE OF EXAM: 10/26/2019 COMPARISON: October 16, 2019 HISTORY: Trauma follow up. CT DLP: 3309 mGycm CONTRAST: Contrast enhanced Trauma CT of the Chest, Abdomen and Pelvis is performed with IV Contrast, patient i njected with 100 mL of Isovue 300. Chest: LUNGS: Moderate lower lobe atelectasis and bilateral pleural effusions left greater than right. Multi ple previously described left-sided rib fractures with segmental components compatible with flail mane st. No evidence for pneumothorax this time. MEDIASTINUM: Endotracheal tube and NG tube appropriately placed. Thoracic aorta is of normal caliber without CT evidence to suggest traumatic induced aortic injury. No mediastinal fluid or blood. No p ericardial fluid or cardia abnormality. HILAR STRUCTURES: No evidence for mass. No hilar adenopathy is appreciated. OTHER: No significant abnormality. OSSEOUS: No displaced osseous fractures identified. CT ABDOMEN AND PELVIS FINDINGS: LIVER/GB: No focal laceration, contusion or subcapsular hemorrhage. No calcified gallstones. No s pace occupying hepatic lesion. Biliary tree is of normal caliber. PANCREAS: No evidence for transection. No inflammation. No distinct mass. SPLEEN: No focal laceration, contusion or subcapsular hemorrhage. ADRENALS: No hemorrhage. No nodule. No thickening. KIDNEYS/BLADDER: No focal laceration, contusion or subcapsular hemorrhage. No hydronephrosis. No n ephrolithiasis. No disctinct renal mass. BOWEL: Bowel is intact. No evidence for pneumoperitoneum. GENITAL ORGANS: No gross abnormality. LYMPH NODES: No greater than 1cm abdominal or pelvic lymph nodes areappreciated. AORTA: No traumatic aortic injury visualized. OSSEOUS STRUCTURES: Bilateral L5 pars defects with grade 1 anterolisthesis L5-S1. OTHER: Left lower quadrant mesenteric hematomas adjacent to the sigmoid colon remain essentially unch anged. Maximal measurement of 5 cm as noted previously. IMPRESSION: 1. Moderate basilar atelectasis and pleural effusions left greater than right with the multiple left- sided rib fractures all unchanged from prior examinations and described in detail previously. 2. Stable mesenteric hematoma left lower quadrant.
[2019-10-26 11:39] LABS: Glucose,Whole Blood 108 mg/dL (75-99)
--- NOTE | 2019-10-26 11:55 | P.PN ---
Subjective Progress Note Date: 10/26/19 10/26/2019 and seeing this patient for a follow-up in intensive care unit. The patient remains intubated and mechanically ventilated. The patient remains on a combination of sedation. This morning he is on propofol running at 35 mg per KG per minute and fentanyl at 2.5 mg per KG per minute. He is very much arousable. He opens up his eyes spontaneously. He is still not following commands c onsistently. At times he was felt to follow some simple commands. This morning, he was an assist-control mode with a rate of 26 with a tidal volume of 450 and FiO2 of 70% with a PEEP of 5. Chest x-ray was showing worsening of the left lower lobe infiltrate. It had to be correlated with atelectasis versus pneumonia. There was also left-sided pleural effusion present in the left hemithorax. All of the lines including the ET tube and the central lines were in place. Nevertheless, the patient's breathing seemed to be labored. He was using some abdominal muscles of breathing. His blood gases from this morning showed a pH of 7.42 with a pCO2 of 49 and pO2 of 76. The patient was given some changes on a mechanical ventilator. I switched him to VC plus mode with tidal volume of 550 and drop the rate down to 22 and The PEEP at 5 with an FiO2 of 70%.. Along with this change, the patient seemed to be much more comfortable special with a nighttime of 0.9 ms. The patient did stool. He is tolerating his tube feeds which is running at the rate of 25 mL an hour and it's in the form of vital high protein. No abdominal distention on today's evaluation. Hemoglobin stable. He is being diuresed with IV Lasix. There has been improvement in the volume status and the patient is a negative fluid balance of 2 L at least over the past 24 hours. He is receiving Lasix 40 mg every 8 hours. Based on all this, I repeated the CAT scan of the brain this morning and it showed age-related atrophy and chronic small vessel ischemic changes without any acute process. I also reviewed the CAT scan of the chest and abdomen and showed moderate bibasilar atelectatic changes and pleural effusion left more than right with multiple left-sided fractures unchanged from previous examination. The le ft lower quadrant mesenteric hematoma remained unchanged. Objective - Vital Signs Vital signs: Vital Signs Temp 99.8 F H 10/26/19 08:00 Pulse 82 10/26/19 11:00 Resp 22 10/26/19 11:00 BP 101/60 10/26/19 11:00 Pulse Ox 90 L 10/26/19 11:00 Intake & Output 10/25/19 10/26/19 10/26/19 18:59 06:59 18:59 Intake Total 656.958 4298.470 1677.463 Output Total 3050 1615 1350 Balance -2080.000 -322.530 327.463 Weight 124 kg 124 kg Intake: IV 240 340 175 0.9 Normal Saline at KVO 240 240 100 20mL/hr Piperacillin-Tazobactam 3 100 75 .375 gm In Sodium Chloride 0.9% 100 ml @ 25 mls/hr IVPB Q8HR [facility] Rx# :[id number] Intake, IV Titration 550.000 562.470 197.463 Amount fentaNYL (PF) 2,500 mcg 250 250 25.853 In Sodium Chloride 0.9% 200 ml @ Per Protocol IV .Q0M [facility] Rx#:[id number] propofoL 1,000 mg In 300.000 312.470 171.61 Empty Bag 1 bag @ Titrate IV .Q0M [facility] Rx#: [id number] Tube Feeding 150 300 75 Other 30 90 1230 Output: Urine 3050 1615 1350 Other: Voiding Method Indwelling Catheter Indwelling Catheter # Bowel Movements 1 ABP, PAP, CO, CI - Last Documented Arterial Blood Pressure 178/114 - Exam Gen. appearance, comfortable sedated on examination a propofol and fentanyl. Intubated on a mechanical ventilator. Nonacute distress and is quite success with the mechanical ventilation this morning. Head exam was generally normal. There was no scleral icterus or corneal arcus. Mucous membranes were moist. Neck was supple and without jugular venous distension, thyromegaly, or carotid bruits. Carotids were easily palpable bilaterally. There was no adenopathy. The patient has an orogastric and orotracheal tube and both of them are in place. The patient is a left subclavian triple-lumen catheter in place. Lungs sounds are diminished bilaterally. No significant wheezes overall currently crackles. No chest wall deformity at this point in time. Cardiac exam revealed the PMI to be normally situated and sized. The rhythm was regular and no extrasystoles were noted during several minutes of auscultation. The first and second heart sounds were normal and physiologic splitting of the second heart sound was noted. There were no murmurs, rubs, clicks, or gallops. Abdominal exam revealed normal bowel sounds. The abdomen was soft, non-tender, and without masses, organomegaly, or appreciable enlargement of the abdominal aorta. Extremities revealed +1 edema and there is no cyanosis or clubbing. There is also scrotal edema. Neurologically, the patient seems to be much more comfortable while on sedation and he remains on a combination of fentanyl and propofol. He opens eyes spontaneously. We'll continue to follow some simple commands.. Pupils equal reactive to light. No focal neurological deficit at this point in time. Examination of the skin revealed no evidence of significant rashes, suspicious appearing nevi or other concerning lesions. - Labs CBC & Chem 7: 10/26/19 04:25 10/26/19 10:28 Labs: Abnormal Lab Results - Last 24 Hours (Table) 10/25/19 10/25/19 10/25/19 Range/Units 17:51 18:22 19:29 WBC (3.8-10.6) k/uL RBC (4.30-5.90) m/uL Hgb (13.0-17.5) gm/dL Hct (39.0-53.0) % Plt Count (150-450) k/uL Neutrophils # (1.3-7.7) k/uL ABG pCO2 46 H (35-45) mmHg ABG pO2 68 L (83-108) mmHg ABG HCO3 31 H (21-25) mmol/L ABG Total CO2 33 H (19-24) mmol/L ABG O2 Saturation 92.3 L (94-97) % BUN 22 H (9-20) mg/dL Creatinine 0.63 L (0.66-1.25) mg/dL Glucose 107 H (74-99) mg/dL POC Glucose (mg/dL) 101 H (75-99) mg/dL Calcium (8.4-10.2) mg/dL Albumin 3.1 L (3.5-5.0) g/dL Triglycerides (<150) mg/dL Cholesterol (<200) mg/dL 10/25/19 10/26/19 10/26/19 Range/Units 19:29 00:15 04:25 WBC 13.4 H (3.8-10.6) k/uL RBC 3.23 L 3.10 L (4.30-5.90) m/uL Hgb 9.6 L 9.2 L (13.0-17.5) gm/dL Hct 30.1 L 28.7 L (39.0-53.0) % Plt Count 573 H 489 H (150-450) k/uL Neutrophils # 10.0 H (1.3-7.7) k/uL ABG pCO2 (35-45) mmHg ABG pO2 (83-108) mmHg ABG HCO3 (21-25) mmol/L ABG Total CO2 (19-24) mmol/L ABG O2 Saturation (94-97) % BUN (9-20) mg/dL Creatinine (0.66-1.25) mg/dL Glucose (74-99) mg/dL POC Glucose (mg/dL) 103 H (75-99) mg/dL Calcium (8.4-10.2) mg/dL Albumin (3.5-5.0) g/dL Triglycerides (<150) mg/dL Cholesterol (<200) mg/dL 10/26/19 10/26/19 10/26/19 Range/Units 04:25 04:25 05:11 WBC (3.8-10.6) k/uL RBC (4.30-5.90) m/uL Hgb (13.0-17.5) gm/dL Hct (39.0-53.0) % Plt Count (150-450) k/uL Neutrophils # (1.3-7.7) k/uL ABG pCO2 49 H (35-45) mmHg ABG pO2 76 L (83-108) mmHg ABG HCO3 32 H (21-25) mmol/L ABG Total CO2 33 H (19-24) mmol/L ABG O2 Saturation (94-97) % BUN 23 H (9-20) mg/dL Creatinine 0.60 L (0.66-1.25) mg/dL Glucose 108 H (74-99) mg/dL POC Glucose (mg/dL) (75-99) mg/dL Calcium 8.3 L (8.4-10.2) mg/dL Albumin (3.5-5.0) g/dL Triglycerides 740 H (<150) mg/dL Cholesterol 292 H (<200) mg/dL 10/26/19 10/26/19 Range/Units 05:46 11:38 WBC (3.8-10.6) k/uL RBC (4.30-5.90) m/uL Hgb (13.0-17.5) gm/dL Hct (39.0-53.0) % Plt Count (150-450) k/uL Neutrophils # (1.3-7.7) k/uL ABG pCO2 (35-45) mmHg ABG pO2 (83-108) mmHg ABG HCO3 (21-25) mmol/L ABG Total CO2 (19-24) mmol/L ABG O2 Saturation (94-97) % BUN (9-20) mg/dL Creatinine (0.66-1.25) mg/dL Glucose (74-99) mg/dL POC Glucose (mg/dL) 110 H 108 H (75-99) mg/dL Calcium (8.4-10.2) mg/dL Albumin (3.5-5.0) g/dL Triglycerides (<150) mg/dL Cholesterol (<200) mg/dL Microbiology - Last 24 Hours (Table) 10/23/19 11:41 Gram Stain - Final Sputum Sputum Culture - Final Staphylococcus aureus Assessment and Plan Plan: 1 Acute hypoxic respiratory failure, secondary to a combination of multi-rib fractures involving the left chest and possible pulmonary contusion addition to alcohol withdrawal/delirium tremens. The patient remains intubated on mechanical ventilator. This patient would have been an ideal candidate for tracheostomy tube insertion and PEG tube insertion. The family declined that and they made that decision based on the patient's knowledge and his previous wishes that would be against these recommendations. For now, I suggest to continue diuresis on this patient and the patient has been negative fluid balance. A repeat CAT scan of the chest showed stable left-sided rib fractures. There is bilateral pleural effusion worse on the left and addition to atelectatic changes in lung bases worse on the left. I think he should improve with diuresis. I did consider ventilator changes today and the patient was placed on VC plus modes. Blood gases was noted. Chest x-ray was noted. He remains on IV Zosyn 2 altered mentation, possibly related delirium tremens although the patient remains quite encephalopathic after being hospitalized for at least 2 weeks and the patient possibly has a metabolic encephalopathy ongoing which is preventing us from weaning off sedation. The most recent CAT scan of the head was done on 10/14/2019 showed cerebral atrophy and old right internal capsule lacunar infarct. The patient is still requiring high dose of propofol and is also on fentanyl for pain control. The patient was given another CAT scan of the brain that showed no acute abnormalities and the findings are essentially chronic. 3 Status post tractor accident/fall, with multiple left-sided rib fractures 4 Multiple left-sided rib fractures, but no significant pneumothorax. No significant hemopneumothorax. 5 Pulmonary contusion. Mostly affecting the left lung base 6 Proximal sigmoid hematoma but no perforation. 7 Benign essential hypertension. 8 Type 2 diabetes. 9 Chronic low back pain. 10 History of depression. 11 Blood loss anemia, acute, suspect left abdominal wall or abdominal hematoma, CT abdomen and pelvis is reassuring. Hemoglobin stable and the patient that repeat CAT scan of the abdomen that showed no interval worsening of the hematoma. Plan Continue ventilator support, necessity ventilator changes were done and the patient is currently on a VC plus modes with tidal volume of 550 and the rate of 22 when FiO2 of 70% and a PEEP of 5. We will gradually dropped on the FiO2 to maintain a saturation above 90%. Continue IV Lasix at a dose of 40 mg every 8 hours Repeat another sedation holiday The CAT scan of the chest abdomen and the brain was noted. No acute abnormalities have been noted. Continue enteral feeding for additional support Condition remains critical continue to follow. This induration was in a more than 30 minutes. as mentioned earlier, no plans for PEG and trach and the patient will be weaned in the conventional ways if possible.
[2019-10-26 18:10] LABS: Glucose,Whole Blood 99 mg/dL (75-99)
[2019-10-26] MEDS: POTASSIUM BICARBONATE/CIT AC 20 MEQ TABLET.EFF NG-TUBE SCH ×2 (18:36→20:45)
[2019-10-26 23:40] LABS: Glucose,Whole Blood 106 mg/dL (75-99)
[2019-10-27] MEDS: fentaNYL (PF) 2,500 MCG in SODIUM CHLORIDE 0.9% 200 ML IV SCH ×4 (00:52→20:00)
[2019-10-27] MEDS: IPRATROPIUM-ALBUTEROL 3 ML NEB INHALATION SCH ×6 (03:00→23:23)
[2019-10-27] MEDS ORDERED: POTASSIUM BICARBONATE/CIT AC 20 MEQ TABLET.EFF NG-TUBE SCH ×2 (04:00→06:00)
[2019-10-27 04:56] LABS: Glucose,Whole Blood 106 mg/dL (75-99)
[2019-10-27 05:08] LABS: Basophils # (A) 0.1 k/uL (0-0.2); Basophils % (A) 1 %; Eosinophils # (A) 0.4 k/uL (0-0.7); Eosinophils % (A) 5 %; HCT 26.7 % (39.0-53.0); HGB 8.8 gm/dL (13.0-17.5); Hypochromasia Slight; Lymphocytes # (A) 1.3 k/uL (1.0-4.8); Lymphocytes % (A) 17 %; MCH 29.7 pg (25.0-35.0); MCHC 32.9 g/dL (31.0-37.0); MCV 90.4 fL (80.0-100.0); Mean Platelet Volume 6.9; Monocytes # (A) 0.4 k/uL (0-1.0); Monocytes % (A) 6 %; Neutrophils # (A) 5.3 k/uL (1.3-7.7); Neutrophils % (A) 71 %; Platelet Count 475 k/uL (150-450); RBC 2.95 m/uL (4.30-5.90); RDW 14.6 % (11.5-15.5); WBC 7.5 k/uL (3.8-10.6)
[2019-10-27 05:18] LABS: African American GFR (CKD) >90 (>60 ml/min/1.73 sqM); Anion Gap 6 mmol/L; Blood Urea Nitrogen 20 mg/dL (9-20); Calcium 8.6 mg/dL (8.4-10.2); Carbon Dioxide 31 mmol/L (22-30); Chloride 97 mmol/L (98-107); Glucose 99 mg/dL (74-99); Non-African American GFR(CKD) >90 (>60 ml/min/1.73 sqM); Potassium 3.6 mmol/L (3.5-5.1); Sodium 134 mmol/L (137-145)
[2019-10-27] MEDS: INSULIN ASPART (NovoLOG) 100 UNIT/ML VIAL SQ SCH ×4 (05:38→23:43)
[2019-10-27 05:57] LABS: ABG Base Excess 9.9 mmol/L; ABG HCO3 33 mmol/L (21-25); ABG Oxygen Saturation 92.8 % (94-97); ABG PCO2 44 mmHg (35-45); ABG PH 7.49 (7.35-7.45); ABG PO2 67 mmHg (83-108); ABG TCO2 35 mmol/L (19-24); Allen Test Performed? Yes
[2019-10-27] MEDS: OFLOXACIN 0.3% OPHTH DROPS 5 ML BOTTLE BOTH EYES SCH ×4 (06:02→23:40)
[2019-10-27] MEDS: CISATRACURIUM 200 MG in SODIUM CHLORIDE 0.9% 180 ML IV SCH ×2 (06:03→19:31)
[2019-10-27] MEDS: THIAMINE 100 MG TAB PO SCH ×2 (06:04→16:36)
--- NOTE | 2019-10-27 07:17 | XR ---
EXAMINATION TYPE: XR chest 1V portable DATE OF EXAM: 10/27/2019 Comparison: 10/26/2019 Clinical History: 49-year-old male patient on ventilator Findings: ET tube tip is satisfactory. NG tube courses below the diaphragm. Left IJ CVC tip at the lower SVC le margarita when correlated with prior. Not as well-seen on the current exam. Heart remains mildly enlarged. Diffuse interstitial opacity persists. Multiple known left-sided rib fractures. There is some widenin g of the coracoclavicular interval. Continued [id number] left effusion with associated opacity . No sizable pneumothorax seen. Impression: 1. Continued CHF with pulmonary vascular congestion. 2. Continued [id number] left effusion with adjacent atelectasis and/or consolidation. 3. Known left-sided rib fractures. Known distal left clavicle fracture not as well seen currently. Ho wever, there may be some widening of the coracoclavicular interval that could reflect ligamentous inj ury.
[2019-10-27] MEDS: DULoxetine HCL 60 MG CAPSULE.DR PO SCH (08:01)
[2019-10-27] MEDS: FUROSEMIDE 10 MG/ML 4 ML VIAL IV SCH ×2 (08:03→20:12)
[2019-10-27] MEDS: amLODIPine 10 MG TAB PO SCH (08:12)
[2019-10-27] MEDS: hydrALAZINE HCL 25 MG TAB PO SCH ×3 (08:12→21:09)
[2019-10-27] MEDS: CHLORHEXIDINE GLUCONATE 15 ML CUP MUCOUS MEM SCH ×2 (08:12→20:12)
[2019-10-27] MEDS: HEPARIN SODIUM,PORCINE 5,000 UNIT/ML 1 ML VIAL SQ SCH ×2 (08:12→20:12)
[2019-10-27] MEDS: METOPROLOL TARTRATE 50 MG TAB PO SCH ×2 (08:13→20:12)
[2019-10-27] MEDS: PIPERACILLIN-TAZOBACTAM 3.375 GM in SODIUM CHLORIDE 0.9% 100 ML IVPB SCH ×3 (08:13→23:39)
[2019-10-27] MEDS: bisacodyL 10 MG SUPP RECTAL SCH (08:13)
[2019-10-27] MEDS: QUEtiapine 50 MG TAB PO SCH ×2 (08:13→20:13)
[2019-10-27] MEDS: PANTOPRAZOLE 40 MG/10 ML VIAL IVP SCH (08:13)
[2019-10-27] MEDS ORDERED: FUROSEMIDE 10 MG/ML 4 ML VIAL IV SCH (09:00)
[2019-10-27] MEDS: DEXMEDETOMIDINE/0.9% NACL(PMX) 400 MCG in EMPTY BAG 1 BAG IV SCH ×3 (09:30→20:20)
--- NOTE | 2019-10-27 09:52 | P.PN ---
Subjective Progress Note Date: 10/27/19 Post tractor accident, flail chest, severe dyspnea and shortness of breath, acute respiratory failure mechanical ventilation, alcohol intoxication, syncope, delirium tremor, hyperglycemia and lower back pain. 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 Patient ended up seen in trauma at [facility] multiple exiting CAT scan was per for CT of the chest showed left sided hydropneumothorax with multiple displace rib fracture anterolateral drip 2-7 and posterior 5-11 with a flail chest, abdominal pelvic CT showed ball injury with small bowel and proximal sigmoid involvement with mild hematoma with no perforation or free air. Pelvic showed no fracture head and neck showed no C-spine fracture and the major abnormality and CAT scan of the brain. Left upper extremity did not show any fracture patient had his arm in sling of the time. Was seen and evaluated before leaving the emergency department patient was in quite bed discomfort and was in mild respiratory distress having significant tachypnea and tachycardia with significant hypoxia the time require higher flow 2. No chest tube placement at the time. No bowel movement at this point and urine output has been good. Elevated white blood cell 13.8 with mild anemia hemoglobin down to 8.5. Kidney function still holding well patient blood sugar is much better, chest x-ray showed continue CHF with pulmonary vascular congestion and small pleural effusion with his multiple left-sided rib fracture and flail chest. 10/24: Patient seen this morning remains intubated on the vent, FiO2 50%. Patient is on propofol drip and Dilaudid when necessary able to open eyes to voice. Patient has failed at weaning attempts, Dr. Lee has a meeting with family this morning at 9 AM to discuss possible trach and peg. Labs were reviewed, hemoglobin 8.5. Adequate urine output is noted, per nursing patient has not had a bowel movement in about 3-4 days. Vital signs are stable, patient is afebrile, pulse rate 80, blood pressure 119/69, pulse ox 93%. Sputum culture finalized positive for Staphylococcus aureus, susceptible to Zosyn. Chest x-ray was stable compared to previous exam. 10/25: Per nursing yesterday family had meeting and patient never wish to be resuscitated and do not want to plan for trach and PEG at this point. Dr. Lee in and seen patient will attempt to wean and see how it's tolerated. Patient does open eyes and shake head yes and no for commands. Chest x-ray today shows left lower lobe infiltrate correlate for atelectasis and pneumonia, small left pleural effusion may be present hemothorax could be considered. Patient had low-grade temp 99.8 this morning pulse 102, respirations 25, blood pressure 125/76, satting 90% on 70% FiO2. 10/26: Patient failed weaning trial again this morning with Dr. Lee, per nursing patient gets too anxious and restless. Hemoglobin 8.8 this morning, white blood cells 7.5, sodium 134. Chest x-ray showed CHF with pulmonary vascular congestion, continued small to moderate left effusion. CT of the ab domen and pelvis yesterday showed stable mesenteric hematoma on the left lower quadrant, moderate basilar atelectasis and pleural effusion left greater than the right with multiple left-sided rib fractures all unchanged. CT of the brain showed age related atrophic and chronic small vessel ischemic change with no acute intracranial process. We'll continue to monitor patient closely along with pulmonary and continue the weaning process. Review of systems Unable to obtain due to intubation. Physical examination General Appearance: This is a 49-year-old male resting in bed in ICU sedated on vent and appears to be comfortable and in no acute distress. Neck HEENT: Supple, no lymphadenopathy, no thyroid enlargement, no carotid bruits. Oral ET and orogastric tube in place. Lungs: Decreased breath sounds bilaterally with scattered rhonchi and wheezing positive. Chest Wall: mild bruise of chest wall area. Heart: Regular rate and rhythm, S1-S2. Abdomen: Distention with significant ecchymosis and hematoma to the lower chest lateral abdominal and flank area. Extremities: Slight edema in the lower extremity significant discomfort in left upper extremity with the arm in sling so far. Wound to the left forearm approximately 12 inches long, dressing in place. Pulses: 2+ and symmetric. Skin: Skin color, texture, tugor normal, no rashes or lesions. Neurologic: Intubated and on mechanical ventilation. Open eyes on command Objective - Vital Signs Vital signs: Vital Signs Temp 98.3 F 10/27/19 04:00 Pulse 70 10/27/19 07:19 Resp 22 10/27/19 07:00 BP 102/63 10/27/19 07:00 Pulse Ox 94 L 10/27/19 07:00 Intake & Output 10/26/19 10/27/19 10/27/19 18:59 06:59 18:59 Intake Total 2443.560 1259.924 395.434 Output Total 3290 1270 30 Balance -846.440 -10.076 365.434 Weight 124 kg 124.1 kg Intake: IV 360 320 20 0.9 Normal Saline at KVO 260 220 20 20mL/hr Piperacillin-Tazobactam 3 100 100 .375 gm In Sodium Chloride 0.9% 100 ml @ 25 mls/hr IVPB Q8HR [facility] Rx# :[id number] Intake, IV Titration 573.560 574.924 350.434 Amount fentaNYL (PF) 2,500 mcg 250.000 250 250 In Sodium Chloride 0.9% 200 ml @ Per Protocol IV .Q0M [facility] Rx#:[id number] propofoL 1,000 mg In 323.56 324.924 100.434 Empty Bag 1 bag @ Titrate IV .Q0M [facility] Rx#: [id number] Tube Feeding 250 275 25 Other 1260 90 Output: Urine 3290 1270 30 Other: Voiding Method Indwelling Catheter Indwelling Catheter ABP, PAP, CO, CI - Last Documented Arterial Blood Pressure 178/114 - Labs CBC & Chem 7: 10/27/19 04:55 10/27/19 04:55 Labs: Abnormal Lab Results - Last 24 Hours (Table) 10/26/19 10/26/19 10/26/19 Range/Units 04:25 04:25 11:38 RBC (4.30-5.90) m/uL Hgb (13.0-17.5) gm/dL Hct (39.0-53.0) % Plt Count (150-450) k/uL ABG pH (7.35-7.45) ABG pO2 (83-108) mmHg ABG HCO3 (21-25) mmol/L ABG Total CO2 (19-24) mmol/L ABG O2 Saturation (94-97) % Sodium (137-145) mmol/L Potassium (3.5-5.1) mmol/L Chloride (98-107) mmol/L Carbon Dioxide (22-30) mmol/L Creatinine (0.66-1.25) mg/dL POC Glucose (mg/dL) 108 H (75-99) mg/dL Triglycerides 740 H (<150) mg/dL Cholesterol 292 H (<200) mg/dL Procalcitonin 0.21 H (0.02-0.09) ng/mL 10/26/19 10/26/19 10/27/19 Range/Units 18:16 23:29 04:55 RBC (4.30-5.90) m/uL Hgb (13.0-17.5) gm/dL Hct (39.0-53.0) % Plt Count (150-450) k/uL ABG pH (7.35-7.45) ABG pO2 (83-108) mmHg ABG HCO3 (21-25) mmol/L ABG Total CO2 (19-24) mmol/L ABG O2 Saturation (94-97) % Sodium (137-145) mmol/L Potassium 3.4 L (3.5-5.1) mmol/L Chloride (98-107) mmol/L Carbon Dioxide (22-30) mmol/L Creatinine (0.66-1.25) mg/dL POC Glucose (mg/dL) 106 H 106 H (75-99) mg/dL Triglycerides (<150) mg/dL Cholesterol (<200) mg/dL Procalcitonin (0.02-0.09) ng/mL 10/27/19 10/27/19 10/27/19 Range/Units 04:55 04:55 05:55 RBC 2.95 L (4.30-5.90) m/uL Hgb 8.8 L (13.0-17.5) gm/dL Hct 26.7 L (39.0-53.0) % Plt Count 475 H (150-450) k/uL ABG pH 7.49 H (7.35-7.45) ABG pO2 67 L (83-108) mmHg ABG HCO3 33 H (21-25) mmol/L ABG Total CO2 35 H (19-24) mmol/L ABG O2 Saturation 92.8 L (94-97) % Sodium 134 L (137-145) mmol/L Potassium (3.5-5.1) mmol/L Chloride 97 L (98-107) mmol/L Carbon Dioxide 31 H (22-30) mmol/L Creatinine 0.60 L (0.66-1.25) mg/dL POC Glucose (mg/dL) (75-99) mg/dL Triglycerides (<150) mg/dL Cholesterol (<200) mg/dL Procalcitonin (0.02-0.09) ng/mL Assessment and Plan Plan: Plan: 1 post tractor accident with multiple injury and trauma: Patient in ICU continued see trauma surgery along with ICU service. Continue to monitor in the intensive care unit. Dilaudid as needed for pain control. 2 Flail chest with multiple rib fracture: Continue current management for now patient is on mechanical ventilation. We'll continue weaning trials no plan for trach and PEG at this time per family. 3 acute respiratory failure: Patient has been on mechanical ventilation and has been difficult to wean him off so far. 4 severe abdominal pain with bowel injury along with proximal sigmoid injury with left lower quadrant mesenteric hematomas. Continue conservative treatment, monitor hemoglobin. 5 alcohol intoxication. Liver function tests also reflect chronic alcohol use. Patient adamantly denies any alcohol intake for the past 3 years. 6 question of syncope, alcohol-related. No bradycardia or any other cardiovascular abnormality. 7 active delirium tremens. Patient has required intubation mechanical ventilation. Continue CIWA protocol. He seems to be doing well. 8 acute anemia: Most likely from his abdominal trauma and hematoma hemoglobin is stable does not require any blood transfusion. 9 hypertensive emergency. Continue amlodipine 10 mg daily, hydralazine 25 mg 3 times daily, Lopressor 50 mg twice daily. 10 hypertension. Continue as above. 11 hyperglycemia: Type 2 diabetes. NovoLog scale. 12 chronic lower back pain. Has Dilaudid when necessary 13 recurrent depression. Continue Cymbalta. Seroquel was added. 14 GI prophylaxis: Patient be on pantoprazole IV. 15 DVT prophylaxis. Heparin subcut 16 Clavicular fracture. Consult with orthopedic appreciated. CODE STATUS: Full code. Patient will be admitted to the hospital for minimum of 2 night stay. Impression and plan of care have been directed as dictated by the signing physician. Ana Isaacs nurse practitioner acting as scribe for signing physician.
--- NOTE | 2019-10-27 10:35 | P.PN ---
Subjective Progress Note Date: 10/27/19 CHIEF COMPLAINT: Multiple injury after trauma from a fall from tractor HISTORY OF PRESENT ILLNESS: Patient in the ICU and remains intubated. Patient failed weaning trial again this morning. CT of the abdomen and pelvis yesterday showed stable mesenteric hematoma on the left lower quadrant, moderate basilar atelectasis and pleural effusion left greater than the right with multiple left-sided rib fractures all unchanged. CT of the brain showed age related atrophic and chronic small vessel ischemic change with no acute intracranial process. He is afebrile. WBC 7.5 PHYSICAL EXAM: VITAL SIGNS: Reviewed. GENERAL: Well-developed in no acute distress. HEENT: No sclera icterus. Extraocular movements grossly intact. Moist buccal mucosa. Head is atraumatic, normocephalic. ABDOMEN: Soft. Obese. Distended. Nontender. Neuro: Patient is intubated and sedated ASSESSMENT: 1. Status post Fall from tractor with multiple injuries 2. Proximal sigmoid hematoma and contusion. Repeat CT of the abdomen over the weekend which was a stable mesenteric hematoma 3. Multiple left-sided rib fractures with flail chest 4. Left closed distal clavicular fracture followed by orthopedics 5. Chronic alcohol use and evidence of alcohol withdrawal 6. Acute hypoxic respiratory failure likely secondary to alcohol withdrawal syndrome and delirium tremens, multiple rib fractures on the left chest and possible pulmonary contusion. Patient currently on mechanical ventilation 7. Possible pulmonary contusion PLAN: -Continue supportive care -Continue plan per critical care team -DVT prophylaxis subcu heparin GI prophylaxis Protonix Physician Peat Shredder Tender note has been reviewed by physician. Signing provider agrees with the documented findings, assessment, and plan of care. Objective - Vital Signs Vital signs: Vital Signs Temp 98.3 F 10/27/19 04:00 Pulse 70 10/27/19 07:19 Resp 22 10/27/19 07:00 BP 102/63 10/27/19 07:00 Pulse Ox 94 L 10/27/19 07:00 Intake & Output 10/26/19 10/27/19 10/27/19 18:59 06:59 18:59 Intake Total 2443.560 1259.924 395.434 Output Total 3290 1270 30 Balance -846.440 -10.076 365.434 Weight 124 kg 124.1 kg Intake: IV 360 320 20 0.9 Normal Saline at KVO 260 220 20 20mL/hr Piperacillin-Tazobactam 3 100 100 .375 gm In Sodium Chloride 0.9% 100 ml @ 25 mls/hr IVPB Q8HR [facility] Rx# :[id number] Intake, IV Titration 573.560 574.924 350.434 Amount fentaNYL (PF) 2,500 mcg 250.000 250 250 In Sodium Chloride 0.9% 200 ml @ Per Protocol IV .Q0M [facility] Rx#:[id number] propofoL 1,000 mg In 323.56 324.924 100.434 Empty Bag 1 bag @ Titrate IV .Q0M [facility] Rx#: [id number] Tube Feeding 250 275 25 Other 1260 90 Output: Urine 3290 1270 30 Other: Voiding Method Indwelling Catheter Indwelling Catheter ABP, PAP, CO, CI - Last Documented Arterial Blood Pressure 178/114 - Labs CBC & Chem 7: 10/27/19 04:55 10/27/19 11:45 Labs: Abnormal Lab Results - Last 24 Hours (Table) 10/26/19 10/26/19 10/26/19 Range/Units 04:25 04:25 11:38 RBC (4.30-5.90) m/uL Hgb (13.0-17.5) gm/dL Hct (39.0-53.0) % Plt Count (150-450) k/uL ABG pH (7.35-7.45) ABG pO2 (83-108) mmHg ABG HCO3 (21-25) mmol/L ABG Total CO2 (19-24) mmol/L ABG O2 Saturation (94-97) % Sodium (137-145) mmol/L Potassium (3.5-5.1) mmol/L Chloride (98-107) mmol/L Carbon Dioxide (22-30) mmol/L Creatinine (0.66-1.25) mg/dL POC Glucose (mg/dL) 108 H (75-99) mg/dL Triglycerides 740 H (<150) mg/dL Cholesterol 292 H (<200) mg/dL Procalcitonin 0.21 H (0.02-0.09) ng/mL 10/26/19 10/26/19 10/27/19 Range/Units 18:16 23:29 04:55 RBC (4.30-5.90) m/uL Hgb (13.0-17.5) gm/dL Hct (39.0-53.0) % Plt Count (150-450) k/uL ABG pH (7.35-7.45) ABG pO2 (83-108) mmHg ABG HCO3 (21-25) mmol/L ABG Total CO2 (19-24) mmol/L ABG O2 Saturation (94-97) % Sodium (137-145) mmol/L Potassium 3.4 L (3.5-5.1) mmol/L Chloride (98-107) mmol/L Carbon Dioxide (22-30) mmol/L Creatinine (0.66-1.25) mg/dL POC Glucose (mg/dL) 106 H 106 H (75-99) mg/dL Triglycerides (<150) mg/dL Cholesterol (<200) mg/dL Procalcitonin (0.02-0.09) ng/mL 10/27/19 10/27/19 10/27/19 Range/Units 04:55 04:55 05:55 RBC 2.95 L (4.30-5.90) m/uL Hgb 8.8 L (13.0-17.5) gm/dL Hct 26.7 L (39.0-53.0) % Plt Count 475 H (150-450) k/uL ABG pH 7.49 H (7.35-7.45) ABG pO2 67 L (83-108) mmHg ABG HCO3 33 H (21-25) mmol/L ABG Total CO2 35 H (19-24) mmol/L ABG O2 Saturation 92.8 L (94-97) % Sodium 134 L (137-145) mmol/L Potassium (3.5-5.1) mmol/L Chloride 97 L (98-107) mmol/L Carbon Dioxide 31 H (22-30) mmol/L Creatinine 0.60 L (0.66-1.25) mg/dL POC Glucose (mg/dL) (75-99) mg/dL Triglycerides (<150) mg/dL Cholesterol (<200) mg/dL Procalcitonin (0.02-0.09) ng/mL
[2019-10-27 12:16] LABS: Glucose,Whole Blood 112 mg/dL (75-99)
--- NOTE | 2019-10-27 14:28 | P.PN ---
Subjective Progress Note Date: 10/27/19 10/27/2019, the patient is being seen for a follow-up. Earlier this morning, the patient was still on a combination of propofol and fentanyl. Propofol was running at 70 mics and fentanyl is running at 3 mics per KG per minute.. Patient was in a VC plus mode at the rate of 22 with a tidal volume of 550 with an FiO2 of 70% and a PEEP of 5. The blood gases from this morning showed a pH of 7.49 with a pCO2 of 44 and pO2 of 67 and this was on FiO2 of 70%. As part of further investigation, the CAT scan of the chest was done yesterday combination with a CAT scan of the abdomen and the CAT scan of the chest showed atelectatic changes lung base bilaterally along with small bilateral pleural effusion. There was left-sided rib fractures as previously seen. CAT scan of the abdomen showed a stable abdominal hematoma. The patient was kept on diuretics throughout the night and the patient was sitting 40 mg of IV Lasix every 12 hours. The fluid balance is negative of at least 2.4 L over the past 24 hours and the swelling in the upper and lower extremities essentially improving and addition to some improvement in the scrotal edema. The patient was noted to have elevated triglyceride based on the fact that the patient has been on propofol for an extended period of time. I gave the patient has sedation holiday. I was able to completely take him off the propofol and keep him only on fentanyl. During this time, the patient was initially well and with time he became progressively more agitated and restless and tachypneic. He was not really following commands and I did not think he was ready for further weaning. Check weaning parameters. There were adequate, however, the oxygenation was borderline as the patient was desaturating on FiO2 of 50% and a pulse is within the mid 80s. Based on that, I asked Amy that the patient use Precedex instead and I also increased the PEEP up to 8 and FiO2 of 50%. The patient is tolerating enteral feeding for nutritional support. We are monitoring his mentation and his response to Precedex as an alternative sedative medication while the patient is intubated on a mechanical ventilator. Objective - Vital Signs Vital signs: Vital Signs Temp 100 F H 10/27/19 12:00 Pulse 94 10/27/19 14:00 Resp 22 10/27/19 14:00 BP 125/72 10/27/19 14:00 Pulse Ox 91 L 10/27/19 14:00 Intake & Output 10/26/19 10/27/19 10/27/19 18:59 06:59 18:59 Intake Total 2443.560 1259.924 890.911 Output Total 3290 1270 1055 Balance -846.440 -10.076 -164.089 Weight 124 kg 124.1 kg Intake: IV 360 320 240 0.9 Normal Saline at KVO 260 220 140 20mL/hr Piperacillin-Tazobactam 3 100 100 100 .375 gm In Sodium Chloride 0.9% 100 ml @ 25 mls/hr IVPB Q8HR [facility] Rx# :[id number] Intake, IV Titration 573.560 574.924 370.911 Amount Dexmedetomidine/0.9% NaCl 20.477 (Pmx) 400 mcg In Empty Bag 1 bag @ Titrate IV . Q0M [facility] Rx#:[id number] fentaNYL (PF) 2,500 mcg 250.000 250 250 In Sodium Chloride 0.9% 200 ml @ Per Protocol IV .Q0M [facility] Rx#:[id number] propofoL 1,000 mg In 323.56 324.924 100.434 Empty Bag 1 bag @ Titrate IV .Q0M [facility] Rx#: [id number] Tube Feeding 250 275 175 Other 1260 90 105 Output: Urine 3290 1270 1055 Other: Voiding Method Indwelling Catheter Indwelling Catheter Indwelling Catheter ABP, PAP, CO, CI - Last Documented Arterial Blood Pressure 178/114 - Exam Gen. appearance, comfortable fentanyl and Precedex is also being added for sedation.. Intubated on a mechanical ventilator. Nonacute distress and is quite success with the mechanical ventilation this morning. Head exam was generally normal. There was no scleral icterus or corneal arcus. Mucous membranes were moist. Neck was supple and without jugular venous distension, thyromegaly, or carotid bruits. Carotids were easily palpable bilaterally. There was no adenopathy. The patient has an orogastric and orotracheal tube and both of them are in place. The patient is a left subclavian triple-lumen catheter in place. Lungs sounds are diminished bilaterally. No significant wheezes overall currently crackles. No chest wall deformity at this point in time. Cardiac exam revealed the PMI to be normally situated and sized. The rhythm was regular and no extrasystoles were noted during several minutes of auscultation. The first and second heart sounds were normal and physiologic splitting of the second heart sound was noted. There were no murmurs, rubs, clicks, or gallops. Abdominal exam revealed normal bowel sounds. The abdomen was soft, non-tender, and without masses, organomegaly, or appreciable enlargement of the abdominal aorta. Extremities revealed +1 edema and there is no cyanosis or clubbing. There is also scrotal edema. Neurologically, the patient seems to be much more comfortable while on sedation and he remains on a combination of fentanyl and propofol. He opens eyes spontaneously. We'll continue to follow some simple commands.. Pupils equal reactive to light. No focal neurological deficit at this point in time. Examination of the skin revealed no evidence of significant rashes, suspicious appearing nevi or other concerning lesions. - Labs CBC & Chem 7: 10/27/19 04:55 10/27/19 11:45 Labs: Abnormal Lab Results - Last 24 Hours (Table) 10/26/19 10/26/19 10/26/19 Range/Units 04:25 18:16 23:29 RBC (4.30-5.90) m/uL Hgb (13.0-17.5) gm/dL Hct (39.0-53.0) % Plt Count (150-450) k/uL ABG pH (7.35-7.45) ABG pO2 (83-108) mmHg ABG HCO3 (21-25) mmol/L ABG Total CO2 (19-24) mmol/L ABG O2 Saturation (94-97) % Sodium (137-145) mmol/L Potassium 3.4 L (3.5-5.1) mmol/L Chloride (98-107) mmol/L Carbon Dioxide (22-30) mmol/L Creatinine (0.66-1.25) mg/dL POC Glucose (mg/dL) 106 H (75-99) mg/dL Procalcitonin 0.21 H (0.02-0.09) ng/mL 10/27/19 10/27/19 10/27/19 Range/Units 04:55 04:55 04:55 RBC 2.95 L (4.30-5.90) m/uL Hgb 8.8 L (13.0-17.5) gm/dL Hct 26.7 L (39.0-53.0) % Plt Count 475 H (150-450) k/uL ABG pH (7.35-7.45) ABG pO2 (83-108) mmHg ABG HCO3 (21-25) mmol/L ABG Total CO2 (19-24) mmol/L ABG O2 Saturation (94-97) % Sodium 134 L (137-145) mmol/L Potassium (3.5-5.1) mmol/L Chloride 97 L (98-107) mmol/L Carbon Dioxide 31 H (22-30) mmol/L Creatinine 0.60 L (0.66-1.25) mg/dL POC Glucose (mg/dL) 106 H (75-99) mg/dL Procalcitonin (0.02-0.09) ng/mL 10/27/19 10/27/19 Range/Units 05:55 12:15 RBC (4.30-5.90) m/uL Hgb (13.0-17.5) gm/dL Hct (39.0-53.0) % Plt Count (150-450) k/uL ABG pH 7.49 H (7.35-7.45) ABG pO2 67 L (83-108) mmHg ABG HCO3 33 H (21-25) mmol/L ABG Total CO2 35 H (19-24) mmol/L ABG O2 Saturation 92.8 L (94-97) % Sodium (137-145) mmol/L Potassium (3.5-5.1) mmol/L Chloride (98-107) mmol/L Carbon Dioxide (22-30) mmol/L Creatinine (0.66-1.25) mg/dL POC Glucose (mg/dL) 112 H (75-99) mg/dL Procalcitonin (0.02-0.09) ng/mL Assessment and Plan Plan: 1 Acute hypoxic respiratory failure, secondary to a combination of multi-rib fractures involving the left chest and possible pulmonary contusion addition to alcohol withdrawal/delirium tremens. The patient remains intubated on industrial truck mechanic al ventilator. CAT scan of the chest showed atelectatic changes and small bilateral pleural effusion. Possibility of pneumonia is felt to be less likely despite the fact that the patient has grown MSSA in his sputum and the patient is currently on IV Zosyn. The patient is also being subjected to IV Lasix and he remains in a negative fluid balance. Tracheostomy tube insertion was declined by and the rest of family members. 2 altered mentation, possibly related delirium tremens although the patient remains quite encephalopathic after being hospitalized for at least 2 weeks and the patient possibly has a metabolic encephalopathy ongoing which is preventing us from weaning off sedation. The most recent CAT scan of the head was done on 10/14/2019 showed cerebral atrophy and old right internal capsule lacunar infarct. The patient continued to require sedation throughout this current hospitalization. Earlier this morning, the patient was taken off the propofol and the patient will be switched to Precedex in combination for fentanyl. 3 Status post tractor accident/fall, with multiple left-sided rib fractures 4 Multiple left-sided rib fractures, but no significant pneumothorax. No significant hemopneumothorax. 5 Pulmonary contusion. Mostly affecting the left lung base 6 Proximal sigmoid hematoma but no perforation. 7 Benign essential hypertension. 8 Type 2 diabetes. 9 Chronic low back pain. 10 History of depression. 11 Blood loss anemia, acute, suspect left abdominal wall or abdominal hematoma, CT abdomen and pelvis is reassuring. Hemoglobin stable and the patient that repeat CAT scan of the abdomen that showed no interval worsening of the hematoma. Plan Hypertriglyceridemia was noted based on intake of propofol and the medication was taken off and the patient will be started on Precedex instead examination with fentanyl for sedation. Continue IV Lasix and drop the dose to 40 mg every 12 hours Continue IV Zosyn Continue enteral feeding for nutritional support Sedation holiday as mentioned Check weaning parameters With a PEEP of 8 and drop the FiO2 down to 50% Monitor the oxygenation No plans for PEG and trach upon family's wishes and the patient will be supported via intubation mechanical ventilation and further recommendations are to follow based on his progress. Long-term prognosis poor baseline above- mentioned comorbidities. We'll continue to follow. Examination was not a more than 30 minutes.
[2019-10-27] MEDS: ACETAMINOPHEN TAB 325 MG TAB PO PRN (16:42)
[2019-10-27 18:34] LABS: Glucose,Whole Blood 119 mg/dL (75-99)
[2019-10-27 23:44] LABS: Glucose,Whole Blood 114 mg/dL (75-99)
[2019-10-28] MEDS: DEXMEDETOMIDINE/0.9% NACL(PMX) 400 MCG in EMPTY BAG 1 BAG IV SCH ×2 (01:29→06:45)
[2019-10-28] MEDS: fentaNYL (PF) 2,500 MCG in SODIUM CHLORIDE 0.9% 200 ML IV SCH ×2 (01:41→06:49)
[2019-10-28] MEDS: IPRATROPIUM-ALBUTEROL 3 ML NEB INHALATION SCH ×5 (03:09→19:47)
[2019-10-28 04:33] LABS: Basophils # (A) 0.1 k/uL (0-0.2); Basophils % (A) 1 %; Eosinophils # (A) 0.3 k/uL (0-0.7); Eosinophils % (A) 4 %; HCT 28.7 % (39.0-53.0); HGB 9.1 gm/dL (13.0-17.5); Hypochromasia Slight; Lymphocytes # (A) 1.3 k/uL (1.0-4.8); Lymphocytes % (A) 14 %; MCH 28.9 pg (25.0-35.0); MCHC 31.7 g/dL (31.0-37.0); MCV 91.2 fL (80.0-100.0); Mean Platelet Volume 6.8; Monocytes # (A) 0.4 k/uL (0-1.0); Monocytes % (A) 5 %; Neutrophils # (A) 6.7 k/uL (1.3-7.7); Neutrophils % (A) 76 %; Platelet Count 445 k/uL (150-450); RBC 3.14 m/uL (4.30-5.90); RDW 14.7 % (11.5-15.5); WBC 8.9 k/uL (3.8-10.6)
[2019-10-28 04:41] LABS: African American GFR (CKD) >90 (>60 ml/min/1.73 sqM); Anion Gap 8 mmol/L; Blood Urea Nitrogen 19 mg/dL (9-20); Calcium 8.8 mg/dL (8.4-10.2); Carbon Dioxide 29 mmol/L (22-30); Chloride 99 mmol/L (98-107); Glucose 120 mg/dL (74-99); Non-African American GFR(CKD) >90 (>60 ml/min/1.73 sqM); Potassium 3.7 mmol/L (3.5-5.1); Sodium 136 mmol/L (137-145)
[2019-10-28 05:10] LABS: ABG Base Excess 7.5 mmol/L; ABG HCO3 31 mmol/L (21-25); ABG Oxygen Saturation 95.9 % (94-97); ABG PCO2 40 mmHg (35-45); ABG PH 7.49 (7.35-7.45); ABG PO2 84 mmHg (83-108); ABG TCO2 32 mmol/L (19-24); Allen Test Performed? Yes
[2019-10-28] MEDS ORDERED: POTASSIUM BICARBONATE/CIT AC 20 MEQ TABLET.EFF NG-TUBE SCH (06:00)
[2019-10-28 06:14] LABS: Glucose,Whole Blood 130 mg/dL (75-99)
[2019-10-28] MEDS: OFLOXACIN 0.3% OPHTH DROPS 5 ML BOTTLE BOTH EYES SCH ×3 (06:23→19:13)
[2019-10-28] MEDS: THIAMINE 100 MG TAB PO SCH ×2 (06:23→16:07)
[2019-10-28] MEDS: INSULIN ASPART (NovoLOG) 100 UNIT/ML VIAL SQ SCH ×3 (06:23→19:13)
--- NOTE | 2019-10-28 07:09 | XR ---
EXAMINATION TYPE: XR chest 1V portable DATE OF EXAM: 10/28/2019 HISTORY: Shortness of breath. COMPARISON: None. EXAMINATION TYPE: XR chest 1V portable DATE OF EXAM: 10/28/2019 COMPARISON: 10/27/2019 HISTORY: SOB, Follow Up FINDINGS: Indwelling tubes and catheters are unchanged. No change in bibasilar opacities. Stable appearance of the cardio-mediastinal structures at this time. Pleural effusion unchanged. IMPRESSION: 1. Stable portable chest. Clinical correlation and follow up until resolution is recommended. TECHNIQUE: Single view of the chest is submitted. FINDINGS: Demonstrated are scattered senescent parenchymal change. There is no evidence for focal infiltrate. The heart is stable. Hilar and mediastinal structures are within normal limits. Degenerative changes are seen of the dorsal spine. IMPRESSION: 1. Chronic changes without evidence for acute pulmonary disease.
[2019-10-28] MEDS: PIPERACILLIN-TAZOBACTAM 3.375 GM in SODIUM CHLORIDE 0.9% 100 ML IVPB SCH ×2 (08:21→17:09)
[2019-10-28] MEDS: HEPARIN SODIUM,PORCINE 5,000 UNIT/ML 1 ML VIAL SQ SCH ×2 (08:22→21:48)
[2019-10-28] MEDS: FUROSEMIDE 10 MG/ML 4 ML VIAL IV SCH ×2 (08:22→21:48)
[2019-10-28] MEDS: QUEtiapine 50 MG TAB PO SCH ×2 (08:27→22:30)
[2019-10-28] MEDS: bisacodyL 10 MG SUPP RECTAL SCH (08:27)
[2019-10-28] MEDS: PANTOPRAZOLE 40 MG/10 ML VIAL IVP SCH (08:27)
[2019-10-28] MEDS: DULoxetine HCL 60 MG CAPSULE.DR PO SCH (08:27)
[2019-10-28] MEDS: CHLORHEXIDINE GLUCONATE 15 ML CUP MUCOUS MEM SCH ×2 (08:27→23:37)
[2019-10-28] MEDS: amLODIPine 10 MG TAB PO SCH (08:27)
[2019-10-28] MEDS: METOPROLOL TARTRATE 50 MG TAB PO SCH ×2 (08:27→22:03)
[2019-10-28] MEDS: hydrALAZINE HCL 25 MG TAB PO SCH ×3 (08:27→22:09)
--- NOTE | 2019-10-28 10:46 | P.PN ---
Subjective Progress Note Date: 10/28/19 Post tractor accident, flail chest, severe dyspnea and shortness of breath, acute respiratory failure mechanical ventilation, alcohol intoxication, syncope, delirium tremor, hyperglycemia and lower back pain. 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 Patient ended up seen in trauma at [facility] multiple exiting CAT scan was per for CT of the chest showed left sided hydropneumothorax with multiple displace rib fracture anterolateral drip 2-7 and posterior 5-11 with a flail chest, abdominal pelvic CT showed ball injury with small bowel and proximal sigmoid involvement with mild hematoma with no perforation or free air. Pelvic showed no fracture head and neck showed no C-spine fracture and the major abnormality and CAT scan of the brain. Left upper extremity did not show any fracture patient had his arm in sling of the time. Was seen and evaluated before leaving the emergency department patient was in quite bed discomfort and was in mild respiratory distress having significant tachypnea and tachycardia with significant hypoxia the time require higher flow 2. No chest tube placement at the time. No bowel movement at this point and urine output has been good. Elevated white blood cell 13.8 with mild anemia hemoglobin down to 8.5. Kidney function still holding well patient blood sugar is much better, chest x-ray showed continue CHF with pulmonary vascular congestion and small pleural effusion with his multiple left-sided rib fracture and flail chest. 10/24: Patient seen this morning remains intubated on the vent, FiO2 50%. Patient is on propofol drip and Dilaudid when necessary able to open eyes to voice. Patient has failed at weaning attempts, Dr. Lee has a meeting with family this morning at 9 AM to discuss possible trach and peg. Labs were reviewed, hemoglobin 8.5. Adequate urine output is noted, per nursing patient has not had a bowel movement in about 3-4 days. Vital signs are stable, patient is afebrile, pulse rate 80, blood pressure 119/69, pulse ox 93%. Sputum culture finalized positive for Staphylococcus aureus, susceptible to Zosyn. Chest x-ray was stable compared to previous exam. 10/25: Per nursing yesterday family had meeting and patient never wish to be resuscitated and do not want to plan for trach and PEG at this point. Dr. Lee in and seen patient will attempt to wean and see how it's tolerated. Patient does open eyes and shake head yes and no for commands. Chest x-ray today shows left lower lobe infiltrate correlate for atelectasis and pneumonia, small left pleural effusion may be present hemothorax could be considered. Patient had low-grade temp 99.8 this morning pulse 102, respirations 25, blood pressure 125/76, satting 90% on 70% FiO2. 10/26: Patient failed weaning trial again this morning with Dr. Lee, per nursing patient gets too anxious and restless. Hemoglobin 8.8 this morning, white blood cells 7.5, sodium 134. Chest x-ray showed CHF with pulmonary vascular congestion, continued small to moderate left effusion. CT of the ab domen and pelvis yesterday showed stable mesenteric hematoma on the left lower quadrant, moderate basilar atelectasis and pleural effusion left greater than the right with multiple left-sided rib fractures all unchanged. CT of the brain showed age related atrophic and chronic small vessel ischemic change with no acute intracranial process. We'll continue to monitor patient closely along with pulmonary and continue the weaning process. 10/27: Patient continues to be sedated on the vent. Will do sedation holiday along with weaning trial again with Dr. Lee, FiO2 down to 50%. Patient cur rently on Precedex and fentanyl for sedation. Patient did open eyes and follows some simple commands this morning. Hemoglobin 9.1 this morning, white blood cells 8.9, sodium 136. Chest x-ray today showed chronic changes without evidence for acute pulmonary process. We'll continue to follow along with critical care. Family declined trach and PEG at this time. Review of systems Unable to obtain due to intubation. Physical examination General Appearance: This is a 49-year-old male resting in bed in ICU sedated on vent and appears to be comfortable and in no acute distress. Neck HEENT: Supple, no lymphadenopathy, no thyroid enlargement, no carotid bruits. Oral ET and orogastric tube in place. Lungs: Decreased breath sounds bilaterally with scattered rhonchi and wheezing positive. Chest Wall: mild bruise of chest wall area. Heart: Regular rate and rhythm, S1-S2. No murmur, click or rub. Abdomen: Distention with significant ecchymosis and hematoma to the lower chest lateral abdominal and flank area. Extremities: Moderate +3 edema in the lower extremity. Wound to the left forearm approximately 12 inches long, dressing in place. Pulses: 2+ and symmetric. Skin: Skin color, texture, tugor normal, no rashes or lesions. Neurologic: Intubated and on mechanical ventilation. Open eyes on command. Able to move all extremities. Objective - Vital Signs Vital signs: Vital Signs Temp 99.3 F 10/28/19 04:00 Pulse 113 H 10/28/19 09:00 Resp 23 10/28/19 09:00 BP 138/81 10/28/19 09:00 Pulse Ox 95 10/28/19 09:00 Intake & Output 10/27/19 10/28/19 10/28/19 18:59 06:59 18:59 Intake Total 5713.932 5270.481 239.292 Output Total 1480 1400 390 Balance 270.132 49.481 -150.708 Weight 122.3 kg Intake: IV 460 240 140 0.9 Normal Saline at KVO 260 140 40 20mL/hr Piperacillin-Tazobactam 3 200 100 100 .375 gm In Sodium Chloride 0.9% 100 ml @ 25 mls/hr IVPB Q8HR [facility] Rx# :[id number] Intake, IV Titration 785.132 844.481 74.292 Amount Dexmedetomidine/0.9% NaCl 100.000 265.884 (Pmx) 400 mcg In Empty Bag 1 bag @ Titrate IV . Q0M [facility] Rx#:[id number] fentaNYL (PF) 2,500 mcg 584.698 578.597 74.292 In Sodium Chloride 0.9% 200 ml @ Per Protocol IV .Q0M [facility] Rx#:[id number] propofoL 1,000 mg In 100.434 Empty Bag 1 bag @ Titrate IV .Q0M [facility] Rx#: [id number] Tube Feeding 325 275 25 Other 180 90 Output: Urine 1480 1400 390 Other: Voiding Method Indwelling Catheter Indwelling Catheter Indwelling Catheter ABP, PAP, CO, CI - Last Documented Arterial Blood Pressure 178/114 - Labs CBC & Chem 7: 10/28/19 04:20 10/28/19 04:20 Labs: Abnormal Lab Results - Last 24 Hours (Table) 10/27/19 10/27/19 10/27/19 Range/Units 12:15 18:24 23:42 RBC (4.30-5.90) m/uL Hgb (13.0-17.5) gm/dL Hct (39.0-53.0) % ABG pH (7.35-7.45) ABG HCO3 (21-25) mmol/L ABG Total CO2 (19-24) mmol/L Sodium (137-145) mmol/L Glucose (74-99) mg/dL POC Glucose (mg/dL) 112 H 119 H 114 H (75-99) mg/dL 10/28/19 10/28/19 10/28/19 Range/Units 04:20 04:20 05:05 RBC 3.14 L (4.30-5.90) m/uL Hgb 9.1 L (13.0-17.5) gm/dL Hct 28.7 L (39.0-53.0) % ABG pH 7.49 H (7.35-7.45) ABG HCO3 31 H (21-25) mmol/L ABG Total CO2 32 H (19-24) mmol/L Sodium 136 L (137-145) mmol/L Glucose 120 H (74-99) mg/dL POC Glucose (mg/dL) (75-99) mg/dL 10/28/19 Range/Units 06:13 RBC (4.30-5.90) m/uL Hgb (13.0-17.5) gm/dL Hct (39.0-53.0) % ABG pH (7.35-7.45) ABG HCO3 (21-25) mmol/L ABG Total CO2 (19-24) mmol/L Sodium (137-145) mmol/L Glucose (74-99) mg/dL POC Glucose (mg/dL) 130 H (75-99) mg/dL Assessment and Plan Plan: Plan: 1 post tractor accident with multiple injury and trauma: Patient in ICU continued see trauma surgery along with ICU service. Continue to monitor in the intensive care unit. On fentanyl drip. 2 Flail chest with multiple rib fracture: Continue current management for now patient is on mechanical ventilation. We'll continue weaning trials no plan for trach and PEG at this time per family. 3 acute respiratory failure: Patient has been on mechanical ventilation and has been difficult to wean him off so far. Continue with weaning trials. 4 severe abdominal pain with bowel injury along with proximal sigmoid injury with left lower quadrant mesenteric hematomas. Continue conservative treatment, monitor hemoglobin. 5 alcohol intoxication. Liver function tests also reflect chronic alcohol use. Patient adamantly denies any alcohol intake for the past 3 years. 6 question of syncope, alcohol-related. No bradycardia or any other cardiov ascular abnormality. 7 active delirium tremens. Patient has required intubation mechanical ventila tion. Continue CIWA protocol. He seems to be doing well. 8 acute anemia: Most likely from his abdominal trauma and hematoma hemoglobin is stable does not require any blood transfusion. 9 hypertensive emergency. Continue amlodipine 10 mg daily, hydralazine 25 mg 3 times daily, Lopressor 50 mg twice daily. 10 hypertension. Continue as above. 11 hyperglycemia: Type 2 diabetes. NovoLog scale. 12 chronic lower back pain. Has Dilaudid when necessary 13 recurrent depression. Continue Cymbalta. Seroquel was added. 14 GI prophylaxis: Patient be on pantoprazole IV. 15 DVT prophylaxis. Heparin subcut 16 Clavicular fracture. Consult with orthopedic appreciated. CODE STATUS: Full code. Patient will be admitted to the hospital for minimum of 2 night stay. Impression and plan of care have been directed as dictated by the signing physician. Ana Isaacs nurse practitioner acting as scribe for signing physician.
--- NOTE | 2019-10-28 10:49 | P.PN ---
Subjective Progress Note Date: 10/28/19 CHIEF COMPLAINT: Multiple injury after trauma from a fall from tractor HISTORY OF PRESENT ILLNESS: Patient in the ICU and remains intubated. Patient is undergoing weaning trial today. Yesterday Propofol was discontinued due to elevated triglycerides patient was started on Precedex and patient was kept on fentanyl. Temp 100.5 yesterday. WBC 8.9 hemoglobin 9.1 PHYSICAL EXAM: VITAL SIGNS: Reviewed. GENERAL: Well-developed in no acute distress. HEENT: No sclera icterus. Extraocular movements grossly intact. Moist buccal mucosa. Head is atraumatic, normocephalic. ABDOMEN: Soft. Obese. Distended. Nontender. Neuro: Patient is intubated and sedated ASSESSMENT: 1. Status post Fall from tractor with multiple injuries 2. Proximal sigmoid hematoma and contusion. Repeat CT of the abdomen over the weekend which was a stable mesenteric hematoma 3. Multiple left-sided rib fractures with flail chest 4. Left closed distal clavicular fracture followed by orthopedics 5. Chronic alcohol use and evidence of alcohol withdrawal 6. Acute hypoxic respiratory failure likely secondary to alcohol withdrawal syndrome and delirium tremens, multiple rib fractures on the left chest and possible pulmonary contusion. Patient currently on mechanical ventilation 7. Possible pulmonary contusion PLAN: -Continue supportive care -Continue plan per critical care team -DVT prophylaxis subcu heparin GI prophylaxis Protonix Physician [employer]post[employer] Supervisor note has been reviewed by physician. Signing provider agrees with the documented findings, assessment, and plan of care. Objective - Vital Signs Vital signs: Vital Signs Temp 99.3 F 10/28/19 04:00 Pulse 113 H 10/28/19 09:00 Resp 23 10/28/19 09:00 BP 138/81 10/28/19 09:00 Pulse Ox 95 10/28/19 09:00 Intake & Output 10/27/19 10/28/19 10/28/19 18:59 06:59 18:59 Intake Total 2971.207 4396.481 239.292 Output Total 1480 1400 390 Balance 270.132 49.481 -150.708 Weight 122.3 kg Intake: IV 460 240 140 0.9 Normal Saline at KVO 260 140 40 20mL/hr Piperacillin-Tazobactam 3 200 100 100 .375 gm In Sodium Chloride 0.9% 100 ml @ 25 mls/hr IVPB Q8HR [facility] Rx# :[id number] Intake, IV Titration 785.132 844.481 74.292 Amount Dexmedetomidine/0.9% NaCl 100.000 265.884 (Pmx) 400 mcg In Empty Bag 1 bag @ Titrate IV . Q0M [facility] Rx#:[id number] fentaNYL (PF) 2,500 mcg 584.698 578.597 74.292 In Sodium Chloride 0.9% 200 ml @ Per Protocol IV .Q0M [facility] Rx#:[id number] propofoL 1,000 mg In 100.434 Empty Bag 1 bag @ Titrate IV .Q0M [facility] Rx#: [id number] Tube Feeding 325 275 25 Other 180 90 Output: Urine 1480 1400 390 Other: Voiding Method Indwelling Catheter Indwelling Catheter Indwelling Catheter ABP, PAP, CO, CI - Last Documented Arterial Blood Pressure 178/114 - Labs CBC & Chem 7: 10/28/19 04:20 10/28/19 04:20 Labs: Abnormal Lab Results - Last 24 Hours (Table) 10/27/19 10/27/19 10/27/19 Range/Units 12:15 18:24 23:42 RBC (4.30-5.90) m/uL Hgb (13.0-17.5) gm/dL Hct (39.0-53.0) % ABG pH (7.35-7.45) ABG HCO3 (21-25) mmol/L ABG Total CO2 (19-24) mmol/L Sodium (137-145) mmol/L Glucose (74-99) mg/dL POC Glucose (mg/dL) 112 H 119 H 114 H (75-99) mg/dL 10/28/19 10/28/19 10/28/19 Range/Units 04:20 04:20 05:05 RBC 3.14 L (4.30-5.90) m/uL Hgb 9.1 L (13.0-17.5) gm/dL Hct 28.7 L (39.0-53.0) % ABG pH 7.49 H (7.35-7.45) ABG HCO3 31 H (21-25) mmol/L ABG Total CO2 32 H (19-24) mmol/L Sodium 136 L (137-145) mmol/L Glucose 120 H (74-99) mg/dL POC Glucose (mg/dL) (75-99) mg/dL 10/28/19 Range/Units 06:13 RBC (4.30-5.90) m/uL Hgb (13.0-17.5) gm/dL Hct (39.0-53.0) % ABG pH (7.35-7.45) ABG HCO3 (21-25) mmol/L ABG Total CO2 (19-24) mmol/L Sodium (137-145) mmol/L Glucose (74-99) mg/dL POC Glucose (mg/dL) 130 H (75-99) mg/dL
[2019-10-28 10:54] LABS: ABG Base Excess 8.8 mmol/L; ABG HCO3 32 mmol/L (21-25); ABG Oxygen Saturation 94.9 % (94-97); ABG PCO2 43 mmHg (35-45); ABG PH 7.48 (7.35-7.45); ABG PO2 77 mmHg (83-108); ABG TCO2 34 mmol/L (19-24); Allen Test Performed? Yes
[2019-10-28 11:38] LABS: Glucose,Whole Blood 116 mg/dL (75-99)
--- NOTE | 2019-10-28 13:15 | P.PN ---
Subjective Progress Note Date: 10/28/19 On 10/28/2019, the patient is being seen for a follow-up. He states he much more calm and comfortable compared to yesterday. Currently is on Precedex which is running at 0.6 mg per KG per minute. He is also on fentanyl drip that was gradually weaned off and was discontinued. He is opening his eyes and is following some simple commands. Based on that, we took an opportunity to check weaning parameters on this patient it seems to be appropriate and following that the patient was given a spelled his breathing trial a pressure support of 5 and a PEEP of 5. Note that the earlier ventilator settings to from this morning include an assist-control mode at the rate of 16 and a tidal volume of 550 FiO2 50% and a PEEP of 8. The blood culture showed a pH of 7.49 with a pCO2 of 40 and pO2 of 84. I was able to drop the PEEP down to 5. Following the teens breathing trial, the patient was given a blood. This showed a pH of 7.48 with a pCO2 of 43 and pO2 of 77. The patient subsequently was extubated to BiPAP. Currently is on a BiPAP with pressures of 12/5 cm of water. The patient is doing well. He is weak. He has a weak cough. NG tube is also been removed. The patient showed no signs of any agitation. He is being diuresis with IV Lasix. He is not fluid balance for yesterday was 850 mL negative over the past 24 hours. His lower extremity edema is improving. Scrotal edema is improving. Chest x-ray from today shows stable findings with indwelling catheters being in place and overall chest x-ray findings are stable with small effusion the lung bases and atelectatic changes in lung bases bilaterally. The patient remains on IV Zosyn. The patient is afebrile. No other significant events otherwise of the past 24 hours. Objective - Vital Signs Vital signs: Vital Signs Temp 99.3 F 10/28/19 04:00 Pulse 92 10/28/19 11:31 Resp 32 H 10/28/19 11:00 BP 138/85 10/28/19 11:00 Pulse Ox 94 L 10/28/19 11:00 Intake & Output 10/27/19 10/28/19 10/28/19 18:59 06:59 18:59 Intake Total 1881.375 5575.481 294.292 Output Total 1480 1400 890 Balance 270.132 49.481 -595.708 Weight 122.3 kg Intake: IV 460 240 140 0.9 Normal Saline at KVO 260 140 40 20mL/hr Piperacillin-Tazobactam 3 200 100 100 .375 gm In Sodium Chloride 0.9% 100 ml @ 25 mls/hr IVPB Q8HR [facility] Rx# :[id number] Intake, IV Titration 785.132 844.481 74.292 Amount Dexmedetomidine/0.9% NaCl 100.000 265.884 (Pmx) 400 mcg In Empty Bag 1 bag @ Titrate IV . Q0M [facility] Rx#:[id number] fentaNYL (PF) 2,500 mcg 584.698 578.597 74.292 In Sodium Chloride 0.9% 200 ml @ Per Protocol IV .Q0M [facility] Rx#:[id number] propofoL 1,000 mg In 100.434 Empty Bag 1 bag @ Titrate IV .Q0M [facility] Rx#: [id number] Tube Feeding 325 275 50 Other 180 90 30 Output: Urine 1480 1400 890 Other: Voiding Method Indwelling Catheter Indwelling Catheter Indwelling Catheter ABP, PAP, CO, CI - Last Documented Arterial Blood Pressure 178/114 - Exam Gen. appearance, comfortable and the patient has been extubated to have BiPAP after having a spelled his breathing trial. Head exam was generally normal. There was no scleral icterus or corneal arcus. Mucous membranes were moist. Neck was supple and without jugular venous distension, thyromegaly, or carotid bruits. Carotids were easily palpable bilaterally. There was no adenopathy. The patient has an orogastric and orotracheal tube and both of them are in place. The patient is a left subclavian triple-lumen catheter in place. Lungs sounds are diminished bilaterally. No significant wheezes overall currently crackles. No chest wall deformity at this point in time. Cardiac exam revealed the PMI to be normally situated and sized. The rhythm was regular and no extrasystoles were noted during several minutes of auscultation. The first and second heart sounds were normal and physiologic splitting of the second heart sound was noted. There were no murmurs, rubs, clicks, or gallops. Abdominal exam revealed normal bowel sounds. The abdomen was soft, non-tender, and without masses, organomegaly, or appreciable enlargement of the abdominal aorta. Extremities revealed +1 edema and there is no cyanosis or clubbing. There is also scrotal edema. Neurologically, the patient seems lethargic, somnolent but awake and arousable. He is following some simple commands. There is global generalized weakness in all 4 extremities. Pupils are equal and reactive to light. No facial asymmetry. No agitation. Examination of the skin revealed no evidence of significant rashes, suspicious appearing nevi or other concerning lesions. - Labs CBC & Chem 7: 10/28/19 04:20 10/28/19 04:20 Labs: Abnormal Lab Results - Last 24 Hours (Table) 10/27/19 10/27/19 10/28/19 Range/Units 18:24 23:42 04:20 RBC 3.14 L (4.30-5.90) m/uL Hgb 9.1 L (13.0-17.5) gm/dL Hct 28.7 L (39.0-53.0) % ABG pH (7.35-7.45) ABG pO2 (83-108) mmHg ABG HCO3 (21-25) mmol/L ABG Total CO2 (19-24) mmol/L Sodium (137-145) mmol/L Glucose (74-99) mg/dL POC Glucose (mg/dL) 119 H 114 H (75-99) mg/dL 10/28/19 10/28/19 10/28/19 Range/Units 04:20 05:05 06:13 RBC (4.30-5.90) m/uL Hgb (13.0-17.5) gm/dL Hct (39.0-53.0) % ABG pH 7.49 H (7.35-7.45) ABG pO2 (83-108) mmHg ABG HCO3 31 H (21-25) mmol/L ABG Total CO2 32 H (19-24) mmol/L Sodium 136 L (137-145) mmol/L Glucose 120 H (74-99) mg/dL POC Glucose (mg/dL) 130 H (75-99) mg/dL 10/28/19 10/28/19 Range/Units 10:51 11:36 RBC (4.30-5.90) m/uL Hgb (13.0-17.5) gm/dL Hct (39.0-53.0) % ABG pH 7.48 H (7.35-7.45) ABG pO2 77 L (83-108) mmHg ABG HCO3 32 H (21-25) mmol/L ABG Total CO2 34 H (19-24) mmol/L Sodium (137-145) mmol/L Glucose (74-99) mg/dL POC Glucose (mg/dL) 116 H (75-99) mg/dL Assessment and Plan Plan: 1 Acute hypoxic respiratory failure, secondary to a combination of multi-rib fractures involving the left chest and possible pulmonary contusion addition to alcohol withdrawal/delirium tremens. The patient remains intubated on mechanical ventilator. CAT scan of the chest showed atelectatic changes and small bilateral pleural effusion. Possibility of pneumonia is felt to be less likely despite the fact that the patient has grown MSSA in his sputum and the patient is currently on IV Zosyn. The patient is also being subjected to IV L asix and he remains in a negative fluid balance. Tracheostomy tube insertion was declined by and the rest of family members. Based on all this, the patient was kept on a mechanical ventilator. Sedation was changed to Precedex which controlled this patient education. His adequate pain control. Was able to go down to a PEEP of 5 with an FiO2 of 50%. Following that, weaning parameters was checked and the patient was given a spelled his breathing trial and the patient was extubated to BiPAP. We are monitoring his progress for now. Precedex is being weaned off and the patient is off fentanyl for now. 2 altered mentation, possibly related delirium tremens although the patient remains quite encephalopathic after being hospitalized for at least 2 weeks and the patient possibly has a metabolic encephalopathy ongoing which is preventing us from weaning off sedation. The patient is doing much better on Precedex and the patient is following some simple commands. 3 Status post tractor accident/fall, with multiple left-sided rib fractures 4 Multiple left-sided rib fractures, but no significant pneumothorax. No significant hemopneumothorax. 5 Pulmonary contusion. Mostly affecting the left lung base 6 Proximal sigmoid hematoma but no perforation. 7 Benign essential hypertension. 8 Type 2 diabetes. 9 Chronic low back pain. 10 History of depression. 11 Blood loss anemia, acute, suspect left abdominal wall or abdominal hematoma, CT abdomen and pelvis is reassuring. Hemoglobin stable and the patient that repeat CAT scan of the abdomen that showed no interval worsening of the hematoma. Plan Continue with IV Lasix Continue IV Zosyn Continue BiPAP at a pressure of 12/5 cm of water as the patient has been extubated Keep the patient nothing by mouth for now We'll continue to follow and make further recommendations based on his progress. Long-term prognosis poor baseline above-mentioned comorbidities. We'll continue to follow. Examination was not a more than 30 minutes.
[2019-10-28 23:59] LABS: Glucose,Whole Blood 112 mg/dL (75-99)
[2019-10-29] MEDS: OFLOXACIN 0.3% OPHTH DROPS 5 ML BOTTLE BOTH EYES SCH ×5 (03:18→23:37)
[2019-10-29 05:18] LABS: Basophils % (A) 0 %; Eosinophils # (A) 0.1 k/uL (0-0.7); Eosinophils % (A) 2 %; HCT 29.2 % (39.0-53.0); HGB 9.2 gm/dL (13.0-17.5); Hypochromasia Slight; Lymphocytes # (A) 1.1 k/uL (1.0-4.8); Lymphocytes % (A) 12 %; MCH 28.9 pg (25.0-35.0); MCHC 31.6 g/dL (31.0-37.0); MCV 91.3 fL (80.0-100.0); Mean Platelet Volume 6.9; Monocytes # (A) 0.6 k/uL (0-1.0); Monocytes % (A) 6 %; Neutrophils # (A) 7.7 k/uL (1.3-7.7); Neutrophils % (A) 79 %; Platelet Count 441 k/uL (150-450); RBC 3.19 m/uL (4.30-5.90); RDW 14.6 % (11.5-15.5); WBC 9.7 k/uL (3.8-10.6)
[2019-10-29 05:26] LABS: African American GFR (CKD) >90 (>60 ml/min/1.73 sqM); Anion Gap 8 mmol/L; Blood Urea Nitrogen 19 mg/dL (9-20); Calcium 8.9 mg/dL (8.4-10.2); Carbon Dioxide 28 mmol/L (22-30); Chloride 101 mmol/L (98-107); Glucose 112 mg/dL (74-99); Non-African American GFR(CKD) >90 (>60 ml/min/1.73 sqM); Potassium 3.8 mmol/L (3.5-5.1); Sodium 137 mmol/L (137-145)
[2019-10-29] MEDS: INSULIN ASPART (NovoLOG) 100 UNIT/ML VIAL SQ SCH ×4 (06:28→17:59)
[2019-10-29 06:29] LABS: Glucose,Whole Blood 116 mg/dL (75-99)
[2019-10-29] MEDS: POTASSIUM CHLORIDE 10 MEQ in WATER FOR INJECTION 1 100ML.BAG IVPB SCH ×4 (06:33→19:43)
[2019-10-29] MEDS: THIAMINE 100 MG TAB PO SCH ×2 (07:04→15:28)
[2019-10-29] MEDS: IPRATROPIUM-ALBUTEROL 3 ML NEB INHALATION SCH ×4 (07:21→20:11)
--- NOTE | 2019-10-29 08:06 | XR ---
EXAMINATION TYPE: XR chest 1V portable DATE OF EXAM: 10/29/2019 Comparison: 10/28/2019 Clinical History: 49-year-old male Extubated to Bipap Findings: Interval extubation. Left CVC tip at the lower SVC. Heart remains mildly enlarged. Multiple left-side d rib fractures. Known distal left clavicle fracture not well-seen. Continued small left pleural retr ocardiac opacity. Interstitial density shows slight improvement. Impression: 1. Interval extubation. Known multiple left-sided rib fractures and distal left clavicle fracture. 2. There may be minimal residual pulmonary vascular congestion. 3. Continued small left effusion with adjacent atelectasis and/or consolidation.
[2019-10-29] MEDS: PIPERACILLIN-TAZOBACTAM 3.375 GM in SODIUM CHLORIDE 0.9% 100 ML IVPB SCH ×5 (09:29→23:21)
[2019-10-29] MEDS: bisacodyL 10 MG SUPP RECTAL SCH (09:30)
[2019-10-29] MEDS: FUROSEMIDE 10 MG/ML 4 ML VIAL IV SCH ×2 (09:31→20:14)
[2019-10-29] MEDS: HEPARIN SODIUM,PORCINE 5,000 UNIT/ML 1 ML VIAL SQ SCH ×2 (09:31→20:14)
[2019-10-29] MEDS: DULoxetine HCL 60 MG CAPSULE.DR PO SCH (09:32)
[2019-10-29] MEDS: PANTOPRAZOLE 40 MG/10 ML VIAL IVP SCH (09:32)
[2019-10-29] MEDS: cloNIDine 0.3 MG/24HR PATCH TRANSDERM SCH (09:46)
[2019-10-29] MEDS: QUEtiapine 50 MG TAB PO SCH ×2 (10:02→22:23)
[2019-10-29] MEDS: METOPROLOL TARTRATE 5 MG/5 ML VIAL IVP SCH ×3 (11:41→23:21)
--- NOTE | 2019-10-29 11:50 | P.PN ---
Subjective Progress Note Date: 10/29/19 On 10/28/2019, the patient is being seen for a follow-up. He states he much more calm and comfortable compared to yesterday. Currently is on Precedex which is running at 0.6 mg per KG per minute. He is also on fentanyl drip that was gradually weaned off and was discontinued. He is opening his eyes and is following some simple commands. Based on that, we took an opportunity to check weaning parameters on this patient it seems to be appropriate and following that the patient was given a spelled his breathing trial a pressure support of 5 and a PEEP of 5. Note that the earlier ventilator settings to from this morning include an assist-control mode at the rate of 16 and a tidal volume of 550 FiO2 50% and a PEEP of 8. The blood culture showed a pH of 7.49 with a pCO2 of 40 and pO2 of 84. I was able to drop the PEEP down to 5. Following the 1 teens breathing trial, the patient was given a blood. This showed a pH of 7.48 with a pCO2 of 43 and pO2 of 77. The patient subsequently was extubated to BiPAP. Currently is on a BiPAP with pressures of 12/5 cm of water. The patient is doing well. He is weak. He has a weak cough. NG tube is also been removed. The patient showed no signs of any agitation. He is being diuresis with IV Lasix. He is not fluid balance for yesterday was 850 mL negative over the past 24 hours. His lower extremity edema is improving. Scrotal edema is improving. Chest x-ray from today shows stable findings with indwelling catheters being in place and overall chest x-ray findings are stable with small effusion the lung bases and atelectatic changes in lung bases bilaterally. The patient remains on IV Zosyn. The patient is afebrile. No other significant events otherwise of the past 24 hours. 10/29/2019, the patient remains extubated. Noted post extubation, the patient was placed on BiPAP and he was on BiPAP throughout the day yesterday and overnight. Currently he was taken off the BiPAP and he is currently on 6 L of oxygen by nasal cannula with a pulse is 71-92%. He is off the Precedex also. Is responding and following some simple commands. Mucous members are quite dry. The patient is diuresing and hence he is still on Lasix at a dose of 40 mg every 12 hours. The neck fluid balance is -3 L over the past 24 hours. Upper extremity edema, lower extremity edema, scrotal edema rule improving. His chest x-ray also shows some interval improvement in bilateral pulmonary infiltrates. There is still some atelectatic changes and effusion the lung bases bilaterally worse on the left. The white cell count is at 9.7 with a hemoglobin of 9.2. The patient's serum bicarb is 28 with a sodium level of 137. The BUN is at 19 with a creatinine of 0.4. He is afebrile. He has emesis in the sputum and the patient remains on IV Zosyn. He is receiving Lasix 40 minutes every 12 hours. Hemodynamically stable. Cardiac rhythm is sinus. Slow on answering questions. Has significant amount of global weakness. Objective - Vital Signs Vital signs: Vital Signs Temp 99.0 F 10/29/19 04:00 Pulse 106 H 10/29/19 11:42 Resp 21 10/29/19 07:00 BP 148/86 10/29/19 07:00 Pulse Ox 97 10/29/19 07:00 Intake & Output 10/28/19 10/29/19 10/29/19 18:59 06:59 18:59 Intake Total 454.292 340 20 Output Total 1735 2275 75 Balance -1280.708 -1935 -55 Weight 122.3 kg 118.5 kg Intake: IV 300 340 20 0.9 Normal Saline at KVO 200 240 20 20mL/hr Piperacillin-Tazobactam 3 100 100 .375 gm In Sodium Chloride 0.9% 100 ml @ 25 mls/hr IVPB Q8HR [facility] Rx# :[id number] Intake, IV Titration 74.292 Amount fentaNYL (PF) 2,500 mcg 74.292 In Sodium Chloride 0.9% 200 ml @ Per Protocol IV .Q0M [facility] Rx#:[id number] Tube Feeding 50 Other 30 Output: Urine 1735 2275 75 Other: Voiding Method Indwelling Catheter Indwelling Catheter ABP, PAP, CO, CI - Last Documented Arterial Blood Pressure 178/114 - Exam Gen. appearance, comfortable and the patient has been extubated to BiPAP and currently is on 6 L of oxygen by nasal cannula. He is not using incentive muscle breathing is breathing comfortably in bed. Head exam was generally normal. There was no scleral icterus or corneal arcus. Mucous membranes were moist. Neck was supple and without jugular venous distension, thyromegaly, or carotid bruits. Carotids were easily palpable bilaterally. There was no adenopathy. The patient has an orogastric and orotracheal tube and both of them are in place. The patient is a left subclavian triple-lumen catheter in place. Lungs sounds are diminished bilaterally. No significant wheezes overall currently crackles. No chest wall deformity at this point in time. Cardiac exam revealed the PMI to be normally situated and sized. The rhythm was regular and no extrasystoles were noted during several minutes of auscultation. The first and second heart sounds were normal and physiologic splitting of the second heart sound was noted. There were no murmurs, rubs, clicks, or gallops. Abdominal exam revealed normal bowel sounds. The abdomen was soft, non-tender, and without masses, organomegaly, or appreciable enlargement of the abdominal aorta. Extremities revealed +1 edema and there is no cyanosis or clubbing. There is also scrotal edema. Neurologically, the patient seems lethargic, somnolent but awake and arousable. He is following some simple commands. There is global generalized weakness in all 4 extremities. Pupils are equal and reactive to light. No facial asymmetry. No agitation. Examination of the skin revealed no evidence of significant rashes, suspicious appearing nevi or other concerning lesions. - Labs CBC & Chem 7: 10/29/19 05:00 10/29/19 05:00 Labs: Abnormal Lab Results - Last 24 Hours (Table) 10/28/19 10/29/19 10/29/19 Range/Units 23:57 05:00 05:00 RBC 3.19 L (4.30-5.90) m/uL Hgb 9.2 L (13.0-17.5) gm/dL Hct 29.2 L (39.0-53.0) % Creatinine 0.54 L (0.66-1.25) mg/dL Glucose 112 H (74-99) mg/dL POC Glucose (mg/dL) 112 H (75-99) mg/dL 10/29/19 Range/Units 06:27 RBC (4.30-5.90) m/uL Hgb (13.0-17.5) gm/dL Hct (39.0-53.0) % Creatinine (0.66-1.25) mg/dL Glucose (74-99) mg/dL POC Glucose (mg/dL) 116 H (75-99) mg/dL Assessment and Plan Plan: 1 Acute hypoxic respiratory failure, secondary to a combination of multi-rib fractures involving the left chest and possible pulmonary contusion addition to alcohol withdrawal/delirium tremens. The patient has MSSA in his sputum and he was treated with IV Zosyn. The patient also supported with mechanical ventilation for almost 2 weeks and he was extubated to BiPAP and currently is on 6 L of oxygen by nasal cannula. His CAT scan of the chest showed atelectatic changes small effusion the lung bases more so on the left. He is tolerating oxygen 6 L for now. 2 altered mentation, possibly related delirium tremens although the patient remains quite encephalopathic after being hospitalized for at least 2 weeks and the patient possibly has a metabolic encephalopathy ongoing which is preventing us from weaning off sedation. The patient was subsequently switched to Precedex and currently is off Precedex in his mentation is gradually improving as the patient is following some simple commands. He is still drowsy and sleepy yet obviously more responsive and appropriate. 3 Status post tractor accident/fall, with multiple left-sided rib fractures 4 Multiple left-sided rib fractures, but no significant pneumothorax. No significant hemopneumothorax. 5 Pulmonary contusion. Mostly affecting the left lung base 6 Proximal sigmoid hematoma but no perforation. 7 Benign essential hypertension. 8 Type 2 diabetes. 9 Chronic low back pain. 10 History of depression. 11 Blood loss anemia, acute, suspect left abdominal wall or abdominal hematoma, CT abdomen and pelvis is reassuring. Hemoglobin stable and the patient that repeat CAT scan of the abdomen that showed no interval worsening of the hematoma. Plan Continue with IV Lasix Continue IV Zosyn Continue BiPAP at a pressure of 12/5 cm of water overnight and use 6 L of oxygen during the day with the intention of cutting down the FiO2 to maintain a satur ation above 90% Keep the patient nothing by mouth for now and the patient may to swallow evaluation with the next 24 hours Involve physical therapy Monitor electrolytes Repeat chest x-ray in the morning We'll continue to follow and make further recommendations based on his progress. Long-term prognosis poor baseline above-mentioned comorbidities. We'll continue to follow.
[2019-10-29 11:58] LABS: Glucose,Whole Blood 120 mg/dL (75-99)
--- NOTE | 2019-10-29 13:08 | P.PN ---
Subjective Progress Note Date: 10/29/19 CHIEF COMPLAINT: Status post fall from tractor HISTORY OF PRESENT ILLNESS: The patient is a 49-year-old male status post fall from tractor. He has history of alcoholism. Additionally, patient came in with traumatic left rib fractures. He is in the ICU. Family at bedside. He is barely verbal. Awakes eyes to stimulation. ROS: No reports of nausea and vomiting. Temp 99.0. PHYSICAL EXAM: VITAL SIGNS: Reviewed CONSTITUTIONAL: Well developed and in no acute distress. EYES: Conjuctivae without sclera icterus. Extraocular movements grossly intact. HEAD, EARS, NOSE, THROAT: Moist buccal mucosa. Head is atraumatic, normocephalic. No nasal drainage. NECK: Supple. No thyroidomegaly. RESPIRATORY: Non-labored respirations and equal bilateral excursions. CARDIOVASCULAR: Palpable 2+ radial pulses. Tachycardic. ABDOMEN: Soft, no peritonitis, protuberant. : Colindres present MUSCULOSKELETAL: No clubbing. No cyanosis. SKIN: Good skin turgor. Well perfused. NEUROLOGIC: Cranial nerves II through XII grossly intact. No focal or lateralizing signs. PSYCH: Minimally verbal. CLINICAL LABS: White blood cell count normal, 9.7. Hgb stable 9.1 to 9.2. ASSESSMENT: 1. S/p fall off tractor 2. Left rib fractures 3. Alcohol withdrawal PLAN: 1. Continue conservative management 2. Continue ICU care Objective - Vital Signs Vital signs: Vital Signs Temp 98.4 F 10/29/19 12:00 Pulse 101 H 10/29/19 12:00 Resp 24 10/29/19 12:00 BP 161/91 10/29/19 12:00 Pulse Ox 94 L 10/29/19 12:00 Intake & Output 10/28/19 10/29/19 10/29/19 18:59 06:59 18:59 Intake Total 454.292 340 140 Output Total 1737 7309 3265 Balance -1280.445 -9576 -8126 Weight 122.3 kg 118.5 kg Intake: IV 300 340 140 0.9 Normal Saline at KVO 200 240 40 20mL/hr Piperacillin-Tazobactam 3 100 100 100 .375 gm In Sodium Chloride 0.9% 100 ml @ 25 mls/hr IVPB Q8HR [facility] Rx# :[id number] Intake, IV Titration 74.292 Amount fentaNYL (PF) 2,500 mcg 74.292 In Sodium Chloride 0.9% 200 ml @ Per Protocol IV .Q0M [facility] Rx#:[id number] Tube Feeding 50 Other 30 Output: Urine 1735 2275 1635 Other: Voiding Method Indwelling Catheter Indwelling Catheter ABP, PAP, CO, CI - Last Documented Arterial Blood Pressure 178/114 - Labs CBC & Chem 7: 10/29/19 05:00 10/29/19 17:06 Labs: Abnormal Lab Results - Last 24 Hours (Table) 10/28/19 10/29/19 10/29/19 Range/Units 23:57 05:00 05:00 RBC 3.19 L (4.30-5.90) m/uL Hgb 9.2 L (13.0-17.5) gm/dL Hct 29.2 L (39.0-53.0) % Creatinine 0.54 L (0.66-1.25) mg/dL Glucose 112 H (74-99) mg/dL POC Glucose (mg/dL) 112 H (75-99) mg/dL 10/29/19 10/29/19 Range/Units 06:27 11:57 RBC (4.30-5.90) m/uL Hgb (13.0-17.5) gm/dL Hct (39.0-53.0) % Creatinine (0.66-1.25) mg/dL Glucose (74-99) mg/dL POC Glucose (mg/dL) 116 H 120 H (75-99) mg/dL Assessment and Plan (1) Fall from stationary vehicle Current Visit: Yes Status: Acute Code(s): W17.89XA - OTHER FALL FROM ONE LEVEL TO ANOTHER, INITIAL ENCOUNTER SNOMED Code(s): 992129083 (2) Left rib fracture Current Visit: Yes Status: Acute Code(s): S22.32XA - FRACTURE OF ONE RIB, LEFT SIDE, INIT FOR CLOS FX SNOMED Code(s): 94427386 (3) Alcoholism Current Visit: Yes Status: Acute Code(s): F10.20 - ALCOHOL DEPENDENCE, UNCOMPLICATED SNOMED Code(s): 8981290 (4) Morbid obesity due to excess calories Current Visit: Yes Status: Acute Code(s): E66.01 - MORBID (SEVERE) OBESITY DUE TO EXCESS CALORIES SNOMED Code(s): 231499163
[2019-10-29] MEDS: hydrALAZINE HCL 20 MG/ML 1 ML VIAL IVP PRN (15:24)
--- NOTE | 2019-10-29 15:42 | P.PN ---
Subjective Progress Note Date: 10/29/19 Post tractor accident, flail chest, severe dyspnea and shortness of breath, acute respiratory failure mechanical ventilation, alcohol intoxication, syncope, delirium tremor, hyperglycemia and lower back pain. 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 Patient ended up seen in trauma at [facility] multiple exiting CAT scan was per for CT of the chest showed left sided hydropneumothorax with multiple displace rib fracture anterolateral drip 2-7 and posterior 5-11 with a flail chest, abdominal pelvic CT showed ball injury with small bowel and proximal sigmoid involvement with mild hematoma with no perforation or free air. Pelvic showed no fracture head and neck showed no C-spine fracture and the major abnormality and CAT scan of the brain. Left upper extremity did not show any fracture patient had his arm in sling of the time. Was seen and evaluated before leaving the emergency department patient was in quite bed discomfort and was in mild respiratory distress having significant tachypnea and tachycardia with significant hypoxia the time require higher flow 2. No chest tube placement at the time. No bowel movement at this point and urine output has been good. Elevated white blood cell 13.8 with mild anemia hemoglobin down to 8.5. Kidney function still holding well patient blood sugar is much better, chest x-ray showed continue CHF with pulmonary vascular congestion and small pleural effusion with his multiple left-sided rib fracture and flail chest. 10/24: Patient seen this morning remains intubated on the vent, FiO2 50%. Patient is on propofol drip and Dilaudid when necessary able to open eyes to voice. Patient has failed at weaning attempts, Dr. Lee has a meeting with family this morning at 9 AM to discuss possible trach and peg. Labs were reviewed, hemoglobin 8.5. Adequate urine output is noted, per nursing patient has not had a bowel movement in about 3-4 days. Vital signs are stable, patient is afebrile, pulse rate 80, blood pressure 119/69, pulse ox 93%. Sputum culture finalized positive for Staphylococcus aureus, susceptible to Zosyn. Chest x-ray was stable compared to previous exam. 10/25: Per nursing yesterday family had meeting and patient never wish to be resuscitated and do not want to plan for trach and PEG at this point. Dr. Lee in and seen patient will attempt to wean and see how it's tolerated. Patient does open eyes and shake head yes and no for commands. Chest x-ray today shows left lower lobe infiltrate correlate for atelectasis and pneumonia, small left pleural effusion may be present hemothorax could be considered. Patient had low-grade temp 99.8 this morning pulse 102, respirations 25, blood pressure 125/76, satting 90% on 70% FiO2. 10/26: Patient failed weaning trial again this morning with Dr. Lee, per nursing patient gets too anxious and restless. Hemoglobin 8.8 this morning, white blood cells 7.5, sodium 134. Chest x-ray showed CHF with pulmonary vascular congestion, continued small to moderate left effusion. CT of the ab domen and pelvis yesterday showed stable mesenteric hematoma on the left lower quadrant, moderate basilar atelectasis and pleural effusion left greater than the right with multiple left-sided rib fractures all unchanged. CT of the brain showed age related atrophic and chronic small vessel ischemic change with no acute intracranial process. We'll continue to monitor patient closely along with pulmonary and continue the weaning process. 10/27: Patient continues to be sedated on the vent. Will do sedation holiday along with weaning trial again with Dr. Lee, FiO2 down to 50%. Patient cur rently on Precedex and fentanyl for sedation. Patient did open eyes and follows some simple commands this morning. Hemoglobin 9.1 this morning, white blood cells 8.9, sodium 136. Chest x-ray today showed chronic changes without evidence for acute pulmonary process. We'll continue to follow along with critical care. Family declined trach and PEG at this time. patient was extubated yesterday remained on BiPAP overnight. Currently on 6 L high flow. Patient is currently off Precedex. He does open eyes on command but otherwise is minimal responsive. Mucous membranes are dry. Patient is saturating well at 6 L of high flow. Blood pressure maintained at 155/92. Tachypnea can tachycardic. Continues to be Lasix 40 IV twice a day and is diuresing well around 300-500 mg oral per hour. Sodium is normal at 137 chloride 101 creatinine 0.54 concern for ATN or diabetes insipideus stop CT head is negative for any acute abnormality on 10/25. Chest x-ray on 10/28 and suggests minimal pulmonary vascular congestion and continued small left effusion with an adjacent atelectasis. Continues on Zosyn for aspiration pneumonia. If no improvement in mental status would consider EEG and repeat CAT scan of the head. Review of systems Unable to obtain due to altered mental status Objective - Vital Signs Vital signs: Vital Signs Temp 99.0 F 10/29/19 04:00 Pulse 98 10/29/19 11:52 Resp 21 10/29/19 07:00 BP 148/86 10/29/19 07:00 Pulse Ox 97 10/29/19 07:00 Intake & Output 10/28/19 10/29/19 10/29/19 18:59 06:59 18:59 Intake Total 454.292 340 20 Output Total 1735 2275 75 Balance -1280.708 -1935 -55 Weight 122.3 kg 118.5 kg Intake: IV 300 340 20 0.9 Normal Saline at KVO 200 240 20 20mL/hr Piperacillin-Tazobactam 3 100 100 .375 gm In Sodium Chloride 0.9% 100 ml @ 25 mls/hr IVPB Q8HR [facility] Rx# :[id number] Intake, IV Titration 74.292 Amount fentaNYL (PF) 2,500 mcg 74.292 In Sodium Chloride 0.9% 200 ml @ Per Protocol IV .Q0M [facility] Rx#:[id number] Tube Feeding 50 Other 30 Output: Urine 1735 2275 75 Other: Voiding Method Indwelling Catheter Indwelling Catheter ABP, PAP, CO, CI - Last Documented Arterial Blood Pressure 178/114 - Exam General Appearance: Drowsy, appears to be comfortable and in no acute distress. ET tube removed Neck HEENT: Supple, no lymphadenopathy, no thyroid enlargement, no carotid bruits. Lungs: Decreased breath sounds bilaterally with scattered rhonchi Chest Wall: mild bruise of chest wall area. Heart: Regular rate and rhythm, S1-S2. No murmur, click or rub. Abdomen: Distention with significant ecchymosis and hematoma to the lower chest lateral abdominal and flank area. Extremities: Moderate +1 edema in the lower extremity. Wound to the left forearm approximately 12 inches long, dressing in place. Pulses: 2+ and symmetric. Skin: Skin color, texture, tugor normal, no rashes or lesions. Neurologic: Extubated Open eyes on command. Able to move all extremities. B ecause toes on command - Labs CBC & Chem 7: 10/29/19 05:00 10/29/19 05:00 Labs: Abnormal Lab Results - Last 24 Hours (Table) 10/28/19 10/29/19 10/29/19 Range/Units 23:57 05:00 05:00 RBC 3.19 L (4.30-5.90) m/uL Hgb 9.2 L (13.0-17.5) gm/dL Hct 29.2 L (39.0-53.0) % Creatinine 0.54 L (0.66-1.25) mg/dL Glucose 112 H (74-99) mg/dL POC Glucose (mg/dL) 112 H (75-99) mg/dL 10/29/19 Range/Units 06:27 RBC (4.30-5.90) m/uL Hgb (13.0-17.5) gm/dL Hct (39.0-53.0) % Creatinine (0.66-1.25) mg/dL Glucose (74-99) mg/dL POC Glucose (mg/dL) 116 H (75-99) mg/dL Assessment and Plan Plan: 1 acute hypoxic respiratory failure secondary to multiple rib fracture involving left chest with possible pulmonary contusion and aspiration pneumonia post tractor accident with multiple injury and trauma: Patient in ICU continued see trauma surgery along with ICU service. Continue to monitor in the intensive care unit. Off Precedex and fentanyl drip continue BiPAP overnight and 6 L during the day swallow evaluation next 24 hours 2 Flail chest with multiple rib fracture: Continue current management for now patient is on mechanical ventilation. Currently extubated no plan for trach and PEG at this time per family. 3 acute metabolic toxic encephalopathic. Patient has been in the ICU for a few weeks and has been on sedation. Currently off sedation but minimal response to command. CAT scan on 10/25 was negative for any acute abnormality EEG ordered. Patient is minimally responsive to command 4 severe abdominal pain with bowel injury along with proximal sigmoid injury with left lower quadrant mesenteric hematomas. Continue conservative treatment, monitor hemoglobin. 5 alcohol intoxication. Liver function tests also reflect chronic alcohol use. Patient adamantly denies any alcohol intake for the past 3 years. 6 question of syncope, alcohol-related. No bradycardia or any other cardiovascular abnormality. 7 active delirium tremens. Patient has required intubation mechanical ventilation. Continue CIWA protocol. He seems to be doing well. 8 acute blood loss anemia: Most likely from his abdominal trauma and mesenteric hematoma. CAT scan stable mesenteric hematoma 5 cm hemoglobin is stable does not require any blood transfusion. 9 hypertensive emergency. Continue amlodipine 10 mg daily, hydralazine 25 mg 3 times daily, Lopressor 50 mg twice daily. 10 hypertension. Continue as above. 11 hyperglycemia: Type 2 diabetes. NovoLog scale. 12 chronic lower back pain. Has Dilaudid when necessary 13 recurrent depression. Continue Cymbalta. Seroquel was added. 14 GI prophylaxis: Patient be on pantoprazole IV. 15 DVT prophylaxis. Heparin subcut 16 Clavicular fracture. Consult with orthopedic appreciated. CODE STATUS: Full code.
[2019-10-29] MEDS ORDERED: Potassium Replacement Protocol 1 EACH MISC MISCELLANE PRN (17:55)
[2019-10-29 18:09] LABS: Glucose,Whole Blood 128 mg/dL (75-99)
[2019-10-29 19:39] LABS: LD Isoenzymes 1 25 % (19-38); LD Isoenzymes 2 32 % (30-43); LD Isoenzymes 3 21 % (16-26); LD Isoenzymes 4 9 % (3-12); LD Isoenzymes 5 13 % (3-14); Lactacte Dehydrogenase(LD) ISO 187 U/L (120-250)
[2019-10-29] MEDS: THIAMINE 100 MG/ML 2 ML VIAL IVP SCH (20:14)
[2019-10-29 23:38] LABS: Glucose,Whole Blood 117 mg/dL (75-99)
[2019-10-30] MEDS: hydrALAZINE HCL 20 MG/ML 1 ML VIAL IVP PRN (04:07)
[2019-10-30 05:45] LABS: Glucose,Whole Blood 121 mg/dL (75-99)
[2019-10-30] MEDS: METOPROLOL TARTRATE 5 MG/5 ML VIAL IVP SCH ×4 (05:45→23:14)
[2019-10-30] MEDS: OFLOXACIN 0.3% OPHTH DROPS 5 ML BOTTLE BOTH EYES SCH ×4 (05:45→23:14)
[2019-10-30 05:55] LABS: Basophils # (A) 0.1 k/uL (0-0.2); Basophils % (A) 1 %; Eosinophils # (A) 0.1 k/uL (0-0.7); Eosinophils % (A) 1 %; HCT 31.7 % (39.0-53.0); Hypochromasia Slight; Lymphocytes # (A) 1.2 k/uL (1.0-4.8); Lymphocytes % (A) 12 %; MCH 28.6 pg (25.0-35.0); MCHC 31.4 g/dL (31.0-37.0); MCV 91.2 fL (80.0-100.0); Monocytes # (A) 0.6 k/uL (0-1.0); Monocytes % (A) 6 %; Neutrophils # (A) 7.9 k/uL (1.3-7.7); Neutrophils % (A) 80 %; Platelet Count 450 k/uL (150-450); RBC 3.48 m/uL (4.30-5.90); RDW 14.7 % (11.5-15.5); WBC 9.9 k/uL (3.8-10.6)
[2019-10-30 06:02] LABS: African American GFR (CKD) >90 (>60 ml/min/1.73 sqM); Anion Gap 9 mmol/L; Blood Urea Nitrogen 21 mg/dL (9-20); Calcium 9.1 mg/dL (8.4-10.2); Carbon Dioxide 27 mmol/L (22-30); Chloride 104 mmol/L (98-107); Glucose 119 mg/dL (74-99); Non-African American GFR(CKD) >90 (>60 ml/min/1.73 sqM); Potassium 3.7 mmol/L (3.5-5.1); Sodium 140 mmol/L (137-145)
[2019-10-30] MEDS ORDERED: ONDANSETRON 4 MG/2 ML VIAL IVP PRN (06:28)
--- NOTE | 2019-10-30 06:52 | XR ---
EXAMINATION TYPE: XR abdomen 1V DATE OF EXAM: 10/30/2019 COMPARISON: 10/15/2013 HISTORY: Vomiting TECHNIQUE: 2 views FINDINGS: There is a dilated gas-filled loop of small bowel in the left mid abdomen. There is contras t material in the transverse colon and right colon that has normal size. There is no evidence of free air. There is contrast in the descending colon and rectosigmoid colon. There is nasogastric tube with the tip probably in the gastric antrum. IMPRESSION: Dilated loop of small bowel could relate to mechanical small bowel obstruction. No free a ir.
[2019-10-30] MEDS: INSULIN ASPART (NovoLOG) 100 UNIT/ML VIAL SQ SCH ×4 (07:16→17:52)
[2019-10-30] MEDS: POTASSIUM CHLORIDE 10 MEQ in WATER FOR INJECTION 1 100ML.BAG IVPB SCH ×2 (07:22→09:33)
[2019-10-30] MEDS: PIPERACILLIN-TAZOBACTAM 3.375 GM in SODIUM CHLORIDE 0.9% 100 ML IVPB SCH ×2 (07:23→16:46)
--- NOTE | 2019-10-30 08:14 | XR ---
EXAMINATION TYPE: XR chest 1V portable DATE OF EXAM: 10/30/2019 COMPARISON: 10/29/2019 INDICATION: Extubated to BiPAP TECHNIQUE: Single frontal view of the chest is obtained. FINDINGS: The heart size is mildly prominent, stable. The pulmonary vasculature is normal. Left lower lobe infiltrate is present. There is silhouetting the left diaphragm. There is a nasogastric tube present with the tip within the abdomen. Left central venous catheter is present with the tip in the superior vena cava region. IMPRESSION: 1. Left basilar infiltrate. Correlate for atelectasis and pneumonia. This is stable. 2. Lines and catheters discussed above
[2019-10-30] MEDS: IPRATROPIUM-ALBUTEROL 3 ML NEB INHALATION SCH ×4 (08:17→19:42)
[2019-10-30] MEDS ORDERED: NA PHOS,M-B/NA PHOS,DI-BA 133 ML ENEMA RECTAL STA (08:51)
[2019-10-30] MEDS: QUEtiapine 50 MG TAB PO SCH ×2 (09:30→21:00)
[2019-10-30] MEDS: DULoxetine HCL 60 MG CAPSULE.DR PO SCH (09:30)
[2019-10-30] MEDS: PANTOPRAZOLE 40 MG/10 ML VIAL IVP SCH (09:34)
[2019-10-30] MEDS: HEPARIN SODIUM,PORCINE 5,000 UNIT/ML 1 ML VIAL SQ SCH ×2 (09:34→20:35)
[2019-10-30] MEDS: THIAMINE 100 MG/ML 2 ML VIAL IVP SCH ×2 (09:34→20:35)
[2019-10-30] MEDS: bisacodyL 10 MG SUPP RECTAL SCH (10:48)
--- NOTE | 2019-10-30 11:21 | P.PN ---
Subjective Progress Note Date: 10/30/19 On 10/28/2019, the patient is being seen for a follow-up. He states he much more calm and comfortable compared to yesterday. Currently is on Precedex which is running at 0.6 mg per KG per minute. He is also on fentanyl drip that was gradually weaned off and was discontinued. He is opening his eyes and is following some simple commands. Based on that, we took an opportunity to check weaning parameters on this patient it seems to be appropriate and following that the patient was given a spelled his breathing trial a pressure support of 5 and a PEEP of 5. Note that the earlier ventilator settings to from this morning include an assist-control mode at the rate of 16 and a tidal volume of 550 FiO2 50% and a PEEP of 8. The blood culture showed a pH of 7.49 with a pCO2 of 40 and pO2 of 84. I was able to drop the PEEP down to 5. Following the 1 teens breathing trial, the patient was given a blood. This showed a pH of 7.48 with a pCO2 of 43 and pO2 of 77. The patient subsequently was extubated to BiPAP. Currently is on a BiPAP with pressures of 12/5 cm of water. The patient is doing well. He is weak. He has a weak cough. NG tube is also been removed. The patient showed no signs of any agitation. He is being diuresis with IV Lasix. He is not fluid balance for yesterday was 850 mL negative over the past 24 hours. His lower extremity edema is improving. Scrotal edema is improving. Chest x-ray from today shows stable findings with indwelling catheters being in place and overall chest x-ray findings are stable with small effusion the lung bases and atelectatic changes in lung bases bilaterally. The patient remains on IV Zosyn. The patient is afebrile. No other significant events otherwise of the past 24 hours. 10/29/2019, the patient remains extubated. Noted post extubation, the patient was placed on BiPAP and he was on BiPAP throughout the day yesterday and overnight. Currently he was taken off the BiPAP and he is currently on 6 L of oxygen by nasal cannula with a pulse is 71-92%. He is off the Precedex also. Is responding and following some simple commands. Mucous members are quite dry. The patient is diuresing and hence he is still on Lasix at a dose of 40 mg every 12 hours. The neck fluid balance is -3 L over the past 24 hours. Upper extremity edema, lower extremity edema, scrotal edema rule improving. His chest x-ray also shows some interval improvement in bilateral pulmonary infiltrates. There is still some atelectatic changes and effusion the lung bases bilaterally worse on the left. The white cell count is at 9.7 with a hemoglobin of 9.2. The patient's serum bicarb is 28 with a sodium level of 137. The BUN is at 19 with a creatinine of 0.4. He is afebrile. He has emesis in the sputum and the patient remains on IV Zosyn. He is receiving Lasix 40 minutes every 12 hours. Hemodynamically stable. Cardiac rhythm is sinus. Slow on answering questions. Has significant amount of global weakness. 10/30/2019, the patient is being seen for a follow-up. He was extubated and he remains extubated for now. He was being given BiPAP throughout the night yesterday and the patient was noted to have some fecal material in the BiPAP mask and for that reason I recommended to discontinue the BiPAP immediately and put the patient on nasal cannula which is currently it's 6 L. NG tube was inserted and immediately around 200 mL of fecal material was aspirated from his stomach. The patient is much more comfortable at this point in time. Abdomen is slightly distended. A flat film of the abdomen was done and it showed dila becca loop of small bowel which could be related to mechanical small bowel obstruction. No free air. There is constant in the descending colon and rectosigmoid colon and this is probably related to the previous CAT scan of the abdomen that the patient received 2 days back. He is awake. He opens eyes spontaneously. Not following any commands at this point in time. His fluid balance has been negative around 4.4 L and there is considerable improvement in the fluid balance and third spacing and edema in the upper and lower extremities. The chest x-ray from today showed left basilar infiltrate and there is improvement in the volume status. The pulmonary asked essentially within normal limits. Noted the patient is currently on no sedation. He is off Precedex for now. He remains on IV Zosyn. Objective - Vital Signs Vital signs: Vital Signs Temp 99.3 F 10/30/19 08:00 Pulse 104 H 10/30/19 10:00 Resp 37 H 08/30/20 10:00 BP 155/97 10/30/19 10:00 Pulse Ox 96 10/30/19 10:00 Intake & Output 10/29/19 10/30/19 10/30/19 18:59 06:59 18:59 Intake Total 400 440 480 Output Total 3210 2075 615 Balance -2810 -1635 -135 Weight 115.7 kg Intake: IV 400 340 480 0.9 Normal Saline at KVO 100 240 80 20mL/hr Piperacillin-Tazobactam 3 200 100 .375 gm In Sodium Chloride 0.9% 100 ml @ 25 mls/hr IVPB Q8HR [facility] Rx# :[id number] Potassium Chloride 10 meq 100 100 100 In Water For Injection 1 100ml.bag @ 100 mls/hr IVPB Q1H [facility] Rx#: [id number] Potassium Chloride 10 meq 200 In Water For Injection 1 100ml.bag @ 100 mls/hr IVPB Q1H [facility] Rx#: [id number] Intake, IV Titration 100 Amount Piperacillin-Tazobactam 3 100 .375 gm In Sodium Chloride 0.9% 100 ml @ 25 mls/hr IVPB Q8HR [facility] Rx# :[id number] Output: Gastric Drainage 300 Urine 3210 2075 315 Other: Voiding Method Indwelling Catheter Indwelling Catheter Indwelling Catheter ABP, PAP, CO, CI - Last Documented Arterial Blood Pressure 178/114 - Exam Gen. appearance, comfortable and the patient has been extubated to BiPAP and currently is on 6 L of oxygen by nasal cannula. He is not using incentive muscle breathing is breathing comfortably in bed. Head exam was generally normal. There was no scleral icterus or corneal arcus. Mucous membranes were moist. Neck was supple and without jugular venous distension, thyromegaly, or carotid bruits. Carotids were easily palpable bilaterally. There was no adenopathy. The patient has an orogastric and orotracheal tube and both of them are in place. The patient is a left subclavian triple-lumen catheter in place. Lungs sounds are diminished bilaterally. No significant wheezes overall currently crackles. No chest wall deformity at this point in time. Cardiac exam revealed the PMI to be normally situated and sized. The rhythm was regular and no extrasystoles were noted during several minutes of auscultation. The first and second heart sounds were normal and physiologic splitting of the second heart sound was noted. There were no murmurs, rubs, clicks, or gallops. Abdominal exam revealed diminished bowel sounds and abdomen is slightly distended. Extremities revealed +1 edema and there is no cyanosis or clubbing. There is also scrotal edema. Overall there is significant improvement in the third spacing and edema in all 4 extremities. Neurologically, the patient seems lethargic, somnolent but awake and arousable. He is not following commands on today's evaluation. However, he is arousable and awake and opens eyes spontaneously. He will occasionally withdraws to painful stimulation. - Labs CBC & Chem 7: 10/30/19 05:26 10/30/19 05:26 Labs: Abnormal Lab Results - Last 24 Hours (Table) 10/29/19 10/29/19 10/29/19 Range/Units 11:57 17:57 23:36 RBC (4.30-5.90) m/uL Hgb (13.0-17.5) gm/dL Hct (39.0-53.0) % Neutrophils # (1.3-7.7) k/uL BUN (9-20) mg/dL Creatinine (0.66-1.25) mg/dL Glucose (74-99) mg/dL POC Glucose (mg/dL) 120 H 128 H 117 H (75-99) mg/dL 10/30/19 10/30/19 10/30/19 Range/Units 05:26 05:26 05:42 RBC 3.48 L (4.30-5.90) m/uL Hgb 10.0 L (13.0-17.5) gm/dL Hct 31.7 L (39.0-53.0) % Neutrophils # 7.9 H (1.3-7.7) k/uL BUN 21 H (9-20) mg/dL Creatinine 0.60 L (0.66-1.25) mg/dL Glucose 119 H (74-99) mg/dL POC Glucose (mg/dL) 121 H (75-99) mg/dL Assessment and Plan Plan: 1 Acute hypoxic respiratory failure, secondary to a combination of multi-rib fractures involving the left chest and possible pulmonary contusion addition to alcohol withdrawal/delirium tremens. The patient has MSSA in his sputum and he was treated with IV Zosyn. The patient also supported with mechanical ventilation for almost 2 weeks and he was extubated to BiPAP and currently is on 6 L of oxygen by nasal cannula. His CAT scan of the chest showed atelectatic changes small effusion the lung bases more so on the left. He is tolerating oxygen 6 L for now. He was taken off the BiPAP this morning as the patient was having some aspiration of taken material and the patient was kept on IV Zosyn and an NG tube was inserted and he was placed on 16th of oxygen by nasal cannula. 2 altered mentation, possibly related delirium tremens although the patient remains quite encephalopathic after being hospitalized for at least 2 weeks and the patient possibly has a metabolic encephalopathy ongoing which is preventing us from weaning off sedation. The patient was subsequently switched to Precedex and currently is off Precedex in his mentation is gradually improving as the patient is following some simple commands. He is still drowsy and sleepy yet obviously more responsive and appropriate. Note that the patient has been off sedation for the past 24 hours. 3 Status post tractor accident/fall, with multiple left-sided rib fractures 4 Multiple left-sided rib fractures, but no significant pneumothorax. No significant hemopneumothorax. 5 Pulmonary contusion. Mostly affecting the left lung base 6 Proximal sigmoid hematoma but no perforation. 7 Benign essential hypertension. 8 Type 2 diabetes. 9 Chronic low back pain. 10 History of depression. 11 Blood loss anemia, acute, suspect left abdominal wall or abdominal hematoma, CT abdomen and pelvis is reassuring. Hemoglobin stable and the patient that repeat CAT scan of the abdomen that showed no interval worsening of the hematoma. 12 suspected small bowel obstruction. There is contrast in the large bowel, Nevertheless the small bowel is quite distended and the patient has an NG tube in place. Plan Stop the IV Lasix as the patient has been diuresed adequately Continue IV Zosyn Keep NG tube in place consult with general surgery regarding the bowel obstruction We'll do a manual/digital disimpaction and try a Fleet enema Monitor the abdominal x-ray Repeat chest x-ray in the morning Monitor mental status Will likely lead to intubate the patient if the patient fails this current extubation. Note that the family never wanted any form of care home intubation mechanical ventilation the declined Tracheostomy tube insertion on previous occasions. We'll continue to follow and make further recommendations based on his progress. Long-term prognosis poor baseline above-mentioned comorbidities. We'll continue to follow.
--- NOTE | 2019-10-30 11:53 | P.PN ---
Subjective Progress Note Date: 10/30/19 CHIEF COMPLAINT: Status post fall from tractor HISTORY OF PRESENT ILLNESS: The patient is a 49-year-old male status post fall from tractor. He has history of alcoholism. Patient more alert today than yes terday. Not conversant. He is laying in bed in ICU. He has spontaneous eye movements. He had fecal emesis this morning with AXR ordered and NGT placed. He had a bowel movement following fleets enema. ROS: Now requiring increased oxygen support. Had emesis. PHYSICAL EXAM: VITAL SIGNS: Reviewed CONSTITUTIONAL: Well developed and in no acute distress. EYES: Conjuctivae without sclera icterus. Extraocular movements grossly intact. HEAD, EARS, NOSE, THROAT: Moist buccal mucosa. Head is atraumatic, normocephalic. No nasal drainage. NECK: Supple. No thyroidomegaly. RESPIRATORY: Non-labored respirations and equal bilateral excursions. CARDIOVASCULAR: Palpable 2+ radial pulses. Tachycardic. ABDOMEN: NGT bilious. Protuberant. No peritonitis. Soft. : Colindres present MUSCULOSKELETAL: No clubbing. No cyanosis. Right hand elementary reading specialist 2+, weak. Left hand with 1+ edema. SKIN: Good skin turgor. Well perfused. NEUROLOGIC: Cranial nerves II through XII grossly intact. No focal or lateralizing signs. Has spontaneous eye movements. PSYCH: Minimally verbal. CLINICAL LABS: White blood cell count normal, 9.7 now 9.9. Hgb stable 9.1 to 9.2 up to 10.0 STUDIES: AXR reviewed independently with contrast in rectum and colon with stool in rectum CT abdomen and pelvis from 10/26/2019 independently reviewed demonstrating 2 focal areas of mesenteric hematoma along the epigastrium including left lower quadrant without obstruction. ASSESSMENT: 1. S/p fall off tractor 2. Left rib fractures 3. Alcohol withdrawal 4. Ileus 5. Mesenteric hematoma PLAN: 1. Recommend follow up AXR with bilious NGT. Patient has history of mesenteric hematoma per CT on previous studies 2. Will need PT/OT 3. Continue NG tube. 4. Hold diet Objective - Vital Signs Vital signs: Vital Signs Temp 99.3 F 10/30/19 08:00 Pulse 96 10/30/19 11:00 Resp 32 H 10/30/19 11:40 BP 138/75 10/30/19 11:00 Pulse Ox 97 10/30/19 11:00 Intake & Output 10/29/19 10/30/19 10/30/19 18:59 06:59 18:59 Intake Total 400 440 500 Output Total 3210 2075 690 Balance -2810 -1635 -190 Weight 115.7 kg Intake: IV 400 340 500 0.9 Normal Saline at KVO 100 240 100 20mL/hr Piperacillin-Tazobactam 3 200 100 .375 gm In Sodium Chloride 0.9% 100 ml @ 25 mls/hr IVPB Q8HR [facility] Rx# :[id number] Potassium Chloride 10 meq 100 100 100 In Water For Injection 1 100ml.bag @ 100 mls/hr IVPB Q1H [facility] Rx#: [id number] Potassium Chloride 10 meq 200 In Water For Injection 1 100ml.bag @ 100 mls/hr IVPB Q1H [facility] Rx#: [id number] Intake, IV Titration 100 Amount Piperacillin-Tazobactam 3 100 .375 gm In Sodium Chloride 0.9% 100 ml @ 25 mls/hr IVPB Q8HR [facility] Rx# :[id number] Output: Gastric Drainage 300 Urine 3210 2075 390 Other: Voiding Method Indwelling Catheter Indwelling Catheter Indwelling Catheter # Bowel Movements 1 ABP, PAP, CO, CI - Last Documented Arterial Blood Pressure 178/114 - Labs CBC & Chem 7: 10/30/19 05:26 10/30/19 05:26 Labs: Abnormal Lab Results - Last 24 Hours (Table) 10/29/19 10/29/19 10/29/19 Range/Units 11:57 17:57 23:36 RBC (4.30-5.90) m/uL Hgb (13.0-17.5) gm/dL Hct (39.0-53.0) % Neutrophils # (1.3-7.7) k/uL BUN (9-20) mg/dL Creatinine (0.66-1.25) mg/dL Glucose (74-99) mg/dL POC Glucose (mg/dL) 120 H 128 H 117 H (75-99) mg/dL 10/30/19 10/30/19 10/30/19 Range/Units 05:26 05:26 05:42 RBC 3.48 L (4.30-5.90) m/uL Hgb 10.0 L (13.0-17.5) gm/dL Hct 31.7 L (39.0-53.0) % Neutrophils # 7.9 H (1.3-7.7) k/uL BUN 21 H (9-20) mg/dL Creatinine 0.60 L (0.66-1.25) mg/dL Glucose 119 H (74-99) mg/dL POC Glucose (mg/dL) 121 H (75-99) mg/dL Assessment and Plan (1) Fall from stationary vehicle Current Visit: Yes Status: Acute Code(s): W17.89XA - OTHER FALL FROM ONE LEVEL TO ANOTHER, INITIAL ENCOUNTER SNOMED Code(s): 783245121 (2) Left rib fracture Current Visit: Yes Status: Acute Code(s): S22.32XA - FRACTURE OF ONE RIB, LEFT SIDE, INIT FOR CLOS FX SNOMED Code(s): 60115803 (3) Alcoholism Current Visit: Yes Status: Acute Code(s): F10.20 - ALCOHOL DEPENDENCE, [facility] OMPLICATED SNOMED Code(s): 9050891 (4) Morbid obesity due to excess calories Current Visit: Yes Status: Acute Code(s): E66.01 - MORBID (SEVERE) OBESITY DUE TO EXCESS CALORIES SNOMED Code(s): 729496556 (5) Mesenteric hematoma Current Visit: Yes Status: Acute Code(s): S36.892A - CONTUSION OF OTHER INTRA-ABDOMINAL ORGANS, INITIAL ENCOUNTER SNOMED Code(s): 06711625
[2019-10-30 12:05] LABS: Glucose,Whole Blood 118 mg/dL (75-99)
--- NOTE | 2019-10-30 15:58 | P.PN ---
Subjective Progress Note Date: 10/30/19 Post tractor accident, flail chest, severe dyspnea and shortness of breath, acute respiratory failure mechanical ventilation, alcohol intoxication, syncope, delirium tremor, hyperglycemia and lower back pain. 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 Patient ended up seen in trauma at [facility] multiple exiting CAT scan was per for CT of the chest showed left sided hydropneumothorax with multiple displace rib fracture anterolateral drip 2-7 and posterior 5-11 with a flail chest, abdominal pelvic CT showed ball injury with small bowel and proximal sigmoid involvement with mild hematoma with no perforation or free air. Pelvic showed no fracture head and neck showed no C-spine fracture and the major abnormality and CAT scan of the brain. Left upper extremity did not show any fracture patient had his arm in sling of the time. Was seen and evaluated before leaving the emergency department patient was in quite bed discomfort and was in mild respiratory distress having significant tachypnea and tachycardia with significant hypoxia the time require higher flow 2. No chest tube placement at the time. No bowel movement at this point and urine output has been good. Elevated white blood cell 13.8 with mild anemia hemoglobin down to 8.5. Kidney function still holding well patient blood sugar is much better, chest x-ray showed continue CHF with pulmonary vascular congestion and small pleural effusion with his multiple left-sided rib fracture and flail chest. 10/24: Patient seen this morning remains intubated on the vent, FiO2 50%. Patient is on propofol drip and Dilaudid when necessary able to open eyes to voice. Patient has failed at weaning attempts, Dr. Lee has a meeting with family this morning at 9 AM to discuss possible trach and peg. Labs were reviewed, hemoglobin 8.5. Adequate urine output is noted, per nursing patient has not had a bowel movement in about 3-4 days. Vital signs are stable, patient is afebrile, pulse rate 80, blood pressure 119/69, pulse ox 93%. Sputum culture finalized positive for Staphylococcus aureus, susceptible to Zosyn. Chest x-ray was stable compared to previous exam. 10/25: Per nursing yesterday family had meeting and patient never wish to be resuscitated and do not want to plan for trach and PEG at this point. Dr. Lee in and seen patient will attempt to wean and see how it's tolerated. Patient does open eyes and shake head yes and no for commands. Chest x-ray today shows left lower lobe infiltrate correlate for atelectasis and pneumonia, small left pleural effusion may be present hemothorax could be considered. Patient had low-grade temp 99.8 this morning pulse 102, respirations 25, blood pressure 125/76, satting 90% on 70% FiO2. 10/26: Patient failed weaning trial again this morning with Dr. Lee, per nursing patient gets too anxious and restless. Hemoglobin 8.8 this morning, white blood cells 7.5, sodium 134. Chest x-ray showed CHF with pulmonary vascular congestion, continued small to moderate left effusion. CT of the ab domen and pelvis yesterday showed stable mesenteric hematoma on the left lower quadrant, moderate basilar atelectasis and pleural effusion left greater than the right with multiple left-sided rib fractures all unchanged. CT of the brain showed age related atrophic and chronic small vessel ischemic change with no acute intracranial process. We'll continue to monitor patient closely along with pulmonary and continue the weaning process. 10/27: Patient continues to be sedated on the vent. Will do sedation holiday along with weaning trial again with Dr. Lee, FiO2 down to 50%. Patient cur rently on Precedex and fentanyl for sedation. Patient did open eyes and follows some simple commands this morning. Hemoglobin 9.1 this morning, white blood cells 8.9, sodium 136. Chest x-ray today showed chronic changes without evidence for acute pulmonary process. We'll continue to follow along with critical care. Family declined trach and PEG at this time. patient was extubated yesterday remained on BiPAP overnight. Currently on 6 L high flow. Patient is currently off Precedex. He does open eyes on command but otherwise is minimal responsive. Mucous membranes are dry. Patient is saturating well at 6 L of high flow. Blood pressure maintained at 155/92. Tachypnea can tachycardic. Continues to be Lasix 40 IV twice a day and is diuresing well around 300-500 mg oral per hour. Sodium is normal at 137 chloride 101 creatinine 0.54 concern for ATN or diabetes insipideus stop CT head is negative for any acute abnormality on 10/25. Chest x-ray on 10/28 and suggests minimal pulmonary vascular congestion and continued small left effusion with an adjacent atelectasis. Continues on Zosyn for aspiration pneumonia. If no improvement in mental status would consider EEG and repeat CAT scan of the head. 10/29 patient examined bedside. Mental status has improved since yesterday. Patient does was open eyes to command and has been moving all his extremities. Speech is gibberish. Sister at bedside acknowledge response to her. Patient apparently had episodes of vomiting, NG tube was placed immediately around 200 mL of fecal material was obtained from the stomach. Abdominal x-ray does suggest dilated loop of small bowel likely mechanical small bowel obstruction. No free air noted. Contrast material noted in the transverse colon in the record. Patient appears to be comfortable on 6 L of oxygen but didn't require BiPAP overnight. Patient continues to have 200-300 mL per hour of urine output. Urine does appear dark in color. On assessment of patient's lab hemoglobin is 10, BUN 21 creatinine 0.6 sodium 140. Patient noted to have anisocoria with right pupil larger than the left but pupils are reactive to light. EEG ordered. Neurology consult placed. Review of systems Unable to obtain due to altered mental status Objective - Vital Signs Vital signs: Vital Signs Temp 99.2 F 10/30/19 12:00 Pulse 94 10/30/19 15:46 Resp 24 10/30/19 15:46 BP 153/88 10/30/19 15:00 Pulse Ox 95 10/30/19 15:00 Intake & Output 10/29/19 10/30/19 10/30/19 18:59 06:59 18:59 Intake Total 400 440 560 Output Total 4681 8215 6801 Balance -5683 -0020 -303 Weight 115.7 kg Intake: IV 400 340 560 0.9 Normal Saline at KVO 100 240 160 20mL/hr Piperacillin-Tazobactam 3 200 100 .375 gm In Sodium Chloride 0.9% 100 ml @ 25 mls/hr IVPB Q8HR [facility] Rx# :[id number] Potassium Chloride 10 meq 100 100 100 In Water For Injection 1 100ml.bag @ 100 mls/hr IVPB Q1H [facility] Rx#: [id number] Potassium Chloride 10 meq 200 In Water For Injection 1 100ml.bag @ 100 mls/hr IVPB Q1H [facility] Rx#: [id number] Intake, IV Titration 100 Amount Piperacillin-Tazobactam 3 100 .375 gm In Sodium Chloride 0.9% 100 ml @ 25 mls/hr IVPB Q8HR [facility] Rx# :[id number] Output: Gastric Drainage 600 Urine 3210 2075 610 Other: Voiding Method Indwelling Catheter Indwelling Catheter Indwelling Catheter # Bowel Movements 1 ABP, PAP, CO, CI - Last Documented Arterial Blood Pressure 178/114 - Exam General Appearance: Drowsy, appears to be comfortable and in no acute distress. Appears to open eyes spontaneously ET tube removed Neck HEENT: Supple, no lymphadenopathy, no thyroid enlargement, no carotid bruits. Pupils are unequal right pupil larger than the left but reactive to light Lungs: Decreased breath sounds bilaterally with scattered rhonchi Chest Wall: mild bruise of chest wall area. Heart: Regular rate and rhythm, S1-S2. No murmur, click or rub. Abdomen: Distention with significant ecchymosis and hematoma to the lower chest lateral abdominal and flank area. Extremities: Moderate +1 edema in the lower extremity. Wound to the left forearm approximately 12 inches long, dressing in place. Pulses: 2+ and symmetric. Skin: Skin color, texture, tugor normal, no rashes or lesions. Neurologic: Extubated Open eyes on calling his name but does not follow any simple or complex commands. Able to move all extremities spontaneously but does not move toes on command. Sensation and coordination could not be assessed gait could not be - Labs CBC & Chem 7: 10/30/19 05:26 10/30/19 05:26 Labs: Abnormal Lab Results - Last 24 Hours (Table) 10/29/19 10/29/19 10/30/19 Range/Units 17:57 23:36 05:26 RBC 3.48 L (4.30-5.90) m/uL Hgb 10.0 L (13.0-17.5) gm/dL Hct 31.7 L (39.0-53.0) % Neutrophils # 7.9 H (1.3-7.7) k/uL BUN (9-20) mg/dL Creatinine (0.66-1.25) mg/dL Glucose (74-99) mg/dL POC Glucose (mg/dL) 128 H 117 H (75-99) mg/dL 10/30/19 10/30/19 10/30/19 Range/Units 05:26 05:42 12:01 RBC (4.30-5.90) m/uL Hgb (13.0-17.5) gm/dL Hct (39.0-53.0) % Neutrophils # (1.3-7.7) k/uL BUN 21 H (9-20) mg/dL Creatinine 0.60 L (0.66-1.25) mg/dL Glucose 119 H (74-99) mg/dL POC Glucose (mg/dL) 121 H 118 H (75-99) mg/dL Assessment and Plan Plan: 1 acute hypoxic respiratory failure secondary to multiple rib fracture involving left chest with possible pulmonary contusion and aspiration pneumonia post tractor accident with multiple injury and trauma: Patient in ICU continued see trauma surgery along with ICU service. Continue to monitor in the intensive care unit. Off Precedex and fentanyl drip continue BiPAP overnight and 6 L during the day swallow evaluation next 24 hours 2 Flail chest with multiple rib fracture: Continue current management for now patient is on mechanical ventilation. Currently extubated no plan for trach and PEG at this time per family. 3 acute metabolic toxic encephalopathic. Patient has been in the ICU for a few weeks and has been on sedation. Currently off sedation but minimal response to command. CAT scan on 10/25 was negative for any acute abnormality EEG ordered. Patient is minimally responsive to command. Neurology consult placed as anisocoria noted on examination 4 severe abdominal pain with bowel injury along with proximal sigmoid injury with left lower quadrant mesenteric hematomas. Continue conservative treatment, monitor hemoglobin. 5 alcohol intoxication. Liver function tests also reflect chronic alcohol use. Patient adamantly denies any alcohol intake for the past 3 years. 6 question of syncope, alcohol-related. No bradycardia or any other cardiovascular abnormality. 7 active delirium tremens. Patient has required intubation mechanical ventilation. Continue CIWA protocol. He seems to be doing well. 8 acute blood loss anemia: Most likely from his abdominal trauma and mesenteric hematoma. CAT scan stable mesenteric hematoma 5 cm hemoglobin is stable does not require any blood transfusion. 9 hypertensive emergency. Continue amlodipine 10 mg daily, hydralazine 25 mg 3 times daily, Lopressor 50 mg twice daily. 10 hypertension. Continue as above. 11 hyperglycemia: Type 2 diabetes. NovoLog scale. 12 chronic lower back pain. Has Dilaudid when necessary 13 recurrent depression. Continue Cymbalta. Seroquel was added. 14 GI prophylaxis: Patient be on pantoprazole IV. 15 DVT prophylaxis. Heparin subcut 16 Clavicular fracture. Consult with orthopedic appreciated. 17 acute small bowel obstruction likely ileus NG tube placed patient nothing by mouth CODE STATUS: Full code.
[2019-10-30 17:54] LABS: Glucose,Whole Blood 116 mg/dL (75-99)
[2019-10-31 01:55] LABS: Glucose,Whole Blood 108 mg/dL (75-99)
[2019-10-31] MEDS: INSULIN ASPART (NovoLOG) 100 UNIT/ML VIAL SQ SCH ×5 (01:55→23:36)
[2019-10-31] MEDS: PIPERACILLIN-TAZOBACTAM 3.375 GM in SODIUM CHLORIDE 0.9% 100 ML IVPB SCH ×4 (02:09→23:36)
[2019-10-31 05:21] LABS: Basophils # (A) 0.1 k/uL (0-0.2); Basophils % (A) 1 %; Eosinophils # (A) 0.1 k/uL (0-0.7); Eosinophils % (A) 1 %; HCT 32.2 % (39.0-53.0); HGB 9.9 gm/dL (13.0-17.5); Hypochromasia Slight; Lymphocytes # (A) 1.4 k/uL (1.0-4.8); Lymphocytes % (A) 16 %; MCH 28.4 pg (25.0-35.0); MCHC 30.8 g/dL (31.0-37.0); MCV 92.3 fL (80.0-100.0); Mean Platelet Volume 6.7; Monocytes # (A) 0.6 k/uL (0-1.0); Monocytes % (A) 7 %; Neutrophils # (A) 6.6 k/uL (1.3-7.7); Neutrophils % (A) 75 %; Platelet Count 422 k/uL (150-450); RBC 3.49 m/uL (4.30-5.90); RDW 14.6 % (11.5-15.5); WBC 8.9 k/uL (3.8-10.6)
[2019-10-31 05:29] LABS: African American GFR (CKD) >90 (>60 ml/min/1.73 sqM); Anion Gap 6 mmol/L; Blood Urea Nitrogen 22 mg/dL (9-20); Carbon Dioxide 29 mmol/L (22-30); Chloride 106 mmol/L (98-107); Glucose 110 mg/dL (74-99); Non-African American GFR(CKD) >90 (>60 ml/min/1.73 sqM); Sodium 141 mmol/L (137-145)
[2019-10-31] MEDS: METOPROLOL TARTRATE 5 MG/5 ML VIAL IVP SCH ×4 (05:50→23:35)
[2019-10-31] MEDS: OFLOXACIN 0.3% OPHTH DROPS 5 ML BOTTLE BOTH EYES SCH ×4 (05:50→23:35)
--- NOTE | 2019-10-31 08:00 | XR ---
EXAMINATION TYPE: XR abdomen 2V DATE OF EXAM: 10/31/2019 COMPARISON: 10/30/2019 INDICATION: Ileus TECHNIQUE: Single view abdomen upright view FINDINGS: There is a normal bowel gas pattern. Contrast:. Nasogastric tube is present with tip in mid abdomen. No free air is evident. No differential air-fluid levels are evident. Psoas margins are normal. No organomegaly is present. There are extensive left-sided rib fractures 7 through 12. Fifth and sixth lateral rib fractures like ly present. Small of pleural fluid may be present Motion artifact limits detail exam. IMPRESSION: 1. Limited exam. 2. Multiple left-sided rib fractures are present.
[2019-10-31] MEDS: IPRATROPIUM-ALBUTEROL 3 ML NEB INHALATION SCH ×4 (08:14→21:24)
[2019-10-31] MEDS: QUEtiapine 50 MG TAB PO SCH ×2 (08:26→20:08)
[2019-10-31] MEDS: DULoxetine HCL 60 MG CAPSULE.DR PO SCH (08:26)
[2019-10-31] MEDS: HEPARIN SODIUM,PORCINE 5,000 UNIT/ML 1 ML VIAL SQ SCH ×2 (08:29→20:08)
[2019-10-31] MEDS: PANTOPRAZOLE 40 MG/10 ML VIAL IVP SCH (08:30)
[2019-10-31] MEDS: THIAMINE 100 MG/ML 2 ML VIAL IVP SCH ×2 (08:32→20:07)
--- NOTE | 2019-10-31 08:56 | XR ---
EXAMINATION TYPE: XR chest 1V portable DATE OF EXAM: 10/31/2019 COMPARISON: 10/30/2019 INDICATION: Short of breath TECHNIQUE: Single frontal view of the chest is obtained. FINDINGS: The heart size is normal. The pulmonary vasculature is normal. There is a left pleural effusion. This may be slightly greater than comparison. Multiple left-sided r ib fractures are evident.. This includes the lateral fifth and sixth ribs posterior ninth and 10th ri b fractures are evident. Additional rib fractures are known but not visualized on this examination. Left central venous catheter is present with the tip in the superior vena cava region. No pneumothora x is evident. Nasogastric tube transverses the thorax. IMPRESSION: 1. Small increasing left pleural fluid collection. 2. Multiple left-sided rib fractures. 3. Lines and catheters discussed above
[2019-10-31 12:20] LABS: Glucose,Whole Blood 112 mg/dL (75-99)
--- NOTE | 2019-10-31 12:48 | P.PN ---
Subjective Progress Note Date: 10/31/19 CHIEF COMPLAINT: Multiple injury after trauma from a fall from tractor HISTORY OF PRESENT ILLNESS: Patient in the ICU is extubated on October 27. He had fecal emesis yesterday morning and NG tube was placed. He did have a large bowel movement with fleets enema. He is awake. Abdominal x-ray shows normal bowel gas pattern. PHYSICAL EXAM: VITAL SIGNS: Reviewed. GENERAL: Well-developed in no acute distress. HEENT: No sclera icterus. Extraocular movements grossly intact. Moist buccal mucosa. Head is atraumatic, normocephalic. ABDOMEN: Soft. Obese. Distended. Nontender. Neuro: Patient is intubated and sedated ASSESSMENT: 1. Status post Fall from tractor with multiple injuries 2. Proximal sigmoid hematoma and contusion. Repeat CT of the abdomen over the weekend which was a stable mesenteric hematoma 3. Multiple left-sided rib fractures with flail chest 4. Left closed distal clavicular fracture followed by orthopedics 5. Chronic alcohol use and evidence of alcohol withdrawal 6. Acute hypoxic respiratory failure likely secondary to alcohol withdrawal syndrome and delirium tremens, multiple rib fractures on the left chest and possible pulmonary contusion. 7. Possible pulmonary contusion PLAN: -discontinue NG tube and start clear liquid diet -Continue supportive care -continue ICU management -DVT prophylaxis subcu heparin GI prophylaxis Protonix Physician Lard Renderer note has been reviewed by physician. Signing provider agrees with the documented findings, assessment, and plan of care. Objective - Vital Signs Vital signs: Vital Signs Temp 99.1 F 10/31/19 12:00 Pulse 95 10/31/19 12:00 Resp 33 H 10/31/19 12:00 BP 156/94 10/31/19 12:00 Pulse Ox 96 10/31/19 12:00 Intake & Output 10/30/19 10/31/19 10/31/19 18:59 06:59 18:59 Intake Total 740 320 120 Output Total 1710 1320 1460 Balance -970 -1000 -1340 Weight 111.4 kg 111.4 kg Intake: IV 740 320 120 0.9 Normal Saline at KVO 240 220 120 20mL/hr Piperacillin-Tazobactam 3 200 100 .375 gm In Sodium Chloride 0.9% 100 ml @ 25 mls/hr IVPB Q8HR [facility] Rx# :[id number] Potassium Chloride 10 meq 100 In Water For Injection 1 100ml.bag @ 100 mls/hr IVPB Q1H [facility] Rx#: [id number] Potassium Chloride 10 meq 200 In Water For Injection 1 100ml.bag @ 100 mls/hr IVPB Q1H [facility] Rx#: [id number] Output: Gastric Drainage 700 150 800 Urine 1010 1170 660 Other: Voiding Method Indwelling Catheter Indwelling Catheter Indwelling Catheter # Bowel Movements 1 ABP, PAP, CO, CI - Last Documented Arterial Blood Pressure 178/114 - Labs CBC & Chem 7: 10/31/19 05:10 10/31/19 05:10 Labs: Abnormal Lab Results - Last 24 Hours (Table) 10/30/19 10/31/19 10/31/19 Range/Units 17:51 01:53 05:10 RBC 3.49 L (4.30-5.90) m/uL Hgb 9.9 L (13.0-17.5) gm/dL Hct 32.2 L (39.0-53.0) % MCHC 30.8 L (31.0-37.0) g/dL BUN (9-20) mg/dL Creatinine (0.66-1.25) mg/dL Glucose (74-99) mg/dL POC Glucose (mg/dL) 116 H 108 H (75-99) mg/dL 10/31/19 10/31/19 Range/Units 05:10 12:19 RBC (4.30-5.90) m/uL Hgb (13.0-17.5) gm/dL Hct (39.0-53.0) % MCHC (31.0-37.0) g/dL BUN 22 H (9-20) mg/dL Creatinine 0.60 L (0.66-1.25) mg/dL Glucose 110 H (74-99) mg/dL POC Glucose (mg/dL) 112 H (75-99) mg/dL
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
--- NOTE | 2019-10-31 14:43 | P.CNNES ---
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 Saturation Sodium Potassium Chloride Carbon Dioxide BUN Creatinine Glucose POC Glucose (mg/dL) 110 H 105 H Calcium Magnesium Total Bilirubin AST ALT Creatine Kinase Total Protein Albumin Triglycerides Cholesterol Procalcitonin Ur Specific [place] Urine Protein Urine Ketones Crossmatch 10/24/19 10/24/19 10/24/19 03:26 04:52 08:06 WBC RBC Hgb Hct MCHC Plt Count Neutrophils # Lymphocytes # APTT ABG pH ABG pCO2 ABG pO2 78 L ABG HCO3 30 H ABG Total CO2 31 H ABG O2 Saturation Sodium 136 L Potassium Chloride Carbon Dioxide BUN 21 H Creatinine 0.61 L Glucose POC Glucose (mg/dL) 101 H Calcium Magnesium Total Bilirubin AST ALT Creatine Kinase Total Protein 5.3 L Albumin 2.6 L Triglycerides Cholesterol Procalcitonin Ur Specific [place] Urine Protein Urine Ketones Crossmatch 10/24/19 10/24/19 10/25/19 11:49 23:47 04:36 WBC RBC Hgb Hct MCHC Plt Count Neutrophils # Lymphocytes # APTT ABG pH ABG pCO2 ABG pO2 81 L ABG HCO3 30 H ABG Total CO2 31 H ABG O2 Saturation Sodium Potassium Chloride Carbon Dioxide BUN Creatinine Glucose POC Glucose (mg/dL) 108 H 105 H Calcium Magnesium Total Bilirubin AST ALT Creatine Kinase Total Protein Albumin Triglycerides Cholesterol Procalcitonin Ur Specific [place] Urine Protein Urine Ketones Crossmatch 10/25/19 10/25/19 10/25/19 05:00 05:00 17:51 WBC RBC 2.88 L Hgb 8.5 L Hct 26.6 L MCHC Plt Count Neutrophils # Lymphocytes # APTT ABG pH ABG pCO2 46 H ABG pO2 68 L ABG HCO3 31 H ABG Total CO2 33 H ABG O2 Saturation 92.3 L Sodium Potassium Chloride Carbon Dioxide BUN 22 H Creatinine 0.60 L Glucose POC Glucose (mg/dL) Calcium 8.2 L Magnesium Total Bilirubin AST ALT Creatine Kinase Total Protein 5.5 L Albumin 2.7 L Triglycerides Cholesterol Procalcitonin Ur Specific [place] Urine Protein Urine Ketones Crossmatch 10/25/19 10/25/19 10/25/19 18:22 19:29 19:29 WBC 13.4 H RBC 3.23 L Hgb 9.6 L Hct 30.1 L MCHC Plt Count 573 H Neutrophils # 10.0 H Lymphocytes # APTT ABG pH ABG pCO2 ABG pO2 ABG HCO3 ABG Total CO2 ABG O2 Saturation Sodium Potassium Chloride Carbon Dioxide BUN 22 H Creatinine 0.63 L Glucose 107 H POC Glucose (mg/dL) 101 H Calcium Magnesium Total Bilirubin AST ALT Creatine Kinase Total Protein Albumin 3.1 L Triglycerides Cholesterol Procalcitonin Ur Specific [place] Urine Protein Urine Ketones Crossmatch 10/26/19 10/26/19 10/26/19 00:15 04:25 04:25 WBC RBC 3.10 L Hgb 9.2 L Hct 28.7 L MCHC Plt Count 489 H Neutrophils # Lymphocytes # APTT ABG pH ABG pCO2 ABG pO2 ABG HCO3 ABG Total CO2 ABG O2 Saturation Sodium Potassium Chloride Carbon Dioxide BUN 23 H Creatinine 0.60 L Glucose 108 H POC Glucose (mg/dL) 103 H Calcium 8.3 L Magnesium Total Bilirubin AST ALT Creatine Kinase Total Protein Albumin Triglycerides Cholesterol Procalcitonin Ur Specific [place] Urine Protein Urine Ketones Crossmatch 10/26/19 10/26/19 10/26/19 04:25 04:25 05:11 WBC RBC Hgb Hct MCHC Plt Count Neutrophils # Lymphocytes # APTT ABG pH ABG pCO2 49 H ABG pO2 76 L ABG HCO3 32 H ABG Total CO2 33 H ABG O2 Saturation Sodium Potassium Chloride Carbon Dioxide BUN Creatinine Glucose POC Glucose (mg/dL) Calcium Magnesium Total Bilirubin AST ALT Creatine Kinase Total Protein Albumin Triglycerides 740 H Cholesterol 292 H Procalcitonin 0.21 H Ur Specific [place] Urine Protein Urine Ketones Crossmatch 10/26/19 10/26/19 10/26/19 05:46 11:38 18:16 WBC RBC Hgb Hct MCHC Plt Count Neutrophils # Lymphocytes # APTT ABG pH ABG pCO2 ABG pO2 ABG HCO3 ABG Total CO2 ABG O2 Saturation Sodium Potassium 3.4 L Chloride Carbon Dioxide BUN Creatinine Glucose POC Glucose (mg/dL) 110 H 108 H Calcium Magnesium Total Bilirubin AST ALT Creatine Kinase Total Protein Albumin Triglycerides Cholesterol Procalcitonin Ur Specific [place] Urine Protein Urine Ketones Crossmatch 10/26/19 10/27/19 10/27/19 23:29 04:55 04:55 WBC RBC 2.95 L Hgb 8.8 L Hct 26.7 L MCHC Plt Count 475 H Neutrophils # Lymphocytes # APTT ABG pH ABG pCO2 ABG pO2 ABG HCO3 ABG Total CO2 ABG O2 Saturation Sodium Potassium Chloride Carbon Dioxide BUN Creatinine Glucose POC Glucose (mg/dL) 106 H 106 H Calcium Magnesium Total Bilirubin AST ALT Creatine Kinase Total Protein Albumin Triglycerides Cholesterol Procalcitonin Ur Specific [place] Urine Protein Urine Ketones Crossmatch 10/27/19 10/27/19 10/27/19 04:55 05:55 12:15 WBC RBC Hgb Hct MCHC Plt Count Neutrophils # Lymphocytes # APTT ABG pH 7.49 H ABG pCO2 ABG pO2 67 L ABG HCO3 33 H ABG Total CO2 35 H ABG O2 Saturation 92.8 L Sodium 134 L Potassium Chloride 97 L Carbon Dioxide 31 H BUN Creatinine 0.60 L Glucose POC Glucose (mg/dL) 112 H Calcium Magnesium Total Bilirubin AST ALT Creatine Kinase Total Protein Albumin Triglycerides Cholesterol Procalcitonin Ur Specific [place] Urine Protein Urine Ketones Crossmatch 10/27/19 10/27/19 10/28/19 18:24 23:42 04:20 WBC RBC 3.14 L Hgb 9.1 L Hct 28.7 L MCHC Plt Count Neutrophils # Lymphocytes # APTT ABG pH ABG pCO2 ABG pO2 ABG HCO3 ABG Total CO2 ABG O2 Saturation Sodium Potassium Chloride Carbon Dioxide BUN Creatinine Glucose POC Glucose (mg/dL) 119 H 114 H Calcium Magnesium Total Bilirubin AST ALT Creatine Kinase Total Protein Albumin Triglycerides Cholesterol Procalcitonin Ur Specific [place] Urine Protein Urine Ketones Crossmatch 10/28/19 10/28/19 10/28/19 04:20 05:05 06:13 WBC RBC Hgb Hct MCHC Plt Count Neutrophils # Lymphocytes # APTT ABG pH 7.49 H ABG pCO2 ABG pO2 ABG HCO3 31 H ABG Total CO2 32 H ABG O2 Saturation Sodium 136 L Potassium Chloride Carbon Dioxide BUN Creatinine Glucose 120 H POC Glucose (mg/dL) 130 H Calcium Magnesium Total Bilirubin AST ALT Creatine Kinase Total Protein Albumin Triglycerides Cholesterol Procalcitonin Ur Specific [place] Urine Protein Urine Ketones Crossmatch 10/28/19 10/28/19 10/28/19 10:51 11:36 23:57 WBC RBC Hgb Hct MCHC Plt Count Neutrophils # Lymphocytes # APTT ABG pH 7.48 H ABG pCO2 ABG pO2 77 L ABG HCO3 32 H ABG Total CO2 34 H ABG O2 Saturation Sodium Potassium Chloride Carbon Dioxide BUN Creatinine Glucose POC Glucose (mg/dL) 116 H 112 H Calcium Magnesium Total Bilirubin AST ALT Creatine Kinase Total Protein Albumin Triglycerides Cholesterol Procalcitonin Ur Specific [place] Urine Protein Urine Ketones Crossmatch 10/29/19 10/29/19 10/29/19 05:00 05:00 06:27 WBC RBC 3.19 L Hgb 9.2 L Hct 29.2 L MCHC Plt Count Neutrophils # Lymphocytes # APTT ABG pH ABG pCO2 ABG pO2 ABG HCO3 ABG Total CO2 ABG O2 Saturation Sodium Potassium Chloride Carbon Dioxide BUN Creatinine 0.54 L Glucose 112 H POC Glucose (mg/dL) 116 H Calcium Magnesium Total Bilirubin AST ALT Creatine Kinase Total Protein Albumin Triglycerides Cholesterol Procalcitonin Ur Specific [place] Urine Protein Urine Ketones Crossmatch 10/29/19 10/29/19 10/29/19 11:57 17:57 23:36 WBC RBC Hgb Hct MCHC Plt Count Neutrophils # Lymphocytes # APTT ABG pH ABG pCO2 ABG pO2 ABG HCO3 ABG Total CO2 ABG O2 Saturation Sodium Potassium Chloride Carbon Dioxide BUN Creatinine Glucose POC Glucose (mg/dL) 120 H 128 H 117 H Calcium Magnesium Total Bilirubin AST ALT Creatine Kinase Total Protein Albumin Triglycerides Cholesterol Procalcitonin Ur Specific [place] Urine Protein Urine Ketones Crossmatch 10/30/19 10/30/19 10/30/19 05:26 05:26 05:42 WBC RBC 3.48 L Hgb 10.0 L Hct 31.7 L MCHC Plt Count Neutrophils # 7.9 H Lymphocytes # APTT ABG pH ABG pCO2 ABG pO2 ABG HCO3 ABG Total CO2 ABG O2 Saturation Sodium Potassium Chloride Carbon Dioxide BUN 21 H Creatinine 0.60 L Glucose 119 H POC Glucose (mg/dL) 121 H Calcium Magnesium Total Bilirubin AST ALT Creatine Kinase Total Protein Albumin Triglycerides Cholesterol Procalcitonin Ur Specific [place] Urine Protein Urine Ketones Crossmatch 10/30/19 10/30/19 10/31/19 12:01 17:51 01:53 WBC RBC Hgb Hct MCHC Plt Count Neutrophils # Lymphocytes # APTT ABG pH ABG pCO2 ABG pO2 ABG HCO3 ABG Total CO2 ABG O2 Saturation Sodium Potassium Chloride Carbon Dioxide BUN Creatinine Glucose POC Glucose (mg/dL) 118 H 116 H 108 H Calcium Magnesium Total Bilirubin AST ALT Creatine Kinase Total Protein Albumin Triglycerides Cholesterol Procalcitonin Ur Specific [place] Urine Protein Urine Ketones Crossmatch 10/31/19 10/31/19 10/31/19 05:10 05:10 12:19 WBC RBC 3.49 L Hgb 9.9 L Hct 32.2 L MCHC 30.8 L Plt Count Neutrophils # Lymphocytes # APTT ABG pH ABG pCO2 ABG pO2 ABG HCO3 ABG Total CO2 ABG O2 Saturation Sodium Potassium Chloride Carbon Dioxide BUN 22 H Creatinine 0.60 L Glucose 110 H POC Glucose (mg/dL) 112 H Calcium Magnesium Total Bilirubin AST ALT Creatine Kinase Total Protein Albumin Triglycerides Cholesterol Procalcitonin Ur Specific [place] Urine Protein Urine Ketones Crossmatch Assessment and Plan Assessment: Unclear why the patient fell off the tractor. Questionable syncope, also possibly because of acohol intoxication he fell over and he passed out. cannot rule out seizure. Regarding ?Anisocoria: the patient pupils looked 4mm bilaterally and rarely felt the right pupil was 5mm and left 4mm and reactive to light. Hyper-reflexia over the right side. Post tractor accident with multiple injuries and trauma. Flail chest with multiple rib fracture in the left side displaced in the anterior and posterior area with significant pneumothorax Severe abdominal pain with bowel injury a long proximal sigmoid injury with mild hematoma with no rupture or or perforation. Alcohol intoxication Hypercholesterolemia Plan: Pending EEG. I will only start the patient on seizure medication if patient has active seizure or interictal discharges. Regarding the patient ?anisocoria, recommend CTA of the head and neck to rule out aneurysm, which I highly doubt. Because of hyper-reflexia of the right side: Recommend getting MRI Brain and MRI C-spine to rule out stroke vs myelopathy. This is currently on thiamine 100 mg twice a day. Thank you for the consult. Lobo Cruz M.D. Neuro-hospitalist Time with Patient: Greater than 30
--- NOTE | 2019-10-31 14:51 | P.PN ---
Subjective Progress Note Date: 10/31/19 Principal diagnosis: Acute hypoxic respiratory failure secondary to Multiple left-sided rib fractures and pulmonary contusion 10/30/2019, the patient is being seen for a follow-up. He was extubated and he remains extubated for now. He was being given BiPAP throughout the night yesterday and the patient was noted to have some fecal material in the BiPAP mask and for that reason I recommended to discontinue the BiPAP immediately and put the patient on nasal cannula which is currently it's 6 L. NG tube was inserted and immediately around 200 mL of fecal material was aspirated from his stomach. The patient is much more comfortable at this point in time. Abdomen is slightly distended. A flat film of the abdomen was done and it showed dilated loop of small bowel which could be related to mechanical small bowel obstruction. No free air. There is constant in the descending colon and rectosigmoid colon and this is probably related to the previous CAT scan of the abdomen that the patient received 2 days back. He is awake. He opens eyes spontaneously. Not following any commands at this point in time. His fluid balance has been negative around 4.4 L and there is considerable improvement in the fluid balance and third spacing and edema in the upper and lower e xtremities. The chest x-ray from today showed left basilar infiltrate and there is improvement in the volume status. The pulmonary asked essentially within normal limits. Noted the patient is currently on no sedation. He is off Precedex for now. He remains on IV Zosyn. Reevaluated today on 10/31/19, patient remains in the ICU, he is on 3 L nasal cannula, hemodynamically stable, continues to have a nasogastric tube in place for presumptive severe ileus. Yesterday the patient apparently vomited while he was on BiPAP, and he was placed on a nasal cannula, nasogastric tube In place. Patient is having some shallow breathing, today I have encouraged the patient to do before incentive spirometry and more deep breathing and deep coughing. His IV fluids remains at KVO, hemodynamically stable, and his heart rate is 90 sinus rhythm. Chest x-ray today showed small left pleural effusion multiple left- sided rib fractures Objective - Vital Signs Vital signs: Vital Signs Temp 99.1 F 10/31/19 12:00 Pulse 93 10/31/19 14:00 Resp 31 H 10/31/19 14:00 BP 149/90 10/31/19 14:00 Pulse Ox 95 10/31/19 14:00 Intake & Output 10/30/19 10/31/19 10/31/19 18:59 06:59 18:59 Intake Total 740 320 160 Output Total 171 1320 1685 Balance -970 -1000 -8607 Weight 111.4 kg 111.4 kg Intake: IV 740 320 160 0.9 Normal Saline at KVO 240 220 160 20mL/hr Piperacillin-Tazobactam 3 200 100 .375 gm In Sodium Chloride 0.9% 100 ml @ 25 mls/hr IVPB Q8HR [facility] Rx# :[id number] Potassium Chloride 10 meq 100 In Water For Injection 1 100ml.bag @ 100 mls/hr IVPB Q1H [facility] Rx#: [id number] Potassium Chloride 10 meq 200 In Water For Injection 1 100ml.bag @ 100 mls/hr IVPB Q1H [facility] Rx#: [id number] Output: Gastric Drainage 700 150 800 Urine 1010 1170 885 Other: Voiding Method Indwelling Catheter Indwelling Catheter Indwelling Catheter # Bowel Movements 1 ABP, PAP, CO, CI - Last Documented Arterial Blood Pressure 178/114 - Exam Physical examination Gen: This is 49-year-old male. On nasal cannula, in no distress. HEENT: PERRLA, EOMI, no icterus, chronic masses, no JVD. NECK: Supple. No JVD. No lymphadenopathy. No thyromegaly. Nasogastric tube is in place. LUNGS: Symmetrical chest expansion, diminished at the bases no crackles or rhonchi or wheezes. HEART: Distant S1 and S2, no S3 gallop, no murmur. ABDOMEN: Obese, Soft. Bowel sounds are present. No masses. No tenderness. EXTREMITIES: 1+ bilateral pedal edema. No calf tenderness.wound to the left forearm, healing without signs of infection. NEUROLOGICAL: Arousable, however he seems to be a bit lethargic, follows simple instructions. Psychiatric: Blunted mood and affect, normal mental status examination. - Labs CBC & Chem 7: 10/31/19 05:10 10/31/19 05:10 Labs: Abnormal Lab Results - Last 24 Hours (Table) 10/30/19 10/31/19 10/31/19 Range/Units 17:51 01:53 05:10 RBC 3.49 L (4.30-5.90) m/uL Hgb 9.9 L (13.0-17.5) gm/dL Hct 32.2 L (39.0-53.0) % MCHC 30.8 L (31.0-37.0) g/dL BUN (9-20) mg/dL Creatinine (0.66-1.25) mg/dL Glucose (74-99) mg/dL POC Glucose (mg/dL) 116 H 108 H (75-99) mg/dL 10/31/19 10/31/19 Range/Units 05:10 12:19 RBC (4.30-5.90) m/uL Hgb (13.0-17.5) gm/dL Hct (39.0-53.0) % MCHC (31.0-37.0) g/dL BUN 22 H (9-20) mg/dL Creatinine 0.60 L (0.66-1.25) mg/dL Glucose 110 H (74-99) mg/dL POC Glucose (mg/dL) 112 H (75-99) mg/dL Assessment and Plan Assessment: Impression: Acute hypoxic respiratory failure secondary to multiple rib fractures and pulmonary contusion Prolonged course of mechanical ventilation , patient was extubated over the weekend, and his overall pulmonary status is marginal. Status post tractor accident/fall Benign essential hypertension Delirium tremens and alcohol withdrawal requiring prolonged course of mechanical ventilation. Chronic low back pain Type 2 diabetes Abdominal wall hematoma Acute blood loss anemia Severe ileus Recommendation: Continue nasogastric tube to suction Continue incentive spirometry and encourage deep coughing and deep breathing Continue Zosyn. Surgery to continue to follow regarding his ileus Continue to monitor in the ICU Continue to monitor chest x-rays daily and monitor mental status. We'll continue to follow. Prognosis remains relatively guarded Time with Patient: Less than 30
[2019-10-31] MEDS: bisacodyL 10 MG SUPP RECTAL SCH (17:15)
--- NOTE | 2019-10-31 17:26 | EEG ---
ELECTROENCEPHALOGRAM REPORT EEG REPORT: DATE OF SERVICE: 10/31/2019. CLINICAL HISTORY: This is a 49-year-old gentleman with reported history of right lacunar stroke, alcohol use, that presented to the emergency department on 10/10/2019 after a tractor injury. During his stay in hospital he has confusion. This video EEG was obtained to evaluate for seizure and epileptiform activity. RELEVANT MEDICATION: The patient is not on any central acting medication. EEG TYPE: Routine 21 channel EEG was performed with video using the 10-20 electrode placement system. DESCRIPTION: Wakefulness is obtained only. During wakefulness, there is a posterior dominant rhythm of 6.5-7.5 hertz that is of [id number] voltage. There is no stage 2 sleep seen during the study. Interictal and ictal - None. ACTIVATION PROCEDURE: Photic stimulation and Hyperventilation was not performed because the patient is unable to cooperate. EEG DIAGNOSIS: This is an abnormal routine EEG due to background slowing. CLINICAL INTERPRETATION: This is an abnormal routine awake EEG suggestive of mild to moderate encephalopathy of unknown etiology. There is no focal slowing, interictal or seizure seen during the study. Clinical correlation is recommended. MMODL / IJN: [id number] / MTDD
[2019-10-31 17:51] LABS: Glucose,Whole Blood 106 mg/dL (75-99)
[2019-10-31 23:33] LABS: Glucose,Whole Blood 100 mg/dL (75-99)
[2019-11-01] MEDS: METOPROLOL TARTRATE 5 MG/5 ML VIAL IVP SCH ×4 (00:30→17:41)
[2019-11-01] MEDS: OFLOXACIN 0.3% OPHTH DROPS 5 ML BOTTLE BOTH EYES SCH ×4 (00:30→17:42)
[2019-11-01] MEDS: PIPERACILLIN-TAZOBACTAM 3.375 GM in SODIUM CHLORIDE 0.9% 100 ML IVPB SCH ×3 (00:30→17:41)
[2019-11-01] MEDS: hydrALAZINE HCL 20 MG/ML 1 ML VIAL IVP PRN (01:24)
[2019-11-01 04:31] LABS: Basophils # (A) 0.1 k/uL (0-0.2); Basophils % (A) 1 %; Eosinophils # (A) 0.1 k/uL (0-0.7); Eosinophils % (A) 1 %; HCT 33.6 % (39.0-53.0); HGB 10.5 gm/dL (13.0-17.5); Hypochromasia Slight; Lymphocytes # (A) 1.6 k/uL (1.0-4.8); Lymphocytes % (A) 17 %; MCH 28.8 pg (25.0-35.0); MCHC 31.2 g/dL (31.0-37.0); MCV 92.1 fL (80.0-100.0); Mean Platelet Volume 6.9; Monocytes # (A) 0.5 k/uL (0-1.0); Monocytes % (A) 5 %; Neutrophils # (A) 7.4 k/uL (1.3-7.7); Neutrophils % (A) 76 %; Platelet Count 424 k/uL (150-450); RBC 3.64 m/uL (4.30-5.90); RDW 14.5 % (11.5-15.5); WBC 9.7 k/uL (3.8-10.6)
[2019-11-01 04:43] LABS: African American GFR (CKD) >90 (>60 ml/min/1.73 sqM); Anion Gap 8 mmol/L; Blood Urea Nitrogen 23 mg/dL (9-20); Calcium 9.3 mg/dL (8.4-10.2); Carbon Dioxide 24 mmol/L (22-30); Chloride 110 mmol/L (98-107); Glucose 105 mg/dL (74-99); Non-African American GFR(CKD) >90 (>60 ml/min/1.73 sqM); Potassium 3.8 mmol/L (3.5-5.1); Sodium 142 mmol/L (137-145)
[2019-11-01] MEDS: INSULIN ASPART (NovoLOG) 100 UNIT/ML VIAL SQ SCH ×3 (05:03→17:29)
[2019-11-01] MEDS: POTASSIUM CHLORIDE 10 MEQ in WATER FOR INJECTION 1 100ML.BAG IVPB SCH ×2 (05:05→06:11)
--- NOTE | 2019-11-01 07:09 | XR ---
EXAMINATION TYPE: XR chest 1V portable DATE OF EXAM: 11/01/2019 COMPARISON: Yesterday HISTORY: Short of breath TECHNIQUE: Single view FINDINGS: There is blunting left costophrenic angle. There is no gross heart failure. There is left c entral venous catheter with tip in the superior vena cava. Heart is slightly enlarged. There is infil trate left lower lobe. IMPRESSION: Left pleural effusion and left lower lobe infiltrate not significantly different than yes terday. No obvious heart failure.
[2019-11-01] MEDS: DULoxetine HCL 60 MG CAPSULE.DR PO SCH (08:32)
[2019-11-01] MEDS: QUEtiapine 50 MG TAB PO SCH ×2 (08:32→21:11)
[2019-11-01] MEDS: PANTOPRAZOLE 40 MG/10 ML VIAL IVP SCH (08:39)
[2019-11-01] MEDS: THIAMINE 100 MG/ML 2 ML VIAL IVP SCH ×2 (08:39→21:11)
[2019-11-01] MEDS: HEPARIN SODIUM,PORCINE 5,000 UNIT/ML 1 ML VIAL SQ SCH ×2 (08:42→21:11)
[2019-11-01] MEDS: IPRATROPIUM-ALBUTEROL 3 ML NEB INHALATION SCH ×4 (08:54→20:12)
--- NOTE | 2019-11-01 09:50 | P.PN ---
Subjective Progress Note Date: 11/01/19 CHIEF COMPLAINT: Multiple injury after trauma from a fall from tractor HISTORY OF PRESENT ILLNESS: Patient in the ICU is extubated on October 27. He had fecal emesis yesterday morning and NG tube was placed. He did have a large bowel movement with fleets enema on 10/30/2019. He is more awake today. afe brile. WBC 9.7 Hemoglobin 10.5 PHYSICAL EXAM: VITAL SIGNS: Reviewed. GENERAL: Well-developed in no acute distress. HEENT: No sclera icterus. Extraocular movements grossly intact. Moist buccal mucosa. Head is atraumatic, normocephalic. ABDOMEN: Soft. Obese. Distended. Nontender. Neuro: Patient is intubated and sedated ASSESSMENT: 1. Status post Fall from tractor with multiple injuries 2. Proximal sigmoid hematoma and contusion. Repeat CT of the abdomen over the weekend which was a stable mesenteric hematoma 3. Multiple left-sided rib fractures with flail chest 4. Left closed distal clavicular fracture followed by orthopedics 5. Chronic alcohol use and evidence of alcohol withdrawal 6. Acute hypoxic respiratory failure likely secondary to alcohol withdrawal syndrome and delirium tremens, multiple rib fractures on the left chest and possible pulmonary contusion. 7. Possible pulmonary contusion PLAN: -start clear liquid diet, once seen by speech therapy -Continue supportive care -continue ICU management -DVT prophylaxis subcu heparin GI prophylaxis Protonix Physician Chief Nuclear Medicine Technologist note has been reviewed by physician. Signing provider agrees with the documented findings, assessment, and plan of care. Objective - Vital Signs Vital signs: Vital Signs Temp 98.2 F 11/01/19 04:00 Pulse 92 11/01/19 09:12 Resp 29 H 11/01/19 09:00 BP 160/93 11/01/19 09:00 Pulse Ox 100 11/01/19 09:00 Intake & Output 10/31/19 11/01/19 11/01/19 18:59 06:59 18:59 Intake Total 340 540 160 Output Total 9228 053 300 Balance -5866 -590 -379 Weight 111.4 kg 106.5 kg Intake: IV 340 540 160 0.9 Normal Saline at KVO 240 240 60 20mL/hr Piperacillin-Tazobactam 3 100 100 100 .375 gm In Sodium Chloride 0.9% 100 ml @ 25 mls/hr IVPB Q8HR [facility] Rx# :[id number] Potassium Chloride 10 meq 200 In Water For Injection 1 100ml.bag @ 100 mls/hr IVPB Q1H [facility] Rx#: [id number] Output: Gastric Drainage 800 Urine 1155 995 300 Other: Voiding Method Indwelling Catheter Indwelling Catheter ABP, PAP, CO, CI - Last Documented Arterial Blood Pressure 178/114 - Labs CBC & Chem 7: 11/01/19 04:15 11/01/19 04:15 Labs: Abnormal Lab Results - Last 24 Hours (Table) 10/31/19 10/31/19 10/31/19 Range/Units 12:19 17:49 23:32 RBC (4.30-5.90) m/uL Hgb (13.0-17.5) gm/dL Hct (39.0-53.0) % Chloride (98-107) mmol/L BUN (9-20) mg/dL Glucose (74-99) mg/dL POC Glucose (mg/dL) 112 H 106 H 100 H (75-99) mg/dL 11/01/19 11/01/19 Range/Units 04:15 04:15 RBC 3.64 L (4.30-5.90) m/uL Hgb 10.5 L (13.0-17.5) gm/dL Hct 33.6 L (39.0-53.0) % Chloride 110 H (98-107) mmol/L BUN 23 H (9-20) mg/dL Glucose 105 H (74-99) mg/dL POC Glucose (mg/dL) (75-99) mg/dL
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
[2019-11-01] MEDS: LACTULOSE 20 GM/30 ML CUP PO SCH ×2 (11:06→14:18)
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
--- NOTE | 2019-11-01 14:12 | CT ---
EXAMINATION TYPE: CT angio head neck DATE OF EXAM: 11/01/2019 COMPARISON: None HISTORY: 49-year-old male Anisocoria, rule out aneurysm or occlusion. TECHNIQUE: Contiguous axial scanning of the head and neck performed with IV Contrast, patient injecte d with 65ml mL of Isovue 370. Coronal/sagittal MIP reconstructions performed. 3-D reconstructions gen erated on a dedicated independent workstation. CT DLP: 450.9 mGycm Automated exposure control for dose reduction was used. FINDINGS: NECK: Continued moderate left pleural effusion with known multiple left-sided rib fractures. Conventional arterial vessel branching anatomy. Mild atherosclerotic narrowing at the origin of the bilateral vertebral arteries which otherwise erin in patent throughout their course. The right common carotid artery is patent. Retropharyngeal course of the upper right common carotid a rtery. Moderate atherosclerotic calcifications of the right bifurcation with mild, less than 40% narrowing p roximal right ICA. Remainder of the right ICA remains patent. Retropharyngeal course of the upper left common carotid artery. The common carotid artery is patent. Mild atherosclerotic changes at the left carotid bifurcation. Mild, less than 25% narrowing proximal left ICA. Head: Moderate irregular atherosclerotic narrowing left greater than right V4 segment vertebral arteries. Basilar artery is patent. 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 The graft moderate atrophy and scattered calcifications throughout the bilateral carotid siph ons. Anterior circulations are otherwise patent. No aneurysmal changes identified. Moderate mucosal thickening left ethmoid air cells and mild within the sphenoid sinuses and left maxi llary sinus. Scattered partial opacification within the right third and left mastoid air cells. IMPRESSION: NECK: 1. MILD ATHEROSCLEROTIC NARROWING AT THE ORIGIN OF THE BILATERAL VERTEBRAL ARTERIES. 2. MILD, LESS THAN 40% PROXIMAL ICA STENOSES ON EITHER SIDE. 3. CONTINUED MODERATE LEFT EFFUSION WITH KNOWN MULTIPLE LEFT-SIDED RIB FRACTURES. HEAD: 4. MODERATE IRREGULAR ATHEROSCLEROTIC NARROWING WITHIN THE LEFT GREATER THAN RIGHT V4 SEGMENT VERTEBR AL ARTERIES AND MODERATE ATHEROSCLEROTIC CALCIFICATIONS THROUGHOUT THE BILATERAL CAROTID SIPHONS. 5. NO LARGE VESSEL INTRACRANIAL ARTERIAL OCCLUSION. NO ANEURYSMAL CHANGE IS SEEN. 6. 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 7. SOME SCATTERED FLUID WITHIN THE MASTOID AIR CELLS. CORRELATE FOR ANY MASTOID PAIN TO EXCLUDE MASTO IDITIS.
--- NOTE | 2019-11-01 14:16 | MR ---
EXAMINATION TYPE: MR brain wo cspine wo/w DATE OF EXAM: 11/01/2019 COMPARISON: CT brain 10/26/2019 HISTORY: Hyperreflexia right:rule out stroke, myelopathy CONTRAST: Performed utilizing 10 mL intravenous Gadavist gadolinium contrast. TECHNIQUE: Multiplanar, multiecho imaging on a 3.0 Rehana magnet is performed through the brain. Stud y is performed within 24 hours of arrival to the hospital. The craniovertebral junction is normal. The pituitary is normal. Diffusion-weighted imaging is performed. No abnormal hyperintensity is present to suggest an acute i ntracranial infarct or acute ischemic change. There are hyperintensity scattered within the brainstem can be compatible with microvascular ischemic change. There is some periventricular white matter changes likely on the basis of microvascular isch emic change. Virchow-Dat space or old lacunar infarct within the right thalamus . Within the right pelvis there is some hypointensity on the GRE imaging suggesting underlying cavernous angiomas could be considered. Additional area is at the left basal ganglion. Ventricles and sulci are prominent for the patient age. Fluid is within the bilateral mastoid air cells greater on the right. Correlate for mastoiditis IMPRESSIONS: 1. Atrophy with periventricular white matter changes likely on the basis of chronic white matter isch emia. This includes several areas within the brainstem. 2. 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 Cavernous angiomas may be within the right thalamus and left b bharati ganglion. EXAMINATION TYPE: MR brain wo cspine wo/w DATE OF EXAM: 11/01/2019 COMPARISON: None HISTORY: Hyperreflexia right:rule out stroke, myelopathy CONTRAST: Performed utilizing 10 mL intravenous Gadavist gadolinium contrast. TECHNIQUE: Multiplanar multiecho imaging on a 3.0 Rehana magnet is performed through the cervical spin e. FINDINGS: The craniovertebral junction is normal. Vertebral body alignment is normal. C7-T1: No focal disc herniation or significant disc bulge is evident. No spinal canal stenosis or n eural foraminal stenosis is present. C6-7: Broad-based disc bulge is present with moderate anterior thecal sac compression. Cord contact i s not identified no spinal canal stenosis or cord or MIBI is evident.. C5-6: There is a large central disc herniation with moderate anterior thecal sac compression. Cord co ntact is present without cord deformity. No AP spinal canal stenosis is present. Neural foramen are p atent.. C4-5: No focal disc herniation or significant disc bulge is evident. No spinal canal stenosis or gina ral foraminal stenosis is present. C3-4: No focal disc herniation or significant disc bulge is evident. No spinal canal stenosis or gina ral foraminal stenosis is present. C2-3: No focal disc herniation or significant disc bulge is evident. No spinal canal stenosis or gina ral foraminal stenosis is present. Following contrast, no abnormal enhancement is evident. IMPRESSIONS: 1. Central disc herniation with moderate anterior thecal sac compression C5-6. 2. Mild disc bulging C6-7 with anterior thecal sac flattening.
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
[2019-11-01 15:46] LABS: Glucose,Whole Blood 109 mg/dL (75-99)
[2019-11-02 00:52] LABS: Glucose,Whole Blood 97 mg/dL (75-99)
[2019-11-02] MEDS: INSULIN ASPART (NovoLOG) 100 UNIT/ML VIAL SQ SCH ×3 (00:52→13:47)
[2019-11-02 05:11] LABS: Basophils # (A) 0.1 k/uL (0-0.2); Basophils % (A) 1 %; Eosinophils # (A) 0.1 k/uL (0-0.7); Eosinophils % (A) 1 %; HCT 32.9 % (39.0-53.0); HGB 10.2 gm/dL (13.0-17.5); Hypochromasia Slight; Lymphocytes # (A) 1.7 k/uL (1.0-4.8); Lymphocytes % (A) 17 %; MCH 28.7 pg (25.0-35.0); MCV 92.3 fL (80.0-100.0); Mean Platelet Volume 6.8; Monocytes # (A) 0.5 k/uL (0-1.0); Monocytes % (A) 5 %; Neutrophils # (A) 7.3 k/uL (1.3-7.7); Neutrophils % (A) 75 %; Platelet Count 390 k/uL (150-450); RBC 3.57 m/uL (4.30-5.90); RDW 14.6 % (11.5-15.5); WBC 9.8 k/uL (3.8-10.6)
[2019-11-02 05:44] LABS: African American GFR (CKD) >90 (>60 ml/min/1.73 sqM); Anion Gap 7 mmol/L; Blood Urea Nitrogen 20 mg/dL (9-20); Calcium 9.4 mg/dL (8.4-10.2); Carbon Dioxide 22 mmol/L (22-30); Chloride 112 mmol/L (98-107); Glucose 104 mg/dL (74-99); Non-African American GFR(CKD) >90 (>60 ml/min/1.73 sqM); Sodium 141 mmol/L (137-145)
[2019-11-02 06:00] LABS: Glucose,Whole Blood 97 mg/dL (75-99)
[2019-11-02] MEDS: METOPROLOL TARTRATE 5 MG/5 ML VIAL IVP SCH (06:01)
[2019-11-02] MEDS: OFLOXACIN 0.3% OPHTH DROPS 5 ML BOTTLE BOTH EYES SCH ×3 (06:04→18:15)
[2019-11-02] MEDS: IPRATROPIUM-ALBUTEROL 3 ML NEB INHALATION SCH ×4 (08:42→19:29)
[2019-11-02] MEDS: HEPARIN SODIUM,PORCINE 5,000 UNIT/ML 1 ML VIAL SQ SCH ×2 (09:13→20:19)
[2019-11-02] MEDS: PANTOPRAZOLE 40 MG/10 ML VIAL IVP SCH (09:13)
[2019-11-02] MEDS: PIPERACILLIN-TAZOBACTAM 3.375 GM in SODIUM CHLORIDE 0.9% 100 ML IVPB SCH (09:13)
[2019-11-02] MEDS: THIAMINE 100 MG/ML 2 ML VIAL IVP SCH ×2 (09:14→20:18)
[2019-11-02] MEDS: QUEtiapine 50 MG TAB PO SCH ×2 (09:14→20:19)
[2019-11-02] MEDS: DULoxetine HCL 60 MG CAPSULE.DR PO SCH (09:14)
[2019-11-02] MEDS: amLODIPine 5 MG TAB PO SCH (09:58)
[2019-11-02] MEDS: METOPROLOL TARTRATE 25 MG TAB PO SCH ×2 (09:59→20:19)
--- NOTE | 2019-11-02 12:15 | P.PN ---
Subjective Patient was seen at bedside and his was next to him who she stated that the patient is doing much better at today compared to couple days ago. Also the nurse and the primary team were at bedside as well and they felt like he is doing better today. Objective - Vital Signs Vital signs: Vital Signs Temp 99.0 F 11/02/19 08:00 Pulse 97 11/02/19 11:00 Resp 33 H 11/02/19 11:00 BP 162/99 11/02/19 11:00 Pulse Ox 100 11/02/19 11:00 Intake & Output 11/01/19 11/02/19 11/02/19 18:59 06:59 18:59 Intake Total 660 340 40 Output Total 900 720 150 Balance -240 -380 -110 Weight 103.4 kg Intake: IV 360 340 40 0.9 Normal Saline at KVO 160 240 40 20mL/hr Piperacillin-Tazobactam 3 200 100 .375 gm In Sodium Chloride 0.9% 100 ml @ 25 mls/hr IVPB Q8HR [facility] Rx# :[id number] Oral 300 Output: Urine 900 720 150 Other: Voiding Method Indwelling Catheter Indwelling Catheter Indwelling Catheter ABP, PAP, CO, CI - Last Documented Arterial Blood Pressure 178/114 - Exam GENERAL: The patient is lying in bed and is in acute distress. CHEST: The heart rate is regular rate rhythm. No murmurs to auscultation. LUNG: Clear to auscultation bilaterally no wheezing noted throughout. Not labored breathing. ABDOMEN/GI: Bowel sounds present in all 4 quadrants. No tenderness to palpation throughout. NEUROLOGICAL: Higher mental function: The patient is awake, alert, oriented to self. Patient is not oriented to place or time. That he kept on stating that he is in rehab facility. Upon asking him about current year he stated that it's 1970 ind icating his date of . The patient is slow in following the commands but is able to perform a simple commands. He is responding with short phrases. No neglect. Cranial nerves: The pupils are round, right pupil is 5mm while left 4mm and bilaterally reactive to light. Visual galaviz are full to threat throughout. Extraocular movement was tracking throughout and no nystagmus is noted. Facial sensation could not be assessed. The facial strength is normal throughout and no facial droop noted. Tongue: he was able to open his tongue stick his tongue midline. No dysarthria is noted. Shoulder could not assess because of pain. Motor: Gait is defered. The strength: On the right upper extremity he was able to give a strength of at least 3-4 out of 5 proximally and distally while the r ight lower extremity was able to lift it above the bed. Left upper extremity could not assess because of the pain but he is able to make a fist and that was able to show a thumbs up on the left hand. Left lower extremity he had a brief episode of left in at it above gravity (he has a old the left sided weakness from an old right lacunar stroke per but he was able to move left upper and lower extremity above gravity prior to this presentation). Normal tone and bulk. Cerebellum: Unable to assess. Sensation: Intact to painful stimuli. Reflexes (right/left): 3+ on the right upper and lower extremities. While left 1+. Plantars are mute bilaterally. - Labs CBC & Chem 7: 11/02/19 04:45 11/02/19 04:45 Labs: Abnormal Lab Results - Last 24 Hours (Table) 11/01/19 11/02/19 11/02/19 Range/Units 15:44 04:45 04:45 RBC 3.57 L (4.30-5.90) m/uL Hgb 10.2 L (13.0-17.5) gm/dL Hct 32.9 L (39.0-53.0) % Chloride 112 H (98-107) mmol/L Glucose 104 H (74-99) mg/dL POC Glucose (mg/dL) 109 H (75-99) mg/dL Assessment and Plan Assessment: Unclear why the patient fell off the tractor. Questionable syncope, also possibly because of acohol intoxication he fell over and he passed out. cannot rule out seizure. ?Anisocoria (Mostly equal pupils but few occasionas 1mm difference which is normal). There is no aneurysm. Hyper-reflexia over the right side due to compression on C5-C6 He has generalized weakness from deconditioning. 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 Also on imaging shows left cerebellar lacunar hyperintesity as well small vessel disease. Possible cavernous angioma over on the right thalamus and the left basal ganglia Post tractor accident with multiple injuries and trauma. Flail chest with multiple rib fracture in the left side displaced in the anterior and posterior area with significant pneumothorax Severe abdominal pain with bowel injury a long proximal sigmoid injury with mild hematoma with no rupture or or perforation. Alcohol intoxication Hypercholesterolemia Plan: Routine EEG (10/31/19): Mild to moderate encephalopathy of unknown etiology. There is no focal slowing. There is no interictal or seizure activity during the study. MRI of brain on 11/01/2019 was reported as atrophy of the periventricular white matter changes likely on the basis of chronic white matter ischemia. This includes 7 area within the brainstem. Old lacunar infarct in the right thalamus. Cavernous angioma may be within the right thalamus and the left basal ganglia. I personally reviewed the MRI of the brain and I do agree there is old lacunar on the right thalamus. I also saw and old lacunae over the left the cerebellar on one of the axial views. There is a small white matter changes as well. MRI C-spine: Large Central disc herniation with moderate anterior thecal sac compressing C5-C6. Mild disc bulge at C6-C7 with anterior thecal sac flattening. CT angiogram of the head reported as moderate irregular atherosclerotic narrowing within the left greater than the right is V4 segment vertebral artery and moderate atherosclerotic calcification throughout the bilateral carotid siphons. No large a vessel intracranial artery occlusion. No aneurysm changes seen. Some scattered fluid within the mastoid air cells. Correlate for any m astoid the pain to exclude mastoiditis. CTA of the neck was reported as mild of the scar narrowing at the origin of the bilateral vertebral arteries. Mild, less than 40% proximal ICA stenosis on eith er side. Echocardiogram was reported as left ventricle size is normal. Ejection fraction is 55-60%. There is moderate concentric left ventricular hypertrophy. There is a trace mitral regurgitation Hemoglobin A1c is 5.6. Lipid profile is triglyceride is 740, cholesterol is 292 but was taken while patient was on Propofol. Will repeat the lipid profile. ordered TSH From a neurology perspective regarding the the central disc herniation on the C5-C6 region I recommend the orthopedic consultation. If unable patient to see orthopedic as an inpatient that he needs to see as an outpatient. On thiamine 100 mg twice a day. 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 Also recommend the patient to follow-up with a neurosurgeon regarding the cavernous hemangioma as outpatient. As well has follow-up with the neurologist as an outpatient. The plan was discussed with the the primary team Lobo Cruz M.D. Neuro-hospitalist Time with Patient: Greater than 30
[2019-11-02 12:18] LABS: Glucose,Whole Blood 111 mg/dL (75-99)
--- NOTE | 2019-11-02 13:42 | P.PN ---
Subjective Progress Note Date: 11/02/19 CHIEF COMPLAINT: Multiple injury after trauma from a fall from tractor HISTORY OF PRESENT ILLNESS: Patient remains in the ICU. He is more confused today. He is being followed by neurology. He had MRI of the brain and cervical spine completed. MRI of the brain showing atrophy with periventricular white matter changes likely on the basis of chronic white matter ischemia and old lacunar infarct and MRI of the cervical spine shows central disc herniation with moderate anterior thecal sac compression C5 to C6. Mild disc bulging C6 to 7 with anterior thecal sac flattening. Consult has been placed per Dr. Jones. Patient had a temp of 100.6 yesterday. WBC 9.8 hemoglobin 10.2. PHYSICAL EXAM: VITAL SIGNS: Reviewed. GENERAL: Well-developed in no acute distress. HEENT: No sclera icterus. Extraocular movements grossly intact. Moist buccal mucosa. Head is atraumatic, normocephalic. ABDOMEN: Soft. Obese. Distended. Nontender. Neuro: Patient is intubated and sedated ASSESSMENT: 1. Status post Fall from tractor with multiple injuries 2. Proximal sigmoid hematoma and contusion. Repeat CT of the abdomen over the weekend which was a stable mesenteric hematoma 3. Multiple left-sided rib fractures with flail chest 4. Left closed distal clavicular fracture followed by orthopedics 5. Chronic alcohol use and evidence of alcohol withdrawal 6. Acute hypoxic respiratory failure likely secondary to alcohol withdrawal syndrome and delirium tremens, multiple rib fractures on the left chest and possible pulmonary contusion. 7. Possible pulmonary contusion PLAN: -start clear liquid diet, once seen by speech therapy -Continue supportive care -continue ICU management -DVT prophylaxis subcu heparin GI prophylaxis Protonix Physician Artificial Log Machine Operator note has been reviewed by physician. Signing provider agrees with the documented findings, assessment, and plan of care. Objective - Vital Signs Vital signs: Vital Signs Temp 99.6 F 11/02/19 12:00 Pulse 108 H 11/02/19 12:00 Resp 32 H 11/02/19 12:00 BP 157/95 11/02/19 12:00 Pulse Ox 100 11/02/19 12:00 Intake & Output 11/01/19 11/02/19 11/02/19 18:59 06:59 18:59 Intake Total 660 340 280 Output Total 900 720 450 Balance -240 -380 -170 Weight 103.4 kg Intake: IV 360 340 80 0.9 Normal Saline at KVO 160 240 80 20mL/hr Piperacillin-Tazobactam 3 200 100 .375 gm In Sodium Chloride 0.9% 100 ml @ 25 mls/hr IVPB Q8HR [facility] Rx# :[id number] Oral 300 200 Output: Urine 900 720 450 Other: Voiding Method Indwelling Catheter Indwelling Catheter Indwelling Catheter ABP, PAP, CO, CI - Last Documented Arterial Blood Pressure 178/114 - Labs CBC & Chem 7: 11/02/19 04:45 11/02/19 04:45 Labs: Abnormal Lab Results - Last 24 Hours (Table) 11/01/19 11/02/19 11/02/19 Range/Units 15:44 04:45 04:45 RBC 3.57 L (4.30-5.90) m/uL Hgb 10.2 L (13.0-17.5) gm/dL Hct 32.9 L (39.0-53.0) % Chloride 112 H (98-107) mmol/L Glucose 104 H (74-99) mg/dL POC Glucose (mg/dL) 109 H (75-99) mg/dL Creatine Kinase (55-170) U/L 11/02/19 11/02/19 Range/Units 04:45 12:16 RBC (4.30-5.90) m/uL Hgb (13.0-17.5) gm/dL Hct (39.0-53.0) % Chloride (98-107) mmol/L Glucose (74-99) mg/dL POC Glucose (mg/dL) 111 H (75-99) mg/dL Creatine Kinase 38 L (55-170) U/L
--- NOTE | 2019-11-02 14:13 | P.PN ---
Subjective Progress Note Date: 11/02/19 Principal diagnosis: Acute hypoxic respiratory failure secondary to Multiple left-sided rib fractures and pulmonary contusion 10/30/2019, the patient is being seen for a follow-up. He was extubated and he remains extubated for now. He was being given BiPAP throughout the night yesterday and the patient was noted to have some fecal material in the BiPAP mask and for that reason I recommended to discontinue the BiPAP immediately and put the patient on nasal cannula which is currently it's 6 L. NG tube was inserted and immediately around 200 mL of fecal material was aspirated from his stomach. The patient is much more comfortable at this point in time. Abdomen is slightly distended. A flat film of the abdomen was done and it showed dilated loop of small bowel which could be related to mechanical small bowel obstruction. No free air. There is constant in the descending colon and rectosigmoid colon and this is probably related to the previous CAT scan of the abdomen that the patient received 2 days back. He is awake. He opens eyes spontaneously. Not following any commands at this point in time. His fluid balance has been negative around 4.4 L and there is considerable improvement in the fluid balance and third spacing and edema in the upper and lower e xtremities. The chest x-ray from today showed left basilar infiltrate and there is improvement in the volume status. The pulmonary asked essentially within normal limits. Noted the patient is currently on no sedation. He is off Precedex for now. He remains on IV Zosyn. Reevaluated today on 10/31/19, patient remains in the ICU, he is on 3 L nasal cannula, hemodynamically stable, continues to have a nasogastric tube in place for presumptive severe ileus. Yesterday the patient apparently vomited while he was on BiPAP, and he was placed on a nasal cannula, nasogastric tube In place. Patient is having some shallow breathing, today I have encouraged the patient to do before incentive spirometry and more deep breathing and deep coughing. His IV fluids remains at KVO, hemodynamically stable, and his heart rate is 90 sinus rhythm. Chest x-ray today showed small left pleural effusion multiple left- sided rib fractures Patient was reevaluated today on 11/01/19, remains in the ICU, patient is about the same, not verbal March, remains encephalopathic, he did pass his swallow evaluation today, seems to be very weak. Patient had a bowel movement last night, abdomen is less distended, patient is supposed to have a MRI/MRA today as ordered by the neurologist on the case. He is on 3 L nasal cannula. And his IV fluid is at KVO. CBC is relatively normal basic metabolic profile is normal, EEG is basically showing metabolic encephalopathy. Surprisingly the patient passes swallow evaluation, and we will likely advance his diet as tolerated. Reevaluated today on 11/02/19, patient remains in the ICU, he is on 2 L nasal cannula with O2 saturation 98%. Patient remains confused, knows his name, he thinks he is at [facility], but he did not know the year he thought it was 2002, and did not know the name of the president. Patient responded well to lactulose and had many liquid bowel movements, hence lactulose is now on hold. Patient has no evidence of vegetations, he is oriented to self. Chest x-ray continues to show small left-sided pleural effusion. Not large e nough to consider thoracentesis. Today I have recommended that we get rid of IV blood pressure medications, and I will place him on oral metoprolol and Norvasc. We will discontinue IV metoprolol and IV hydralazine. Objective - Vital Signs Vital signs: Vital Signs Temp 99.6 F 11/02/19 12:00 Pulse 108 H 11/02/19 12:00 Resp 32 H 11/02/19 12:00 BP 157/95 11/02/19 12:00 Pulse Ox 100 11/02/19 12:00 Intake & Output 11/01/19 11/02/19 11/02/19 18:59 06:59 18:59 Intake Total 660 340 280 Output Total 900 720 450 Balance -240 -380 -170 Weight 103.4 kg Intake: IV 360 340 80 0.9 Normal Saline at KVO 160 240 80 20mL/hr Piperacillin-Tazobactam 3 200 100 .375 gm In Sodium Chloride 0.9% 100 ml @ 25 mls/hr IVPB Q8HR [facility] Rx# :[id number] Oral 300 200 Output: Urine 900 720 450 Other: Voiding Method Indwelling Catheter Indwelling Catheter Indwelling Catheter ABP, PAP, CO, CI - Last Documented Arterial Blood Pressure 178/114 - Exam Physical examination Gen: This is 49-year-old male. On nasal cannula, in no distress. HEENT: PERRLA, EOMI, no icterus, chronic masses, no JVD. NECK: Supple. No JVD. No lymphadenopathy. No thyromegaly. Nasogastric tube is in place. LUNGS: Symmetrical chest expansion, diminished at the bases no crackles or rhonchi or wheezes. HEART: Distant S1 and S2, no S3 gallop, no murmur. ABDOMEN: Obese, Soft. Bowel sounds are present. No masses. No tenderness. EXTREMITIES: 1+ bilateral pedal edema. No calf tenderness.wound to the left forearm, healing without signs of infection. NEUROLOGICAL: Arousable, confused, oriented 1. New his name, felt he was at [facility], did not know the name of the president or the year, thought it was 2002.. Psychiatric: Blunted mood and affect, follows simple instructions only, not very notable. - Labs CBC & Chem 7: 11/02/19 04:45 11/02/19 04:45 Labs: Abnormal Lab Results - Last 24 Hours (Table) 11/01/19 11/02/19 11/02/19 Range/Units 15:44 04:45 04:45 RBC 3.57 L (4.30-5.90) m/uL Hgb 10.2 L (13.0-17.5) gm/dL Hct 32.9 L (39.0-53.0) % Chloride 112 H (98-107) mmol/L Glucose 104 H (74-99) mg/dL POC Glucose (mg/dL) 109 H (75-99) mg/dL Creatine Kinase (55-170) U/L 11/02/19 11/02/19 Range/Units 04:45 12:16 RBC (4.30-5.90) m/uL Hgb (13.0-17.5) gm/dL Hct (39.0-53.0) % Chloride (98-107) mmol/L Glucose (74-99) mg/dL POC Glucose (mg/dL) 111 H (75-99) mg/dL Creatine Kinase 38 L (55-170) U/L Assessment and Plan Assessment: Impression: Acute hypoxic respiratory failure secondary to multiple rib fractures and pulmonary contusion Prolonged course of mechanical ventilation , patient was extubated over the weekend, and his overall pulmonary status is marginal. Status post tractor accident/fall Benign essential hypertension Delirium tremens and alcohol withdrawal requiring prolonged course of mechanical ventilation. Chronic low back pain Type 2 diabetes Abdominal wall hematoma Acute blood loss anemia Severe ileus, resolved. Recommendation: Resume diet and advance as tolerated. Transfer patient out of the ICU to a regular medical floor. Continue incentive spirometry and encourage deep coughing and deep breathing Discontinue antibiotics. Change IV medications including IV blood pressure medications to oral meds hence the patient will be placed on Lopressor and amlodipine. customer technical services manager to address the issue of placement. Patient will need a long- term rehab Time with Patient: Less than 30
--- NOTE | 2019-11-02 14:19 | P.CNOR ---
History of Present Illness - [facility] Consult date: 11/02/19 Requesting physician: Edmar Valdivia Consult reason: neck pain, other (Findings on cervical MRI imaging) History of present illness: Patient is a 49-year-old male who is seen and examined the bedside in the ICU with his family present in regards to further evaluation for cervical spine. Patient recently underwent MRI imaging of his brain and cervical spine. Patient had incidental findings on his cervical MRI and we are consulted in this regard. Patient does admit to some cervical pain. He has recently been extubated. He had been intubated for approximately 2 weeks. He is able to answer some questions appropriately. He states he does not experience any significant new upper extremity weakness or radiculopathy symptoms. He states he has been significantly weak throughout his body. He has difficulty with active range of motion of the bilateral upper extremities or lower extremities. His family also states he is known to have sustained a stroke approximately one year ago and has residual weakness on the left upper extremity and left lower extremity. At this time, the patient and his family. They would like to avoid any further evaluation or treatment in regards to his cervical spine and would like to focus on his other medical diagnoses try to improve his overall health status. Patient was originally admitted on 10/10/2019 after sustaining a 10 foot fall from a tractor which resulting in hydropneumothorax with multiple displaced rib fractures along with bowel injury. He was also found to have a left clavicle fracture and has been treated by orthopedics. An 814 patient had developed significant mental status change and drop in pulse ox. He required intubation and remained on mechanical ventilation. Patient was able to be extubated on . He continues be seen exam by multiple medical providers including general surgery, pulmonology, and medicine. Past Medical History Past Medical History: Hypertension Additional Past Medical History / Comment(s): back pain, left CVA. History of Any Multi-Drug Resistant Organisms: None Reported Past Surgical History: Orthopedic Surgery Additional Past Surgical History / Comment(s): leg surgery, right ankle right knee Past Psychological History: No Psychological Hx Reported Smoking Status: Former smoker Past Alcohol Use History: Occasional, Rare Past Drug Use History: None Reported Medications and Allergies Home Medications Medication Instructions Recorded Confirmed Type HYDROcodone/APAP 7.5-325MG [[place] 1 tab PO BID 08/10/20 08/10/20 History 7.5-325] Metoprolol Tartrate [Lopressor] 50 mg PO BID 10/10/19 10/10/19 History amLODIPine [Norvasc] 10 mg PO DAILY 10/10/19 10/10/19 History DULoxetine HCL [Cymbalta] 60 mg PO DAILY 10/11/19 10/11/19 History Allergies Allergy/AdvReac Type Severity Reaction Status Date / Time No Known Allergies Allergy Verified 10/10/19 19:09 Physical Examination Physical exam: Patient is awake and alert and is able to answer some questions appropriately Vital signs stable Adequate chest excursion with inspiration and expiration Examination of the cervical spine reveals skin is intact with no abrasions, lacerations, or bruises; no erythema, purulence or signs of infection Mild pain with palpation posterior cervical spine Patient is sitting upright with his head flexed and rotated to the right Patient is able to wiggle the fingers of his hands greater on the right than the left Patient is globally weak unable to perform active full range of motion of bilateral upper extremities Patient is globally weak and very limited range of motion bilateral lower extremities as well Results Pertinent studies: MRI of the brain and cervical spine taken on 11/01/2019: Atrophy with periventricular white matter changes likely basis of chronic white matter ischemia; old lacunar infarct in the right thalamus; C5 to 6 large central disc herniation with mild central canal stenosis and moderate left neural foraminal stenosis; C6-7 broad-based disc bulging with moderate spinal canal stenosis and bilateral neuroforaminal stenosis greater on the left than the right; overall and is adequately maintained cervical no evidence of vertebral body compression fracture - Labs Labs: Abnormal Lab Results - Last 24 Hours (Table) 11/01/19 11/02/19 11/02/19 Range/Units 15:44 04:45 04:45 RBC 3.57 L (4.30-5.90) m/uL Hgb 10.2 L (13.0-17.5) gm/dL Hct 32.9 L (39.0-53.0) % Chloride 112 H (98-107) mmol/L Glucose 104 H (74-99) mg/dL POC Glucose (mg/dL) 109 H (75-99) mg/dL Creatine Kinase (55-170) U/L 11/02/19 11/02/19 Range/Units 04:45 12:16 RBC (4.30-5.90) m/uL Hgb (13.0-17.5) gm/dL Hct (39.0-53.0) % Chloride (98-107) mmol/L Glucose (74-99) mg/dL POC Glucose (mg/dL) 111 H (75-99) mg/dL Creatine Kinase 38 L (55-170) U/L H & H 10/10/19 10/11/19 10/12/19 Range/Units 17:42 05:31 03:52 Hgb 14.6 12.9 L 11.2 L (13.0-17.5) gm/dL Hct 46.1 40.0 35.1 L (39.0-53.0) % 10/13/19 10/14/19 10/15/19 Range/Units 08:54 07:58 04:20 Hgb 10.6 L 10.4 L 8.1 L D (13.0-17.5) gm/dL Hct 32.4 L 33.2 L 25.4 L (39.0-53.0) % 10/15/19 10/15/19 10/16/19 Range/Units 13:05 21:15 04:00 Hgb 9.5 L 10.9 L 10.7 L (13.0-17.5) gm/dL Hct 29.3 L 32.4 L 31.8 L (39.0-53.0) % 10/17/19 10/18/19 10/19/19 Range/Units 05:21 05:00 05:00 Hgb 9.8 L 9.7 L 9.3 L (13.0-17.5) gm/dL Hct 27.3 L 29.4 L 28.2 L (39.0-53.0) % 10/20/19 10/21/19 10/22/19 Range/Units 04:20 04:00 04:15 Hgb 9.5 L 9.5 L 10.1 L (13.0-17.5) gm/dL Hct 29.4 L 28.9 L 30.9 L (39.0-53.0) % 10/23/19 10/24/19 10/25/19 Range/Units 05:00 03:26 05:00 Hgb 10.2 L 8.5 L D 8.5 L (13.0-17.5) gm/dL Hct 32.8 L 27.3 L 26.6 L (39.0-53.0) % 10/25/19 10/26/19 10/27/19 Range/Units 19:29 04:25 04:55 Hgb 9.6 L 9.2 L 8.8 L (13.0-17.5) gm/dL Hct 30.1 L 28.7 L 26.7 L (39.0-53.0) % 10/28/19 10/29/19 10/30/19 Range/Units 04:20 05:00 05:26 Hgb 9.1 L 9.2 L 10.0 L (13.0-17.5) gm/dL Hct 28.7 L 29.2 L 31.7 L (39.0-53.0) % 10/31/19 11/01/19 11/02/19 Range/Units 05:10 04:15 04:45 Hgb 9.9 L 10.5 L 10.2 L (13.0-17.5) gm/dL Hct 32.2 L 33.6 L 32.9 L (39.0-53.0) % Coagulation 10/10/19 10/15/19 Range/Units 17:42 13:05 INR 0.9 0.9 (<1.2) Result Diagrams: 11/02/19 04:45 11/02/19 04:45 Assessment and Plan Assessment: Assessment: Cervicalgia C5-6 mild spinal canal stenosis and moderate left neural foraminal stenosis C6-7 spinal moderate central canal stenosis and bilateral neural foraminal stenosis Global weakness 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 Recent fall from a tractor resulted in flail chest with multiple rib fractures, clavicle fracture, and bowel injury Recent extubation from mechanical ventilation (1) Cervicalgia Current Visit: Yes Status: Acute Code(s): M54.2 - CERVICALGIA SNOMED Code(s): 40000020 (2) Cervical stenosis of spinal canal Current Visit: Yes Status: Acute Code(s): M48.02 - SPINAL STENOSIS, CERVICAL REGION SNOMED Code(s): 19735777 (3) Multiple rib fractures Current Visit: Yes Status: Acute Code(s): S22.49XA - MULTIPLE FRACTURES OF RIBS, UNSP SIDE, INIT FOR CLOS FX SNOMED Code(s): 1850788 (4) History of stroke Current Visit: Yes Status: Acute Code(s): Z86.73 - PRSNL HX OF TIA (TIA), AND CEREB INFRC W/O RESID DEFICITS SNOMED Code(s): 032001537 (5) Fall from stationary vehicle Current Visit: Yes Status: Acute Code(s): W17.89XA - OTHER FALL FROM ONE LEVEL TO ANOTHER, INITIAL ENCOUNTER SNOMED Code(s): 253309573 (6) Multiple injuries due to trauma Current Visit: Yes Status: Acute Code(s): T07.XXXA - UNSPECIFIED MULTIPLE INJURIES, INITIAL ENCOUNTER SNOMED Code(s): 526474899 Plan: Plan: 1. Patient has been discussed in detail Dr. David Jones. After further discuss ion with the patient, the patient's family, reviewing of imaging, and the patient's current medical condition, we are planning to continue conservative treatment options. Patient and his family do not wish to discuss further treatment or have further evaluation in regards to his cervical spine. He does have changes of his cervical spine on MRI imaging most significant at C5-6 and C6-7. Patient is globally weak of the upper extremities and lower extremities status post extubation off of mechanical ventilation after being on mechanical vent for 14 days. Patient is also known to have residual left-sided weakness at the left upper extremity lower extremity following a previous right-sided st roke. Patient does not feel his upper extremity symptoms have had any significant change as compared to prior to his recent injury. He does have some ongoing cervical pain. At this time the patient and his family would like to focus on his other medical diagnoses. We discussed the patient is clear for discharge from an orthopedic spine standpoint. We'll plan to have the patient follow-up in the outpatient setting in several weeks for further evaluation. Following discharge, if the patient begins to experience an exacerbation of symptoms or worsening symptoms in regards to his cervical spine or upper extremities, he may call office for an earlier appointment time. We also discussed during his admission to the hospital if he wishes to have further evaluation in regards to his cervical spine we may be contacted for further follow-up evaluation. 2. Patient will continue be seen exam by multiple other medical providers including pulmonology, general surgery, and medicine Time with Patient: Greater than 30 (Including obtaining history, physical examination, reviewing of imaging, and dictation.)
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
[2019-11-03] MEDS: OFLOXACIN 0.3% OPHTH DROPS 5 ML BOTTLE BOTH EYES SCH ×4 (00:05→17:56)
[2019-11-03 06:00] LABS: Basophils # (A) 0.1 k/uL (0-0.2); Basophils % (A) 1 %; Eosinophils # (A) 0.3 k/uL (0-0.7); Eosinophils % (A) 3 %; HCT 35.1 % (39.0-53.0); HGB 10.8 gm/dL (13.0-17.5); Hypochromasia Slight; Lymphocytes # (A) 2.1 k/uL (1.0-4.8); Lymphocytes % (A) 21 %; MCH 28.3 pg (25.0-35.0); MCHC 30.8 g/dL (31.0-37.0); Mean Platelet Volume 6.8; Monocytes # (A) 0.4 k/uL (0-1.0); Monocytes % (A) 4 %; Neutrophils % (A) 70 %; Platelet Count 379 k/uL (150-450); RBC 3.82 m/uL (4.30-5.90); RDW 14.9 % (11.5-15.5); WBC 9.9 k/uL (3.8-10.6)
[2019-11-03 06:33] LABS: African American GFR (CKD) >90 (>60 ml/min/1.73 sqM); Anion Gap 9 mmol/L; Blood Urea Nitrogen 20 mg/dL (9-20); Calcium 9.7 mg/dL (8.4-10.2); Carbon Dioxide 22 mmol/L (22-30); Chloride 109 mmol/L (98-107); Glucose 102 mg/dL (74-99); Non-African American GFR(CKD) >90 (>60 ml/min/1.73 sqM); Potassium 4.4 mmol/L (3.5-5.1); Sodium 140 mmol/L (137-145)
[2019-11-03] MEDS: IPRATROPIUM-ALBUTEROL 3 ML NEB INHALATION SCH ×4 (07:21→19:21)
[2019-11-03] MEDS: QUEtiapine 50 MG TAB PO SCH (08:40)
[2019-11-03] MEDS: DULoxetine HCL 60 MG CAPSULE.DR PO SCH (08:41)
[2019-11-03] MEDS: METOPROLOL TARTRATE 25 MG TAB PO SCH (08:41)
[2019-11-03] MEDS: THIAMINE 100 MG/ML 2 ML VIAL IVP SCH ×2 (08:41→20:32)
[2019-11-03] MEDS: HEPARIN SODIUM,PORCINE 5,000 UNIT/ML 1 ML VIAL SQ SCH ×2 (08:41→20:32)
[2019-11-03] MEDS: ATORVASTATIN 40 MG TAB PO SCH (08:42)
[2019-11-03] MEDS: amLODIPine 5 MG TAB PO SCH (08:45)
[2019-11-03] MEDS: PANTOPRAZOLE 40 MG TABLET PO SCH (08:45)
[2019-11-03] MEDS ORDERED: traMADol 50 MG TAB PO PRN (10:54)
--- NOTE | 2019-11-03 12:47 | P.PN ---
Subjective Progress Note Date: 11/03/19 Principal diagnosis: Acute hypoxic respiratory failure secondary to Multiple left-sided rib fractures and pulmonary contusion 10/30/2019, the patient is being seen for a follow-up. He was extubated and he remains extubated for now. He was being given BiPAP throughout the night yesterday and the patient was noted to have some fecal material in the BiPAP mask and for that reason I recommended to discontinue the BiPAP immediately and put the patient on nasal cannula which is currently it's 6 L. NG tube was inserted and immediately around 200 mL of fecal material was aspirated from his stomach. The patient is much more comfortable at this point in time. Abdomen is slightly distended. A flat film of the abdomen was done and it showed dilated loop of small bowel which could be related to mechanical small bowel obstruction. No free air. There is constant in the descending colon and rectosigmoid colon and this is probably related to the previous CAT scan of the abdomen that the patient received 2 days back. He is awake. He opens eyes spontaneously. Not following any commands at this point in time. His fluid balance has been negative around 4.4 L and there is considerable improvement in the fluid balance and third spacing and edema in the upper and lower e xtremities. The chest x-ray from today showed left basilar infiltrate and there is improvement in the volume status. The pulmonary asked essentially within normal limits. Noted the patient is currently on no sedation. He is off Precedex for now. He remains on IV Zosyn. Reevaluated today on 10/31/19, patient remains in the ICU, he is on 3 L nasal cannula, hemodynamically stable, continues to have a nasogastric tube in place for presumptive severe ileus. Yesterday the patient apparently vomited while he was on BiPAP, and he was placed on a nasal cannula, nasogastric tube In place. Patient is having some shallow breathing, today I have encouraged the patient to do before incentive spirometry and more deep breathing and deep coughing. His IV fluids remains at KVO, hemodynamically stable, and his heart rate is 90 sinus rhythm. Chest x-ray today showed small left pleural effusion multiple left- sided rib fractures Patient was reevaluated today on 11/01/19, remains in the ICU, patient is about the same, not verbal March, remains encephalopathic, he did pass his swallow evaluation today, seems to be very weak. Patient had a bowel movement last night, abdomen is less distended, patient is supposed to have a MRI/MRA today as ordered by the neurologist on the case. He is on 3 L nasal cannula. And his IV fluid is at KVO. CBC is relatively normal basic metabolic profile is normal, EEG is basically showing metabolic encephalopathy. Surprisingly the patient passes swallow evaluation, and we will likely advance his diet as tolerated. Reevaluated today on 11/02/19, patient remains in the ICU, he is on 2 L nasal cannula with O2 saturation 98%. Patient remains confused, knows his name, he thinks he is at [facility], but he did not know the year he thought it was 2002, and did not know the name of the president. Patient responded well to lactulose and had many liquid bowel movements, hence lactulose is now on hold. Patient has no evidence of vegetations, he is oriented to self. Chest x-ray continues to show small left-sided pleural effusion. Not large e nough to consider thoracentesis. Today I have recommended that we get rid of IV blood pressure medications, and I will place him on oral metoprolol and Norvasc. We will discontinue IV metoprolol and IV hydralazine. Reevaluated today on 11/03/19, patient remains in the ICU as an overflow. Remains encephalopathic, confused, verbalizes but disoriented, patient is on 2 L nasal cannula, does not seem to be short of breath. He is very comfortable. Labs including CBC and basic metabolic profile are normal. Patient is having bowel movements, his blood pressure medications were addressed, and I have increased his metoprolol to 50 mg twice a day. Blood pressure is marginally high. Objective - Vital Signs Vital signs: Vital Signs Temp 99.4 F 11/03/19 12:00 Pulse 107 H 11/03/19 12:00 Resp 19 11/03/19 12:00 BP 131/84 11/03/19 12:00 Pulse Ox 96 11/03/19 12:00 Intake & Output 11/02/19 11/03/19 11/03/19 18:59 06:59 18:59 Intake Total 420 Output Total 650 837 920 Balance -230 -645 -490 Weight 103.4 kg 103.1 kg Intake: IV 120 0.9 Normal Saline at KVO 120 20mL/hr Oral 300 Output: Urine 650 645 490 Other: Voiding Method Indwelling Catheter Indwelling Catheter Indwelling Catheter ABP, PAP, CO, CI - Last Documented Arterial Blood Pressure 178/114 - Exam Physical examination Gen: This is 49-year-old male. On nasal cannula, in no distress. HEENT: PERRLA, EOMI, no icterus, chronic masses, no JVD. NECK: Supple. No JVD. No lymphadenopathy. No thyromegaly. Nasogastric tube is in place. LUNGS: Symmetrical chest expansion, diminished at the bases no crackles or rhonchi or wheezes. HEART: Distant S1 and S2, no S3 gallop, no murmur. ABDOMEN: Obese, Soft. Bowel sounds are present. No masses. No tenderness. EXTREMITIES: 1+ bilateral pedal edema. No calf tenderness.wound to the left forearm, healing without signs of infection. NEUROLOGICAL: Arousable, confused, oriented 1. Not oriented to place or time. Psychiatric: Blunted mood and affect, follows simple instructions only, not very notable. - Labs CBC & Chem 7: 11/03/19 05:18 11/03/19 05:18 Labs: Abnormal Lab Results - Last 24 Hours (Table) 11/02/19 11/02/19 11/03/19 Range/Units 04:45 04:45 05:18 RBC 3.82 L (4.30-5.90) m/uL Hgb 10.8 L (13.0-17.5) gm/dL Hct 35.1 L (39.0-53.0) % MCHC 30.8 L (31.0-37.0) g/dL Chloride (98-107) mmol/L Creatinine (0.66-1.25) mg/dL Glucose (74-99) mg/dL Creatine Kinase 38 L (55-170) U/L Triglycerides 218 H (<150) mg/dL Cholesterol 365 H (<200) mg/dL LDL Cholesterol, Calc 303 H (0-99) mg/dL HDL Cholesterol 18 L (40-60) mg/dL 11/03/19 Range/Units 05:18 RBC (4.30-5.90) m/uL Hgb (13.0-17.5) gm/dL Hct (39.0-53.0) % MCHC (31.0-37.0) g/dL Chloride 109 H (98-107) mmol/L Creatinine 0.60 L (0.66-1.25) mg/dL Glucose 102 H (74-99) mg/dL Creatine Kinase (55-170) U/L Triglycerides (<150) mg/dL Cholesterol (<200) mg/dL LDL Cholesterol, Calc (0-99) mg/dL HDL Cholesterol (40-60) mg/dL Assessment and Plan Assessment: Impression: Acute hypoxic respiratory failure secondary to multiple rib fractures and pulmonary contusion Acute toxic metabolic encephalopathy Prolonged course of mechanical ventilation , patient was extubated over the weekend, seems to be successful. Status post tractor accident/fall Benign essential hypertension Delirium tremens and alcohol withdrawal requiring prolonged course of mechanical ventilation. Chronic low back pain Type 2 diabetes Abdominal wall hematoma Acute blood loss anemia Severe ileus, resolved. Recommendation: Resume diet and advance as tolerated. Transfer patient out of the ICU to a regular medical floor. Continue incentive spirometry and encourage deep coughing and deep breathing Discontinue antibiotics. Patient is off Zosyn. Continue oral blood pressure medications. client services administrator to address the issue of placement. Patient will need a long- term rehab Time with Patient: Less than 30
--- NOTE | 2019-11-03 14:13 | P.PN ---
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 & Output 11/02/19 11/03/19 11/03/19 18:59 06:59 18:59 Intake Total 420 Output Total 650 645 240 Balance -230 -645 -240 Weight 103.4 kg 103.1 kg Intake: IV 120 0.9 Normal Saline at KVO 120 20mL/hr Oral 300 Output: Urine 650 645 240 Other: Voiding Method Indwelling Catheter Indwelling Catheter Indwelling Catheter ABP, PAP, CO, CI - Last Documented Arterial Blood Pressure 178/114 - Labs CBC & Chem 7: 11/03/19 05:18 11/03/19 05:18 Labs: Abnormal Lab Results - Last 24 Hours (Table) 11/02/19 11/02/19 11/02/19 Range/Units 04:45 04:45 12:16 RBC (4.30-5.90) m/uL Hgb (13.0-17.5) gm/dL Hct (39.0-53.0) % MCHC (31.0-37.0) g/dL Chloride (98-107) mmol/L Creatinine (0.66-1.25) mg/dL Glucose (74-99) mg/dL POC Glucose (mg/dL) 111 H (75-99) mg/dL Creatine Kinase 38 L (55-170) U/L Triglycerides 218 H (<150) mg/dL Cholesterol 365 H (<200) mg/dL LDL Cholesterol, Calc 303 H (0-99) mg/dL HDL Cholesterol 18 L (40-60) mg/dL 11/03/19 11/03/19 Range/Units 05:18 05:18 RBC 3.82 L (4.30-5.90) m/uL Hgb 10.8 L (13.0-17.5) gm/dL Hct 35.1 L (39.0-53.0) % MCHC 30.8 L (31.0-37.0) g/dL Chloride 109 H (98-107) mmol/L Creatinine 0.60 L (0.66-1.25) mg/dL Glucose 102 H (74-99) mg/dL POC Glucose (mg/dL) (75-99) mg/dL Creatine Kinase (55-170) U/L Triglycerides (<150) mg/dL Cholesterol (<200) mg/dL LDL Cholesterol, Calc (0-99) mg/dL HDL Cholesterol (40-60) mg/dL
--- NOTE | 2019-11-03 14:48 | P.PN ---
Subjective Progress Note Date: 11/03/19 CHIEF COMPLAINT: Multiple injury after trauma from a fall from tractor HISTORY OF PRESENT ILLNESS: Patient remains in the ICU. He is less confused today. He is awake and alert. Patient seen by Dr. Jones regarding his cervical spine stenosis. Patient had temp of 100.6 last night white count 9.9 hemoglobin 10.8 PHYSICAL EXAM: VITAL SIGNS: Reviewed. GENERAL: Well-developed in no acute distress. HEENT: No sclera icterus. Extraocular movements grossly intact. Moist buccal mucosa. Head is atraumatic, normocephalic. ABDOMEN: Soft. Obese. Nondistended Nontender. Neuro: Patient is more awake ASSESSMENT: 1. Status post Fall from tractor with multiple injuries 2. Proximal sigmoid hematoma and contusion. 3. Multiple left-sided rib fractures with flail chest 4. Left closed distal clavicular fracture followed by orthopedics 5. Chronic alcohol use and evidence of alcohol withdrawal 6. Acute hypoxic respiratory failure likely secondary to alcohol withdrawal syndrome and delirium tremens, multiple rib fractures on the left chest and possible pulmonary contusion. 7. Possible pulmonary contusion PLAN: -Discussed with dietitian patient started on pured diet -Continue supportive care -continue ICU management -Patient will likely require placement in select specialty -DVT prophylaxis subcu heparin GI prophylaxis Protonix Physician Se[facility] Professional note has been reviewed by physician. Signing provider agrees with the documented findings, assessment, and plan of care. Objective - Vital Signs Vital signs: Vital Signs Temp 99.4 F 11/03/19 12:00 Pulse 107 H 11/03/19 12:00 Resp 19 11/03/19 12:00 BP 131/84 11/03/19 12:00 Pulse Ox 96 11/03/19 12:00 Intake & Output 11/02/19 11/03/19 11/03/19 18:59 06:59 18:59 Intake Total 420 Output Total 650 645 490 Balance -230 -645 -490 Weight 103.4 kg 103.1 kg Intake: IV 120 0.9 Normal Saline at KVO 120 20mL/hr Oral 300 Output: Urine 650 645 490 Other: Voiding Method Indwelling Catheter Indwelling Catheter Indwelling Catheter # Bowel Movements 2 ABP, PAP, CO, CI - Last Documented Arterial Blood Pressure 178/114 - Labs CBC & Chem 7: 11/03/19 05:18 11/03/19 05:18 Labs: Abnormal Lab Results - Last 24 Hours (Table) 11/03/19 11/03/19 Range/Units 05:18 05:18 RBC 3.82 L (4.30-5.90) m/uL Hgb 10.8 L (13.0-17.5) gm/dL Hct 35.1 L (39.0-53.0) % MCHC 30.8 L (31.0-37.0) g/dL Chloride 109 H (98-107) mmol/L Creatinine 0.60 L (0.66-1.25) mg/dL Glucose 102 H (74-99) mg/dL
[2019-11-03] MEDS: METOPROLOL TARTRATE 50 MG TAB PO SCH (20:32)
[2019-11-04] MEDS: OFLOXACIN 0.3% OPHTH DROPS 5 ML BOTTLE BOTH EYES SCH ×4 (00:09→17:18)
[2019-11-04 05:41] LABS: Basophils # (A) 0.1 k/uL (0-0.2); Basophils % (A) 1 %; Eosinophils # (A) 0.4 k/uL (0-0.7); Eosinophils % (A) 4 %; HCT 36.7 % (39.0-53.0); HGB 11.4 gm/dL (13.0-17.5); Hypochromasia Slight; Lymphocytes % (A) 16 %; MCH 28.4 pg (25.0-35.0); MCHC 31.1 g/dL (31.0-37.0); MCV 91.4 fL (80.0-100.0); Mean Platelet Volume 6.7; Monocytes # (A) 0.5 k/uL (0-1.0); Monocytes % (A) 4 %; Neutrophils # (A) 9.5 k/uL (1.3-7.7); Neutrophils % (A) 75 %; Platelet Count 402 k/uL (150-450); RBC 4.02 m/uL (4.30-5.90); RDW 14.9 % (11.5-15.5); WBC 12.6 k/uL (3.8-10.6)
[2019-11-04 06:06] LABS: ALT 74 U/L (4-49); AST 36 U/L (17-59); African American GFR (CKD) >90 (>60 ml/min/1.73 sqM); Albumin 4.2 g/dL (3.5-5.0); Alkaline Phosphatase 110 U/L (38-126); Anion Gap 11 mmol/L; Blood Urea Nitrogen 19 mg/dL (9-20); Calcium 9.9 mg/dL (8.4-10.2); Carbon Dioxide 22 mmol/L (22-30); Chloride 106 mmol/L (98-107); Glucose 104 mg/dL (74-99); Non-African American GFR(CKD) >90 (>60 ml/min/1.73 sqM); Potassium 4.4 mmol/L (3.5-5.1); Sodium 139 mmol/L (137-145); Total Protein 7.9 g/dL (6.3-8.2)
[2019-11-04] MEDS: IPRATROPIUM-ALBUTEROL 3 ML NEB INHALATION SCH ×4 (08:23→19:44)
[2019-11-04] MEDS: THIAMINE 100 MG/ML 2 ML VIAL IVP SCH ×2 (09:44→21:05)
[2019-11-04] MEDS: METOPROLOL TARTRATE 50 MG TAB PO SCH ×2 (09:44→21:05)
[2019-11-04] MEDS: amLODIPine 5 MG TAB PO SCH (09:44)
[2019-11-04] MEDS: HEPARIN SODIUM,PORCINE 5,000 UNIT/ML 1 ML VIAL SQ SCH ×2 (09:44→21:05)
[2019-11-04] MEDS: DULoxetine HCL 60 MG CAPSULE.DR PO SCH (09:44)
[2019-11-04] MEDS: PANTOPRAZOLE 40 MG TABLET PO SCH (09:44)
[2019-11-04] MEDS: ASPIRIN 81 MG PO SCH (09:48)
[2019-11-04] MEDS: ATORVASTATIN 40 MG TAB PO SCH (09:48)
[2019-11-04 10:54] VITALS: BMI 33.5
--- NOTE | 2019-11-04 11:38 | P.PN ---
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 Consult with orthopedic spine appreciated. Plan for conservative management. CODE STATUS: Full code. Discharge plan: Long-term rehab facility at [facility] in [place]. Social work is following. COVID-19 testing negative as of November 02. Anticipate discharge next week once bed is available. Impression and plan of care have been directed as dictated by the signing physician. Kyra Norwood nurse practitioner acting as scribe for signing physician. Objective - Vital Signs Vital signs: Vital Signs Temp 98.0 F 11/04/19 08:00 Pulse 100 11/04/19 08:31 Resp 36 H 11/04/19 08:00 BP 146/97 11/04/19 08:00 Pulse Ox 100 11/04/19 08:00 Intake & Output 11/03/19 11/04/19 11/04/19 18:59 06:59 18:59 Output Total 760 600 Balance -760 -600 Output: Urine 760 600 Other: Voiding Method Indwelling Catheter Indwelling Catheter # Bowel Movements 2 2 ABP, PAP, CO, CI - Last Documented Arterial Blood Pressure 178/114 - Labs CBC & Chem 7: 11/04/19 04:41 11/04/19 04:41 Labs: Abnormal Lab Results - Last 24 Hours (Table) 11/04/19 11/04/19 Range/Units 04:41 04:41 WBC 12.6 H (3.8-10.6) k/uL RBC 4.02 L (4.30-5.90) m/uL Hgb 11.4 L (13.0-17.5) gm/dL Hct 36.7 L (39.0-53.0) % Neutrophils # 9.5 H (1.3-7.7) k/uL Glucose 104 H (74-99) mg/dL ALT 74 H (4-49) U/L
[2019-11-04] MEDS: ACETAMINOPHEN TAB 325 MG TAB PO PRN (12:51)
--- NOTE | 2019-11-04 12:54 | P.PN ---
Subjective Progress Note Date: 11/04/19 Principal diagnosis: Acute hypoxic respiratory failure secondary to Multiple left-sided rib fractures and pulmonary contusion 10/30/2019, the patient is being seen for a follow-up. He was extubated and he remains extubated for now. He was being given BiPAP throughout the night yesterday and the patient was noted to have some fecal material in the BiPAP mask and for that reason I recommended to discontinue the BiPAP immediately and put the patient on nasal cannula which is currently it's 6 L. NG tube was inserted and immediately around 200 mL of fecal material was aspirated from his stomach. The patient is much more comfortable at this point in time. Abdomen is slightly distended. A flat film of the abdomen was done and it showed dilated loop of small bowel which could be related to mechanical small bowel obstruction. No free air. There is constant in the descending colon and rectosigmoid colon and this is probably related to the previous CAT scan of the abdomen that the patient received 2 days back. He is awake. He opens eyes spontaneously. Not following any commands at this point in time. His fluid balance has been negative around 4.4 L and there is considerable improvement in the fluid balance and third spacing and edema in the upper and lower e xtremities. The chest x-ray from today showed left basilar infiltrate and there is improvement in the volume status. The pulmonary asked essentially within normal limits. Noted the patient is currently on no sedation. He is off Precedex for now. He remains on IV Zosyn. Reevaluated today on 10/31/19, patient remains in the ICU, he is on 3 L nasal cannula, hemodynamically stable, continues to have a nasogastric tube in place for presumptive severe ileus. Yesterday the patient apparently vomited while he was on BiPAP, and he was placed on a nasal cannula, nasogastric tube In place. Patient is having some shallow breathing, today I have encouraged the patient to do before incentive spirometry and more deep breathing and deep coughing. His IV fluids remains at KVO, hemodynamically stable, and his heart rate is 90 sinus rhythm. Chest x-ray today showed small left pleural effusion multiple left- sided rib fractures Patient was reevaluated today on 11/01/19, remains in the ICU, patient is about the same, not verbal March, remains encephalopathic, he did pass his swallow evaluation today, seems to be very weak. Patient had a bowel movement last night, abdomen is less distended, patient is supposed to have a MRI/MRA today as ordered by the neurologist on the case. He is on 3 L nasal cannula. And his IV fluid is at KVO. CBC is relatively normal basic metabolic profile is normal, EEG is basically showing metabolic encephalopathy. Surprisingly the patient passes swallow evaluation, and we will likely advance his diet as tolerated. Reevaluated today on 11/02/19, patient remains in the ICU, he is on 2 L nasal cannula with O2 saturation 98%. Patient remains confused, knows his name, he thinks he is at [facility], but he did not know the year he thought it was 2002, and did not know the name of the president. Patient responded well to lactulose and had many liquid bowel movements, hence lactulose is now on hold. Patient has no evidence of vegetations, he is oriented to self. Chest x-ray continues to show small left-sided pleural effusion. Not large e nough to consider thoracentesis. Today I have recommended that we get rid of IV blood pressure medications, and I will place him on oral metoprolol and Norvasc. We will discontinue IV metoprolol and IV hydralazine. Reevaluated today on 11/03/19, patient remains in the ICU as an overflow. Remains encephalopathic, confused, verbalizes but disoriented, patient is on 2 L nasal cannula, does not seem to be short of breath. He is very comfortable. Labs including CBC and basic metabolic profile are normal. Patient is having bowel movements, his blood pressure medications were addressed, and I have increased his metoprolol to 50 mg twice a day. Blood pressure is marginally high. Patient was reevaluated today on 11/04/19, patient seems to be much better today. He seems to be a bit more appropriate, has a very pleasant mood, you exactly where he was, and he knew the year but not the month. Has watery stools, and his C. diff toxin is negative. A fecal management system has been applied. Patient is on room air, he is hemodynamically stable, and overall the patient is doing great. Discharge/Transfer planning to a rehab facility is in progress Objective - Vital Signs Vital signs: Vital Signs Temp 98.0 F 11/04/19 08:00 Pulse 108 H 11/04/19 11:41 Resp 36 H 11/04/19 08:00 BP 146/97 11/04/19 08:00 Pulse Ox 100 11/04/19 08:00 Intake & Output 11/03/19 11/04/19 11/04/19 18:59 06:59 18:59 Output Total 760 600 Balance -760 -600 Weight 103.1 kg Output: Urine 760 600 Other: Voiding Method Indwelling Catheter Indwelling Catheter # Bowel Movements 2 2 ABP, PAP, CO, CI - Last Documented Arterial Blood Pressure 178/114 - Exam Physical examination Gen: This is 49-year-old male. On room air. HEENT: PERRLA, EOMI, no icterus, chronic masses, no JVD. NECK: Supple. No JVD. No lymphadenopathy. No thyromegaly. Nasogastric tube is in place. LUNGS: Symmetrical chest expansion, diminished at the bases no crackles or rhon chi or wheezes. HEART: Distant S1 and S2, no S3 gallop, no murmur. ABDOMEN: Obese, Soft. Bowel sounds are present. No masses. No tenderness. EXTREMITIES: 1+ bilateral pedal edema. No calf tenderness.wound to the left forearm, healing without signs of infection. NEUROLOGICAL: Awake, oriented 2. Otherwise no focal deficits Psychiatric: Normal mood, affect and borderline mental status - Labs CBC & Chem 7: 11/04/19 04:41 11/04/19 04:41 Labs: Abnormal Lab Results - Last 24 Hours (Table) 11/04/19 11/04/19 Range/Units 04:41 04:41 WBC 12.6 H (3.8-10.6) k/uL RBC 4.02 L (4.30-5.90) m/uL Hgb 11.4 L (13.0-17.5) gm/dL Hct 36.7 L (39.0-53.0) % Neutrophils # 9.5 H (1.3-7.7) k/uL Glucose 104 H (74-99) mg/dL ALT 74 H (4-49) U/L Assessment and Plan Assessment: Impression: Acute hypoxic respiratory failure secondary to multiple rib fractures and pulmonary contusion Acute toxic metabolic encephalopathy Prolonged course of mechanical ventilation , patient was extubated over the weekend, seems to be successful. Status post tractor accident/fall Benign essential hypertension Delirium tremens and alcohol withdrawal requiring prolonged course of mechanical ventilation. Chronic low back pain Type 2 diabetes Abdominal wall hematoma Acute blood loss anemia Severe ileus, resolved. Recommendation: Resume diet and advance as tolerated. Continue incentive spirometer. Continue oral blood pressure medications. Discharge/transfer planning is in progress. Time with Patient: Less than 30
--- NOTE | 2019-11-04 14:39 | P.PN ---
Subjective Progress Note Date: 11/04/19 Upon seeing the patient is accompanied with his , and she feels like the patient is improving. The patient does feel like he is improving. Upon seeing the patient he looks more awake and speaking clearly. He denies of any new weakness numbness visual disturbance. The his feels that he still not back to baseline mentation-griffith. Objective - Vital Signs Vital signs: Vital Signs Temp 98.0 F 11/04/19 08:00 Pulse 108 H 11/04/19 11:41 Resp 36 H 11/04/19 08:00 BP 146/97 11/04/19 08:00 Pulse Ox 100 11/04/19 08:00 Intake & Output 11/03/19 11/04/19 11/04/19 18:59 06:59 18:59 Output Total 760 600 Balance -760 -600 Weight 103.1 kg Output: Urine 760 600 Other: Voiding Method Indwelling Catheter Indwelling Catheter # Bowel Movements 2 2 ABP, PAP, CO, CI - Last Documented Arterial Blood Pressure 178/114 - Exam GENERAL: The patient is lying in bed and not in acute distress. CHEST: The heart rate is regular rate rhythm. No murmurs to auscultation. LUNG: Clear to auscultation bilaterally no wheezing noted throughout. Not labored breathing. ABDOMEN/GI: Bowel sounds present in all 4 quadrants. No tenderness to palpation throughout. NEUROLOGICAL: Higher mental function: The patient is awake, alert, oriented to self. Patient is not oriented to place or time. The patient is following commands. No aphasia and no neglect. His speaking is much improved compared to last the exam. Cranial nerves: The pupils are round, right pupil is 5mm while left 4mm and bilaterally reactive to light. Visual galaviz are full to threat throughout. Extraocular movement was tracking throughout and no nystagmus is noted. Facial sensation could not be assessed. The facial strength is normal throughout and no facial droop noted. No dysarthria is noted. Motor: Gait is defered. The strength: He was able to lift all extremities above gravity and no drift unable to thoroughly assess the strength is because of lack of cooperation (he has a old the left sided weakness from an old right lacunar stroke per but he was able to move left upper and lower extremity above gravity prior to this presentation). Normal tone and bulk. Cerebellum: Unable to assess. Sensation: Intact to painful stimuli. Reflexes (right/left): 3+ on the right upper and lower extremities. While left 1+. Plantars are mute bilaterally. - Labs CBC & Chem 7: 11/04/19 04:41 11/04/19 04:41 Labs: Abnormal Lab Results - Last 24 Hours (Table) 11/04/19 11/04/19 Range/Units 04:41 04:41 WBC 12.6 H (3.8-10.6) k/uL RBC 4.02 L (4.30-5.90) m/uL Hgb 11.4 L (13.0-17.5) gm/dL Hct 36.7 L (39.0-53.0) % Neutrophils # 9.5 H (1.3-7.7) k/uL Glucose 104 H (74-99) mg/dL ALT 74 H (4-49) U/L Assessment and Plan Assessment: His also augmentation is likely due to his a prolonged ICU stay as well as multiple medical condition the. Patient's condition that seems to be improving. Unclear why the patient fell off the tractor. Questionable syncope, also possibly because of acohol intoxication he fell over and he passed out. cannot rule out seizure. Cervical Spondolysis (Hyper-reflexia over the right side due to compression on C5-C6) He has generalized weakness from deconditioning. 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 Also on imaging shows left cerebellar lacunar hyperintesity as well small vessel disease. Possible cavernous angioma over on the right thalamus and the left basal ganglia Post tractor accident with multiple injuries and trauma. Flail chest with multiple rib fracture in the left side displaced in the anterior and posterior area with significant pneumothorax Severe abdominal pain with bowel injury a long proximal sigmoid injury with mild hematoma with no rupture or or perforation. Alcohol intoxication Hypercholesterolemia Plan: Routine EEG (10/31/19): Mild to moderate encephalopathy of unknown etiology. There is no focal slowing. There is no interictal or seizure activity during the study. MRI of brain on 11/01/2019 was reported as atrophy of the periventricular white matter changes likely on the basis of chronic white matter ischemia. This includes 7 area within the brainstem. Old lacunar infarct in the right thalamus. Cavernous angioma may be within the right thalamus and the left basal ganglia. I personally reviewed the MRI of the brain and I do agree there is old lacunar on the right thalamus. I also saw and old lacunae over the left the cerebellar on one of the axial views. There is a small white matter changes as well. MRI C-spine: Large Central disc herniation with moderate anterior thecal sac compressing C5-C6. Mild disc bulge at C6-C7 with anterior thecal sac flattening. CT angiogram of the head reported as moderate irregular atherosclerotic narrowing within the left greater than the right is V4 segment vertebral artery and moderate atherosclerotic calcification throughout the bilateral carotid siphons. No large a vessel intracranial artery occlusion. No aneurysm changes seen. Some scattered fluid within the mastoid air cells. Correlate for any mastoid the pain to exclude mastoiditis. CTA of the neck was reported as mild of the scar narrowing at the origin of the bilateral vertebral arteries. Mild, less than 40% proximal ICA stenosis on either side. Echocardiogram was reported as left ventricle size is normal. Ejection fraction is 55-60%. There is moderate concentric left ventricular hypertrophy. There is a trace mitral regurgitation Hemoglobin A1c is 5.6. Lipid profile is triglyceride is 740, cholesterol is 292 but was taken while patient was on Propofol. Repeat the lipid profile (11/02/19): Triglyceride of 218, cholesterol 365, LDL of 303 and HDL of 18. TSH: 2.0 Regarding the the central disc herniation on the C5-C6 with hyper-reflexia over the right upper and lower extremity. Orthopedic was consulted and that they discuss the case with the patient as well as his family member and they decided that to go with the conservative medical management. He'll follow up with orthopedic as an outpatient upon discharge. On thiamine 100 mg twice a day. 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 Also recommend the patient to follow-up with a neurosurgeon regarding the cavernous hemangioma as outpatient. As well has follow-up with the neurologist as an outpatient. The plan was discussed with the the primary team There is no neurology coverage over the weekend. Can contact over [employer] if needed. Lobo Cruz M.D. Neuro-hospitalist Time with Patient: Greater than 30
--- NOTE | 2019-11-04 15:32 | P.PN ---
Subjective Progress Note Date: 11/04/19 CHIEF COMPLAINT: Multiple injury after trauma from a fall from tractor HISTORY OF PRESENT ILLNESS: Patient seen and examined with Dr. Valdivia. Patient remains in the ICU. The a is more awake and alert today. Patient seen by Dr. Jones regarding his cervical spine stenosis. Patient having loose stool s. Equal management system started. Patient afebrile white count 12.6 hemoglobin 11.4 PHYSICAL EXAM: VITAL SIGNS: Reviewed. GENERAL: Well-developed in no acute distress. HEENT: No sclera icterus. Extraocular movements grossly intact. Moist buccal mucosa. Head is atraumatic, normocephalic. ABDOMEN: Soft. Obese. Nondistended Nontender. Neuro: Patient is more awake ASSESSMENT: 1. Status post Fall from tractor with multiple injuries 2. Proximal sigmoid hematoma and contusion. 3. Multiple left-sided rib fractures with flail chest 4. Left closed distal clavicular fracture followed by orthopedics 5. Chronic alcohol use and evidence of alcohol withdrawal 6. Acute hypoxic respiratory failure likely secondary to alcohol withdrawal syndrome and delirium tremens, multiple rib fractures on the left chest and possible pulmonary contusion. 7. Possible pulmonary contusion PLAN: -Continue pured diet -Continue supportive care -continue ICU management -Patient discharge planning is in process. -DVT prophylaxis subcu heparin GI prophylaxis Protonix Physician Personal Lines Sales Rep note has been reviewed by physician. Signing provider agrees with the documented findings, assessment, and plan of care. Objective - Vital Signs Vital signs: Vital Signs Temp 98.0 F 11/04/19 08:00 Pulse 108 H 11/04/19 11:41 Resp 36 H 11/04/19 08:00 BP 146/97 11/04/19 08:00 Pulse Ox 100 11/04/19 08:00 Intake & Output 11/03/19 11/04/19 11/04/19 18:59 06:59 18:59 Intake Total 240 Output Total 760 600 500 Balance -760 -600 -260 Weight 103.1 kg Intake: Oral 240 Output: Urine 760 600 500 Other: Voiding Method Indwelling Catheter Indwelling Catheter Indwelling Catheter # Bowel Movements 2 2 ABP, PAP, CO, CI - Last Documented Arterial Blood Pressure 178/114 - Labs CBC & Chem 7: 11/04/19 04:41 11/04/19 04:41 Labs: Abnormal Lab Results - Last 24 Hours (Table) 11/04/19 11/04/19 Range/Units 04:41 04:41 WBC 12.6 H (3.8-10.6) k/uL RBC 4.02 L (4.30-5.90) m/uL Hgb 11.4 L (13.0-17.5) gm/dL Hct 36.7 L (39.0-53.0) % Neutrophils # 9.5 H (1.3-7.7) k/uL Glucose 104 H (74-99) mg/dL ALT 74 H (4-49) U/L
[2019-11-05] MEDS: OFLOXACIN 0.3% OPHTH DROPS 5 ML BOTTLE BOTH EYES SCH ×4 (01:17→17:58)
[2019-11-05] MEDS: IPRATROPIUM-ALBUTEROL 3 ML NEB INHALATION SCH ×4 (08:04→19:55)
--- NOTE | 2019-11-05 08:38 | XR ---
EXAMINATION TYPE: XR abdomen 1V DATE OF EXAM: 11/05/2019 Comparison: 10/31/2019 Clinical History: 49-year-old male Vomiting, Abdominal pain Findings: Prominent air distention of the stomach. Prominent air distention of the right side of the colon. Nor mal air within the transverse colon. No dilated small bowel loops are seen. Reveals to be some retroc ardiac air bronchograms are persistent from prior exam. Impression: 1. Prominent air distention of the stomach. No definite dilated small bowel loops. Some prominent air distention of the ascending colon as well. 2. Overall nonspecific bowel gas pattern. However, there is no evidence for small bowel obstruction. 3. Continued air bronchograms/consolidation at the left base.
--- NOTE | 2019-11-05 08:50 | P.PN ---
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 brain as above. 12 hyperglycemia: Type 2 diabetes. NovoLog scale. 12 chronic lower back pain. 13 recurrent depression. Continue Cymbalta and Seroquel. 14 GI prophylaxis: Patient be on pantoprazole. 15 DVT prophylaxis. Heparin subcu 16 Clavicular fracture. Consult with orthopedic appreciated. Sling is in place. 17 acute blood loss anemia with hematoma and ecchymosis to the left lateral and posterior abdominal wall secondary to mesenteric hematoma. 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 Consult with orthopedic spine appreciated. P donal for conservative management. 19. Coffee-ground Emesis. Insert NG tube, H&H every 6 hours 3. DC aspirin. CODE STATUS: Full code. Discharge plan: Long-term rehab facility at [facility]. Social work is following. COVID-19 testing negative as of November 02. Anticipate discharge next week once bed is available. Impression and plan of care have been directed as dictated by the signing physician. Yudi Early nurse practitioner acting as scribe for signing physician. Objective - Vital Signs Vital signs: Vital Signs Temp 98.1 F 11/04/19 16:00 Pulse 100 11/05/19 08:15 Resp 32 H 11/04/19 16:00 BP 127/98 11/04/19 16:00 Pulse Ox 95 11/04/19 16:00 Intake & Output 11/04/19 11/05/19 11/05/19 18:59 06:59 18:59 Intake Total 240 Output Total 500 Balance -260 Weight 103.1 kg Intake: Oral 240 Output: Urine 500 Other: Voiding Method Indwelling Catheter Indwelling Catheter ABP, PAP, CO, CI - Last Documented Arterial Blood Pressure 178/114 - Labs CBC & Chem 7: 11/05/19 11:21 11/04/19 04:41
[2019-11-05] MEDS: HEPARIN SODIUM,PORCINE 5,000 UNIT/ML 1 ML VIAL SQ SCH ×2 (09:26→23:55)
--- NOTE | 2019-11-05 11:04 | P.PN ---
Subjective Progress Note Date: 11/05/19 Principal diagnosis: Polytrauma Patient's morning had a large volume of emesis twice. On the second episode of emesis there was some blood present with some mucousy clots noted. The majority the emesis was light cook in color. Nasogastric tube was placed. X-rays were obtained showing gastric distention. Nasogastric output is bilious. No blood within the canister. Patient's side a confused however states he feels much better. White blood cell count 12.6, hemoglobin 11.4 still having some loose stools. Stool is brownish colored Objective - Vital Signs Vital signs: Vital Signs Temp 98.6 F 11/05/19 08:00 Pulse 100 11/05/19 08:15 Resp 32 H 11/05/19 08:00 BP 146/100 11/05/19 08:00 Pulse Ox 97 11/05/19 08:00 Intake & Output 11/04/19 11/05/19 11/05/19 18:59 06:59 18:59 Intake Total 240 Output Total 500 Balance -260 Weight 103.1 kg Intake: Oral 240 Output: Urine 500 Other: Voiding Method Indwelling Catheter Indwelling Catheter ABP, PAP, CO, CI - Last Documented Arterial Blood Pressure 178/114 - Exam Abdomen: Soft, nontender, nondistended - Labs CBC & Chem 7: 11/04/19 04:41 11/04/19 04:41 Assessment and Plan (1) Multiple injuries due to trauma Narrative/Plan: Patient with episode of emesis this morning. Keep nasogastric tube to suction. Continue antiacid therapy and we'll add Maalox. Repeat labs tomorrow. Current Visit: Yes Status: Acute Code(s): T07.XXXA - UNSPECIFIED MULTIPLE INJURIES, INITIAL ENCOUNTER SNOMED Code(s): 334928209
[2019-11-05] MEDS ORDERED: ONDANSETRON 4 MG/2 ML VIAL IVP PRN (11:06)
[2019-11-05] MEDS: METOPROLOL TARTRATE 50 MG TAB PO SCH ×2 (11:15→23:57)
[2019-11-05] MEDS: DULoxetine HCL 60 MG CAPSULE.DR PO SCH (11:15)
[2019-11-05] MEDS: ATORVASTATIN 40 MG TAB PO SCH (11:15)
[2019-11-05] MEDS: THIAMINE 100 MG/ML 2 ML VIAL IVP SCH ×2 (11:15→23:55)
[2019-11-05] MEDS: amLODIPine 5 MG TAB PO SCH (11:15)
[2019-11-05] MEDS: SODIUM CHLORIDE 0.9% 1,000 ML IV SCH ×2 (11:17→23:55)
[2019-11-05] MEDS: PANTOPRAZOLE 40 MG/10 ML VIAL IVP SCH ×2 (11:22→23:55)
[2019-11-05] MEDS: MAG HYDROX/AL HYDROX/SIMETH 30 ML CUP PO SCH ×3 (11:23→23:56)
[2019-11-05 11:35] LABS: HCT 39.7 % (39.0-53.0); HGB 12.4 gm/dL (13.0-17.5); Hypochromasia Slight; MCH 28.8 pg (25.0-35.0); MCHC 31.3 g/dL (31.0-37.0); MCV 91.9 fL (80.0-100.0); Mean Platelet Volume 6.8; Platelet Count 411 k/uL (150-450); RBC 4.32 m/uL (4.30-5.90); WBC 17.1 k/uL (3.8-10.6)
--- NOTE | 2019-11-05 11:37 | P.PN ---
Subjective Progress Note Date: 11/05/19 Principal diagnosis: Acute hypoxic respiratory failure secondary to Multiple left-sided rib fractures and pulmonary contusion 10/30/2019, the patient is being seen for a follow-up. He was extubated and he remains extubated for now. He was being given BiPAP throughout the night yesterday and the patient was noted to have some fecal material in the BiPAP mask and for that reason I recommended to discontinue the BiPAP immediately and put the patient on nasal cannula which is currently it's 6 L. NG tube was inserted and immediately around 200 mL of fecal material was aspirated from his stomach. The patient is much more comfortable at this point in time. Abdomen is slightly distended. A flat film of the abdomen was done and it showed dilated loop of small bowel which could be related to mechanical small bowel obstruction. No free air. There is constant in the descending colon and rectosigmoid colon and this is probably related to the previous CAT scan of the abdomen that the patient received 2 days back. He is awake. He opens eyes spontaneously. Not following any commands at this point in time. His fluid balance has been negative around 4.4 L and there is considerable improvement in the fluid balance and third spacing and edema in the upper and lower e xtremities. The chest x-ray from today showed left basilar infiltrate and there is improvement in the volume status. The pulmonary asked essentially within normal limits. Noted the patient is currently on no sedation. He is off Precedex for now. He remains on IV Zosyn. Reevaluated today on 10/31/19, patient remains in the ICU, he is on 3 L nasal cannula, hemodynamically stable, continues to have a nasogastric tube in place for presumptive severe ileus. Yesterday the patient apparently vomited while he was on BiPAP, and he was placed on a nasal cannula, nasogastric tube In place. Patient is having some shallow breathing, today I have encouraged the patient to do before incentive spirometry and more deep breathing and deep coughing. His IV fluids remains at KVO, hemodynamically stable, and his heart rate is 90 sinus rhythm. Chest x-ray today showed small left pleural effusion multiple left- sided rib fractures Patient was reevaluated today on 11/01/19, remains in the ICU, patient is about the same, not verbal March, remains encephalopathic, he did pass his swallow evaluation today, seems to be very weak. Patient had a bowel movement last night, abdomen is less distended, patient is supposed to have a MRI/MRA today as ordered by the neurologist on the case. He is on 3 L nasal cannula. And his IV fluid is at KVO. CBC is relatively normal basic metabolic profile is normal, EEG is basically showing metabolic encephalopathy. Surprisingly the patient passes swallow evaluation, and we will likely advance his diet as tolerated. Reevaluated today on 11/02/19, patient remains in the ICU, he is on 2 L nasal cannula with O2 saturation 98%. Patient remains confused, knows his name, he thinks he is at [facility], but he did not know the year he thought it was 2002, and did not know the name of the president. Patient responded well to lactulose and had many liquid bowel movements, hence lactulose is now on hold. Patient has no evidence of vegetations, he is oriented to self. Chest x-ray continues to show small left-sided pleural effusion. Not large e nough to consider thoracentesis. Today I have recommended that we get rid of IV blood pressure medications, and I will place him on oral metoprolol and Norvasc. We will discontinue IV metoprolol and IV hydralazine. Reevaluated today on 11/03/19, patient remains in the ICU as an overflow. Remains encephalopathic, confused, verbalizes but disoriented, patient is on 2 L nasal cannula, does not seem to be short of breath. He is very comfortable. Labs including CBC and basic metabolic profile are normal. Patient is having bowel movements, his blood pressure medications were addressed, and I have increased his metoprolol to 50 mg twice a day. Blood pressure is marginally high. Patient was reevaluated today on 11/04/19, patient seems to be much better today. He seems to be a bit more appropriate, has a very pleasant mood, you exactly where he was, and he knew the year but not the month. Has watery stools, and his C. diff toxin is negative. A fecal management system has been applied. Patient is on room air, he is hemodynamically stable, and overall the patient is doing great. Discharge/Transfer planning to a rehab facility is in progress Patient was reevaluated today on 11/05/19, apparently had to large volume emesis, and he was noted to have some blood present with mucous clots in the emesis. The color was light cook hence I recommended a nasogastric tube. X-ray of the abdomen showed gastric distention, and a nasogastric tube output was noted to be bilious. Patient remains confused, his labs are basically unremarkable, stool is brownish in color. Patient remains hemodynamically stable, blood pressure is a bit elevated, switch his oral blood pressure medications to via nasogastric tube meds. Objective - Vital Signs Vital signs: Vital Signs Temp 98.6 F 11/05/19 08:00 Pulse 100 11/05/19 08:15 Resp 32 H 11/05/19 08:00 BP 146/100 11/05/19 08:00 Pulse Ox 97 11/05/19 08:00 Intake & Output 11/04/19 11/05/19 11/05/19 18:59 06:59 18:59 Intake Total 240 Output Total 500 Balance -260 Weight 103.1 kg Intake: Oral 240 Output: Urine 500 Other: Voiding Method Indwelling Catheter Indwelling Catheter ABP, PAP, CO, CI - Last Documented Arterial Blood Pressure 178/114 - Exam Physical examination Gen: This is 49-year-old male. On room air. Confused. HEENT: PERRLA, EOMI, no icterus, chronic masses, no JVD. NECK: Supple. No JVD. No lymphadenopathy. No thyromegaly. Nasogastric tube is in place. LUNGS: Symmetrical chest expansion, diminished at the bases no crackles or rhonchi or wheezes. HEART: Distant S1 and S2, no S3 gallop, no murmur. ABDOMEN: Obese, Soft. Bowel sounds are present. No masses. No tenderness. EXTREMITIES: 1+ bilateral pedal edema. No calf tenderness.wound to the left forearm, healing without signs of infection. NEUROLOGICAL: Awake, oriented 2. Otherwise no focal deficits Psychiatric: Normal mood, affect and borderline mental status - Labs CBC & Chem 7: 11/04/19 04:41 11/04/19 04:41 Assessment and Plan Assessment: Impression: Multiple episodes of emesis this morning, hence I recommended a nasogastric tube placement, and low intermittent suction Acute hypoxic respiratory failure secondary to multiple rib fractures and pulmonary contusion, resolved. Acute toxic metabolic encephalopathy slow, slightly improving. Prolonged course of mechanical ventilation , patient was extubated over the weekend, seems to be successful. Status post tractor accident/fall Benign essential hypertension Delirium tremens and alcohol withdrawal requiring prolonged course of mechanical ventilation. Chronic low back pain Type 2 diabetes Abdominal wall hematoma Acute blood loss anemia Severe ileus, resolved., Patient had mostly gastric distention on x-ray of the abdomen this morning, Recommendation: Nasogastric tube to low intermittent suction. Keep nothing by mouth except for medications. Continue incentive spirometer. Continue oral blood pressure medications. Discharge/transfer planning remains in progress. Time with Patient: Less than 30
[2019-11-05 12:07] LABS: Prothrombin Time 10.8 sec (9.0-12.0)
[2019-11-05 12:11] LABS: Partial Thromboplastin Time 21.2 sec (22.0-30.0)
[2019-11-05 17:45] LABS: % Iron Saturation 7.95 (15.00-50.00)
[2019-11-05] MEDS: PIPERACILLIN-TAZOBACTAM 3.375 GM in SODIUM CHLORIDE 0.9% 100 ML IVPB SCH (17:59)
[2019-11-05 18:16] LABS: HCT 39.6 % (39.0-53.0); HGB 12.3 gm/dL (13.0-17.5); Hypochromasia Slight; MCH 28.8 pg (25.0-35.0); MCHC 31.1 g/dL (31.0-37.0); MCV 92.5 fL (80.0-100.0); Mean Platelet Volume 6.8; Platelet Count 405 k/uL (150-450); RBC 4.28 m/uL (4.30-5.90); RDW 15.2 % (11.5-15.5); WBC 16.8 k/uL (3.8-10.6)
[2019-11-05 19:25] LABS: Appearance,Urine Cloudy (Clear); Bacteria,Urine Rare /hpf; Bilirubin,Urine 1+ (Negative); Blood,Urine Moderate (Negative); Color,Urine Dark Yellow; Glucose,Urine (UA) Negative (Negative); Ketones,Urine 1+ (Negative); Leukocyte Esterase,Urine Large (Negative); Mucus,Urine Many /hpf; Nitrite,Urine Negative (Negative); PH, Urine 5.5 (5.0-8.0); Protein,Urine 1+ (Negative); RBC,Urine 53 /hpf (0-5); Specific Gravity,Urine 1.033 (1.001-1.035); Squamous Epithelial Cell,Urine 1 /hpf (0-4); WBC,Urine 161 /hpf (0-5)
[2019-11-05 23:44] LABS: HCT 38.9 % (39.0-53.0); HGB 12.3 gm/dL (13.0-17.5); MCH 28.8 pg (25.0-35.0); MCHC 31.5 g/dL (31.0-37.0); MCV 91.3 fL (80.0-100.0); Mean Platelet Volume 7.2; Platelet Count 386 k/uL (150-450); RBC 4.26 m/uL (4.30-5.90); RDW 15.2 % (11.5-15.5)
[2019-11-06] MEDS: PIPERACILLIN-TAZOBACTAM 3.375 GM in SODIUM CHLORIDE 0.9% 100 ML IVPB SCH ×4 (01:30→23:27)
[2019-11-06] MEDS: OFLOXACIN 0.3% OPHTH DROPS 5 ML BOTTLE BOTH EYES SCH ×5 (04:20→23:28)
[2019-11-06] MEDS: INSULIN ASPART (NovoLOG) 100 UNIT/ML VIAL SQ SCH ×4 (04:20→18:00)
[2019-11-06 04:49] LABS: Basophils # (A) 0.1 k/uL (0-0.2); Basophils % (A) 0 %; Eosinophils # (A) 0.3 k/uL (0-0.7); Eosinophils % (A) 2 %; HCT 39.1 % (39.0-53.0); HGB 12.2 gm/dL (13.0-17.5); Hypochromasia Moderate; Lymphocytes # (A) 1.6 k/uL (1.0-4.8); Lymphocytes % (A) 9 %; MCHC 31.1 g/dL (31.0-37.0); MCV 93.3 fL (80.0-100.0); Monocytes # (A) 0.7 k/uL (0-1.0); Monocytes % (A) 4 %; Neutrophils # (A) 14.7 k/uL (1.3-7.7); Neutrophils % (A) 85 %; Platelet Count 371 k/uL (150-450); RBC 4.19 m/uL (4.30-5.90); RDW 14.9 % (11.5-15.5); WBC 17.4 k/uL (3.8-10.6)
[2019-11-06 04:57] LABS: ALT 60 U/L (4-49); AST 28 U/L (17-59); African American GFR (CKD) >90 (>60 ml/min/1.73 sqM); Albumin 4.2 g/dL (3.5-5.0); Alkaline Phosphatase 115 U/L (38-126); Anion Gap 13 mmol/L; Blood Urea Nitrogen 18 mg/dL (9-20); Calcium 9.7 mg/dL (8.4-10.2); Carbon Dioxide 18 mmol/L (22-30); Chloride 108 mmol/L (98-107); Glucose 125 mg/dL (74-99); Non-African American GFR(CKD) >90 (>60 ml/min/1.73 sqM); Potassium 4.2 mmol/L (3.5-5.1); Sodium 139 mmol/L (137-145); Total Bilirubin 1.1 mg/dL (0.2-1.3); Total Protein 7.8 g/dL (6.3-8.2)
[2019-11-06] MEDS: IPRATROPIUM-ALBUTEROL 3 ML NEB INHALATION SCH ×4 (08:02→20:01)
[2019-11-06] MEDS: METOPROLOL TARTRATE 50 MG TAB PO SCH ×2 (08:09→21:33)
[2019-11-06] MEDS: SODIUM CHLORIDE 0.9% 1,000 ML IV SCH ×2 (08:09→16:39)
[2019-11-06] MEDS: amLODIPine 5 MG TAB PO SCH (08:09)
[2019-11-06] MEDS: ATORVASTATIN 40 MG TAB PO SCH (08:09)
[2019-11-06] MEDS: HEPARIN SODIUM,PORCINE 5,000 UNIT/ML 1 ML VIAL SQ SCH ×2 (08:10→21:33)
[2019-11-06] MEDS: MAG HYDROX/AL HYDROX/SIMETH 30 ML CUP PO SCH ×4 (08:10→21:41)
[2019-11-06] MEDS: PANTOPRAZOLE 40 MG/10 ML VIAL IVP SCH ×2 (08:10→21:33)
[2019-11-06] MEDS: DULoxetine HCL 60 MG CAPSULE.DR PO SCH (08:10)
[2019-11-06] MEDS: THIAMINE 100 MG/ML 2 ML VIAL IVP SCH ×2 (08:10→21:33)
--- NOTE | 2019-11-06 08:34 | P.PN ---
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 required intubation and mechanical ventilation. successfully extubated. 9 hypertensive emergency. Off Clevidex drip. Continue amlodipine 5 mg daily, Lopressor 50 mg twice daily. 10 hypertension. Continue as above. 11 acute metabolic toxic encephalopathic secondary to ICU psychosis, multiple sedating medications over long period of time. Mental status is improving. CTA of the head and neck and MRI of the brain as above. 12 hyperglycemia: Type 2 diabetes. NovoLog scale. 12 chronic lower back pain. 13 recurrent depression. Continue Cymbalta and Seroquel. 14 GI prophylaxis: Patient be on pantoprazole. 15 DVT prophylaxis. Heparin subcu 16 Clavicular fracture. Consult with orthopedic appreciated. Sling is in place. 17 acute blood loss anemia with hematoma and ecchymosis to the left lateral and posterior abdominal wall secondary to mesenteric hematoma. 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 Consult with orthopedic spine appreciated. Plan for conservative management. 19. Coffee-ground Emesis. Insert NG tube, H&H every 6 hours 3. DC aspirin. CODE STATUS: Full code. Discharge plan: Long-term rehab facility at [facility] in [place]. Social work is following. COVID-19 testing negative as of November 02. Anticipate discharge next week once bed is available. Impression and plan of care have been directed as dictated by the signing physician. Yudi Early nurse practitioner acting as scribe for signing physician. Objective - Vital Signs Vital signs: Vital Signs Temp 99.4 F 11/06/19 00:00 Pulse 111 H 11/06/19 08:15 Resp 32 H 11/06/19 00:00 BP 127/82 11/06/19 00:00 Pulse Ox 99 11/06/19 00:00 Intake & Output 11/05/19 11/06/19 11/06/19 18:59 06:59 18:59 Intake Total 600 60 Output Total 830 825 Balance -230 -765 Intake: IV 60 0.9 Normal Saline at KVO 60 20mL/hr Intake, IV Titration 600 Amount Piperacillin-Tazobactam 3 100 .375 gm In Sodium Chloride 0.9% 100 ml @ 25 mls/hr IVPB Q8HR [facility] Rx# :[id number] Sodium Chloride 0.9% 1, 500 000 ml @ 100 mls/hr IV . Q10H [facility] Rx#:[id number] Output: Urine 830 825 Other: Voiding Method Indwelling Catheter Indwelling Catheter ABP, PAP, CO, CI - Last Documented Arterial Blood Pressure 178/114 - Labs CBC & Chem 7: 11/06/19 04:12 11/06/19 04:12 Labs: Abnormal Lab Results - Last 24 Hours (Table) 11/05/19 11/05/19 11/05/19 Range/Units 11:21 11:21 11:21 WBC 17.1 H (3.8-10.6) k/uL RBC (4.30-5.90) m/uL Hgb 12.4 L (13.0-17.5) gm/dL Hct (39.0-53.0) % Neutrophils # (1.3-7.7) k/uL APTT 21.2 L (22.0-30.0) sec Chloride (98-107) mmol/L Carbon Dioxide (22-30) mmol/L Creatinine (0.66-1.25) mg/dL Glucose (74-99) mg/dL Iron 21 L (65-175) ug/dL % Saturation 7.95 L (15.00-50.00) ALT (4-49) U/L Urine Protein (Negative) Urine Ketones (Negative) Urine Blood (Negative) Urine Bilirubin (Negative) Ur Leukocyte Esterase (Negative) Urine RBC (0-5) /hpf Urine WBC (0-5) /hpf Urine WBC Clumps (None) /hpf Urine Bacteria (None) /hpf Urine Mucus (None) /hpf 11/05/19 11/05/19 11/05/19 Range/Units 17:48 18:50 23:11 WBC 16.8 H 16.0 H (3.8-10.6) k/uL RBC 4.28 L 4.26 L (4.30-5.90) m/uL Hgb 12.3 L 12.3 L (13.0-17.5) gm/dL Hct 38.9 L (39.0-53.0) % Neutrophils # (1.3-7.7) k/uL APTT (22.0-30.0) sec Chloride (98-107) mmol/L Carbon Dioxide (22-30) mmol/L Creatinine (0.66-1.25) mg/dL Glucose (74-99) mg/dL Iron (65-175) ug/dL % Saturation (15.00-50.00) ALT (4-49) U/L Urine Protein 1+ H (Negative) Urine Ketones 1+ H (Negative) Urine Blood Moderate H (Negative) Urine Bilirubin 1+ H (Negative) Ur Leukocyte Esterase Large H (Negative) Urine RBC 53 H (0-5) /hpf Urine WBC 161 H (0-5) /hpf Urine WBC Clumps Moderate H (None) /hpf Urine Bacteria Rare H (None) /hpf Urine Mucus Many H (None) /hpf 11/06/19 11/06/19 Range/Units 04:12 04:12 WBC 17.4 H (3.8-10.6) k/uL RBC 4.19 L (4.30-5.90) m/uL Hgb 12.2 L (13.0-17.5) gm/dL Hct (39.0-53.0) % Neutrophils # 14.7 H (1.3-7.7) k/uL APTT (22.0-30.0) sec Chloride 108 H (98-107) mmol/L Carbon Dioxide 18 L (22-30) mmol/L Creatinine 0.63 L (0.66-1.25) mg/dL Glucose 125 H (74-99) mg/dL Iron (65-175) ug/dL % Saturation (15.00-50.00) ALT 60 H (4-49) U/L Urine Protein (Negative) Urine Ketones (Negative) Urine Blood (Negative) Urine Bilirubin (Negative) Ur Leukocyte Esterase (Negative) Urine RBC (0-5) /hpf Urine WBC (0-5) /hpf Urine WBC Clumps (None) /hpf Urine Bacteria (None) /hpf Urine Mucus (None) /hpf Microbiology - Last 24 Hours (Table) 11/05/19 18:50 Urine Culture - Preliminary Urine,Catheterized
--- NOTE | 2019-11-06 09:35 | P.PN ---
Subjective Progress Note Date: 11/06/19 Principal diagnosis: Polytrauma Patient more tachycardic this morning. Low-grade fever 100. White blood cell count 17.4. Nasogastric tube output remains bilious. Still having loose stools as well. Patient is pleasantly confused. Says he is having no pain. Objective - Vital Signs Vital signs: Vital Signs Temp 99.4 F 11/06/19 00:00 Pulse 111 H 11/06/19 08:15 Resp 32 H 11/06/19 00:00 BP 127/82 11/06/19 00:00 Pulse Ox 99 11/06/19 00:00 Intake & Output 11/05/19 11/06/19 11/06/19 18:59 06:59 18:59 Intake Total 600 60 Output Total 830 825 Balance -230 -765 Intake: IV 60 0.9 Normal Saline at KVO 60 20mL/hr Intake, IV Titration 600 Amount Piperacillin-Tazobactam 3 100 .375 gm In Sodium Chloride 0.9% 100 ml @ 25 mls/hr IVPB Q8HR [facility] Rx# :[id number] Sodium Chloride 0.9% 1, 500 000 ml @ 100 mls/hr IV . Q10H [facility] Rx#:[id number] Output: Urine 830 825 Other: Voiding Method Indwelling Catheter Indwelling Catheter ABP, PAP, CO, CI - Last Documented Arterial Blood Pressure 178/114 - Exam Abdomen: Soft, nondistended, nontender - Labs CBC & Chem 7: 11/06/19 04:12 11/06/19 04:12 Labs: Abnormal Lab Results - Last 24 Hours (Table) 11/05/19 11/05/19 11/05/19 Range/Units 11:21 11:21 11:21 WBC 17.1 H (3.8-10.6) k/uL RBC (4.30-5.90) m/uL Hgb 12.4 L (13.0-17.5) gm/dL Hct (39.0-53.0) % Neutrophils # (1.3-7.7) k/uL APTT 21.2 L (22.0-30.0) sec Chloride (98-107) mmol/L Carbon Dioxide (22-30) mmol/L Creatinine (0.66-1.25) mg/dL Glucose (74-99) mg/dL Iron 21 L (65-175) ug/dL % Saturation 7.95 L (15.00-50.00) ALT (4-49) U/L Urine Protein (Negative) Urine Ketones (Negative) Urine Blood (Negative) Urine Bilirubin (Negative) Ur Leukocyte Esterase (Negative) Urine RBC (0-5) /hpf Urine WBC (0-5) /hpf Urine WBC Clumps (None) /hpf Urine Bacteria (None) /hpf Urine Mucus (None) /hpf 11/05/19 11/05/19 11/05/19 Range/Units 17:48 18:50 23:11 WBC 16.8 H 16.0 H (3.8-10.6) k/uL RBC 4.28 L 4.26 L (4.30-5.90) m/uL Hgb 12.3 L 12.3 L (13.0-17.5) gm/dL Hct 38.9 L (39.0-53.0) % Neutrophils # (1.3-7.7) k/uL APTT (22.0-30.0) sec Chloride (98-107) mmol/L Carbon Dioxide (22-30) mmol/L Creatinine (0.66-1.25) mg/dL Glucose (74-99) mg/dL Iron (65-175) ug/dL % Saturation (15.00-50.00) ALT (4-49) U/L Urine Protein 1+ H (Negative) Urine Ketones 1+ H (Negative) Urine Blood Moderate H (Negative) Urine Bilirubin 1+ H (Negative) Ur Leukocyte Esterase Large H (Negative) Urine RBC 53 H (0-5) /hpf Urine WBC 161 H (0-5) /hpf Urine WBC Clumps Moderate H (None) /hpf Urine Bacteria Rare H (None) /hpf Urine Mucus Many H (None) /hpf 11/06/19 11/06/19 Range/Units 04:12 04:12 WBC 17.4 H (3.8-10.6) k/uL RBC 4.19 L (4.30-5.90) m/uL Hgb 12.2 L (13.0-17.5) gm/dL Hct (39.0-53.0) % Neutrophils # 14.7 H (1.3-7.7) k/uL APTT (22.0-30.0) sec Chloride 108 H (98-107) mmol/L Carbon Dioxide 18 L (22-30) mmol/L Creatinine 0.63 L (0.66-1.25) mg/dL Glucose 125 H (74-99) mg/dL Iron (65-175) ug/dL % Saturation (15.00-50.00) ALT 60 H (4-49) U/L Urine Protein (Negative) Urine Ketones (Negative) Urine Blood (Negative) Urine Bilirubin (Negative) Ur Leukocyte Esterase (Negative) Urine RBC (0-5) /hpf Urine WBC (0-5) /hpf Urine WBC Clumps (None) /hpf Urine Bacteria (None) /hpf Urine Mucus (None) /hpf Microbiology - Last 24 Hours (Table) 11/05/19 18:50 Urine Culture - Preliminary Urine,Catheterized Assessment and Plan (1) Multiple injuries due to trauma Narrative/Plan: Patient with ileus suspected. Possibly secondary to UTI. Continue antibiotics scribed by digital manager. Will follow. Current Visit: Yes Status: Acute Code(s): T07.XXXA - UNSPECIFIED MULTIPLE INJURIES, INITIAL ENCOUNTER SNOMED Code(s): 289147944
--- NOTE | 2019-11-06 12:43 | P.PN ---
Subjective Progress Note Date: 11/06/19 Principal diagnosis: Acute hypoxic respiratory failure secondary to Multiple left-sided rib fractures and pulmonary contusion 10/30/2019, the patient is being seen for a follow-up. He was extubated and he remains extubated for now. He was being given BiPAP throughout the night yesterday and the patient was noted to have some fecal material in the BiPAP mask and for that reason I recommended to discontinue the BiPAP immediately and put the patient on nasal cannula which is currently it's 6 L. NG tube was inserted and immediately around 200 mL of fecal material was aspirated from his stomach. The patient is much more comfortable at this point in time. Abdomen is slightly distended. A flat film of the abdomen was done and it showed dilated loop of small bowel which could be related to mechanical small bowel obstruction. No free air. There is constant in the descending colon and rectosigmoid colon and this is probably related to the previous CAT scan of the abdomen that the patient received 2 days back. He is awake. He opens eyes spontaneously. Not following any commands at this point in time. His fluid balance has been negative around 4.4 L and there is considerable improvement in the fluid balance and third spacing and edema in the upper and lower e xtremities. The chest x-ray from today showed left basilar infiltrate and there is improvement in the volume status. The pulmonary asked essentially within normal limits. Noted the patient is currently on no sedation. He is off Precedex for now. He remains on IV Zosyn. Reevaluated today on 10/31/19, patient remains in the ICU, he is on 3 L nasal cannula, hemodynamically stable, continues to have a nasogastric tube in place for presumptive severe ileus. Yesterday the patient apparently vomited while he was on BiPAP, and he was placed on a nasal cannula, nasogastric tube In place. Patient is having some shallow breathing, today I have encouraged the patient to do before incentive spirometry and more deep breathing and deep coughing. His IV fluids remains at KVO, hemodynamically stable, and his heart rate is 90 sinus rhythm. Chest x-ray today showed small left pleural effusion multiple left- sided rib fractures Patient was reevaluated today on 11/01/19, remains in the ICU, patient is about the same, not verbal March, remains encephalopathic, he did pass his swallow evaluation today, seems to be very weak. Patient had a bowel movement last night, abdomen is less distended, patient is supposed to have a MRI/MRA today as ordered by the neurologist on the case. He is on 3 L nasal cannula. And his IV fluid is at KVO. CBC is relatively normal basic metabolic profile is normal, EEG is basically showing metabolic encephalopathy. Surprisingly the patient passes swallow evaluation, and we will likely advance his diet as tolerated. Reevaluated today on 11/02/19, patient remains in the ICU, he is on 2 L nasal cannula with O2 saturation 98%. Patient remains confused, knows his name, he thinks he is at [facility], but he did not know the year he thought it was 2002, and did not know the name of the president. Patient responded well to lactulose and had many liquid bowel movements, hence lactulose is now on hold. Patient has no evidence of vegetations, he is oriented to self. Chest x-ray continues to show small left-sided pleural effusion. Not large e nough to consider thoracentesis. Today I have recommended that we get rid of IV blood pressure medications, and I will place him on oral metoprolol and Norvasc. We will discontinue IV metoprolol and IV hydralazine. Reevaluated today on 11/03/19, patient remains in the ICU as an overflow. Remains encephalopathic, confused, verbalizes but disoriented, patient is on 2 L nasal cannula, does not seem to be short of breath. He is very comfortable. Labs including CBC and basic metabolic profile are normal. Patient is having bowel movements, his blood pressure medications were addressed, and I have increased his metoprolol to 50 mg twice a day. Blood pressure is marginally high. Patient was reevaluated today on 11/04/19, patient seems to be much better today. He seems to be a bit more appropriate, has a very pleasant mood, you exactly where he was, and he knew the year but not the month. Has watery stools, and his C. diff toxin is negative. A fecal management system has been applied. Patient is on room air, he is hemodynamically stable, and overall the patient is doing great. Discharge/Transfer planning to a rehab facility is in progress Patient was reevaluated today on 11/05/19, apparently had to large volume emesis, and he was noted to have some blood present with mucous clots in the emesis. The color was light cook hence I recommended a nasogastric tube. X-ray of the abdomen showed gastric distention, and a nasogastric tube output was noted to be bilious. Patient remains confused, his labs are basically unremarkable, stool is brownish in color. Patient remains hemodynamically stable, blood pressure is a bit elevated, switch his oral blood pressure medications to via nasogastric tube meds. Reevaluated today on 11/06/19, patient remains in the ICU, he had a low-grade fever last night with a T-max of 100. He developed a bit of leukocytosis with WBC count of 17.4, continues to have a significant amount of bilious drainage from the nasogastric tube. Continues to have loose stools. Patient is confused, but he is pleasantly confused. Zosyn was restarted yesterday, cultures of blood and urine are pending. Labs today showed WBC of 17.4 hemoglobin is 12.2+ are normal renal profile is normal bicarb is 18. Objective - Vital Signs Vital signs: Vital Signs Temp 99.3 F 11/06/19 08:00 Pulse 108 H 11/06/19 12:00 Resp 28 H 11/06/19 08:00 BP 129/89 11/06/19 08:00 Pulse Ox 95 11/06/19 08:00 Intake & Output 11/05/19 11/06/19 11/06/19 18:59 06:59 18:59 Intake Total 600 60 Output Total 830 825 Balance -230 -765 Intake: IV 60 0.9 Normal Saline at KVO 60 20mL/hr Intake, IV Titration 600 Amount Piperacillin-Tazobactam 3 100 .375 gm In Sodium Chloride 0.9% 100 ml @ 25 mls/hr IVPB Q8HR [facility] Rx# :[id number] Sodium Chloride 0.9% 1, 500 000 ml @ 100 mls/hr IV . Q10H [facility] Rx#:[id number] Output: Urine 830 825 Other: Voiding Method Indwelling Catheter Indwelling Catheter Indwelling Catheter # Emeses 1 ABP, PAP, CO, CI - Last Documented Arterial Blood Pressure 178/114 - Exam Physical examination Gen: This is 49-year-old male. On room air. Confused. Nasogastric tube is noted to have significant amount of bilious drainage. HEENT: PERRLA, EOMI, no icterus, chronic masses, no JVD. NECK: Supple. No JVD. No lymphadenopathy. No thyromegaly. Nasogastric tube is in place. LUNGS: Symmetrical chest expansion, diminished at the bases no crackles or rhonchi or wheezes. HEART: Distant S1 and S2, no S3 gallop, no murmur. ABDOMEN: Obese, Soft. Bowel sounds are present. No masses. No tenderness. EXTREMITIES: 1+ bilateral pedal edema. No calf tenderness.wound to the left forearm, healing without signs of infection. NEUROLOGICAL: Awake, oriented 2. Otherwise no focal deficits. Today he knew the year, and use the name of the present but did not know where he was Psychiatric: Normal mood, affect and borderline mental status - Labs CBC & Chem 7: 11/06/19 04:12 11/06/19 04:12 Labs: Abnormal Lab Results - Last 24 Hours (Table) 11/05/19 11/05/19 11/05/19 Range/Units 11:21 17:48 18:50 WBC 16.8 H (3.8-10.6) k/uL RBC 4.28 L (4.30-5.90) m/uL Hgb 12.3 L (13.0-17.5) gm/dL Hct (39.0-53.0) % Neutrophils # (1.3-7.7) k/uL Chloride (98-107) mmol/L Carbon Dioxide (22-30) mmol/L Creatinine (0.66-1.25) mg/dL Glucose (74-99) mg/dL Iron 21 L (65-175) ug/dL % Saturation 7.95 L (15.00-50.00) ALT (4-49) U/L Urine Protein 1+ H (Negative) Urine Ketones 1+ H (Negative) Urine Blood Moderate H (Negative) Urine Bilirubin 1+ H (Negative) Ur Leukocyte Esterase Large H (Negative) Urine RBC 53 H (0-5) /hpf Urine WBC 161 H (0-5) /hpf Urine WBC Clumps Moderate H (None) /hpf Urine Bacteria Rare H (None) /hpf Urine Mucus Many H (None) /hpf 11/05/19 11/06/19 11/06/19 Range/Units 23:11 04:12 04:12 WBC 16.0 H 17.4 H (3.8-10.6) k/uL RBC 4.26 L 4.19 L (4.30-5.90) m/uL Hgb 12.3 L 12.2 L (13.0-17.5) gm/dL Hct 38.9 L (39.0-53.0) % Neutrophils # 14.7 H (1.3-7.7) k/uL Chloride 108 H (98-107) mmol/L Carbon Dioxide 18 L (22-30) mmol/L Creatinine 0.63 L (0.66-1.25) mg/dL Glucose 125 H (74-99) mg/dL Iron (65-175) ug/dL % Saturation (15.00-50.00) ALT 60 H (4-49) U/L Urine Protein (Negative) Urine Ketones (Negative) Urine Blood (Negative) Urine Bilirubin (Negative) Ur Leukocyte Esterase (Negative) Urine RBC (0-5) /hpf Urine WBC (0-5) /hpf Urine WBC Clumps (None) /hpf Urine Bacteria (None) /hpf Urine Mucus (None) /hpf Microbiology - Last 24 Hours (Table) 11/05/19 18:50 Urine Culture - Preliminary Urine,Catheterized Assessment and Plan Assessment: Impression: Recurrent episodes of bilious emesis requiring nasogastric tube placement. Being addressed by surgery on the case. Acute hypoxic respiratory failure secondary to multiple rib fractures and pulmonary contusion, resolved. Acute toxic metabolic encephalopathy slow, slightly improving. Prolonged course of mechanical ventilation , however he was successfully extubat ed about a week ago Status post tractor accident/fall Benign essential hypertension Delirium tremens and alcohol withdrawal requiring prolonged course of mechanical ventilation. Chronic low back pain Type 2 diabetes Abdominal wall hematoma Acute blood loss anemia Severe ileus, resolved., Patient had mostly gastric distention on x-ray of the abdomen this morning, Recommendation: Continue Nasogastric tube to low intermittent suction. Keep nothing by mouth except for medications. Continue incentive spirometry Continue oral blood pressure medications. We'll continue to follow, patient could be transferred to a regular medical floor once a bed becomes available Time with Patient: Less than 30
[2019-11-06 13:07] LABS: Glucose,Whole Blood 123 mg/dL (75-99)
[2019-11-06] MEDS: PANTOPRAZOLE 40 MG TABLET PO SCH (18:14)
[2019-11-06] MEDS: ASPIRIN 81 MG PO SCH (18:14)
[2019-11-06] MEDS ORDERED: HALOPERIDOL LACTATE 5 MG/ML 1 ML VIAL IM STA (19:40)
[2019-11-07 00:08] LABS: Glucose,Whole Blood 105 mg/dL (75-99)
[2019-11-07] MEDS: INSULIN ASPART (NovoLOG) 100 UNIT/ML VIAL SQ SCH ×4 (00:33→17:39)
[2019-11-07] MEDS: SODIUM CHLORIDE 0.9% 1,000 ML IV SCH ×3 (05:02→21:12)
[2019-11-07] MEDS: OFLOXACIN 0.3% OPHTH DROPS 5 ML BOTTLE BOTH EYES SCH ×4 (05:54→23:56)
[2019-11-07 06:13] LABS: Glucose,Whole Blood 101 mg/dL (75-99)
[2019-11-07] MEDS: amLODIPine 5 MG TAB PO SCH (07:47)
[2019-11-07] MEDS: PIPERACILLIN-TAZOBACTAM 3.375 GM in SODIUM CHLORIDE 0.9% 100 ML IVPB SCH ×3 (07:47→23:55)
[2019-11-07] MEDS: DULoxetine HCL 60 MG CAPSULE.DR PO SCH (07:47)
[2019-11-07] MEDS: METOPROLOL TARTRATE 50 MG TAB PO SCH ×2 (07:47→21:11)
[2019-11-07] MEDS: ATORVASTATIN 40 MG TAB PO SCH (07:47)
[2019-11-07] MEDS: HEPARIN SODIUM,PORCINE 5,000 UNIT/ML 1 ML VIAL SQ SCH ×2 (07:48→21:12)
[2019-11-07] MEDS: PANTOPRAZOLE 40 MG/10 ML VIAL IVP SCH ×2 (07:48→21:12)
[2019-11-07] MEDS: MAG HYDROX/AL HYDROX/SIMETH 30 ML CUP PO SCH ×4 (07:48→21:11)
[2019-11-07] MEDS: THIAMINE 100 MG/ML 2 ML VIAL IVP SCH ×2 (07:49→21:12)
[2019-11-07] MEDS: IPRATROPIUM-ALBUTEROL 3 ML NEB INHALATION SCH ×4 (07:53→21:09)
[2019-11-07 08:31] LABS: ALT 42 U/L (4-49); AST 23 U/L (17-59); African American GFR (CKD) >90 (>60 ml/min/1.73 sqM); Albumin 3.9 g/dL (3.5-5.0); Alkaline Phosphatase 114 U/L (38-126); Anion Gap 12 mmol/L; Blood Urea Nitrogen 17 mg/dL (9-20); Calcium 9.6 mg/dL (8.4-10.2); Carbon Dioxide 21 mmol/L (22-30); Chloride 111 mmol/L (98-107); Glucose 98 mg/dL (74-99); Non-African American GFR(CKD) >90 (>60 ml/min/1.73 sqM); Potassium 4.2 mmol/L (3.5-5.1); Sodium 144 mmol/L (137-145); Total Protein 7.4 g/dL (6.3-8.2)
[2019-11-07 08:36] LABS: Basophils % (A) 0 %; Eosinophils # (A) 0.3 k/uL (0-0.7); Eosinophils % (A) 2 %; HCT 37.5 % (39.0-53.0); HGB 11.5 gm/dL (13.0-17.5); Hypochromasia Moderate; Lymphocytes # (A) 1.6 k/uL (1.0-4.8); Lymphocytes % (A) 11 %; MCHC 30.6 g/dL (31.0-37.0); MCV 94.7 fL (80.0-100.0); Mean Platelet Volume 7.8; Monocytes # (A) 0.7 k/uL (0-1.0); Monocytes % (A) 5 %; Neutrophils # (A) 11.9 k/uL (1.3-7.7); Neutrophils % (A) 82 %; Platelet Count 377 k/uL (150-450); RBC 3.96 m/uL (4.30-5.90); RDW 14.8 % (11.5-15.5); WBC 14.6 k/uL (3.8-10.6)
--- NOTE | 2019-11-07 10:07 | P.PN ---
Subjective Progress Note Date: 11/07/19 Principal diagnosis: Acute hypoxic respiratory failure secondary to multiple left-sided rib fractures and pulmonary contusion The patient is seen today 11/07/2019 in follow-up on the regular medical floor. He is currently awake and alert. Still somewhat confused as to dates and time. Oriented to person and place. He did pull out his nasogastric tube and Colindres catheter last evening. He is inappropriate at times. He did swallow his morning pills without incident. No further nausea or vomiting. He is currently maintaining good O2 saturations in the 90s on room air. He's been afebrile. Hemodynamically stable. Urine culture positive for gram-negative bacilli. He i s white count is 14.6. Hemoglobin 11.5. Sodium 144. Potassium 4.2. Creatinine 0.63. He remains on Zosyn. Objective - Vital Signs Vital signs: Vital Signs Temp 98.3 F 11/07/19 07:00 Pulse 101 H 11/07/19 08:05 Resp 20 11/07/19 07:00 BP 144/92 11/07/19 07:00 Pulse Ox 96 11/07/19 07:00 Intake & Output 11/06/19 11/07/19 11/07/19 18:59 06:59 18:59 Intake Total 900 Output Total 500 375 Balance 400 -375 Intake: IV 400 Sodium Chloride 0.9% 1, 400 000 ml @ 100 mls/hr IV . Q10H [facility] Rx#:[id number] Intake, IV Titration 500 Amount Piperacillin-Tazobactam 3 100 .375 gm In Sodium Chloride 0.9% 100 ml @ 25 mls/hr IVPB Q8HR [facility] Rx# :[id number] Sodium Chloride 0.9% 1, 400 000 ml @ 100 mls/hr IV . Q10H [facility] Rx#:[id number] Output: Urine 500 375 Other: Voiding Method Indwelling Catheter Indwelling Catheter # Voids 1 ABP, PAP, CO, CI - Last Documented Arterial Blood Pressure 178/114 - Exam GENERAL EXAM: Alert, oriented 2, 49-year-old gentleman, on room air, comfortable in no apparent distress. HEAD: Normocephalic. EYES: Normal reaction of pupils, equal size. NOSE: Clear with pink turbinates. THROAT: No erythema or exudates. NECK: No masses, no JVD. CHEST: No chest wall deformity. LUNGS: Equal air entry with crackles in the left base, diminished. CVS: S1 and S2 normal with no audible murmur, regular rhythm. ABDOMEN: No hepatosplenomegaly, normal bowel sounds, no guarding or rigidity. SPINE: No scoliosis or deformity SKIN: No rashes CENTRAL NERVOUS SYSTEM: No focal deficits, tone is normal in all 4 extremities. EXTREMITIES: There is no peripheral edema. No clubbing, no cyanosis. Peripheral pulses are intact. - Labs CBC & Chem 7: 11/07/19 07:37 11/07/19 07:37 Labs: Abnormal Lab Results - Last 24 Hours (Table) 11/06/19 11/07/19 11/07/19 Range/Units 13:04 00:05 06:10 WBC (3.8-10.6) k/uL RBC (4.30-5.90) m/uL Hgb (13.0-17.5) gm/dL Hct (39.0-53.0) % MCHC (31.0-37.0) g/dL Neutrophils # (1.3-7.7) k/uL Chloride (98-107) mmol/L Carbon Dioxide (22-30) mmol/L Creatinine (0.66-1.25) mg/dL POC Glucose (mg/dL) 123 H 105 H 101 H (75-99) mg/dL 11/07/19 11/07/19 Range/Units 07:37 07:37 WBC 14.6 H (3.8-10.6) k/uL RBC 3.96 L (4.30-5.90) m/uL Hgb 11.5 L (13.0-17.5) gm/dL Hct 37.5 L (39.0-53.0) % MCHC 30.6 L (31.0-37.0) g/dL Neutrophils # 11.9 H (1.3-7.7) k/uL Chloride 111 H (98-107) mmol/L Carbon Dioxide 21 L (22-30) mmol/L Creatinine 0.63 L (0.66-1.25) mg/dL POC Glucose (mg/dL) (75-99) mg/dL Microbiology - Last 24 Hours (Table) 11/05/19 18:50 Urine Culture - Preliminary Urine,Catheterized Gram Neg Bacilli 11/05/19 17:06 Blood Culture - Preliminary Blood No Growth after 24 hours Assessment and Plan Assessment: Acute hypoxic respiratory failure secondary to multiple rib fractures and pulmonary contusion, resolved. Acute toxic metabolic encephalopathy slow, slightly improving. Prolonged course of mechanical ventilation , however he was successfully extubated about a week ago Status post tractor accident/fall Severe ileus, resolved., Patient had mostly gastric distention on x-ray of the abdomen Abdominal wall hematoma Acute blood loss anemia Benign essential hypertension Delirium tremens and alcohol withdrawal requiring prolonged course of mechanical ventilation. Chronic low back pain Type 2 diabetes Plan: The patient was seen and evaluated by Dr. De Leon Currently stable from the pulmonary and critical care standpoint We'll see the patient as needed I, the cosigning physician, performed a history & physical examination of the patient. Lungs sounds with crackles in left base, diminished. Maintaining good O2 saturations in the 90s on room air. I discussed the assessment and plan of care with my nurse practitioner, Marleny Juarez. I attest to the above note as dictated by her.
[2019-11-07 11:39] LABS: Glucose,Whole Blood 96 mg/dL (75-99)
--- NOTE | 2019-11-07 11:42 | P.PN ---
Subjective Progress Note Date: 11/07/19 Principal diagnosis: Polytrauma Patient was transferred out of the ICU yesterday. Patient pulled out his nasogastric tube, a [place] catheter, and rectal tube. No further vomiting. The patient is thirsty. Remains pleasantly confused. T-max 100, white blood cell count 14.6. Objective - Vital Signs Vital signs: Vital Signs Temp 98.3 F 11/07/19 07:00 Pulse 94 11/07/19 11:32 Resp 20 11/07/19 07:00 BP 144/92 11/07/19 07:00 Pulse Ox 96 11/07/19 07:00 Intake & Output 11/06/19 11/07/19 11/07/19 18:59 06:59 18:59 Intake Total 900 Output Total 500 375 Balance 400 -375 Intake: IV 400 Sodium Chloride 0.9% 1, 400 000 ml @ 100 mls/hr IV . Q10H [facility] Rx#:[id number] Intake, IV Titration 500 Amount Piperacillin-Tazobactam 3 100 .375 gm In Sodium Chloride 0.9% 100 ml @ 25 mls/hr IVPB Q8HR [facility] Rx# :[id number] Sodium Chloride 0.9% 1, 400 000 ml @ 100 mls/hr IV . Q10H [facility] Rx#:[id number] Output: Urine 500 375 Other: Voiding Method Indwelling Catheter Indwelling Catheter # Voids 1 ABP, PAP, CO, CI - Last Documented Arterial Blood Pressure 178/114 - Exam Abdomen: Soft, nondistended, nontender - Labs CBC & Chem 7: 11/07/19 07:37 11/07/19 07:37 Labs: Abnormal Lab Results - Last 24 Hours (Table) 11/06/19 11/07/19 11/07/19 Range/Units 13:04 00:05 06:10 WBC (3.8-10.6) k/uL RBC (4.30-5.90) m/uL Hgb (13.0-17.5) gm/dL Hct (39.0-53.0) % MCHC (31.0-37.0) g/dL Neutrophils # (1.3-7.7) k/uL Chloride (98-107) mmol/L Carbon Dioxide (22-30) mmol/L Creatinine (0.66-1.25) mg/dL POC Glucose (mg/dL) 123 H 105 H 101 H (75-99) mg/dL 11/07/19 11/07/19 Range/Units 07:37 07:37 WBC 14.6 H (3.8-10.6) k/uL RBC 3.96 L (4.30-5.90) m/uL Hgb 11.5 L (13.0-17.5) gm/dL Hct 37.5 L (39.0-53.0) % MCHC 30.6 L (31.0-37.0) g/dL Neutrophils # 11.9 H (1.3-7.7) k/uL Chloride 111 H (98-107) mmol/L Carbon Dioxide 21 L (22-30) mmol/L Creatinine 0.63 L (0.66-1.25) mg/dL POC Glucose (mg/dL) (75-99) mg/dL Microbiology - Last 24 Hours (Table) 11/05/19 18:50 Urine Culture - Preliminary Urine,Catheterized Gram Neg Bacilli 11/05/19 17:06 Blood Culture - Preliminary Blood No Growth after 24 hours Assessment and Plan (1) Multiple injuries due to trauma Narrative/Plan: Patient with recent episode of high volume emesis. Doing better currently. Patient was refusing nasogastric tube reinsertion. We'll allow forceps of water and popsicles sparingly. Monitor for recurrent vomiting. Current Visit: Yes Status: Acute Code(s): T07.XXXA - UNSPECIFIED MULTIPLE INJURIES, INITIAL ENCOUNTER SNOMED Code(s): 140182533
--- NOTE | 2019-11-07 12:36 | P.PN ---
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 along with proximal sigmoid injury with left lower quadrant mesenteric hematomas. Continue conservative treatment, monitor hemoglobin. Coffee-ground Emesis resolved. Continue with NG tube diet advanced to ice chips. 5 alcohol intoxication. Liver function tests also reflect chronic alcohol use. 6 question of syncope, alcohol-related. 7 active delirium tremens. Patient has required intubation mechanical ventilation. Patient is extubated 8 acute hypoxic respiratory failure required intubation and mechanical ventilation. successfully extubated. 9 hypertensive emergency. Off Clevidex drip. Continue amlodipine 5 mg daily, Lopressor 50 mg twice daily. 10 hypertension. Continue as above. 11 acute metabolic toxic encephalopathic secondary to ICU psychosis, multiple sedating medications over long period of time. Mental status is improving. CTA of the head and neck and MRI of the brain as above. 12 hyperglycemia: Type 2 diabetes. NovoLog scale. 12 chronic lower back pain. 13 recurrent depression. Continue Cymbalta and Seroquel. 14 GI prophylaxis: Patient be on pantoprazole. 15 DVT prophylaxis. Heparin subcu 16 Clavicular fracture. Consult with orthopedic appreciated. Sling is in place. 17 acute blood loss anemia with hematoma and ecchymosis to the left lateral and posterior abdominal wall secondary to mesenteric hematoma. 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 Consult with orthopedic spine appreciated. Plan for conservative management. 19. Coffee-ground Emesis. NG tube discontinued, diet advanced ice chips and popsicles continue to monitor DC aspirin. 20. Urinary retention. Flomax 0.4 mg once daily CODE STATUS: Full code. Discharge plan: Long-term rehab facility at [facility]. Social work is following. COVID-19 testing negative as of November 02. Anticipate discharge next week once bed is available. Impression and plan of care have been directed as dictated by the signing physician. Yudi Early nurse practitioner acting as scribe for signing physician. Objective - Vital Signs Vital signs: Vital Signs Temp 98.3 F 11/07/19 07:00 Pulse 94 11/07/19 11:32 Resp 20 11/07/19 07:00 BP 144/92 11/07/19 07:00 Pulse Ox 96 11/07/19 07:00 Intake & Output 11/06/19 11/07/19 11/07/19 18:59 06:59 18:59 Intake Total 900 Output Total 500 375 Balance 400 -375 Intake: IV 400 Sodium Chloride 0.9% 1, 400 000 ml @ 100 mls/hr IV . Q10H [facility] Rx#:[id number] Intake, IV Titration 500 Amount Piperacillin-Tazobactam 3 100 .375 gm In Sodium Chloride 0.9% 100 ml @ 25 mls/hr IVPB Q8HR [facility] Rx# :[id number] Sodium Chloride 0.9% 1, 400 000 ml @ 100 mls/hr IV . Q10H [facility] Rx#:[id number] Output: Urine 500 375 Other: Voiding Method Indwelling Catheter Indwelling Catheter # Voids 1 0 # Bowel Movements 1 ABP, PAP, CO, CI - Last Documented Arterial Blood Pressure 178/114 - Labs CBC & Chem 7: 11/07/19 07:37 11/07/19 07:37 Labs: Abnormal Lab Results - Last 24 Hours (Table) 11/06/19 11/07/19 11/07/19 Range/Units 13:04 00:05 06:10 WBC (3.8-10.6) k/uL RBC (4.30-5.90) m/uL Hgb (13.0-17.5) gm/dL Hct (39.0-53.0) % MCHC (31.0-37.0) g/dL Neutrophils # (1.3-7.7) k/uL Chloride (98-107) mmol/L Carbon Dioxide (22-30) mmol/L Creatinine (0.66-1.25) mg/dL POC Glucose (mg/dL) 123 H 105 H 101 H (75-99) mg/dL 11/07/19 11/07/19 Range/Units 07:37 07:37 WBC 14.6 H (3.8-10.6) k/uL RBC 3.96 L (4.30-5.90) m/uL Hgb 11.5 L (13.0-17.5) gm/dL Hct 37.5 L (39.0-53.0) % MCHC 30.6 L (31.0-37.0) g/dL Neutrophils # 11.9 H (1.3-7.7) k/uL Chloride 111 H (98-107) mmol/L Carbon Dioxide 21 L (22-30) mmol/L Creatinine 0.63 L (0.66-1.25) mg/dL POC Glucose (mg/dL) (75-99) mg/dL Microbiology - Last 24 Hours (Table) 11/05/19 18:50 Urine Culture - Preliminary Urine,Catheterized Gram Neg Bacilli 11/05/19 17:06 Blood Culture - Preliminary Blood No Growth after 24 hours
[2019-11-07 16:54] LABS: Glucose,Whole Blood 103 mg/dL (75-99)
[2019-11-07] MEDS: TAMSULOSIN 0.4 MG CAP.ER.24H PO SCH (17:39)
--- NOTE | 2019-11-07 18:17 | P.PN ---
Subjective Progress Note Date: 11/07/19 Upon seeing the patient at bedside he said that he is doing well. He denies any new weakness any numbness and. Any visual disturbance any headache. Objective - Vital Signs Vital signs: Vital Signs Temp 97.9 F 11/07/19 15:01 Pulse 96 11/07/19 15:01 Resp 18 11/07/19 15:01 BP 137/81 11/07/19 15:01 Pulse Ox 95 11/07/19 15:01 Intake & Output 11/06/19 11/07/19 11/07/19 18:59 06:59 18:59 Intake Total 900 Output Total 500 375 350 Balance 400 -375 -350 Intake: IV 400 Sodium Chloride 0.9% 1, 400 000 ml @ 100 mls/hr IV . Q10H [facility] Rx#:[id number] Intake, IV Titration 500 Amount Piperacillin-Tazobactam 3 100 .375 gm In Sodium Chloride 0.9% 100 ml @ 25 mls/hr IVPB Q8HR [facility] Rx# :[id number] Sodium Chloride 0.9% 1, 400 000 ml @ 100 mls/hr IV . Q10H [facility] Rx#:[id number] Output: Urine 500 375 350 Other: Voiding Method Indwelling Catheter Indwelling Catheter # Voids 1 0 # Bowel Movements 1 ABP, PAP, CO, CI - Last Documented Arterial Blood Pressure 178/114 - Exam GENERAL: The patient is lying in bed and in mild acute distress. CHEST: The heart rate is regular rate rhythm. No murmurs to auscultation. LUNG: Not labored breathing. Clear to ausculation. NEUROLOGICAL: Higher mental function: The patient is awake, alert, oriented to self on initial try he was not oriented to to place or time. On the second attempt he was oriented to self place and time. The patient is following commands. No aphasia and no neglect. His speaking continues to be improved compared to one week ago. Cranial nerves: The pupils are round, right pupil is 5mm bilaterally reactive to light. Visual galaviz are full to threat throughout. Extraocular movement was tracking throughout and no nystagmus is noted. Facial sensation could not be assessed. The facial strength is normal throughout and no facial droop noted. No dysarthria is noted. Motor: Gait is defered. The strength: Right upper extremity strength is 5 out of 5 left upper extremity was I felt was a 5 out of 5 as well. Right lower extremity is 5 over 5 left lower extremity could not assess because of patient the pain Normal tone and bulk. Sensation: Intact to painful stimuli. Reflexes (right/left): 3+ on the right upper and lower extremities. While left 1+. Plantars are mute bilaterally. - Labs CBC & Chem 7: 11/07/19 07:37 11/07/19 07:37 Labs: Abnormal Lab Results - Last 24 Hours (Table) 11/07/19 11/07/19 11/07/19 Range/Units 00:05 06:10 07:37 WBC 14.6 H (3.8-10.6) k/uL RBC 3.96 L (4.30-5.90) m/uL Hgb 11.5 L (13.0-17.5) gm/dL Hct 37.5 L (39.0-53.0) % MCHC 30.6 L (31.0-37.0) g/dL Neutrophils # 11.9 H (1.3-7.7) k/uL Chloride (98-107) mmol/L Carbon Dioxide (22-30) mmol/L Creatinine (0.66-1.25) mg/dL POC Glucose (mg/dL) 105 H 101 H (75-99) mg/dL 11/07/19 11/07/19 Range/Units 07:37 16:53 WBC (3.8-10.6) k/uL RBC (4.30-5.90) m/uL Hgb (13.0-17.5) gm/dL Hct (39.0-53.0) % MCHC (31.0-37.0) g/dL Neutrophils # (1.3-7.7) k/uL Chloride 111 H (98-107) mmol/L Carbon Dioxide 21 L (22-30) mmol/L Creatinine 0.63 L (0.66-1.25) mg/dL POC Glucose (mg/dL) 103 H (75-99) mg/dL Microbiology - Last 24 Hours (Table) 11/05/19 18:50 Urine Culture - Preliminary Urine,Catheterized Gram Neg Bacilli 11/05/19 17:06 Blood Culture - Preliminary Blood No Growth after 24 hours Assessment and Plan Assessment: Deconditioning is likely due to his a prolonged ICU stay as well as multiple medical condition the. Patient's condition that seems to be improving. Unclear why the patient fell off the tractor. Questionable syncope, also possibly because of acohol intoxication he fell over and he passed out. cannot rule out seizure. 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 Also on imaging shows left cerebellar lacunar hyperintesity as well small vessel disease. Possible cavernous angioma over on the right thalamus and the left basal ganglia Post tractor accident with multiple injuries and trauma. Flail chest with multiple rib fracture in the left side displaced in the anterior and posterior area with significant pneumothorax Severe abdominal pain with bowel injury a long proximal sigmoid injury with mild hematoma with no rupture or or perforation. Alcohol intoxication Hypercholesterolemia Plan: Routine EEG (10/31/19): Mild to moderate encephalopathy of unknown etiology. There is no focal slowing. There is no interictal or seizure activity during the study. MRI of brain on 11/01/2019 was reported as atrophy of the periventricular white matter changes likely on the basis of chronic white matter ischemia. This includes 7 area within the brainstem. Old lacunar infarct in the right thalamus. Cavernous angioma may be within the right thalamus and the left basal ganglia. I personally reviewed the MRI of the brain and I do agree there is old lacunar on the right thalamus. I also saw and old lacunae over the left the cerebellar on one of the axial views. There is a small white matter changes as well. MRI C-spine: Large Central disc herniation with moderate anterior thecal sac compressing C5-C6. Mild disc bulge at C6-C7 with anterior thecal sac flattening. CT angiogram of the head reported as moderate irregular atherosclerotic narrowing within the left greater than the right is V4 segment vertebral artery and moderate atherosclerotic calcification throughout the bilateral carotid siphons. No large a vessel intracranial artery occlusion. No aneurysm changes seen. Some scattered fluid within the mastoid air cells. Correlate for any mastoid the pain to exclude mastoiditis. CTA of the neck was reported as mild of the scar narrowing at the origin of the bilateral vertebral arteries. Mild, less than 40% proximal ICA stenosis on either side. Echocardiogram was reported as left ventricle size is normal. Ejection fraction is 55-60%. There is moderate concentric left ventricular hypertrophy. There is a trace mitral regurgitation Hemoglobin A1c is 5.6. Lipid profile is triglyceride is 740, cholesterol is 292 but was taken while patient was on Propofol. Repeat the lipid profile (11/02/19): Triglyceride of 218, cholesterol 365, LDL of 303 and HDL of 18. TSH: 2.0 Regarding the the central disc herniation on the C5-C6 with hyper-reflexia over the right upper and lower extremity. Orthopedic was consulted and that they discuss the case with the patient as well as his family member and they decided that to go with the conservative medical management. He'll follow up with orthopedic as an outpatient upon discharge. On thiamine 100 mg twice a day. 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 Also recommend the patient to follow-up with a neurosurgeon regarding the cavernous hemangioma as outpatient. As well has follow-up with the neurologist as an outpatient. We will follow patient periodically. Lobo Cruz M.D. Neuro-hospitalist Time with Patient: Greater than 30
[2019-11-07] MEDS: traZODone HCL 50 MG TAB PO SCH (21:18)
[2019-11-08 00:05] LABS: Glucose,Whole Blood 102 mg/dL (75-99)
[2019-11-08] MEDS: INSULIN ASPART (NovoLOG) 100 UNIT/ML VIAL SQ SCH ×5 (00:12→23:58)
[2019-11-08] MEDS: OFLOXACIN 0.3% OPHTH DROPS 5 ML BOTTLE BOTH EYES SCH ×3 (05:53→18:20)
[2019-11-08 05:59] LABS: Glucose,Whole Blood 86 mg/dL (75-99)
[2019-11-08] MEDS: IPRATROPIUM-ALBUTEROL 3 ML NEB INHALATION SCH (07:44)
[2019-11-08] MEDS: ATORVASTATIN 40 MG TAB PO SCH (08:18)
[2019-11-08] MEDS: METOPROLOL TARTRATE 50 MG TAB PO SCH ×3 (08:19→22:26)
[2019-11-08] MEDS: MAG HYDROX/AL HYDROX/SIMETH 30 ML CUP PO SCH ×4 (08:19→22:26)
[2019-11-08] MEDS: amLODIPine 5 MG TAB PO SCH (08:19)
[2019-11-08] MEDS: PANTOPRAZOLE 40 MG/10 ML VIAL IVP SCH (08:20)
[2019-11-08] MEDS: DULoxetine HCL 60 MG CAPSULE.DR PO SCH (08:20)
[2019-11-08] MEDS: HEPARIN SODIUM,PORCINE 5,000 UNIT/ML 1 ML VIAL SQ SCH ×2 (08:20→22:26)
[2019-11-08] MEDS: PIPERACILLIN-TAZOBACTAM 3.375 GM in SODIUM CHLORIDE 0.9% 100 ML IVPB SCH ×2 (08:22→15:41)
[2019-11-08] MEDS ORDERED: amLODIPine 5 MG TAB PO STA (08:51)
[2019-11-08] MEDS: THIAMINE 100 MG/ML 2 ML VIAL IVP SCH (09:08)
[2019-11-08] MEDS ORDERED: METOPROLOL TARTRATE 50 MG TAB PO STA (09:21)
[2019-11-08] MEDS: amLODIPine 10 MG TAB PO SCH (09:22)
[2019-11-08 09:27] LABS: Basophils % (A) 0 %; Eosinophils # (A) 0.3 k/uL (0-0.7); Eosinophils % (A) 3 %; HCT 33.9 % (39.0-53.0); HGB 10.4 gm/dL (13.0-17.5); Lymphocytes # (A) 1.5 k/uL (1.0-4.8); Lymphocytes % (A) 16 %; MCHC 30.6 g/dL (31.0-37.0); MCV 91.3 fL (80.0-100.0); Mean Platelet Volume 7.2; Monocytes # (A) 0.4 k/uL (0-1.0); Monocytes % (A) 5 %; Neutrophils # (A) 7.4 k/uL (1.3-7.7); Neutrophils % (A) 76 %; Platelet Count 334 k/uL (150-450); RBC 3.72 m/uL (4.30-5.90); RDW 14.8 % (11.5-15.5); WBC 9.7 k/uL (3.8-10.6)
[2019-11-08 09:38] LABS: ALT 41 U/L (4-49); AST 26 U/L (17-59); African American GFR (CKD) >90 (>60 ml/min/1.73 sqM); Albumin 3.6 g/dL (3.5-5.0); Alkaline Phosphatase 112 U/L (38-126); Anion Gap 13 mmol/L; Blood Urea Nitrogen 10 mg/dL (9-20); Carbon Dioxide 20 mmol/L (22-30); Chloride 105 mmol/L (98-107); Glucose 97 mg/dL (74-99); Non-African American GFR(CKD) >90 (>60 ml/min/1.73 sqM); Potassium 4.2 mmol/L (3.5-5.1); Sodium 138 mmol/L (137-145); Total Bilirubin 0.9 mg/dL (0.2-1.3)
[2019-11-08] MEDS: SODIUM CHLORIDE 0.9% 1,000 ML IV SCH ×2 (09:51→20:55)
--- NOTE | 2019-11-08 11:36 | XR ---
EXAMINATION TYPE: XR abdomen 1V DATE OF EXAM: 11/08/2019 11:21 AM CLINICAL HISTORY: Pain and distention. TECHNIQUE: Two supine KUB images of the abdomen are obtained. COMPARISON: Abdominal x-ray [address] October 26, 2019. FINDINGS: Gas seen in mildly distended stomach improved from prior. Some paucity of small bowel gas, visualized gas noted in nondistended small bowel loops. Gas seen in nondistended colon along the janae phery. The osseous structures are intact. Lung bases not included. IMPRESSION: Overall nonspecific but favor nonobstructive bowel gas pattern. Improved gaseous distenti on of stomach noted.
[2019-11-08 12:12] LABS: Glucose,Whole Blood 102 mg/dL (75-99)
--- NOTE | 2019-11-08 14:03 | P.PN ---
Subjective Progress Note Date: 11/08/19 Principal diagnosis: Acute hypoxic respiratory failure related to chest trauma, broken ribs 86-year-old here patient with a remote history of rectal cancer in addition to history of cardiomyopathy with reported ejection fraction of 30% in addition to chronic atrial fibrillation on Coumadin anticoagulation with Eliquis on outpatient basis. The patient presented to the ED complaining of generalized weakness and falls. Hemoglobin was found to be 3. She had positive occult b lood in the stool. She was atrial fibrillation. Her lactic acid was also elevated. No abdominal pain or tenderness. No hematemesis. No bright blood blood per rectum. She denied also having melanotic stools. She was given a total of 4 units of packed RBC a total of 4 L of IV fluids and she is in the intensive care unit for now. Overnight, the patient's urine output gradually improved. The most recent hemoglobin from this morning is at 10.4. Serum bicarb still 9 and the patient has a 9 gap acidosis of 14. Nevertheless, the lactic acid level dropped from as high as 8 down to 1.7. There CAT scan of the abdomen and pelvis was done and it showed no acute abnormalities and there is no indication or any cause for the blood loss. No evidence of any retroperitoneal bleeding. No Abdominal distention.. No other significant events overnight. She is awake and alert. No previous history of GI bleeds. Her coagulation profile was abnormal with a INR of 2.3 with a PT of 23.3. PTT was 29.9. Patient was reevaluated today on 10/10/19, remains in the ICU, patient presented with hypotension and profound anemia with hemoglobin of 3. Received so far a total of 4 units of packed RBCs. Patient is feeling better, her chest x-ray showed evidence of mild fluid overload, her Eliquis is still on hold. Patient is on room air with O2 saturations were 96%, and she was on sodium bicarb which I will discontinue. Her bicarb today is 18 and her anion gap has resolved. Renal profile is improving BUN is 55 creatinine is 1.64. WBC count is 8.7 hemoglobin today is 8.9. Again the patient received a total of 4 units of packed RBCs since admission. TSH remains high patient is on thyroid replacement therapy. T4 is 1.23 my plan today is to have patient evaluated by gastroenterology. Continue to hold Eliquis, and likely transfer the patient to a monitor bed on selective today. Patient was reevaluated today on 10/11/19, remains in the ICU as an overflow, patient is doing well, her hemoglobin is stable, no further episodes of bleeding, anticoagulation therapy remains on hold, patient is on room air, she is off the sodium bicarb since yesterday, and I plan today to give her a gentle diuresis, plan to transfer the patient today to a monitor bed on selective once a bed is available. Or consider a remote telemetry bed. Electrolytes are normal. Renal profile continues to improve, creatinine is 1.37 from 2.11 on admission. Hemoglobin is at 9.4. Patient received a total of 4 units of packed RBCs since admission. No chest x-ray was done today, but on physical examination had minimal crackles at the base. Patient was reevaluated today on 10/12/19, remains as an overflow in the ICU, patient is on room air, she is hemodynamically stable, she has no specific complaints except for some vague chest wall discomfort. Hemoglobin is stable. And she received a total of 4 units of packed RBCs since admission. No further episodes of bleeding, and no further drop in her hemoglobin. Patient is in atrial fibrillation, rate seems to be controlled at 78 bpm. Hence I plan to transfer the patient was admitted becomes available on the regular medical floor with remote monitoring Patient was seen in follow-up on the regular medical surgical floor on 10/13/2019. He was transferred out of the intensive care unit yesterday, no acute events overnight, he still in significant amount of chest wall discomfort, he has an epidural catheter in place, anesthesia services are following, his epidural is infusing at a rate of 9 ML per hour. His epidural catheter was removed yesterday and the thoracic spine epidural catheter was placed per anesthesia. His senna spirometer effort is 700 mL on today's exam, his respirations are shallow, he still requiring 10 L of oxygen per high flow nasal cannula with a pulse ox of 95%, hemodynamically he is stable, he is afebrile. Today's chest x-ray has been reviewed showing bilateral consolidation and pleural effusions, pneumothorax On 11/08/2019 patient seen in follow-up on the regular medical surgical floor. He is resting comfortably in bed, in no acute distress, he is on room air with pulse ox of 95%, no fever or chills, hemodynamically stable, he is alert and oriented to person and place, but not the time. He thinks is July. Denies any acute distress, denies any difficulty breathing, lung sounds are clear, diminished at the bases, no rhonchi or wheezing. Abdomen is soft, nontender, and according to the nursing staff patient has been passing flatus and bowel movements. No nausea or vomiting. Diet has been advanced to full liquid diet. Abdominal x-ray shows overall nonspecific pattern, but favor nonobstructive bowel gas pattern, and improving gaseous distention of the stomach. Objective - Vital Signs Vital signs: Vital Signs Temp 98.8 F 11/08/19 07:39 Pulse 98 11/08/19 09:33 Resp 16 11/08/19 09:33 BP 145/88 11/08/19 09:33 Pulse Ox 95 11/08/19 09:33 Intake & Output 11/07/19 11/08/19 11/08/19 18:59 06:59 18:59 Output Total 350 1300 Balance -350 -1300 Output: Urine 350 1300 Other: # Voids 0 1 1 # Bowel Movements 1 1 ABP, PAP, CO, CI - Last Documented Arterial Blood Pressure 178/114 - Exam GENERAL EXAM: Alert, pleasant, 49-year-old white male, on room air, resting in bed, oriented to person and place, but not the time comfortable in no apparent distress. HEAD: Normocephalic/atraumatic. EYES: Normal reaction of pupils, equal size. Conjunctiva pink, sclera white. NOSE: Clear with pink turbinates. THROAT: No erythema or exudates. NECK: No masses, no JVD, no thyroid enlargement, no adenopathy. CHEST: No chest wall deformity. Symmetrical expansion. LUNGS: Equal air entry with no crackles, wheeze, rhonchi or dullness. CVS: Regular rate and rhythm, normal S1 and S2, no gallops, no murmurs, no rubs ABDOMEN: Soft, nontender. No hepatosplenomegaly, normal bowel sounds, no guarding or rigidity. EXTREMITIES: No clubbing, no edema, no cyanosis, 2+ pulses and upper and lower extremities. MUSCULOSKELETAL: Muscle strength and tone normal. SPINE: No scoliosis or deformity SKIN: No rashes CENTRAL NERVOUS SYSTEM: Alert and oriented -3. No focal deficits, tone is normal in all 4 extremities. PSYCHIATRIC: Alert and oriented -3. Appropriate affect. Intact judgment and insight. - Labs CBC & Chem 7: 11/08/19 08:54 11/08/19 08:54 Labs: Abnormal Lab Results - Last 24 Hours (Table) 11/07/19 11/08/19 11/08/19 Range/Units 16:53 00:04 08:54 RBC 3.72 L (4.30-5.90) m/uL Hgb 10.4 L (13.0-17.5) gm/dL Hct 33.9 L (39.0-53.0) % MCHC 30.6 L (31.0-37.0) g/dL Carbon Dioxide (22-30) mmol/L Creatinine (0.66-1.25) mg/dL POC Glucose (mg/dL) 103 H 102 H (75-99) mg/dL 11/08/19 11/08/19 Range/Units 08:54 12:10 RBC (4.30-5.90) m/uL Hgb (13.0-17.5) gm/dL Hct (39.0-53.0) % MCHC (31.0-37.0) g/dL Carbon Dioxide 20 L (22-30) mmol/L Creatinine 0.55 L (0.66-1.25) mg/dL POC Glucose (mg/dL) 102 H (75-99) mg/dL Microbiology - Last 24 Hours (Table) 11/05/19 18:50 Urine Culture - Final Urine,Catheterized Escherichia coli 11/05/19 17:06 Blood Culture - Preliminary Blood No Growth after 48 hours Assessment and Plan Plan: Assessment: #1. Acute hypoxic respiratory failure related to multiple left-sided rib fractures, status post tractor accident/fall, resolved, and patient is on room air #2. Acute toxic metabolic encephalopathy, slightly improving #3. Prolonged course of mechanical ventilation, requiring to closely 2 weeks on the ventilator support, successfully weaned and extubated on 10/29/2019 #4. Acute trauma related to tractor accident, with multiple left-sided rib fractures, and pulmonary contusion strongly suspected #5. Proximal sigmoid hematoma but no perforation #6. Severe ileus, improved #7. Abdominal wall hematoma and acute blood loss anemia #8. Benign essential hypertension #9. Type 2 diabetes mellitus #10. Chronic low back pain #11. Delirium tremens and alcohol withdrawal requiring prolonged course of mechanical ventilation #12. History of depression Plan: Continue encouraging deep breathing and coughing, maintain aspiration precautions, physical therapy consultation. No acute events overnight, no nausea vomiting, patient is tolerating oral intake. Surgical services are following. Abdomen is soft, patient is passing BMs and flatus. Maintaining safety precautions, confusion is improving. Discharge planning is in progress for discharge to subacute rehab facility in [place] were patient's daughter resides. I performed a history & physical examination of the patient and discussed their management with my nurse practitioner, Megha Kenny. I reviewed the nurse practitioner's note and agree with the documented findings and plan of care. Lung sounds are positive for diminished breath sounds. The findings and the impression was discussed with the patient. I attest to the documentation by the nurse practitioner. Time with Patient: Less than 30
--- NOTE | 2019-11-08 15:04 | P.PN ---
Subjective Progress Note Date: 11/08/19 History of present illness 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 Patient ended up seen in trauma at [facility] multiple exiting CAT scan was per for CT of the chest showed left sided hydropneumothorax with multiple displace rib fracture anterolateral drip 2-7 and posterior 5-11 with a flail chest, abdominal pelvic CT showed ball injury with small bowel and proximal sigmoid involvement with mild hematoma with no perforation or free air. Pelvic showed no fracture head and neck showed no C-spine fracture and the major abnormality and CAT scan of the brain. Left upper extremity did not show any fracture patient had his arm in sling of the time. Was seen and evaluated before leaving the emergency department patient was in quite bed discomfort and was in mild respiratory distress having significant tachypnea and tachycardia with significant hypoxia the time require higher flow 2. No chest tube place ment at the time. General surgery and ICU service were notified patient will be transferred to the ICU from the emergency department 10/10: Patient remains in the intensive care unit. We have added in consult with orthopedics regarding left clavicular fracture. Patient also has a skin tear to the left forearm. There is a consult in place with anesthesiology for pain control. Discussed issue that patient had alcohol in his system which he adamantly denies any alcohol intake. Patient to be on ice chips only per Dr. Valdivia. PT and OT will be added. Patient is on SCDs and LOU hose for DVT prophylaxis. Incentive spirometry is at bedside and patient encouraged to use every hour. Patient has been afebrile, heart rate 114, blood pressure 154/89, pulse ox 93% on high flow nasal cannula 10 L. Repeat blood work reveals WBC 14.0, hemoglobin 12.9. Sodium 133, creatinine 0.77, blood sugar 152. AST 105, ALT 67. Hepatitis panel negative. 10/11: Patient was seen yesterday by pain management and epidural was placed for pain control. Patient states his pain is much improved from yesterday. Repeat chest x-ray reveals mild cardiomegaly. Small left effusion with adjacent atelectasis and/or consolidation. No multiple left-sided rib fractures. Known distal left clavicle fracture. Ultrasound of the chest reveals small left pleural effusion 5.8 cm and marked. Patient has been afebrile, heart rate 111, respiratory rate 25, blood pressure 140/93 and he just received his blood pressu re medications. Pulse ox is 93% on 10 L high flow nasal cannula. Repeat blood work reveals WBC 14.2, hemoglobin 11.2. Sodium 132, creatinine 0.73 blood sugar 120. Total bilirubin 1.6, AST 77, ALT 54, alkaline phosphatase 54. Viral hepatitis panel negative. 10/12: Patient is seen today on the [facility] floor. Patient is currently on clear liquid diet. He has not had a bowel movement. Dulcolax suppository ordered. He remains with epidural in place but is receiving Dilaudid for breakthrough pain. Patient will be started on the CIWA protocol. He has been afebrile, heart rate 109, blood pressure 150/93, pulse ox 95% on 9 L high flow nasal cannula. Hydralazine added. PT OT to be working with patient today and get him into a chair. Patient denies any nausea vomiting. He is reaching 750 ML's on incentive spirometry. manager java has discussed discharge planning again with the patient and plan is to return home. 10/13: Patient developed significant mental status changes and drop in pulse ox requiring transfer into the intensive care unit. At the time of evaluation, patient was tachycardic, 2, hypertensive and on, for extra. Dr. De Leon will be intubating momentarily. Attempted multiple times to reach patient's but there was no answer. Patient does have epidural that is in place for pain control. Repeat blood work reveals WBC 13.8, hemoglobin 10.4. Sodium 136, po tassium 4.3, chloride 104, CO2 21, BUN 15 creatinine 0.7. Chest x-ray this morning reveals satisfactory ET and NG tube. Mild cardiomegaly. Possible mild pulmonary vascular congestion. Known left-sided fractures and distal left clavicle fracture. Small left effusion with left basilar atelectasis and/or consolidation. A CTA of the head and also of the chest to been ordered by Dr. De Leon. 10/14: Patient remains intubated and on mechanical ventilation with tidal volume 500, FiO2 50 and PEEP of 5. He is currently on Diprivan. CAT scan of the brain revealed cerebral atrophy. 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 No change. CT angiogram of the head was negative. Atherosclerotic vascular calcification. CT angios of the chest reveals cardiomegaly with bilateral lower lobe pulmonary consolidation and atelectasis. Bilateral pleural effusions could represent chronic heart failure. No evidence of pulmonary embolism. Pulmonary abnormalities are significantly increased compared to recent exam of October 09. The patient has significant ecchymosis and hematoma to the left lateral chest wall and abdominal region around to the retroperitoneal area. A repeat blood work reveals a drop in hemoglobin to 8.1. WBC 5.6, platelet count 173. Sodium 134, potassium 3.6, chloride 106, CO2 25, BUN 14 and creatinine 0.6. CK 977. Urinalysis clear, positive protein and ketones, no leukoesterase. Hepatitis panel negative. He has been afebrile, heart rate 93, blood pressure 137/65. Per patient's nurse, patient's was in attendance yesterday. Wound care to the left forearm ordered with Silvadene twice daily. 10/15: Patient remains intubated and on mechanical ventilation with tidal volume 450, FiO2 70. 10. Patient had difficulty maintaining pulse ox yesterday dropped down to 85 continued to have difficulties was up to 100% oxygen during the night. He is currently on Nimbex, Cleviprex, propofol. He is receiving Dilaudid every 1/2-2 hours and Ativan as well. Epidural was removed yesterday. Recommend starting fentanyl drip today. He received IV Lasix yesterday with 2 L output. Chest x-ray this morning reveals cardiomegaly and interstitial densities. Interstitial opacities may be slightly improved, correlate for slight improvement in pulmonary vascular congestion. Continued but slightly improved small left pleural effusion but with persistent prominent left basilar/retrocardiac atelectasis and/or consolidation. CAT scan of the abdomen and pelvis revealed focal left lower quadrant mesenteric hematomas adjacent to the proximal sigmoid are relatively similar in size. Surrounding strandy hemorrhage has decrease in the interval. No new or progressive hematoma. Development of generalized anasarca correlate for fluid overload. Moderate left effusion, small right effusion. Multiple left-sided rib fractures. Anterolisthesis at L5-S1 and moderate advanced degenerative disc disease. 10/16: Patient remains intubated and on mechanical ventilation, tidal volume 450, FiO2 of 100 and PEEP of 12. Patient remains on Nimbex, propofol and fentanyl. He is off Cleviprex. Cymbalta cannot be given down OG tube. Patient is more comfortable today from yesterday. Echocardiogram reveals EF 55-60% with moderate concentric left ventricular hypertrophy, trace mitral regurgitation, trace tricuspid regurgitation, small generalized pericardial effusion. Chest x- ray reveals no left-sided rib fractures and distal left clavicle fracture. Continued left small pleural effusion with left basilar and retrocardiac atelectasis and/or consolidation. Temperature max 100.1, heart rate 93, blood pressure 134/78. Repeat blood work reveals study BC 7.9, hemoglobin 9.8, platelet count 238. Sodium 136, potassium 3.1 replaced, chloride 101, CO2 29, BUN 13 and creatinine 0.6. Blood sugars running between 110 and 121. Sputum culture finalized with normal osmany. 10/17: Patient remains intubated and on mechanical ventilation with tidal volume 450, FiO2 60, PEEP 15. He has on the fall and fentanyl. Plan is to wean off fentanyl today. Patient Dulcolax suppository yesterday did not have a bowel movement. A second Dulcolax suppository ordered for today. Repeat chest x-ray reveals low lung volumes and cardiomegaly with left-sided rib fractures. Continue small left pleural effusion with associated left basilar atelectasis and/or infiltrate. Developing right central lung acute infiltrate and/or atelectasis. Patient has been afebrile, heart rate 93, blood pressure 125/77, pulse ox 95%. Repeat blood work reveals W BC 7.6, hemoglobin 9.7, platelet cou nt 234. Sodium 136, potassium 3.0 status post replacement of 3.6, chloride 101, CO2 31, BUN 14 and creatinine 0.50. Blood sugars are running between 104 and 122. 10/18: Patient remains intubated and on mechanical ventilation with tidal volume 450, FiO2 50, PEEP of 15. He is off Nimbex and fentanyl. Currently on propofol. He still has not had a bowel movement and is scheduled for another suppository. Patient has been afebrile, heart rate 88, blood pressure 142/57. Repeat blood work reveals WBC 7.4, hemoglobin 9.3, platelet count 260. Sodium 135, potassium 3.5, chloride 90, CO2 33, BUN 14 and creatinine 0.51. Repeat CK is 2391. Chest x-ray is stable. 10/19: Patient remains in the intensive care unit intubated and on mechanical ventilation with tidal volume 450, FiO2 50 and PEEP is down to 10. He is currently on propofol but is opening eyes unable to follow commands. Repeat blood work reveals WBC 8.2, hemoglobin 9.5, platelet count 343. Sodium 135, po tassium 3.8, chloride 99, CO2 32, BUN 15 and creatinine 0.48. Blood sugars are running between 107 124. CK 1063. Total bilirubin 0.8, AST 66 and ALT 52. Patient has been afebrile, heart rate 92, blood pressure 128/74. 10/20: Patient remains in the intensive care unit, intubated and on mechanical ventilation with tidal volume 450, FiO2 50, PEEP of 10. Patient is off fentanyl drip and on IV Dilaudid as needed. He is currently on propofol. Patient has been afebrile, heart rate 81, blood pressure 130/72, pulse ox 94%. Repeat blood work reveals W BC 9, hemoglobin 9.5, platelet count 363. Electrolytes normal, creatinine 0.56. Blood sugar 100 -117. Sputum culture finalized with normal fl ora. Repeat chest x-ray reveals mild progression of consolidation and pleural effusion on the left relative to the prior exam. Acute appearing multiple left- sided rib fractures. Anticipate weaning and probable extubation over the weekend. Patient still has not had a bowel movement and Dulcolax suppository ordered daily. 10/24: Patient seen this morning remains intubated on the vent, FiO2 50%. Patient is on propofol drip and Dilaudid when necessary able to open eyes to voice. Patient has failed at weaning attempts, Dr. Lee has a meeting with family this morning at 9 AM to discuss possible trach and peg. Labs were reviewed, hemoglobin 8.5. Adequate urine output is noted, per nursing patient has not had a bowel movement in about 3-4 days. Vital signs are stable, patient is afebrile, pulse rate 80, blood pressure 119/69, pulse ox 93%. Sputum culture finalized positive for Staphylococcus aureus, susceptible to Zosyn. Chest x-ray was stable compared to previous exam. 10/25: Per nursing yesterday family had meeting and patient never wish to be resuscitated and do not want to plan for trach and PEG at this point. Dr. Lee in and seen patient will attempt to wean and see how it's tolerated. Patient does open eyes and shake head yes and no for commands. Chest x-ray today shows left lower lobe infiltrate correlate for atelectasis and pneumonia, small left pleural effusion may be present hemothorax could be considered. Patient had low-grade temp 99.8 this morning pulse 102, respirations 25, blood pressure 125/76, satting 90% on 70% FiO2. 10/26: Patient failed weaning trial again this morning with Dr. Lee, per nursing patient gets too anxious and restless. Hemoglobin 8.8 this morning, white blood cells 7.5, sodium 134. Chest x-ray showed CHF with pulmonary vascular congestion, continued small to moderate left effusion. CT of the abdomen and pelvis yesterday showed stable mesenteric hematoma on the left lower quadrant, moderate basilar atelectasis and pleural effusion left greater than the right with multiple left-sided rib fractures all unchanged. CT of the brain showed age related atrophic and chronic small vessel ischemic change with no acute intracranial process. We'll continue to monitor patient closely along with pulmonary and continue the weaning process. 10/27: Patient continues to be sedated on the vent. Will do sedation holiday along with weaning trial again with Dr. Lee, FiO2 down to 50%. Patient currently on Precedex and fentanyl for sedation. Patient did open eyes and follows some simple commands this morning. Hemoglobin 9.1 this morning, white blood cells 8.9, sodium 136. Chest x-ray today showed chronic changes without evidence for acute pulmonary process. We'll continue to follow along with critical care. Family declined trach and PEG at this time. patient was extubated yesterday remained on BiPAP overnight. Currently on 6 L high flow. Patient is currently off Precedex. He does open eyes on command but otherwise is minimal responsive. Mucous membranes are dry. Patient is saturating well at 6 L of high flow. Blood pressure maintained at 155/92. Tachypnea can tachycardic. Continues to be Lasix 40 IV twice a day and is diuresing well around 300-500 mg oral per hour. Sodium is normal at 137 chloride 101 creatinine 0.54 concern for ATN or diabetes insipideus stop CT head is negative for any acute abnormality on 10/25. Chest x-ray on 10/28 and suggests minimal pulmonary vascular congestion and continued small left effusion with an adjacent atelectasis. Continues on Zosyn for aspiration pneumonia. If no improvement in mental status would consider EEG and repeat CAT scan of the head. 10/29 patient examined bedside. Mental status has improved since yesterday. Patient does was open eyes to command and has been moving all his extremities. Speech is gibberish. Sister at bedside acknowledge response to her. Patient apparently had episodes of vomiting, NG tube was placed immediately around 200 mL of fecal material was obtained from the stomach. Abdominal x-ray does suggest dilated loop of small bowel likely mechanical small bowel obstruction. No free air noted. Contrast material noted in the transverse colon in the record. Patient appears to be comfortable on 6 L of oxygen but didn't require BiPAP overnight. Patient continues to have 200-300 mL per hour of urine output. Urine does appear dark in color. On assessment of patient's lab hemoglobin is 10, BUN 21 creatinine 0.6 sodium 140. Patient noted to have anisocoria with right pupil larger than the left but pupils are reactive to light. EEG ordered. Neurology consult placed. 10/30: Patient remains in the intensive care unit. Patient's eyes are closed and minimal responsiveness at this time. He is not on sedation. NG tube with brown fluid return with 700 ML's out since last evening. Family do not wish to pursue PEG tube placement. Patient is a no intubationstatus moving forward.neurology to evaluate the patient today and EEG is pending. Patient is been afebrile, heart rate 95, blood pressure 156/94, pulse ox 96% on 3 L nasal cannula.WBC 8.9, hemoglobin 9.9. BUN 22 and creatinine 0.6. Blood sugars running 108-112.repeat chest x-ray this morning reveals small increase in left pleural fluid collection. Multiple left-sided rib fractures. Lines and catheters.abdominal x-ray from yesterday revealed dilated loop of small bowel could relate to mechanical small bowel obstruction. No free air. 10/31: Patient remains in intensive care unit. He is on nasal cannula O2 with pu lse ox 100% on 3 L. Blood pressure 160/93, heart rate 86, afebrile. WBC 9.7, hemoglobin 10.5, platelet count 424. Sodium 142, potassium 3.8, chloride 110, CO2 24, BUN 23 and creatinine 0.67. Blood sugars running between 101 106. Sputum culture finalized with MSSA. Catheter tip cultures show no growth in finalized. Patient seen by neurology with recommendations for CTA of the head and neck to rule out aneurysm which is highly doubtful. Also recommended MRI of the brain and C-spine due to hyperreflexia of the right side to rule out stroke versus myelopathy. EEG suggestive of mild to moderate encephalopathy of unknown etiology. Patient is answering questions today, pupils are equal and reactive. Patient has swallowing evaluation and patient was able to tolerate clear liquids and pure consistencies without aspiration. Defer to GI for dietary recommendations. 11/01: Patient remains in the intensive care unit, afebrile, heart rate 90, blood pressure 163/99, pulse ox 100% on 2 L nasal cannula. Blood pressure was high during the evening or night nurse supervisor up to 153/116. Repeat blood work reveals hemoglobin 10.2. Creatinine 0.73, chloride 112. Blood sugar 104. CT angiogram of the neck revealed mild atherosclerotic narrowing at original of bilateral vertebral arteries. Mild less than 40% proximal ICA stenosis on either side. CTA of the head revealed moderate irregular atherosclerotic narrowing within the left greater than right V4 segment vertebral arteries and moderate atherosclerotic calcifications throughout the bilateral carotid siphons. No large vessel intracranial arterial occlusion. No aneurysmal change. 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 Some scattered fluid within the mastoid air cells correlate for mastoiditis. MRI of the brain revealed atrophy with. Ventricular white matter changes likely on the basis of chronic white matter ischemia. This includes areas within the brainstem. 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 Cavernous angiomas may be within the right thalamus and left basal ganglia. Correlate for bilateral mastoiditis. MRI of the cervical spine revealed central disc herniation with moderate anterior thecal sac compression at C5-6. Mild disc bulging C6-7 with anterior thecal sac flattening. Dr. Arteaga has added and consult with orthopedic spine and started patient on Lipitor and would like patient on aspirin once safe. We will ask for stool for occult blood. 4 aspirin was started. Patient did have large brown bowel movement yesterday with no signs of bright red bleeding or tarry stools. Patient did not require BiPAP last night. His respiratory rate remains in the 30s which is been consistent during his stay. He is currently off oxygen altogether and pulse oxing 96%. Patient does have history of CVA 1 year ago. His mental status is improving and he is able to follow directions. is at bedside. 11/02: Patient remains in intensive care unit but has been cleared by Dr. De Leon for transfer to the [facility] floor without telemetry. Patient has been seen by orthopedic spine with plan to continue conservative treatment. Patient afebrile, heart rate 100, blood pressure 141/104, respiratory rate 32, pulse ox 94% on room air. Lopressor was increased to 50 mg twice daily by Dr. De Leon. CK 38, triglycerides 218, cholesterol 365, LDL 303, HDL 18. TSH 2. Creatinine 0.6. Hemoglobin 10.8. Patient is reaching 750 on incentive spirometry. He is eating approximately 5200% of his meals. He is also on protein supplement. Waiting for stool for occult blood and possibly start aspirin if that is negative. Social work is working with the patient's family regarding discharge to long-term rehab facility on Thursday. Insurance authorization is in process. COVID 19 testing has been ordered. 11/03: Patient remains in the intensive care unit waiting for a bed on the [facility] floor. Bed will not be available at the long-term rehab facility until early next week. Patient is currently on. Diet and protein supplements 3 times daily but eating very little. He has been afebrile, heart rate 100, respiratory rate 36, pulse ox 100% on 2 L nasal cannula, blood pressure 146/97. C. difficile toxin is negative. WBC 12.6, hemoglobin 11.4. Electrolytes and renal function within normal limits. ALT is 74. COVID-19 testing is negative. 11/04: Patient had 2 large coffee ground emesis this morning with a large clots and dark bile. NG tube was inserted output shows dark thick output. Patient continues to have flexible stool management system in place. Patient has positive nausea. He is nothing by mouth at this time. Surgery has been into see patient. WBC16.0, hemoglobin 12.4, hematocrit 39.7, potassium 4.4, BUN 19, creatinine 0.69. Patient remains afebrile pulse rate 123, respirations 16, blood pressure 146/100 11/05: Patient is sitting up in bed pleasantly confused. He continues have NG tube in place with fecal-like output. Patient has flexible stool management in place with noted fecal output. Patient's x-ray did not show an obstruction. Patient is able to have ice chips at this time. Patient is tachycardic at 111, blood pressure 129/89, temperature 99.3. WBC 17.4, hemoglobin 12.2, BUN 18, creatinine 0.63. 11/06: Patient has been transferred to [facility]. Upon arrival patient postop is NG tube. Dr. Lei is okay with NG tube not being replaced. He is now on ice chips and popsicles. Patient also removed his indwelling catheter. A CAT scan was performed that showed 0. Patient is able to answer some questions appropriately however he is pleasantly confused. WC 14.6, hemoglobin 11.5, potassium 4.2, BUN 17, creatinine 0.63. Awaiting a bed [facility] for transfe r. 11/07: Patient is seen today on the [facility] floor. Yesterday NG tube, Colindres came out. He was started on Flomax and patient has been able to void without difficulty. Rectal tube has also been removed yesterday and he is only had 1 bowel movement since. We are increasing the amlodipine and Lopressor for blood pressure control. He has been afebrile, heart rate 100, blood pressure 157/98, pulse ox 97% on room air. Trazodone was started yesterday and patient slept well during the night. He is currently on sips of water. Speech therapy to reevaluate. Repeat blood work reveals W BC 9.7, hemoglobin 10.4. Creatinine 0.55. Liver function tests are normal. We are currently waiting for bed at long-term rehab center. Review of systems Constitutional: No fever, no chills, positive weakness, positive fatigue positive lethargy. positive daytime sleepiness. He reports generalized pain EENT: No headache. No epistaxis. Lungs: No shortness of breath, cough, no sputum production. No wheezing. Cardiovascular: No chest pain, no lower extremity edema. No palpitations. No paroxysmal nocturnal dyspnea. No orthopnea. No lightheadedness or dizziness. No syncopal episodes. Abdominal: No abdominal pain. No nausea, vomiting. No diarrhea. No constipation. No bloody or tarry stools. Genitourinary: No dysuria, increased frequency, urgency. No urinary retention. Musculoskeletal: No myalgias. No muscle weakness, no gait dysfunction, no frequent falls. No back pain. No neck pain. Integumentary: No wounds, no lesions. No rash or pruritus. No unusual b ruising. No change in hair or nails. Neurologic: No aphasia. No facial droop. No change in mentation. No head injury. No headache. No paralysis. No paresthesia. Psychiatric: No depression. No anxiety. No mood swings. Endocrine: No abnormal blood sugars. No weight change. No excessive sweating o r thirst. No cold intolerance. Physical examination Gen: This is 49-year-old male. He is sitting up in bed and appears to be comfortable. No respiratory distress is noted. HEENT: Head is atraumatic, normocephalic. Pupils equal, round. Sclerae is anicteric. NECK: Supple. No JVD. No lymphadenopathy. No thyromegaly. LUNGS: decreased breath sounds bilaterally with scattered rhonchi. HEART: Regular rate and rhythm. No murmur. ABDOMEN: Soft. Bowel sounds are present. No masses. No tenderness. EXTREMITIES: 1+ bilateral pedal edema. No calf tenderness. wound to the left forearm, healing without signs of infection. NEUROLOGICAL: Patient is awake, oriented to person. Able to nod and answer simple questions and follow simple directions. Assessment and plan 1 post tractor accident with multiple injury and trauma. 2 Flail chest with multiple rib fracture in the left side displace in the anterior and posterior area with significant pneumothorax, stable. Pleural effusion. 3 significant dyspnea and shortness of breath with acute hypoxia respiratory failure requiring intubation and mechanical ventilation.currently extubated. 4 severe abdominal pain with bowel injury along with proximal sigmoid injury with left lower quadrant mesenteric hematomas. Continue conservative treatment, monitor hemoglobin. 5 alcohol intoxication. Liver function tests also reflect chronic alcohol use. 6 question of syncope, alcohol-related. 7 active delirium tremens. Patient has required intubation mechanical ventilation. Patient is extubated 8 acute hypoxic respiratory failure required intubation and mechanical ventilation. successfully extubated. 9 hypertensive emergency. Off Clevidex drip. Continue amlodipine 5 mg daily, Lopressor 50 mg twice daily. 10 hypertension. Continue as above. 11 acute metabolic toxic encephalopathic secondary to ICU psychosis, multiple sedating medications over long period of time. Mental status is improving. CTA of the head and neck and MRI of the brain as above. 12 hyperglycemia: Type 2 diabetes. NovoLog scale. 12 chronic lower back pain. 13 recurrent depression. Continue Cymbalta and Seroquel. 14 GI prophylaxis: Patient be on pantoprazole. 15 DVT prophylaxis. Heparin subcu 16 Clavicular fracture. Consult with orthopedic appreciated. Sling is in place. 17 acute blood loss anemia with hematoma and ecchymosis to the left lateral and posterior abdominal wall secondary to mesenteric hematoma. 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 Consult with orthopedic spine appreciated. Plan for conservative management. CODE STATUS: Full code. Discharge plan: Long-term rehab facility at [facility]. Social work is following. COVID-19 testing negative as of November 02. Anticipate discharge next week once bed is available. Impression and plan of care have been directed as dictated by the signing physician. Kyra Norwood nurse practitioner acting as scribe for signing physician. Objective - Vital Signs Vital signs: Vital Signs Temp 98.8 F 11/08/19 07:39 Pulse 96 11/08/19 07:51 Resp 16 11/08/19 07:39 BP 157/98 11/08/19 07:39 Pulse Ox 95 11/08/19 07:44 Intake & Output 11/07/19 11/08/19 11/08/19 18:59 06:59 18:59 Output Total 350 Balance -350 Output: Urine 350 Other: # Voids 0 1 # Bowel Movements 1 1 ABP, PAP, CO, CI - Last Documented Arterial Blood Pressure 178/114 - Labs CBC & Chem 7: 11/08/19 08:54 11/08/19 08:54 Labs: Abnormal Lab Results - Last 24 Hours (Table) 11/07/19 11/08/19 Range/Units 16:53 00:04 POC Glucose (mg/dL) 103 H 102 H (75-99) mg/dL Microbiology - Last 24 Hours (Table) 11/05/19 18:50 Urine Culture - Final Urine,Catheterized Escherichia coli 11/05/19 17:06 Blood Culture - Preliminary Blood No Growth after 48 hours
--- NOTE | 2019-11-08 15:04 | P.PN ---
Subjective Progress Note Date: 11/08/19 CHIEF COMPLAINT: Multiple injury after trauma from a fall from tractor HISTORY OF PRESENT ILLNESS: Patient seen and examined with Dr. Valdivia. Patient on [facility]. [facility] Patient is eager for discharge. Patient did pull out his NG tube, [place] cath an d rectal tube yesterday. He is afebrile. WBC 9.7 hemoglobin 10.4 Overall nonspecific nonobstructive bowel gas pattern. Improved gaseous distention stomach noted. PHYSICAL EXAM: VITAL SIGNS: Reviewed. GENERAL: Well-developed in no acute distress. HEENT: No sclera icterus. Extraocular movements grossly intact. Moist buccal mucosa. Head is atraumatic, normocephalic. ABDOMEN: Soft. Obese. Nondistended Nontender. Neuro: Patient is more awake ASSESSMENT: 1. Status post Fall from tractor with multiple injuries 2. Proximal sigmoid hematoma and contusion. 3. Multiple left-sided rib fractures with flail chest 4. Left closed distal clavicular fracture followed by orthopedics 5. Chronic alcohol use and evidence of alcohol withdrawal 6. Acute hypoxic respiratory failure likely secondary to alcohol withdrawal syndrome and delirium tremens, multiple rib fractures on the left chest and possible pulmonary contusion. 7. Possible pulmonary contusion PLAN: -Place patient on a full liquid diet -Patient discharge planning in progress. -DVT prophylaxis subcu heparin GI prophylaxis Protonix Physician Information Technology Instructor note has been reviewed by physician. Signing provider agrees with the documented findings, assessment, and plan of care. Objective - Vital Signs Vital signs: Vital Signs Temp 98.8 F 11/08/19 07:39 Pulse 98 11/08/19 09:33 Resp 16 11/08/19 09:33 BP 145/88 11/08/19 09:33 Pulse Ox 95 11/08/19 09:33 Intake & Output 11/07/19 11/08/19 11/08/19 18:59 06:59 18:59 Output Total 350 1300 Balance -350 -1300 Weight 103.1 kg Output: Urine 350 1300 Other: # Voids 0 1 1 # Bowel Movements 1 1 ABP, PAP, CO, CI - Last Documented Arterial Blood Pressure 178/114 - Labs CBC & Chem 7: 11/08/19 08:54 11/08/19 08:54 Labs: Abnormal Lab Results - Last 24 Hours (Table) 11/07/19 11/08/19 11/08/19 Range/Units 16:53 00:04 08:54 RBC 3.72 L (4.30-5.90) m/uL Hgb 10.4 L (13.0-17.5) gm/dL Hct 33.9 L (39.0-53.0) % MCHC 30.6 L (31.0-37.0) g/dL Carbon Dioxide (22-30) mmol/L Creatinine (0.66-1.25) mg/dL POC Glucose (mg/dL) 103 H 102 H (75-99) mg/dL 11/08/19 11/08/19 Range/Units 08:54 12:10 RBC (4.30-5.90) m/uL Hgb (13.0-17.5) gm/dL Hct (39.0-53.0) % MCHC (31.0-37.0) g/dL Carbon Dioxide 20 L (22-30) mmol/L Creatinine 0.55 L (0.66-1.25) mg/dL POC Glucose (mg/dL) 102 H (75-99) mg/dL Microbiology - Last 24 Hours (Table) 11/05/19 18:50 Urine Culture - Final Urine,Catheterized Escherichia coli 11/05/19 17:06 Blood Culture - Preliminary Blood No Growth after 48 hours
[2019-11-08] MEDS: HYDROcodone/APAP 5-325MG 1 EACH TAB PO PRN (15:42)
[2019-11-08] MEDS: PANTOPRAZOLE 40 MG TABLET PO SCH (15:42)
[2019-11-08 17:54] LABS: Glucose,Whole Blood 90 mg/dL (75-99)
[2019-11-08] MEDS: TAMSULOSIN 0.4 MG CAP.ER.24H PO SCH (18:20)
[2019-11-08 20:52] LABS: Glucose,Whole Blood 96 mg/dL (75-99)
[2019-11-08] MEDS: traZODone HCL 50 MG TAB PO SCH (22:26)
[2019-11-08 23:59] LABS: Glucose,Whole Blood 108 mg/dL (75-99)
[2019-11-09] MEDS: OFLOXACIN 0.3% OPHTH DROPS 5 ML BOTTLE BOTH EYES SCH ×3 (00:01→13:01)
[2019-11-09] MEDS: HYDROcodone/APAP 5-325MG 1 EACH TAB PO PRN ×2 (02:16→13:20)
[2019-11-09 06:06] LABS: Glucose,Whole Blood 90 mg/dL (75-99)
[2019-11-09] MEDS: SODIUM CHLORIDE 0.9% 1,000 ML IV SCH ×2 (06:06→16:26)
[2019-11-09] MEDS: INSULIN ASPART (NovoLOG) 100 UNIT/ML VIAL SQ SCH ×2 (06:06→11:49)
[2019-11-09] MEDS: PANTOPRAZOLE 40 MG TABLET PO SCH (07:23)
[2019-11-09] MEDS: PIPERACILLIN-TAZOBACTAM 3.375 GM in SODIUM CHLORIDE 0.9% 100 ML IVPB SCH ×3 (07:24)
[2019-11-09] MEDS: HEPARIN SODIUM,PORCINE 5,000 UNIT/ML 1 ML VIAL SQ SCH (09:39)
[2019-11-09] MEDS: DULoxetine HCL 60 MG CAPSULE.DR PO SCH (09:39)
[2019-11-09] MEDS: MAG HYDROX/AL HYDROX/SIMETH 30 ML CUP PO SCH ×2 (09:39→13:14)
[2019-11-09] MEDS: ATORVASTATIN 40 MG TAB PO SCH (09:40)
[2019-11-09] MEDS: amLODIPine 10 MG TAB PO SCH (09:40)
[2019-11-09] MEDS: METOPROLOL TARTRATE 50 MG TAB PO SCH (09:41)
[2019-11-09 11:46] LABS: Glucose,Whole Blood 103 mg/dL (75-99)
--- NOTE | 2019-11-09 12:08 | P.PN ---
Subjective Progress Note Date: 11/09/19 Principal diagnosis: Acute hypoxic respiratory failure related to chest trauma, broken ribs 86-year-old here patient with a remote history of rectal cancer in addition to history of cardiomyopathy with reported ejection fraction of 30% in addition to chronic atrial fibrillation on Coumadin anticoagulation with Eliquis on outpatient basis. The patient presented to the ED complaining of generalized weakness and falls. Hemoglobin was found to be 3. She had positive occult b lood in the stool. She was atrial fibrillation. Her lactic acid was also elevated. No abdominal pain or tenderness. No hematemesis. No bright blood blood per rectum. She denied also having melanotic stools. She was given a total of 4 units of packed RBC a total of 4 L of IV fluids and she is in the intensive care unit for now. Overnight, the patient's urine output gradually improved. The most recent hemoglobin from this morning is at 10.4. Serum bicarb still 9 and the patient has a 9 gap acidosis of 14. Nevertheless, the lactic acid level dropped from as high as 8 down to 1.7. There CAT scan of the abdomen and pelvis was done and it showed no acute abnormalities and there is no indication or any cause for the blood loss. No evidence of any retroperitoneal bleeding. No Abdominal distention.. No other significant events overnight. She is awake and alert. No previous history of GI bleeds. Her coagulation profile was abnormal with a INR of 2.3 with a PT of 23.3. PTT was 29.9. Patient was reevaluated today on 10/10/19, remains in the ICU, patient presented with hypotension and profound anemia with hemoglobin of 3. Received so far a total of 4 units of packed RBCs. Patient is feeling better, her chest x-ray showed evidence of mild fluid overload, her Eliquis is still on hold. Patient is on room air with O2 saturations were 96%, and she was on sodium bicarb which I will discontinue. Her bicarb today is 18 and her anion gap has resolved. Renal profile is improving BUN is 55 creatinine is 1.64. WBC count is 8.7 hemoglobin today is 8.9. Again the patient received a total of 4 units of packed RBCs since admission. TSH remains high patient is on thyroid replacement therapy. T4 is 1.23 my plan today is to have patient evaluated by gastroenterology. Continue to hold Eliquis, and likely transfer the patient to a monitor bed on [facility] today. Patient was reevaluated today on 10/11/19, remains in the ICU as an overflow, patient is doing well, her hemoglobin is stable, no further episodes of bleeding, anticoagulation therapy remains on hold, patient is on room air, she is off the sodium bicarb since yesterday, and I plan today to give her a gentle diuresis, plan to transfer the patient today to a monitor bed on [facility] once a bed is available. Or consider a remote telemetry bed. Electrolytes are normal. Renal profile continues to improve, creatinine is 1.37 from 2.11 on admission. Hemoglobin is at 9.4. Patient received a total of 4 units of packed RBCs since admission. No chest x-ray was done today, but on physical examination had minimal crackles at the base. Patient was reevaluated today on 10/12/19, remains as an overflow in the ICU, patient is on room air, she is hemodynamically stable, she has no specific complaints except for some vague chest wall discomfort. Hemoglobin is stable. And she received a total of 4 units of packed RBCs since admission. No further episodes of bleeding, and no further drop in her hemoglobin. Patient is in atrial fibrillation, rate seems to be controlled at 78 bpm. Hence I plan to transfer the patient was admitted becomes available on the regular medical floor with remote monitoring Patient was seen in follow-up on the regular medical surgical floor on 10/13/2019. He was transferred out of the intensive care unit yesterday, no acute events overnight, he still in significant amount of chest wall discomfort, he has an epidural catheter in place, anesthesia services are following, his epidural is infusing at a rate of 9 ML per hour. His epidural catheter was removed yesterday and the thoracic spine epidural catheter was placed per anesthesia. His senna spirometer effort is 700 mL on today's exam, his respirations are shallow, he still requiring 10 L of oxygen per high flow nasal cannula with a pulse ox of 95%, hemodynamically he is stable, he is afebrile. Today's chest x-ray has been reviewed showing bilateral consolidation and pleural effusions, pneumothorax On 11/08/2019 patient seen in follow-up on the regular medical surgical floor. He is resting comfortably in bed, in no acute distress, he is on room air with pulse ox of 95%, no fever or chills, hemodynamically stable, he is alert and oriented to person and place, but not the time. He thinks is July. Denies any acute distress, denies any difficulty breathing, lung sounds are clear, diminished at the bases, no rhonchi or wheezing. Abdomen is soft, nontender, and according to the nursing staff patient has been passing flatus and bowel movements. No nausea or vomiting. Diet has been advanced to full liquid diet. Abdominal x-ray shows overall nonspecific pattern, but favor nonobstructive bowel gas pattern, and improving gaseous distention of the stomach. On 11/09/2019 patient seen in follow-up on the regular medical surgical floor, he is up in the chair today, in no acute distress, mentation seems to continue to improve every day, patient states he is going to [facility] rehab [facility] in [place]. He is anxious to be discharged home. Denies any specific complaints, no shortness of breath, room air pulse ox is 98%, lung sounds are clear, diminished at the bases, no rhonchi or wheezing, patient has been afebrile, no couplets of abdominal pain, has been afebrile. Tolerating full liquid diet he is working on physical therapy. No new labs today. Objective - Vital Signs Vital signs: Vital Signs Temp 97.6 F 11/09/19 07:06 Pulse 89 11/09/19 07:06 Resp 18 11/09/19 07:06 BP 145/90 11/09/19 07:06 Pulse Ox 98 11/09/19 11:07 Intake & Output 11/08/19 11/09/19 11/09/19 18:59 06:59 18:59 Intake Total 1700 300 Output Total 2630 Balance -2630 1700 300 Weight 103.1 kg Intake: IV 800 300 Sodium Chloride 0.9% 1, 800 300 000 ml @ 100 mls/hr IV . Q10H [facility] Rx#:[id number] Intake, IV Titration 900 Amount Piperacillin-Tazobactam 3 100 .375 gm In Sodium Chloride 0.9% 100 ml @ 25 mls/hr IVPB Q8HR [facility] Rx# :[id number] Sodium Chloride 0.9% 1, 800 000 ml @ 100 mls/hr IV . Q10H [facility] Rx#:[id number] Output: Urine 2630 Other: Voiding Method Diaper Incontinent # Voids 1 2 1 ABP, PAP, CO, CI - Last Documented Arterial Blood Pressure 178/114 - Exam GENERAL EXAM: Alert, pleasant, 49-year-old white male, on room air, with a pulse ox of 98%, sitting up in a chair, alert and oriented 3 comfortable in no apparent distress. HEAD: Normocephalic/atraumatic. EYES: Normal reaction of pupils, equal size. Conjunctiva pink, sclera white. NOSE: Clear with pink turbinates. THROAT: No erythema or exudates. NECK: No masses, no JVD, no thyroid enlargement, no adenopathy. CHEST: No chest wall deformity. Symmetrical expansion. LUNGS: Equal air entry with no crackles, wheeze, rhonchi or dullness. CVS: Regular rate and rhythm, normal S1 and S2, no gallops, no murmurs, no rubs ABDOMEN: Soft, nontender. No hepatosplenomegaly, normal bowel sounds, no guarding or rigidity. EXTREMITIES: No clubbing, no edema, no cyanosis, 2+ pulses and upper and lower extremities. MUSCULOSKELETAL: Muscle strength and tone normal. SPINE: No scoliosis or deformity SKIN: No rashes CENTRAL NERVOUS SYSTEM: Alert and oriented -3. No focal deficits, tone is normal in all 4 extremities. PSYCHIATRIC: Alert and oriented -3. Appropriate affect. Intact judgment and insight. - Labs CBC & Chem 7: 11/08/19 08:54 11/08/19 08:54 Labs: Abnormal Lab Results - Last 24 Hours (Table) 11/08/19 11/08/19 11/09/19 Range/Units 12:10 23:57 11:45 POC Glucose (mg/dL) 102 H 108 H 103 H (75-99) mg/dL Microbiology - Last 24 Hours (Table) 11/05/19 17:06 Blood Culture - Preliminary Blood No Growth after 72 hours Assessment and Plan Plan: Assessment: #1. Acute hypoxic respiratory failure related to multiple left-sided rib fractures, status post tractor accident/fall, resolved, and patient is on room air #2. Acute toxic metabolic encephalopathy, improved #3. Prolonged course of mechanical ventilation, requiring to closely 2 weeks on the ventilator support, successfully weaned and extubated on 10/29/2019 #4. Acute trauma related to tractor accident, with multiple left-sided rib fractures, and pulmonary contusion strongly suspected #5. Proximal sigmoid hematoma but no perforation #6. Severe ileus, improved #7. Abdominal wall hematoma and acute blood loss anemia #8. Benign essential hypertension #9. Type 2 diabetes mellitus #10. Chronic low back pain #11. Delirium tremens and alcohol withdrawal requiring prolonged course of mechanical ventilation #12. History of depression Plan: Has remained stable for last 24 hours, no acute events overnight, continue increasing mobility, ambulation, encourage deep breathing and coughing, mentation is improving, maintaining safety precautions, patient is on room air, denies any shortness of breath, anticipate discharge to a local ECF possibly today or tomorrow. Stable for transfer from pulmonary perspective I performed a history & physical examination of the patient and discussed their management with my nurse practitioner, Megha Kenny. I reviewed the nurse practitioner's note and agree with the documented findings and plan of care. Lung sounds are positive for diminished breath sounds. The findings and the impression was discussed with the patient. I attest to the documentation by the nurse practitioner. Time with Patient: Less than 30
--- NOTE | 2019-11-09 13:51 | P.PN ---
Subjective Progress Note Date: 11/09/19 History of present illness 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 Patient ended up seen in trauma at [facility] multiple exiting CAT scan was per for CT of the chest showed left sided hydropneumothorax with multiple displace rib fracture anterolateral drip 2-7 and posterior 5-11 with a flail chest, abdominal pelvic CT showed ball injury with small bowel and proximal sigmoid involvement with mild hematoma with no perforation or free air. Pelvic showed no fracture head and neck showed no C-spine fracture and the major abnormality and CAT scan of the brain. Left upper extremity did not show any fracture patient had his arm in sling of the time. Was seen and evaluated before leaving the emergency department patient was in quite bed discomfort and was in mild respiratory distress having significant tachypnea and tachycardia with significant hypoxia the time require higher flow 2. No chest tube place ment at the time. General surgery and ICU service were notified patient will be transferred to the ICU from the emergency department 10/10: Patient remains in the intensive care unit. We have added in consult with orthopedics regarding left clavicular fracture. Patient also has a skin tear to the left forearm. There is a consult in place with anesthesiology for pain control. Discussed issue that patient had alcohol in his system which he adamantly denies any alcohol intake. Patient to be on ice chips only per Dr. Valdivia. PT and OT will be added. Patient is on SCDs and LOU hose for DVT prophylaxis. Incentive spirometry is at bedside and patient encouraged to use every hour. Patient has been afebrile, heart rate 114, blood pressure 154/89, pulse ox 93% on high flow nasal cannula 10 L. Repeat blood work reveals WBC 14.0, hemoglobin 12.9. Sodium 133, creatinine 0.77, blood sugar 152. AST 105, ALT 67. Hepatitis panel negative. 10/11: Patient was seen yesterday by pain management and epidural was placed for pain control. Patient states his pain is much improved from yesterday. Repeat chest x-ray reveals mild cardiomegaly. Small left effusion with adjacent atelectasis and/or consolidation. No multiple left-sided rib fractures. Known distal left clavicle fracture. Ultrasound of the chest reveals small left pleural effusion 5.8 cm and marked. Patient has been afebrile, heart rate 111, respiratory rate 25, blood pressure 140/93 and he just received his blood pressu re medications. Pulse ox is 93% on 10 L high flow nasal cannula. Repeat blood work reveals WBC 14.2, hemoglobin 11.2. Sodium 132, creatinine 0.73 blood sugar 120. Total bilirubin 1.6, AST 77, ALT 54, alkaline phosphatase 54. Viral hepatitis panel negative. 10/12: Patient is seen today on the [facility] floor. Patient is currently on clear liquid diet. He has not had a bowel movement. Dulcolax suppository ordered. He remains with epidural in place but is receiving Dilaudid for breakthrough pain. Patient will be started on the CIWA protocol. He has been afebrile, heart rate 109, blood pressure 150/93, pulse ox 95% on 9 L high flow nasal cannula. Hydralazine added. PT OT to be working with patient today and get him into a chair. Patient denies any nausea vomiting. He is reaching 750 ML's on incentive spirometry. sales enablement manager has discussed discharge planning again with the patient and plan is to return home. 10/13: Patient developed significant mental status changes and drop in pulse ox requiring transfer into the intensive care unit. At the time of evaluation, patient was tachycardic, 2, hypertensive and on, for extra. Dr. De Leon will be intubating momentarily. Attempted multiple times to reach patient's but there was no answer. Patient does have epidural that is in place for pain control. Repeat blood work reveals WBC 13.8, hemoglobin 10.4. Sodium 136, po tassium 4.3, chloride 104, CO2 21, BUN 15 creatinine 0.7. Chest x-ray this morning reveals satisfactory ET and NG tube. Mild cardiomegaly. Possible mild pulmonary vascular congestion. Known left-sided fractures and distal left clavicle fracture. Small left effusion with left basilar atelectasis and/or consolidation. A CTA of the head and also of the chest to been ordered by Dr. De Leon. 10/14: Patient remains intubated and on mechanical ventilation with tidal volume 500, FiO2 50 and PEEP of 5. He is currently on Diprivan. CAT scan of the brain revealed cerebral atrophy. 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 No change. CT angiogram of the head was negative. Atherosclerotic vascular calcification. CT angios of the chest reveals cardiomegaly with bilateral lower lobe pulmonary consolidation and atelectasis. Bilateral pleural effusions could represent chronic heart failure. No evidence of pulmonary embolism. Pulmonary abnormalities are significantly increased compared to recent exam of October 09. The patient has significant ecchymosis and hematoma to the left lateral chest wall and abdominal region around to the retroperitoneal area. A repeat blood work reveals a drop in hemoglobin to 8.1. WBC 5.6, platelet count 173. Sodium 134, potassium 3.6, chloride 106, CO2 25, BUN 14 and creatinine 0.6. CK 977. Urinalysis clear, positive protein and ketones, no leukoesterase. Hepatitis panel negative. He has been afebrile, heart rate 93, blood pressure 137/65. Per patient's nurse, patient's was in attendance yesterday. Wound care to the left forearm ordered with Silvadene twice daily. 10/15: Patient remains intubated and on mechanical ventilation with tidal volume 450, FiO2 70. 10. Patient had difficulty maintaining pulse ox yesterday dropped down to 85 continued to have difficulties was up to 100% oxygen during the night. He is currently on Nimbex, Cleviprex, propofol. He is receiving Dilaudid every 1/2-2 hours and Ativan as well. Epidural was removed yesterday. Recommend starting fentanyl drip today. He received IV Lasix yesterday with 2 L output. Chest x-ray this morning reveals cardiomegaly and interstitial densities. Interstitial opacities may be slightly improved, correlate for slight improvement in pulmonary vascular congestion. Continued but slightly improved small left pleural effusion but with persistent prominent left basilar/retrocardiac atelectasis and/or consolidation. CAT scan of the abdomen and pelvis revealed focal left lower quadrant mesenteric hematomas adjacent to the proximal sigmoid are relatively similar in size. Surrounding strandy hemorrhage has decrease in the interval. No new or progressive hematoma. Development of generalized anasarca correlate for fluid overload. Moderate left effusion, small right effusion. Multiple left-sided rib fractures. Anterolisthesis at L5-S1 and moderate advanced degenerative disc disease. 10/16: Patient remains intubated and on mechanical ventilation, tidal volume 450, FiO2 of 100 and PEEP of 12. Patient remains on Nimbex, propofol and fentanyl. He is off Cleviprex. Cymbalta cannot be given down OG tube. Patient is more comfortable today from yesterday. Echocardiogram reveals EF 55-60% with moderate concentric left ventricular hypertrophy, trace mitral regurgitation, trace tricuspid regurgitation, small generalized pericardial effusion. Chest x- ray reveals no left-sided rib fractures and distal left clavicle fracture. Continued left small pleural effusion with left basilar and retrocardiac atelectasis and/or consolidation. Temperature max 100.1, heart rate 93, blood pressure 134/78. Repeat blood work reveals study BC 7.9, hemoglobin 9.8, platelet count 238. Sodium 136, potassium 3.1 replaced, chloride 101, CO2 29, BUN 13 and creatinine 0.6. Blood sugars running between 110 and 121. Sputum culture finalized with normal osmany. 10/17: Patient remains intubated and on mechanical ventilation with tidal volume 450, FiO2 60, PEEP 15. He has on the fall and fentanyl. Plan is to wean off fentanyl today. Patient Dulcolax suppository yesterday did not have a bowel movement. A second Dulcolax suppository ordered for today. Repeat chest x-ray reveals low lung volumes and cardiomegaly with left-sided rib fractures. Continue small left pleural effusion with associated left basilar atelectasis and/or infiltrate. Developing right central lung acute infiltrate and/or atelectasis. Patient has been afebrile, heart rate 93, blood pressure 125/77, pulse ox 95%. Repeat blood work reveals W BC 7.6, hemoglobin 9.7, platelet cou nt 234. Sodium 136, potassium 3.0 status post replacement of 3.6, chloride 101, CO2 31, BUN 14 and creatinine 0.50. Blood sugars are running between 104 and 122. 10/18: Patient remains intubated and on mechanical ventilation with tidal volume 450, FiO2 50, PEEP of 15. He is off Nimbex and fentanyl. Currently on propofol. He still has not had a bowel movement and is scheduled for another suppository. Patient has been afebrile, heart rate 88, blood pressure 142/57. Repeat blood work reveals WBC 7.4, hemoglobin 9.3, platelet count 260. Sodium 135, potassium 3.5, chloride 90, CO2 33, BUN 14 and creatinine 0.51. Repeat CK is 2391. Chest x-ray is stable. 10/19: Patient remains in the intensive care unit intubated and on mechanical ventilation with tidal volume 450, FiO2 50 and PEEP is down to 10. He is currently on propofol but is opening eyes unable to follow commands. Repeat blood work reveals WBC 8.2, hemoglobin 9.5, platelet count 343. Sodium 135, po tassium 3.8, chloride 99, CO2 32, BUN 15 and creatinine 0.48. Blood sugars are running between 107 124. CK 1063. Total bilirubin 0.8, AST 66 and ALT 52. Patient has been afebrile, heart rate 92, blood pressure 128/74. 10/20: Patient remains in the intensive care unit, intubated and on mechanical ventilation with tidal volume 450, FiO2 50, PEEP of 10. Patient is off fentanyl drip and on IV Dilaudid as needed. He is currently on propofol. Patient has been afebrile, heart rate 81, blood pressure 130/72, pulse ox 94%. Repeat blood work reveals W BC 9, hemoglobin 9.5, platelet count 363. Electrolytes normal, creatinine 0.56. Blood sugar 100 -117. Sputum culture finalized with normal fl ora. Repeat chest x-ray reveals mild progression of consolidation and pleural effusion on the left relative to the prior exam. Acute appearing multiple left- sided rib fractures. Anticipate weaning and probable extubation over the weekend. Patient still has not had a bowel movement and Dulcolax suppository ordered daily. 10/24: Patient seen this morning remains intubated on the vent, FiO2 50%. Patient is on propofol drip and Dilaudid when necessary able to open eyes to voice. Patient has failed at weaning attempts, Dr. Lee has a meeting with family this morning at 9 AM to discuss possible trach and peg. Labs were reviewed, hemoglobin 8.5. Adequate urine output is noted, per nursing patient has not had a bowel movement in about 3-4 days. Vital signs are stable, patient is afebrile, pulse rate 80, blood pressure 119/69, pulse ox 93%. Sputum culture finalized positive for Staphylococcus aureus, susceptible to Zosyn. Chest x-ray was stable compared to previous exam. 10/25: Per nursing yesterday family had meeting and patient never wish to be resuscitated and do not want to plan for trach and PEG at this point. Dr. Lee in and seen patient will attempt to wean and see how it's tolerated. Patient does open eyes and shake head yes and no for commands. Chest x-ray today shows left lower lobe infiltrate correlate for atelectasis and pneumonia, small left pleural effusion may be present hemothorax could be considered. Patient had low-grade temp 99.8 this morning pulse 102, respirations 25, blood pressure 125/76, satting 90% on 70% FiO2. 10/26: Patient failed weaning trial again this morning with Dr. Lee, per nursing patient gets too anxious and restless. Hemoglobin 8.8 this morning, white blood cells 7.5, sodium 134. Chest x-ray showed CHF with pulmonary vascular congestion, continued small to moderate left effusion. CT of the abdomen and pelvis yesterday showed stable mesenteric hematoma on the left lower quadrant, moderate basilar atelectasis and pleural effusion left greater than the right with multiple left-sided rib fractures all unchanged. CT of the brain showed age related atrophic and chronic small vessel ischemic change with no acute intracranial process. We'll continue to monitor patient closely along with pulmonary and continue the weaning process. 10/27: Patient continues to be sedated on the vent. Will do sedation holiday along with weaning trial again with Dr. Lee, FiO2 down to 50%. Patient currently on Precedex and fentanyl for sedation. Patient did open eyes and follows some simple commands this morning. Hemoglobin 9.1 this morning, white blood cells 8.9, sodium 136. Chest x-ray today showed chronic changes without evidence for acute pulmonary process. We'll continue to follow along with critical care. Family declined trach and PEG at this time. patient was extubated yesterday remained on BiPAP overnight. Currently on 6 L high flow. Patient is currently off Precedex. He does open eyes on command but otherwise is minimal responsive. Mucous membranes are dry. Patient is saturating well at 6 L of high flow. Blood pressure maintained at 155/92. Tachypnea can tachycardic. Continues to be Lasix 40 IV twice a day and is diuresing well around 300-500 mg oral per hour. Sodium is normal at 137 chloride 101 creatinine 0.54 concern for ATN or diabetes insipideus stop CT head is negative for any acute abnormality on 10/25. Chest x-ray on 10/28 and suggests minimal pulmonary vascular congestion and continued small left effusion with an adjacent atelectasis. Continues on Zosyn for aspiration pneumonia. If no improvement in mental status would consider EEG and repeat CAT scan of the head. 10/29 patient examined bedside. Mental status has improved since yesterday. Patient does was open eyes to command and has been moving all his extremities. Speech is gibberish. Sister at bedside acknowledge response to her. Patient apparently had episodes of vomiting, NG tube was placed immediately around 200 mL of fecal material was obtained from the stomach. Abdominal x-ray does suggest dilated loop of small bowel likely mechanical small bowel obstruction. No free air noted. Contrast material noted in the transverse colon in the record. Patient appears to be comfortable on 6 L of oxygen but didn't require BiPAP overnight. Patient continues to have 200-300 mL per hour of urine output. Urine does appear dark in color. On assessment of patient's lab hemoglobin is 10, BUN 21 creatinine 0.6 sodium 140. Patient noted to have anisocoria with right pupil larger than the left but pupils are reactive to light. EEG ordered. Neurology consult placed. 10/30: Patient remains in the intensive care unit. Patient's eyes are closed and minimal responsiveness at this time. He is not on sedation. NG tube with brown fluid return with 700 ML's out since last evening. Family do not wish to pursue PEG tube placement. Patient is a no intubationstatus moving forward.neurology to evaluate the patient today and EEG is pending. Patient is been afebrile, heart rate 95, blood pressure 156/94, pulse ox 96% on 3 L nasal cannula.WBC 8.9, hemoglobin 9.9. BUN 22 and creatinine 0.6. Blood sugars running 108-112.repeat chest x-ray this morning reveals small increase in left pleural fluid collection. Multiple left-sided rib fractures. Lines and catheters.abdominal x-ray from yesterday revealed dilated loop of small bowel could relate to mechanical small bowel obstruction. No free air. 10/31: Patient remains in intensive care unit. He is on nasal cannula O2 with pu lse ox 100% on 3 L. Blood pressure 160/93, heart rate 86, afebrile. WBC 9.7, hemoglobin 10.5, platelet count 424. Sodium 142, potassium 3.8, chloride 110, CO2 24, BUN 23 and creatinine 0.67. Blood sugars running between 101 106. Sputum culture finalized with MSSA. Catheter tip cultures show no growth in finalized. Patient seen by neurology with recommendations for CTA of the head and neck to rule out aneurysm which is highly doubtful. Also recommended MRI of the brain and C-spine due to hyperreflexia of the right side to rule out stroke versus myelopathy. EEG suggestive of mild to moderate encephalopathy of unknown etiology. Patient is answering questions today, pupils are equal and reactive. Patient has swallowing evaluation and patient was able to tolerate clear liquids and pure consistencies without aspiration. Defer to GI for dietary recommendations. 11/01: Patient remains in the intensive care unit, afebrile, heart rate 90, blood pressure 163/99, pulse ox 100% on 2 L nasal cannula. Blood pressure was high during the night order selector up to 153/116. Repeat blood work reveals hemoglobin 10.2. Creatinine 0.73, chloride 112. Blood sugar 104. CT angiogram of the neck revealed mild atherosclerotic narrowing at original of bilateral vertebral arteries. Mild less than 40% proximal ICA stenosis on either side. CTA of the head revealed moderate irregular atherosclerotic narrowing within the left greater than right V4 segment vertebral arteries and moderate atherosclerotic calcifications throughout the bilateral carotid siphons. No large vessel intracranial arterial occlusion. No aneurysmal change. Congenital variation with a persistent origin right RECEPTION INTERVIEWER. Some scattered fluid within the mastoid air cells correlate for mastoiditis. MRI of the brain revealed atrophy with. Ventricular white matter changes likely on the basis of chronic white matter ischemia. This includes areas within the brainstem. 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 Cavernous angiomas may be within the right thalamus and left basal ganglia. Correlate for bilateral mastoiditis. MRI of the cervical spine revealed central disc herniation with moderate anterior thecal sac compression at C5-6. Mild disc bulging C6-7 with anterior thecal sac flattening. Dr. Arteaga has added and consult with orthopedic spine and started patient on Lipitor and would like patient on aspirin once safe. We will ask for stool for occult blood. 4 aspirin was started. Patient did have large brown bowel movement yesterday with no signs of bright red bleeding or tarry stools. Patient did not require BiPAP last night. His respiratory rate remains in the 30s which is been consistent during his stay. He is currently off oxygen altogether and pulse oxing 96%. Patient does have history of CVA 1 year ago. His mental status is improving and he is able to follow directions. is at bedside. 11/02: Patient remains in intensive care unit but has been cleared by Dr. De Leon for transfer to the [facility] floor without telemetry. Patient has been seen by orthopedic spine with plan to continue conservative treatment. Patient afebrile, heart rate 100, blood pressure 141/104, respiratory rate 32, pulse ox 94% on room air. Lopressor was increased to 50 mg twice daily by Dr. De Leon. CK 38, triglycerides 218, cholesterol 365, LDL 303, HDL 18. TSH 2. Creatinine 0.6. Hemoglobin 10.8. Patient is reaching 750 on incentive spirometry. He is eating approximately 5200% of his meals. He is also on protein supplement. Waiting for stool for occult blood and possibly start aspirin if that is negative. Social work is working with the patient's family regarding discharge to long-term rehab facility on Thursday. Insurance authorization is in process. COVID 19 testing has been ordered. 11/03: Patient remains in the intensive care unit waiting for a bed on the [facility] floor. Bed will not be available at the long-term rehab facility until early next week. Patient is currently on. Diet and protein supplements 3 times daily but eating very little. He has been afebrile, heart rate 100, respiratory rate 36, pulse ox 100% on 2 L nasal cannula, blood pressure 146/97. C. difficile toxin is negative. WBC 12.6, hemoglobin 11.4. Electrolytes and renal function within normal limits. ALT is 74. COVID-19 testing is negative. 11/04: Patient had 2 large coffee ground emesis this morning with a large clots and dark bile. NG tube was inserted output shows dark thick output. Patient continues to have flexible stool management system in place. Patient has positive nausea. He is nothing by mouth at this time. Surgery has been into see patient. WBC16.0, hemoglobin 12.4, hematocrit 39.7, potassium 4.4, BUN 19, creatinine 0.69. Patient remains afebrile pulse rate 123, respirations 16, blood pressure 146/100 11/05: Patient is sitting up in bed pleasantly confused. He continues have NG tube in place with fecal-like output. Patient has flexible stool management in place with noted fecal output. Patient's x-ray did not show an obstruction. Patient is able to have ice chips at this time. Patient is tachycardic at 111, blood pressure 129/89, temperature 99.3. WBC 17.4, hemoglobin 12.2, BUN 18, creatinine 0.63. 11/06: Patient has been transferred to [facility]. Upon arrival patient postop is NG tube. Dr. Lei is okay with NG tube not being replaced. He is now on ice chips and popsicles. Patient also removed his indwelling catheter. A CAT scan was performed that showed 0. Patient is able to answer some questions appropriately however he is pleasantly confused. WC 14.6, hemoglobin 11.5, potassium 4.2, BUN 17, creatinine 0.63. Awaiting a bed [facility] for transfe r. 11/07: Patient is seen today on the [facility] floor. Yesterday NG tube, Colindres came out. He was started on Flomax and patient has been able to void without difficulty. Rectal tube has also been removed yesterday and he is only had 1 bowel movement since. We are increasing the amlodipine and Lopressor for blood pressure control. He has been afebrile, heart rate 100, blood pressure 157/98, pulse ox 97% on room air. Trazodone was started yesterday and patient slept well during the night. He is currently on sips of water. Speech therapy to reevaluate. Repeat blood work reveals W BC 9.7, hemoglobin 10.4. Creatinine 0.55. Liver function tests are normal. We are currently waiting for bed at long-term rehab center. 11/08: patient seen today in follow-up. Discharge plan has been changed to subacute rehab and family is looking at nursing homes in the area. Social work is working closely with the family and anticipate possible discharge later today. Medication reconciliation has been completed.patient's mental status seems to wax and wane as expected that he will have a long course getting back to baseline. He denies any shortness of breath.pulse ox is 98% on room air, afebrile, heart rate 89, blood pressure 145/90. Blood sugars are running 90-108. Insulin scale will be discontinued. He is currently on a full liquid diet and tolerating. Review of systems Constitutional: No fever, no chills, positive weakness, positive fatigue positive lethargy. positive daytime sleepiness. He reports generalized pain EENT: No headache. No epistaxis. Lungs: No shortness of breath, cough, no sputum production. No wheezing. Cardiovascular: No chest pain, no lower extremity edema. No palpitations. No paroxysmal nocturnal dyspnea. No orthopnea. No lightheadedness or dizziness. No syncopal episodes. Abdominal: No abdominal pain. No nausea, vomiting. No diarrhea. No constipation. No bloody or tarry stools. Genitourinary: No dysuria, increased frequency, urgency. No urinary retention. Musculoskeletal: No myalgias. No muscle weakness, no gait dysfunction, no frequent falls. No back pain. No neck pain. Integumentary: No wounds, no lesions. No rash or pruritus. No unusual bruising. No change in hair or nails. Neurologic: No aphasia. No facial droop. Noted change in mentation. No head injury. No headache. No paralysis. No paresthesia. Psychiatric: No depression. No anxiety. No mood swings. Endocrine: No abnormal blood sugars. No weight change. No excessive sweating or thirst. No cold intolerance. Physical examination Gen: This is 49-year-old male. He is sitting up in bed and appears to be comfortable. No respiratory distress is noted. HEENT: Head is atraumatic, normocephalic. Pupils equal, round. Sclerae is anicteric. NECK: Supple. No JVD. No lymphadenopathy. No thyromegaly. LUNGS: decreased breath sounds bilaterally with scattered rhonchi. HEART: Regular rate and rhythm. No murmur. ABDOMEN: Soft. Bowel sounds are present. No masses. No tenderness. EXTREMITIES: 1+ bilateral pedal edema. No calf tenderness. wound to the left forearm, healing without signs of infection. NEUROLOGICAL: Patient is awake, oriented to person. Able to nod and answer simple questions and follow simple directions. Assessment and plan 1 post tractor accident with multiple injury and trauma. 2 Flail chest with multiple rib fracture in the left side displace in the anterior and posterior area with significant pneumothorax, stable. Pleural effusion. 3 significant dyspnea and shortness of breath with acute hypoxia respiratory failure requiring intubation and mechanical ventilation.currently extubated. 4 severe abdominal pain with bowel injury along with proximal sigmoid injury with left lower quadrant mesenteric hematomas. Continue conservative treatment, monitor hemoglobin. 5 alcohol intoxication. Liver function tests also reflect chronic alcohol use. 6 question of syncope, alcohol-related. 7 active delirium tremens. Patient has required intubation mechanical ventilation. Patient is extubated 8 acute hypoxic respiratory failure required intubation and mechanical ventilation. successfully extubated. 9 hypertensive emergency. Off Clevidex drip. Continue amlodipine 5 mg daily, Lopressor 50 mg twice daily. 10 hypertension. Continue as above. 11 acute metabolic toxic encephalopathic secondary to ICU psychosis, multiple sedating medications over long period of time. Mental status is improving. CTA of the head and neck and MRI of the brain as above. 12 hyperglycemia: Type 2 diabetes. NovoLog scale. 12 chronic lower back pain. 13 recurrent depression. Continue Cymbalta. 14 GI prophylaxis: Patient be on pantoprazole. 15 DVT prophylaxis. Heparin subcu 16 Clavicular fracture. Consult with orthopedic appreciated. Sling is in place. 17 acute blood loss anemia with hematoma and ecchymosis to the left lateral and posterior abdominal wall secondary to mesenteric hematoma. 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 Consult with orthopedic spine appreciated. Plan for conservative management. CODE STATUS: Full code. Discharge plan: subacute rehab. Impression and plan of care have been directed as dictated by the signing physician. Kyra Norwood nurse practitioner acting as scribe for signing physician. Objective - Vital Signs Vital signs: Vital Signs Temp 97.6 F 11/09/19 07:06 Pulse 89 11/09/19 07:06 Resp 18 11/09/19 07:06 BP 145/90 11/09/19 07:06 Pulse Ox 98 11/09/19 07:06 Intake & Output 11/08/19 11/09/19 11/09/19 18:59 06:59 18:59 Intake Total 1700 Output Total 2630 Balance -2630 1700 Weight 103.1 kg Intake: IV 800 Sodium Chloride 0.9% 1, 800 000 ml @ 100 mls/hr IV . Q10H [facility] Rx#:[id number] Intake, IV Titration 900 Amount Piperacillin-Tazobactam 3 100 .375 gm In Sodium Chloride 0.9% 100 ml @ 25 mls/hr IVPB Q8HR [facility] Rx# :[id number] Sodium Chloride 0.9% 1, 800 000 ml @ 100 mls/hr IV . Q10H [facility] Rx#:[id number] Output: Urine 2630 Other: # Voids 1 2 ABP, PAP, CO, CI - Last Documented Arterial Blood Pressure 178/114 - Labs CBC & Chem 7: 11/08/19 08:54 11/08/19 08:54 Labs: Abnormal Lab Results - Last 24 Hours (Table) 11/08/19 11/08/19 11/08/19 Range/Units 08:54 08:54 12:10 RBC 3.72 L (4.30-5.90) m/uL Hgb 10.4 L (13.0-17.5) gm/dL Hct 33.9 L (39.0-53.0) % MCHC 30.6 L (31.0-37.0) g/dL Carbon Dioxide 20 L (22-30) mmol/L Creatinine 0.55 L (0.66-1.25) mg/dL POC Glucose (mg/dL) 102 H (75-99) mg/dL 11/08/19 Range/Units 23:57 RBC (4.30-5.90) m/uL Hgb (13.0-17.5) gm/dL Hct (39.0-53.0) % MCHC (31.0-37.0) g/dL Carbon Dioxide (22-30) mmol/L Creatinine (0.66-1.25) mg/dL POC Glucose (mg/dL) 108 H (75-99) mg/dL Microbiology - Last 24 Hours (Table) 11/05/19 17:06 Blood Culture - Preliminary Blood No Growth after 72 hours
--- NOTE | 2019-11-09 14:04 | P.DS ---
Providers Date of admission: 10/10/19 18:33 Expected date of discharge: 11/09/19 Attending physician: Edmar Valdivia Consults: 10/10/19 18:30 Consult Physician Routine Consulting Provider: Mc De Leon Consult Reason/Comments: icu patient Do you want consulting provider notified?: Yes Consult to Anesthesia Routine Consulting Provider: Anesthesia,Services Consult Reason/Comments: rib fx 10/11/19 09:13 Consult Physician Routine Consulting Provider: Allan Lopes Consult Reason/Comments: Fx. clavicular and ribs on left side Do you want consulting provider notified?: Yes 10/29/19 15:33 Consult Physician Routine Consulting Provider: Damian Rosario Consult Reason/Comments: Medical Management Do you want consulting provider notified?: Already Contacted 10/31/19 09:08 Consult Physician Routine Consulting Provider: Lobo Cruz Consult Reason/Comments: unequal pupils, poor resonsiveness, s/p prolonged mechanical ventilation Do you want consulting provider notified?: Yes 11/01/19 15:56 Consult Physician Routine Consulting Provider: Allan Lopes Consult Reason/Comments: prior clavicle/rib fx Do you want consulting provider notified?: Yes 11/02/19 09:15 Consult Physician Routine Consulting Provider: Radha Jones Consult Reason/Comments: central disc herniation with moderate thecal sac compression C5-6 Do you want consulting provider notified?: Yes Primary care physician: [facility] Course: Discharge diagnosis 1. Status post Fall from tractor with multiple injuries 2. Proximal sigmoid hematoma and contusion. 3. Multiple left-sided rib fractures with flail chest 4. Left closed distal clavicular fracture followed by orthopedics 5. Chronic alcohol use and evidence of alcohol withdrawal 6. Acute hypoxic respiratory failure likely secondary to alcohol withdrawal syndrome and delirium tremens, multiple rib fractures on the left chest and possible pulmonary contusion. 7. Possible pulmonary contusion 8. Acute toxic metabolic encephalopathy 9. Severe Ileus improved Hospital course This is a 49-year-old male with a known history of CVA that is affected his left side, hypertension, obesity and chronic lower back pain. Patient came into the ER after he fell from his tractor. He reports since his stroke that his balance has not been good. He reports that he was picking up something in his tractor lost balance and fell out of bed. It is about a 10 foot drop. He had significant pain on his left side with shortness of breath. And trauma to his left arm. He came into clinic Hospital for further workup. He is currently in the ICU. Patient had an alcohol level of 82. He had a computed tomography scan of the chest and pelvis revealing tiny left-sided pneumothorax and multiple acute nondisplaced and displaced rib fractures on the left side. Positive for a flail chest with consecutive ribs fractured at 2 levels. In bowel injury involving the small bowel loop of the anterior and mid abdomen and more prominent proximal sigmoid colon left pelvis. He denies any daily alcohol use. Patient had remained in the ICU until his pain was controlled. He was transferred out of the ICU to regular medical floor. He then went into delirium tremens and had respiratory distress. Required to be transferred back to the ICU and intubated. He was followed closely by critical care team. He had ICU management. He had prolonged course of mechanical ventilation, requiring to closely 2 weeks on the ventilator support, successfully weaned and extubated on 10/29/2019. Patient also had evidence of acute toxic metabolic encephalopathy and was doing with severe confusion. His mentation is improving. He also had an ileus that has now resolved. He is tolerating diet. He is having bowel movements. He is afebrile. He will be discharged to [facility] for further rehabilitation. Patient is stable for discharge. Please refer to chart for any further details. Patient Condition at Discharge: Stable Plan - Discharge Summary Discharge Rx Participant: Yes New Discharge Prescriptions: New Tamsulosin [Flomax] 0.4 mg PO PC-SUPPER cap.er.24h Atorvastatin [Lipitor] 40 mg PO DAILY tab Metoprolol Tartrate [Lopressor] 100 mg PO BID tab HYDROcodone/APAP 5-325MG [[place] 5-325] 1 each PO Q6HR PRN #12 tab PRN Reason: Pain Pantoprazole [Protonix] 40 mg PO AC-BID tablet. Acetaminophen Tab [Tylenol] 650 mg PO Q6HR PRN tab PRN Reason: Mild Pain Or Fever > 101 Continue amLODIPine [Norvasc] 10 mg PO DAILY DULoxetine HCL [Cymbalta] 60 mg PO DAILY Discontinued Metoprolol Tartrate [Lopressor] 50 mg PO BID HYDROcodone/APAP 7.5-325MG [[place] 7.5-325] 1 tab PO BID Discharge Medication List amLODIPine [Norvasc] 10 mg PO DAILY 10/10/19 [History] DULoxetine HCL [Cymbalta] 60 mg PO DAILY 10/11/19 [History] Acetaminophen Tab [Tylenol] 650 mg PO Q6HR PRN tab 11/09/19 [Rx] Atorvastatin [Lipitor] 40 mg PO DAILY tab 11/09/19 [Rx] HYDROcodone/APAP 5-325MG [[place] 5-325] 1 each PO Q6HR PRN #12 tab 11/09/19 [Rx] Metoprolol Tartrate [Lopressor] 100 mg PO BID tab 11/09/19 [Rx] Pantoprazole [Protonix] 40 mg PO AC-BID tablet. 11/09/19 [Rx] Tamsulosin [Flomax] 0.4 mg PO PC-SUPPER cap.er.24h 11/09/19 [Rx] Follow up Appointment(s)/Referral(s): El Stephenson PAC [PHYSICIAN CREATIVE [employer] MUSIC THERAPIST] - 4 Weeks (Patient may follow-up with El Stephenson PA-C or Dr. David Jones at [facility] in 4 weeks following discharge. ) Giuliano Clay MD [REFERRING] - 1-2 days Kenan Hernandez MD [Primary Care Provider] - 1 Week (after discharge from rehab) Edmar Valdivia MD [STAFF PHYSICIAN] - 1 Week Activity/Diet/Wound Care/Special Instructions: No driving while taking [place] Diet regular Discharge Disposition: TRANSFER TO SNF/ECF
--- NOTE | 2019-11-09 14:31 | P.PN ---
Subjective Progress Note Date: 11/09/19 The patient was seen at bedside and the right he stated that he is doing well. He denies of any new weakness or numbness. Denies any visual disturbance. Objective - Vital Signs Vital signs: Vital Signs Temp 97.6 F 11/09/19 07:06 Pulse 89 11/09/19 07:06 Resp 18 11/09/19 07:06 BP 145/90 11/09/19 07:06 Pulse Ox 98 11/09/19 11:07 Intake & Output 11/08/19 11/09/19 11/09/19 18:59 06:59 18:59 Intake Total 1700 300 Output Total 2630 Balance -2630 1700 300 Weight 103.1 kg Intake: IV 800 300 Sodium Chloride 0.9% 1, 800 300 000 ml @ 100 mls/hr IV . Q10H [facility] Rx#:[id number] Intake, IV Titration 900 Amount Piperacillin-Tazobactam 3 100 .375 gm In Sodium Chloride 0.9% 100 ml @ 25 mls/hr IVPB Q8HR [facility] Rx# :[id number] Sodium Chloride 0.9% 1, 800 000 ml @ 100 mls/hr IV . Q10H [facility] Rx#:[id number] Output: Urine 2630 Other: Voiding Method Diaper Incontinent # Voids 1 2 1 ABP, PAP, CO, CI - Last Documented Arterial Blood Pressure 178/114 - Exam GENERAL: The patient is lying in bed and in no acute distress. CHEST: The heart rate is regular rate rhythm. No murmurs to auscultation. LUNG: Not labored breathing. Clear to ausculation. NEUROLOGICAL: Higher mental function: The patient is awake, alert, oriented to self and place but not time. She able to name objects correctly such as the pen, watch and glasses. The patient is following commands. No aphasia and no neglect. His speech is more fluent as much more improved compared to the week and a half ago.. Cranial nerves: The pupils are round, right pupil is 5mm bilaterally reactive to light. Visual galaviz are full to threat throughout. Extraocular movement was tracking throughout and no nystagmus is noted. Facial sensation could not be assessed. The facial strength is normal throughout and no facial droop noted. No dysarthria is noted. Motor: Gait is defered. The strength: Right upper extremity strength is 5 out of 5 left upper extremity was I felt was a 5 out of 5 as well. Right lower extremity is 5 over 5 left lower extremity could not assess because of patient the pain Normal tone and bulk. Sensation: Intact to painful stimuli. Reflexes (right/left): 3+ on the right upper and lower extremities. While left 1+. Plantars are mute bilaterally. - Labs CBC & Chem 7: 11/08/19 08:54 11/08/19 08:54 Labs: Abnormal Lab Results - Last 24 Hours (Table) 11/08/19 11/09/19 Range/Units 23:57 11:45 POC Glucose (mg/dL) 108 H 103 H (75-99) mg/dL Microbiology - Last 24 Hours (Table) 11/05/19 17:06 Blood Culture - Preliminary Blood No Growth after 72 hours Assessment and Plan Assessment: Patient encephalopathy due to prolonged hospital stay and the multiple medical condition. The feel also he has a component of delirium. Deconditioning is likely due to his a prolonged ICU stay as well as multiple medical condition the. Patient's condition that seems to be improving. Unclear why the patient fell off the tractor. Questionable syncope, also possibly because of acohol intoxication he fell over and he passed out. cannot rule out seizure. 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 Also on imaging shows left cerebellar lacunar hyperintesity as well small vessel disease. Possible cavernous angioma over on the right thalamus and the left basal ganglia Post tractor accident with multiple injuries and trauma. Flail chest with multiple rib fracture in the left side displaced in the anterior and posterior area with significant pneumothorax Severe abdominal pain with bowel injury a long proximal sigmoid injury with mild hematoma with no rupture or or perforation. Alcohol intoxication Hypercholesterolemia Plan: Routine EEG (10/31/19): Mild to moderate encephalopathy of unknown etiology. There is no focal slowing. There is no interictal or seizure activity during the study. MRI of brain on 11/01/2019 was reported as atrophy of the periventricular white matter changes likely on the basis of chronic white matter ischemia. This in cludes 7 area within the brainstem. Old lacunar infarct in the right thalamus. Cavernous angioma may be within the right thalamus and the left basal ganglia. I personally reviewed the MRI of the brain and I do agree there is old lacunar on the right thalamus. I also saw and old lacunae over the left the cerebellar on one of the axial views. There is a small white matter changes as well. MRI C-spine: Large Central disc herniation with moderate anterior thecal sac compressing C5-C6. Mild disc bulge at C6-C7 with anterior thecal sac flattening. CT angiogram of the head reported as moderate irregular atherosclerotic narrowing within the left greater than the right is V4 segment vertebral artery and moderate atherosclerotic calcification throughout the bilateral carotid siphons. No large a vessel intracranial artery occlusion. No aneurysm changes seen. Some scattered fluid within the mastoid air cells. Correlate for any mastoid the pain to exclude mastoiditis. CTA of the neck was reported as mild of the scar narrowing at the origin of the bilateral vertebral arteries. Mild, less than 40% proximal ICA stenosis on either side. Echocardiogram was reported as left ventricle size is normal. Ejection fraction is 55-60%. There is moderate concentric left ventricular hypertrophy. There is a trace mitral regurgitation Hemoglobin A1c is 5.6. Lipid profile is triglyceride is 740, cholesterol is 292 but was taken while patient was on Propofol. Repeat the lipid profile (11/02/19): Triglyceride of 218, cholesterol 365, LDL of 303 and HDL of 18. TSH: 2.0 Regarding the the central disc herniation on the C5-C6 with hyper-reflexia over the right upper and lower extremity. Orthopedic was consulted and that they discuss the case with the patient as well as his family member and they decided that to go with the conservative medical management. He'll follow up with orthopedic as an outpatient upon discharge. On thiamine 100 mg twice a day. 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 Also recommend the patient to follow-up with a neurosurgeon regarding the cavernous hemangioma as outpatient. As well has follow-up with the neurologist as an outpatient. Lobo Cruz M.D. Neuro-hospitalist Time with Patient: Greater than 30
[2019-11-09 16:19] VITALS: BP 145/99; PULSE 95; RESP 17; TEMP 97.9
--- NOTE | 2019-11-10 15:05 | CDI ---
Documentation Clarification Form Date: 11/10/19 From: Daphne Frost Phone: If you have a question about this query, please contact Monica Chamorro Rod Piler at [phone] between 8am and 5pm. Admit Date: 10/10/19 Discharge Date:11/09/19 Patient Name: Aidan Dvaies Visit Number: [id number] ATTENTION: The Clinical Documentation Specialists (CDI) and [facility] Coding Staff appreciate your assistance in clarifying documentation. Please respond to the clarification below the line at the bottom and electronically sign. The CDI & [facility] Coding staff will review the response and follow-up if needed. Please note: Queries are made part of the Legal Health Record. If you have any questions, please contact the author of this message via ITS. Dear Dr. Shea Hansen hospital acquired pressure injury stage II was documented in the nursing view assessment documentation beginning on 11/02. History/Risk Factors: Multiple rib fractures with flail chest, pneumothorax, hemothorax, acute hypoxic respiratory failure, ventilated in the ICU Clinical Indicators: skin on bilateral buttock - fragile texture, color - pink, erythema was documented in the nursing documentation Location: coccyx Wound description: stage II pressure Treatment: Zinc paste, turn q 2 hours In your professional opinion, can you please clarify the diagnosis, location, laterality and whether present on admission (POA): Stage 1 Pressure/Decubitus Ulcer (intact skin, non-blanching redness of local area) Stage 2 Pressure/Decubitus Ulcer (Partial thickness, loss of dermis, pink wound bed) Stage 3 Pressure/Decubitus Ulcer (Full thickness tissue loss) Stage 4 Pressure/Decubitus Ulcer (Full thickness tissue loss with exposed bone, tendon, or muscle. May have slough or eschar present) Unstageable Other condition, please specify Unable to determine Please indicate etiology of pressure ulcer (if known). Unable to determine MTDD
== END 2019-11-09 17:14 | DRG 963 ==
LOC: EC 17:16 → 2SICU 18:33 → 4SSUR 10-12 20:18 → 2SICU 10-14 04:49 → 4SSUR 11-06 17:20
PROVIDERS: ADMIT Surgery; ATTEND Surgery
PROC: 0BH17EZ Insertion of Endotracheal Airway into Trachea, Via Natural or Artificial Opening (ICD-10-PCS; principal; 2019-10-14)
PROC: 5A1955Z Respiratory Ventilation, Greater than 96 Consecutive Hours (ICD-10-PCS; principal; 2019-10-14)
PROC: 06HM33Z Insertion of Infusion Device into Right Femoral Vein, Percutaneous Approach (ICD-10-PCS; 2019-10-14)
PROC: 03HB33Z Insertion of Infusion Device into Right Radial Artery, Percutaneous Approach (ICD-10-PCS; 2019-10-14)
PROC: 0D9670Z Drainage of Stomach with Drainage Device, Via Natural or Artificial Opening (ICD-10-PCS; 2019-10-14)
PROC: 30233N1 Transfusion of Nonautologous Red Blood Cells into Peripheral Vein, Percutaneous Approach (ICD-10-PCS; 2019-10-15)
PROC: 05HN33Z Insertion of Infusion Device into Left Internal Jugular Vein, Percutaneous Approach (ICD-10-PCS; 2019-10-22)
PROC: 4A133B1 Monitoring of Arterial Pressure, Peripheral, Percutaneous Approach (ICD-10-PCS; 2019-10-22)
PROC: 4A133J1 Monitoring of Arterial Pulse, Peripheral, Percutaneous Approach (ICD-10-PCS; 2019-10-22)
PROC: 03HY32Z Insertion of Monitoring Device into Upper Artery, Percutaneous Approach (ICD-10-PCS; 2019-10-22)
PROC: 5A09357 Assistance with Respiratory Ventilation, Less than 24 Consecutive Hours, Continuous Positive Airway Pressure (ICD-10-PCS; 2019-10-28)
DX: S27.2XXA Traumatic hemopneumothorax, initial encounter (principal); G92 Toxic encephalopathy; S36.892A Contusion of other intra-abdominal organs, initial encounter; S22.5XXA Flail chest, initial encounter for closed fracture; J69.0 Pneumonitis due to inhalation of food and vomit; J80 Acute respiratory distress syndrome; D62 Acute posthemorrhagic anemia; E87.4 Mixed disorder of acid-base balance; F10.231 Alcohol dependence with withdrawal delirium; F33.9 Major depressive disorder, recurrent, unspecified; I16.1 Hypertensive emergency; K56.7 Ileus, unspecified; S27.329A Contusion of lung, unspecified, initial encounter; I69.354 Hemiplegia and hemiparesis following cerebral infarction affecting left non-dominant side; S36.429A Contusion of unspecified part of small intestine, initial encounter; S36.523A Contusion of sigmoid colon, initial encounter; J98.11 Atelectasis; J90 Pleural effusion, not elsewhere classified; R56.9 Unspecified convulsions; J44.9 Chronic obstructive pulmonary disease, unspecified; Z20.828 Contact with and (suspected) exposure to other viral communicable diseases; F28 Other psychotic disorder not due to a substance or known physiological condition; E11.51 Type 2 diabetes mellitus with diabetic peripheral angiopathy without gangrene; E66.01 Morbid (severe) obesity due to excess calories; F10.229 Alcohol dependence with intoxication, unspecified; E11.65 Type 2 diabetes mellitus with hyperglycemia; M50.222 Other cervical disc displacement at C5-C6 level; I11.9 Hypertensive heart disease without heart failure; K70.10 Alcoholic hepatitis without ascites; D18.02 Hemangioma of intracranial structures; E78.00 Pure hypercholesterolemia, unspecified; E78.1 Pure hyperglyceridemia; G89.29 Other chronic pain; H57.02 Anisocoria; E87.70 Fluid overload, unspecified; M43.16 Spondylolisthesis, lumbar region; M51.37 Other intervertebral disc degeneration, lumbosacral region; M48.02 Spinal stenosis, cervical region; S30.1XXA Contusion of abdominal wall, initial encounter; S42.032A Displaced fracture of lateral end of left clavicle, initial encounter for closed fracture; S51.812A Laceration without foreign body of left forearm, initial encounter; S40.812A Abrasion of left upper arm, initial encounter; S30.810A Abrasion of lower back and pelvis, initial encounter; S20.419A Abrasion of unspecified back wall of thorax, initial encounter; S20.219A Contusion of unspecified front wall of thorax, initial encounter; M47.812 Spondylosis without myelopathy or radiculopathy, cervical region; I65.23 Occlusion and stenosis of bilateral carotid arteries; R32 Unspecified urinary incontinence; R33.9 Retention of urine, unspecified; R55 Syncope and collapse; Z87.891 Personal history of nicotine dependence; Z79.899 Other long term (current) drug therapy; Y90.5 Blood alcohol level of 100-119 mg/100 ml; Z68.33 Body mass index [BMI] 33.0-33.9, adult; W30.89XA Contact with other specified agricultural machinery, initial encounter; Y92.9 Unspecified place or not applicable
CPT/HCPCS: 36410; 36415; 36600; 62325; 70450; 70496; 70498; 70551; 71045; 71260; 71275; 72125; 72156; 72170; 74018; 74019; 74177; 74178; 76604; 76937; 80048; 80053; 80061; 80074; 80320; 81001; 81003; 82272; 82465; 82550; 82607; 82805; 83036; 83540; 83550; 83605; 83625; 83690; 83735; 84100; 84132; 84145; 84443; 84478; 85025; 85027; 85610; 85730; 86850; 86900; 86901; 86920; 87040; 87070; 87077; 87086; 87186; 87205; 87324; 90471; 90715; 93005; 93306; 94002; 94003; 94640; 94660; 94760; 95816; 96361; 96374; 96375; 99291

== ENCOUNTER → 2020-03-16 | Outpatient (CLI) | payer OTHER ==
--- NOTE | 2020-03-16 12:25 | CT ---
EXAMINATION TYPE: CT cervical spine wo con DATE OF EXAM: 03/16/2020 COMPARISON: CT cervical spine June 10, 2019. MRI cervical spine November 01, 2019 HISTORY: Pain CT DLP: 847 mGycm. Automated Exposure Control for Dose Reduction was Utilized. TECHNIQUE: CT scan of the cervical spine is obtained without contrast, axial images are obtained, sa gittal and coronal reformatted images are also reviewed. FINDINGS: Cervical spine is visualized in its entirety from C1 through upper thoracic levels, redemon strates straightened alignment without evidence of acute fracture or dislocation. Slight grade 1 retr olisthesis C5 on C6 and C6 on C7 remains present. Prevertebral soft tissue appears within normal limi ts. The C1-C2 articulation remains within normal limits on the coronal images. Vertebral body height s are maintained. Mild disc space narrowing C5-C6 level and mild to moderate disc space narrowing C6- C7 level remains present with moderate anterior spurring. Review of axial images shows C2-C3, C3-C4, C4-C5 levels all to appear within normal limits. Axial images at the C5-C6 level redemonstrates central disc protrusion effacing anterior thecal sac a nd uncovertebral facet degenerative changes causing mild left-sided neural foraminal narrowing. Axial images at C6-C7 level redemonstrated posterior spur disc complex and marginal spurring effacing the anterior thecal sac and causing moderate left and mild right-sided neural foraminal narrowing. B looming artifact suggest more severe neural foraminal narrowing at this level. Axial images at C7-T1 level are within normal limits. IMPRESSION: Spondylolisthesis and mild to moderate degenerative changes C5-C6 and C6-C7 level redemon strated. No significant change from recent CT and MRI.
== END | disposition home or self-care (01) ==
LOC: RADMRIMAIN 11:24
PROVIDERS: ATTEND Orthopaedic Surgery
DX: M43.12 Spondylolisthesis, cervical region (principal); M47.812 Spondylosis without myelopathy or radiculopathy, cervical region
CPT/HCPCS: 72125